=== PATIENT | female | born 1970 | race Caucasian/White ===

== ENCOUNTER → 2017-09-29 09:26 | Outpatient (CLI) | payer SELFPAY ==
[2017-09-29 10:39] LABS: Basophils % 0.5 % (0.1-2.0); Eosinophils # 0.1 K/mm3 (0.0-0.4); Eosinophils % 1.3 % (0.1-12.0); Hematocrit 43.2 % (37.0-47.0); Hemoglobin 13.9 g/dL (12.2-16.2); Lymphocytes # 1.2 K/mm3 (0.7-4.5); Lymphocytes % 16.4 K/mm3 (10-50); Mean Corpuscular HGB Conc 32.3 g/dL (31.8-35.4); Mean Platelet Volume 7.5 fl (7.4-10.4); Monocytes # 0.5 K/mm3 (0.1-1.0); Monocytes % 6.4 % (1.7-9.3); Neutrophils # 5.7 K/mm3 (1.8-7.8); Neutrophils % 75.5 % (37.0-80.0); Platelet Count 325 K/mm3 (142-424); Red Blood Count 4.65 M/mm3 (4.20-5.40); Red Cell Distribution Width 12.4 % (11.5-17.5); White Blood Count 7.5 K/mm3 (4.8-10.8)
--- NOTE | 2017-09-29 12:28 | XR_ITS ---
XR chest 2V HISTORY: ITS.REASON: COUGH ORDERING PHYSICIAN: Moses Joe MD PATIENT AGE: 47 years COMPARISON: FINDINGS: The cardiomediastinal silhouette and pulmonary vascularity are within normal limits. The lungs are clear without infiltrates, suspicious nodules, or pleural effusions. There is evidence of old granulomatous disease No acute bony abnormalities. IMPRESSION: Negative chest, no acute finding
[2017-09-29 12:37] LABS: Alanine Aminotransferase 22 U/L (12-78); Albumin Level 3.6 gm/dL (3.4-5.0); Albumin/Globulin Ratio 1.2 (1.1-1.8); Alkaline Phosphatase 79 U/L (46-116); Anion Gap 13.2 mEq/L (5-15); Aspartate Amino Transferase 15 U/L (15-37); Bilirubin,Total 0.5 mg/dL (0.2-1.0); Blood Urea Nitrogen 16 mg/dL (7-18); Calcium 8.9 mg/dL (8.5-10.1); Carbon Dioxide 27 mmol/L (21.0-32.0); Chloride 107 mmol/L (98-107); Cholesterol 182 mg/dL (140-200); Creatinine,Serum 0.84 mg/dL (0.55-1.02); Estimated Glomerular Filt Rate 73 ml/min (>60); GFR (African American) 88 ML/MIN (>60); Globulin 3.1 gm/dl (1.3-3.2); Glucose 93 mg/dL (74-106); Potassium 4.2 mmoL/L (3.5-5.1); Sodium 143 mmol/L (136-145); Thyroid Stimulating Hormone 1.01 uIU/ml (0.358-3.740); Total Protein,Serum 6.7 gm/dL (6.4-8.2)
[2017-09-29 12:45] LABS: Chol/HDL Ratio 3.3 (1-3.5); HDL Cholesterol 56 mg/dL (29-89); LDL Cholesterol 112 mg/dL (0-130); T4 (Thyroxine) 6.1 ug/dl (4.7-13.3); Triglycerides 70 mg/dL (30-200); Triiodothryronine (T3) Uptake 32 % (31-39); VLDL Cholesterol 14 mg/dL (0-40)
[2017-09-30 13:52] LABS: Estradiol 223.8 pg/mL (.); FSH 34.6 mIU/mL (.); LH 92.8 mIU/mL (.)
[2017-10-02 06:27] LABS: Testosterone,Free 0.8 pg/mL (0.0-4.2); Vitamin B12 382 pg/mL (232-1245)
[2017-10-04 15:14] LABS: Testosterone, Total, LC/MS 22.2 ng/dL (.)
== END ==
PROVIDERS: Visit Provider Nurse Practitioner Obstetrics & Gynecology
DX: R05 Cough (principal)
CPT/HCPCS: 36415; 71046; 80053; 80061; 82607; 82670; 83001; 83002; 84402; 84403; 84436; 84443; 84479; 85025

== ENCOUNTER → 2017-10-05 16:09 | Outpatient (CLI) | payer OTHER, SELFPAY ==
--- NOTE | 2017-10-05 16:11 | MM_ITS ---
MM Dig screening mamm BI w/CAD CAD Screening ORDERING PHYSICIAN : Moses Joe MD PATIENT AGE: 47 years GENDER: Female HISTORY : No hormones no new complaints. Previous benign excisional biopsy left breast. Family history. Sister with breast cancer age 50. COMPARISON: Prior studies have been purged, as per [facility] administrative guidelines.. TECHNIQUE: Standard CC and MLO images were obtained. R2 CAD reviewed. FINDINGS: Moderate density Scattered fibroglandular tissue dense breast tissue bilaterally.. RIGHT BREAST:Areas of dense tissue on one view dissipates on another. No dominant mass nor suspicious calcifications on right. Follow-up in one year on right adequate. LEFT BREAST:. 8mm rounded density at the deep medial left breast., Best seen on cc view and likely resides towards inferior breast on MLO view towards, near intramammary fold. Recommend spot 90 degree, MLO and cc views with subsequent ultrasound for this discrete appearing nodular density. Scar towards upper-outer quadrant from previous biopsy. IMPRESSION: 1. Prior films of been purged as directed by Hospital established guidelines 2. Left breast. Recommend spot views and ultrasound to further evaluate nodule at the deep left breast. This 8 mm slightly lobulated round density best seen on cc view., Likely inferiorly positioned. Recommend spot views and ultrasound to further evaluate. 3. Right breast. Areas of dense glandular tissue but follow-up in one year adequate and recommended. BI-RADS Category: 0 Need Additional Imaging Evaluaiton. RECOMMENDED FOLLOW-UP: IMM - IMMEDIATE FOLLOW-UP RECOMMENDED Spot views and ultrasound left breast (A letter has been sent to the patient regarding results of the study.)
== END ==
PROVIDERS: Family Provider Internal Medicine Adolescent Medicine; PCP Internal Medicine Adolescent Medicine; Visit Provider Nurse Practitioner Obstetrics & Gynecology
DX: Z12.39 Encounter for other screening for malignant neoplasm of breast (principal)
CPT/HCPCS: 77067

== ENCOUNTER → 2018-09-08 11:17 | Outpatient (CLI) | payer OTHER, SELFPAY ==
--- NOTE | 2018-09-08 11:28 | CT_ITS ---
CT abdomen pelvis wo con INDICATION: Technologis history t states left flank pain; order states right flank pain ITS.REASON: HEMATURIA,ABD CRAMPING,RT FLANK PAIN ORDERING PHYSICIAN: Juarez Kothari MD PATIENT AGE: 48 years COMPARISON: April 2018 CT abdomen pelvis with contrast TECHNIQUE: No oral nor IV contrast utilized. Axial images obtained with sagittal and coronal reformats. All CT scans at the facility use one or more dose reduction, viz: automated exposure control, ma/kV adjustment per patient size (including targeted exams where dose is matched to indication, i.e. head), or iterative reconstruction technique. FINDINGS: Lung bases. No active disease Abdomen/pelvis. Lack of oral and IV contrast decreases sensitivity. Liver, spleen, pancreas adrenals unremarkable Gallbladder. No calcifications. No wall thickening no biliary ductal dilatation . TRACT No obstruction. No hydronephrosis. No ureteral dilatation Right kidney. Small less than 3 mm calculus at anterior upper pole right kidney. Nonobstructive. Period Left kidney. Unremarkable. Ureters normal in course and caliber no dilatation no calculi along either ureter. Numerous phleboliths at the pelvic basin match previous study from 2017 PELVIS. Urinary bladder unremarkable. The uterus retroverted upper normal size. No adnexal masses. GI TRACT. No free fluid nor free air abdomen or pelvis. No focal inflammatory change. Low-lying cecum generous stool at cecum & right colon with increased gas at the transverse colon but no wall thickening descending colon. The appendix is normal and visualized. Small bowel unremarkable. Stomach upper normal wall thickness due to his lack of distention. Small fat-containing umbilical hernia similar to previous study. No bowel loops nor inflammation here OSSEOUS. No significant appearing findings. Mild dextrocurvature of lumbar spine again noted. Degenerative disc space narrowing L5/S1 with mild diffuse disc bulge. IMPRESSION: 1. No urinary tract obstruction Specifically neither ureter shows no calculi nor dilatation . Numerous phleboliths pelvic basin again noted. 2. Nonobstructive calculus Right kidney 2.5 mm -Upper pole right kidney.. 3.. Low-lying cecum with generous stool in cecum and throughout the right colon. Generous gas along transverse colon.
== END ==
PROVIDERS: PCP Internal Medicine Adolescent Medicine; Visit Provider Internal Medicine Adolescent Medicine
DX: R31.0 Gross hematuria (principal); R10.9 Unspecified abdominal pain
CPT/HCPCS: 74176

== ENCOUNTER 2018-10-20 03:04 | Observation (INO) ==
[2018-10-20 03:25] LABS: Basophils % 0.5 % (0.1-2.0); Eosinophils # 0.2 K/mm3 (0.0-0.4); Eosinophils % 2.9 % (0.1-12.0); Hematocrit 38.2 % (37.0-47.0); Hemoglobin 13.1 g/dL (12.2-16.2); Lymphocytes # 2.9 K/mm3 (0.7-4.5); Lymphocytes % 38.4 % (10-50); Mean Corpuscular HGB Conc 34.4 g/dL (31.8-35.4); Mean Corpuscular Hemoglobin 31.2 pg (27.0-31.2); Mean Corpuscular Volume 90.8 fl (81-99); Monocytes # 0.4 K/mm3 (0.1-1.0); Monocytes % 5.2 % (1.7-9.3); Platelet Count 284 K/mm3 (142-424); Red Cell Distribution Width 12.5 % (11.5-17.5); White Blood Count 7.5 K/mm3 (4.8-10.8)
[2018-10-20 03:50] LABS: Alanine Aminotransferase 25 U/L (12-78); Alkaline Phosphatase 61 U/L (46-116); Anion Gap 13.1 mEq/L (5-15); Aspartate Amino Transferase 13 U/L (15-37); Bilirubin,Direct 0.1 mg/dL (0.0-0.2); Bilirubin,Indirect 0.1 mg/dL (0.0-0.9); Bilirubin,Total 0.2 mg/dL (0.2-1.0); Blood Urea Nitrogen 18 mg/dL (7-18); Calcium 7.9 mg/dL (8.5-10.1); Carbon Dioxide 24 mmol/L (21.0-32.0); Chloride 107 mmol/L (98-107); Glucose 121 mg/dL (74-106); Potassium 4.1 mmoL/L (3.5-5.1); Sodium 140 mmol/L (136-145); Total Protein,Serum 6.3 gm/dL (6.4-8.2)
[2018-10-20 03:57] LABS: C-Reactive Protein < 0.2 mg/L (0.0-0.9)
--- NOTE | 2018-10-20 04:44 | Emergency Department Note ---
ED Disposition Clinical Impression: Elevated TSH Chest pain Qualifiers: Chest pain type: precordial pain Qualified Code(s): R07.2 - Precordial pain Disposition: Admitted as Observation Condition on Discharge: Good - Critical Care Critical Care Time: No Attestation: On 10/20/18, the high probability of a clinically significant, sudden or life threatening deterioration of the following system(s) required my full and direct attention, intervention and personal management. The time I documented below is in addition to time spent performing reported procedures but includes the following listed in this critical care notation. Medical Decision Making - Medical Records Medical records reviewed: Yes: I reviewed the patient's medical records. - Shorty Inquiry Pt receiving controlled substance: No Vital Signs: 10/20/18 03:04 10/20/18 04:04 10/20/18 04:30 Temperature 98.2 F Temperature Source Oral Pulse Rate [Right] 65 65 58 L Respiratory Rate 20 20 20 Blood Pressure [Right Arm] 150/57 H 115/75 114/75 Blood Pressure Mean [Right Arm] 88 88 88 02 Sat by Pulse Oximetry 99 97 99 Oxygen Delivery Method Room Air - Lab Data Lab results reviewed: Yes: I reviewed the patient's lab results. Lab Results 10/20/18 03:20: WBC 7.5, RBC 4.20, Hgb 13.1, Hct 38.2, MCV 90.8, MCH 31.2, MCHC 34.4, RDW 12.5, Plt Count 284, MPV 7.0 L, Neut % (Auto) 53.0, Lymph % (Auto) 38.4, [place] % (Auto) 5.2, Eos % (Auto) 2.9, Baso % (Auto) 0.5, Neut # (Auto) 4.0, Lymph # (Auto) 2.9, [place] # (Auto) 0.4, Eos # (Auto) 0.2, Baso # (Auto) 0.0 10/20/18 03:20: Sodium 140, Potassium 4.1, Chloride 107, Carbon Dioxide 24, Anion Gap 13.1, BUN 18, Creatinine 0.91, Estimated Creat Clear 88, Estimated GFR 66, Est GFR ( Amer) 80, Glucose 121 H, Calcium 7.9 L, Total Bilirubin 0.2, Direct Bilirubin 0.1, Indirect Bilirubin 0.1, AST 13 L, ALT 25, Alkaline Phosphatase 61, Troponin I 0.02, C-Reactive Protein < 0.2, Total Protein 6.3 L, Albumin 3.0 L, TSH 7.20 H D, Thyroxine (T4) 9.2 10/20/18 03:20: ESR 19 10/20/18 03:20: Lipase 137 Result diagrams: 10/20/18 03:20 10/20/18 03:20 Orders (Tests/Meds): ED MEDICATIONS Generic Name Dose Route Start Last Admin Trade Name Freq PRN Reason Stop Dose Admin Sodium Chloride 1,000 mls @ 999 mls/hr 10/20/18 03:15 10/20/18 03:31 Sod Chlor 0.9% 1000ml Bag IV 10/20/18 04:15 999 mls/hr .[id number] ROBBIN Administration Discontinued Medications Generic Name Dose Route Start Last Admin Trade Name Freq PRN Reason Stop Dose Admin Aspirin 324 mg 10/20/18 03:08 10/20/18 03:31 Aspirin 81mg Chewable Tablet PO 10/20/18 03:09 324 mg ONCE ONE Administration Famotidine 20 mg 10/20/18 03:54 10/20/18 04:03 Pepcid 20mg/2ml Vial IV 10/20/18 03:55 20 mg ONCE ONE Administration Metoclopramide HCl 10 mg 10/20/18 03:54 10/20/18 04:03 Reglan 10mg/2ml Vial IVP 10/20/18 03:55 10 mg ONCE ONE Administration Nitroglycerin 0.4 mg 10/20/18 03:08 10/20/18 03:31 Nitrostat 0.4mg Sl Tablet SL 10/20/18 03:09 1 dose ONCE ONE Administration Nitroglycerin 1 gm 10/20/18 04:29 10/20/18 04:33 Nitroglycerin 1 Inch Oint Udp TD 10/20/18 04:30 1 gm ONCE ONE Administration Ondansetron HCl 4 mg 10/20/18 03:23 10/20/18 03:31 Zofran 4mg/2ml Vial IV 10/20/18 03:24 4 mg ONCE ONE Administration ORDERS Category Date Time Status CT head/brain wo con Stat Cat Scan 10/20/18 03:22 Taken XR chest 2V Stat Exams 10/20/18 03:08 Taken - Radiology Data #1 Image(s): Chest Image Reviewed: Yes I reviewed the patient's radiology image Preliminary Findings: Normal/NAD - CT Data CT Scan: Head Time Received: 04:[address] Reviewed: Yes: I have viewed the radiologist's interpretation Preliminary Findings: Normal/NAD - ECG Data Tracing #1 Normal Sinus Rhythm: Yes Ischemic changes: non-specific ST-T wave changes Chest Pain HPI - General Chief Complaint: Chest Pain Stated Complaint: chest pain Time Seen by Provider: 10/20/18 03:20 Mode of Arrival: Ambulatory Source of Information: Patient, Spouse, Medical Record Limitations: No Limitations Description of Symptoms (Recalled from ER Triage Doc. by RN): Pt states she was woken up in the middle of the night with sharp pain in her chest radiating to her back and numbness going to devang arms. Pt states she has not felt good for the last few weeks and has been very weak. Pt also states she feels like she is going to pass out. - History of Present Illness HPI narrative: pt was awaken with lower ant chest pain /epigastric pain which rad to back and upper ext - no prev episodes - no hx of gerd or cad - she has not felt well over the last few weeks -she felt dizzy also but no def palpitation MD complaint: chest pain indicative of cardiac Onset (ago): hour(s) Duration: now resolved Activity at onset: awoke with symptoms Pain location: substernal, epigastric Severity: moderate Quality: sharp Pain radiation: RUE, LUE, back Associated symptoms: nausea Risk Factors for CAD: Family Hx of CAD Treatments prior to or on arrival for Cardiac Chest Pain: none - RONALDO Score for Non-Stemi Age of Patient: 40-49 years old Heart Rate: 50-69 bpm Systolic Blood Pressure: 140-159 mmHg Serum Creatinine: 0.80-1.19 mg/dl CHF [place] Class: I-No CHF Other Risk Factors: None Non-Stemi Risk Score: 59 - Related Data On Oral Contraceptives: Yes Home Medications Medication Instructions Recorded Confirmed citalopram 40 mg tablet 40 mg PO DAILY 90 Days #90 09/12/17 10/20/18 hydrocodone 7.5 mg-acetaminophen 7.5 mg PO [id number] PRN 30 Days #120 09/12/17 10/20/18 325 mg tablet diclofenac 75 mg oral tablet delay 75 each PO DAILY each 09/28/17 10/20/18 rel-capsaicin 0.025 % topical cream famotidine 20 mg tablet 20 mg PO TID tab 09/28/17 10/20/18 Levonorgestrel-Ethin Estradiol 1 tab PO ONCE 05/05/18 10/20/18 [Levonor-Eth Estrad 0.1-0.02 mg] Allergies Allergy/AdvReac Type Severity Reaction Status Date / Time Sulfa (Sulfonamide Allergy Verified 05/03/18 11:59 Antibiotics) [facility] History - Hepatitis A Screen Drug use history?: No High risk sexual behaviors?: No History of sexually transmitted infection?: No Currently employed?: No Childcare worker?: No Do you have indoor plumbing?: Yes Do you have electricity?: Yes Attestation statement:: This patient has been screened for Hepatitis A risk factors. I have reviewed the patient's past medical history: Yes Medical History: Reports:: Depression, Gastroesophageal Reflux Disease(GERD) Denies:: Cancer, Diabetes Mellitus Type 1, Diabetes Mellitus Type 2, MRSA Comment: lypoma Laterality Cases: Left: Lumpectomy, Bilateral: Other Other Surgeries: Yes: No Previous Surgery, , Dilation and Curettage, Tubal Ligation, Other Amputation: No Comment: 1984-breast lump excision 1984. 1982-breast lump excision 1982 - Social History Smoking Status: Never smoker Alcohol Intake: never Occupational Status: employed Housing: house Household Members: family - Psychiatric History Expresses thoughts of harming self/others: None Suicide Plan Description: No Plan Pschychiatric History:: Reports:: Depression Family Hx:: Diabetes, Hypertension, Cancer [employer] history: Tubal Ligation ROS Obtained: Yes All systems reviewed & no additional complaints - Constitutional Constitutional: Denies fever(s) - Eyes Eyes: Denies change in vision - ENT Ears, Nose, Mouth, and Throat: Denies sore throat - Cardiovascular Cardiovascular: Reports as per HPI, Reports chest pain, Reports radiating jaw, neck or arm pain - Respiratory Respiratory: No cough - Gastrointestinal Gastrointestingal: Reports: nausea. Denies: abdominal pain - Genitourinary Female Genitourinary: Denies hematuria - Musculoskeletal Musculoskeletal: Denies joint pain - Integumentary/Breasts Skin/Breast: Denies rash - Neurologic Neurologic: Denies seizure-like activity Physical Exam - General General appearance: alert - Head Head exam: normocephalic - Eye Eye exam: Present: PERRL, EOMI. Absent: scleral icterus - ENT ENT exam: Present: mucous membranes moist - Neck Neck exam: Present: trachea midline - Respiratory Respiratory exam: Present: normal lung sounds bilaterally. Absent: respiratory distress - Cardiovascular Cardiovascular exam: Present: regular rate, systolic murmur. Absent: rubs, gallop - Abdominal Exam Abdominal exam: Present: soft - Extremities Exam Extremities exam: Absent: calf tenderness - Neurological Exam Neurological exam: Present: alert, oriented X3, CN II-XII intact - Psychiatric Psychiatric exam: Present: normal affect - Skin Skin exam: Absent: rash
--- NOTE | 2018-10-20 07:10 | History & Physical Report ---
*Admission Date: 10/20/18 *Chief complaint: chest pain *History of present illness: Ms. Ling is a 48-year-old female who presents with acute onset of substernal chest pain this morning that woke her from sleep. States she had an episode of stabbing numbness in the middle of her chest that referred to her left arm radiating down her arm causing distal numbness in her fingers bilaterally. The episode woke her from sleep and scared her. She denies any palpitations, nausea or vomiting, significant cardiac history. Does report she has similar episode a week ago the self resolved after 10 to 15 minutes. In the ER she was worked up for ACS. Troponins were negative, EKG normal, telemetry overnight has been normal. Has nitro paste on this morning and is chest pain free. Of note, she has a Hx of depression and anxiety. On citalopram. Has been under an increased level of physical and emotional stress over the last 2 months. No pain with exertion. Additionally, labs in ER remarkable for TSH of 7.2, increased from 1.0 a year ago. [facility] History I have reviewed the patient's past medical history: Yes Medical History: Reports:: Depression, Gastroesophageal Reflux Disease(GERD) Denies:: Cancer, Diabetes Mellitus Type 1, Diabetes Mellitus Type 2, MRSA *Have you ever received a pneumonia vaccine?: No *Have you received a flu vaccine this season?: Yes Laterality Cases: Left: Other, Bilateral: Lumpectomy Other Surgeries: Yes: No Previous Surgery, Colonoscopy, , Dilation and Curettage, Tubal Ligation, Other Amputation: No Fractures: Yes ((L) ankle) - *Social History Educational Level: Completed High School Smoking Status: Never smoker Alcohol Intake: never *Occupational Status:: employed Housing: house Household Members: family *Travel in the last 8 weeks: None - Psychiatric History Expresses thoughts of harming self/others: None Suicide Plan Description: No Plan Pschychiatric History:: Reports:: Depression Family Hx:: Diabetes, Hypertension, Cancer REGISTERED NURSE FLOAT POOL history: Tubal Ligation Review of Systems - Review of Systems Review of systems:: pertinent systems reviewed and negative unless documented below - *Neurologic Denies seizure-like activity Meds Home Medications Medication Instructions Recorded Confirmed Type citalopram 40 mg tablet 40 mg PO DAILY 90 Days #90 09/12/17 10/20/18 History hydrocodone 7.5 mg-acetaminophen 1 each PO QIDP PRN 30 Days #120 09/12/17 10/20/18 History 325 mg tablet famotidine 20 mg tablet 20 mg PO BID tab 09/28/17 10/20/18 History Levonorgestrel-Ethin Estradiol 1 tab PO DAILY 05/05/18 10/20/18 History [Levonor-Eth Estrad 0.1-0.02 mg] Diclofenac Sodium [Diclofenac 75mg 75 mg PO BID 10/20/18 10/20/18 History Tab] Allergies Allergy/AdvReac Type Severity Reaction Status Date / Time Sulfa (Sulfonamide Allergy Verified 10/20/18 05:36 Antibiotics) Exam Vital signs and Labs for Last 24 Hours: Temp Pulse Resp BP Pulse Ox 98.1 F 70 20 103/51 L 99 10/20/18 05:18 10/20/18 05:30 10/20/18 05:18 10/20/18 05:18 10/20/18 05:51 Laboratory Results - last 24 hr 10/20/18 03:20: WBC 7.5, RBC 4.20, Hgb 13.1, Hct 38.2, MCV 90.8, MCH 31.2, MCHC 34.4, RDW 12.5, Plt Count 284, MPV 7.0 L, Neut % (Auto) 53.0, Lymph % (Auto) 38.4, [place] % (Auto) 5.2, Eos % (Auto) 2.9, Baso % (Auto) 0.5, Neut # (Auto) 4.0, Lymph # (Auto) 2.9, [place] # (Auto) 0.4, Eos # (Auto) 0.2, Baso # (Auto) 0.0 10/20/18 03:20: Sodium 140, Potassium 4.1, Chloride 107, Carbon Dioxide 24, An ion Gap 13.1, BUN 18, Creatinine 0.91, Estimated Creat Clear 88, Estimated GFR 66, Est GFR ( Amer) 80, Glucose 121 H, Calcium 7.9 L, Total Bilirubin 0.2, Direct Bilirubin 0.1, Indirect Bilirubin 0.1, AST 13 L, ALT 25, Alkaline Phosphatase 61, Troponin I 0.02, C-Reactive Protein < 0.2, Total Protein 6.3 L, Albumin 3.0 L, TSH 7.20 H D, Thyroxine (T4) 9.2 10/20/18 03:20: ESR 19 10/20/18 03:20: Lipase 137 I & O for Last 24 hours: Intake & Output 10/17/18 10/18/18 10/19/18 10/20/18 23:59 23:59 23:59 23:59 Intake Total 1000 / 1000 Balance 1000 / 1000 Weight 75.523 kg - *Routine HEENT Exam Head: Present: normocephalic Eye: Present: EOMI, PERRL ENT: Present: mucous membranes moist - *Routine Neck Exam Present: supple. Absent: lymphadenopathy - *Routine Respiratory Exam Present: CTA bilaterally - *Routine Cardiovascular Exam Present: RRR - *Routine Abdominal Exam Present: soft, normoactive bowel sounds. Absent: tenderness - *Routine Extremities Exam Absent: cyanosis, clubbing, edema - *Routine Skin Exam Present: warm. Absent: rash - *Routine Neurological Exam Present: alert, oriented X3 Assessment and Plan (1) Anxiety Current visit: Yes Status: Acute Category: Medical Code(s): F41.9 - Anxiety disorder, unspecified (2) Chest pain Current visit: Yes Status: Acute Qualifiers: Chest pain type: precordial pain Qualified Code(s): R07.2 - Precordial pain Category: Medical Code(s): R07.9 - Chest pain, unspecified (3) Elevated TSH Current visit: Yes Status: Acute Category: Medical Code(s): R79.89 - Other specified abnormal findings of blood chemistry - Assessment and plan all Dx Assessment and Plan for all problems:: 48-year-old female with history anxiety who presents with anginal symptoms. Troponins overnight were normal. No changes on EKG or telemetry. Will consult cardiology due to the classic nature of chest pain symptoms. Anticipate stress test today. Further management pending stress test results. Of note thyroid function is abnormal. Elevated TSH however not at threshold to initiate treatment just yet. Currently subclinical hypothyroidism. Continue anxiety meds, may benefit from increase given recent increase in social stress. Continues to require inpatient management, pending stress test results.
[2018-10-20 07:31] LABS: Chol/HDL Ratio 4.8 (1-3.5); Cholesterol 186 mg/dL (140-200); HDL Cholesterol 39 mg/dL (29-89); LDL Cholesterol 132 mg/dL (0-130); Triglycerides 77 mg/dL (30-200); VLDL Cholesterol 15 mg/dL (0-40)
--- NOTE | 2018-10-20 09:10 | Consult Report ---
History of Present Illness Consult date: 10/20/18 Requesting physician: Eugene Cooley Consult reason: chest pain Chief complaint: chest pain Additional Medical History:: 1. Anxiety 2. Chronic back pain with chronic pain medication use 3. History of GERD History of present illness: Ms. Ling is a 48-year-old female who presents with acute onset of substernal chest pain this morning that woke her from sleep. States she had an episode of stabbing numbness in the middle of her chest that referred to her left arm radiating down her arm causing distal numbness in her fingers bilaterally. The episode woke her from sleep and scared her. She denies any palpitations, nausea or vomiting, significant cardiac history. Does report she has similar episode a week ago the self resolved after 10 to 15 minutes. In the ER she was worked up for ACS. Troponins were negative, EKG normal, telemetry overnight has been normal. Has nitro paste on this morning and is chest pain free. Of note, she has a Hx of depression and anxiety. On citalopram. Has been under an increased level of physical and emotional stress over the last 2 months. No pain with exertion. Additionally, labs in ER remarkable for TSH of 7.2, increased from 1.0 a year ago. The above per Dr. Cooley Patient denies tobacco use, diabetes, treatment for hypertension or hyperlipidemia. She relates a brother, 57, with recent bypass but he was a heav y smoker. Her sister has a history of cancer and the patient helps take care of her/transport her to medical therapy. She has another sister with history of secondary to cardiopulmonary arrest. [facility] History Medical History: Reports:: Depression, Gastroesophageal Reflux Disease(GERD) Denies:: Cancer, Diabetes Mellitus Type 1, Diabetes Mellitus Type 2, MRSA *Have you ever received a pneumonia vaccine?: No *Have you received a flu vaccine this season?: Yes Laterality Cases: Left: Other, Bilateral: Lumpectomy Other Surgeries: Yes: No Previous Surgery, Colonoscopy, , Dilation and Curettage, Tubal Ligation, Other Amputation: No Fractures: Yes ((L) ankle) - *Social History Educational Level: Completed High School Smoking Status: Never smoker Alcohol Intake: never *Occupational Status:: employed Housing: house Household Members: family *Travel in the last 8 weeks: None - Psychiatric History Expresses thoughts of harming self/others: None Suicide Plan Description: No Plan Pschychiatric History:: Reports:: Depression Family Hx:: Diabetes, Hypertension, Cancer [place] [employer] history: Tubal Ligation Meds Home Medications Medication Instructions Recorded Confirmed Type citalopram 40 mg tablet 40 mg PO DAILY 90 Days #90 09/12/17 10/20/18 History hydrocodone 7.5 mg-acetaminophen 7.5 mg PO QIDP PRN 30 Days #120 09/12/17 10/20/18 History 325 mg tablet diclofenac 75 mg oral tablet delay 75 each PO DAILY each 09/28/17 10/20/18 History rel-capsaicin 0.025 % topical cream famotidine 20 mg tablet 20 mg PO BID tab 09/28/17 10/20/18 History Levonorgestrel-Ethin Estradiol 1 tab PO ONCE 05/05/18 10/20/18 History [Levonor-Eth Estrad 0.1-0.02 mg] Allergies Allergy/AdvReac Type Severity Reaction Status Date / Time Sulfa (Sulfonamide Allergy Verified 10/20/18 05:36 Antibiotics) Review of Systems - *Cardiovascular Reports chest pain, Denies shortness of breath - *Respiratory Denies cough, Denies shortness of breath - *Gastrointestinal Denies abdominal pain, Denies nausea, Denies vomiting - *Genitourinary Denies blood in urine - *Musculoskeletal Reports joint pain, Reports back pain - *Neurologic Denies seizure-like activity, Denies tingling Exam Vital signs and Labs for Last 24 Hours: Temp Pulse Resp BP Pulse Ox 98.1 F 70 20 103/51 L 99 10/20/18 05:18 10/20/18 05:30 10/20/18 05:18 10/20/18 05:18 10/20/18 05:51 Laboratory Results - last 24 hr 10/20/18 03:20: WBC 7.5, RBC 4.20, Hgb 13.1, Hct 38.2, MCV 90.8, MCH 31.2, MCHC 34.4, RDW 12.5, Plt Count 284, MPV 7.0 L, Neut % (Auto) 53.0, Lymph % (Auto) 38.4, [place] % (Auto) 5.2, Eos % (Auto) 2.9, Baso % (Auto) 0.5, Neut # (Auto) 4.0, Lymph # (Auto) 2.9, [place] # (Auto) 0.4, Eos # (Auto) 0.2, Baso # (Auto) 0.0 10/20/18 03:20: Sodium 140, Potassium 4.1, Chloride 107, Carbon Dioxide 24, Anion Gap 13.1, BUN 18, Creatinine 0.91, Estimated Creat Clear 88, Estimated GFR 66, Est GFR ( Amer) 80, Glucose 121 H, Calcium 7.9 L, Total Bilirubin 0.2, Direct Bilirubin 0.1, Indirect Bilirubin 0.1, AST 13 L, ALT 25, Alkaline Phosphatase 61, Troponin I 0.02, C-Reactive Protein < 0.2, Total Protein 6.3 L, Albumin 3.0 L, TSH 7.20 H D, Thyroxine (T4) 9.2 10/20/18 03:20: ESR 19 10/20/18 03:20: Lipase 137 10/20/18 05:55: Magnesium 1.9, Troponin I < 0.02, Triglycerides 77, Cholesterol 186, LDL Cholesterol 132 H, VLDL Cholesterol 15, HDL Cholesterol 39, Cholesterol/HDL Ratio 4.8 H I & O for Last 24 hours: Intake & Output 10/17/18 10/18/18 10/19/18 10/20/18 11:59 11:59 11:59 11:59 Intake Total 1000 / 1000 Balance 1000 / 1000 Weight 166 lb 8 oz - *Routine HEENT Exam Head: Present: normocephalic Eye: Present: EOMI, PERRL ENT: Present: mucous membranes moist - *Routine Neck Exam Present: supple. Absent: JVD, carotid bruit - *Routine Respiratory Exam Present: CTA bilaterally. Absent: accessory muscle use, rales, rhonchi, wheezes - *Routine Cardiovascular Exam Present: RRR. Absent: murmur, gallop, rubs - *Routine Abdominal Exam Present: soft. Absent: tenderness, distended, guarding - *Routine Extremities Exam Absent: edema, calf tenderness - *Routine Neurological Exam Present: alert, oriented X3, moving all extremities Assessment and Plan (1) Anxiety Current visit: Yes Status: Acute Category: Medical Code(s): F41.9 - Anxiety disorder, unspecified (2) Chronic pain disorder Current visit: Yes Status: Acute Category: Medical Code(s): G89.4 - Chronic pain syndrome (3) Chest pain Current visit: Yes Status: Acute Qualifiers: Chest pain type: precordial pain Qualified Code(s): R07.2 - Precordial pain Category: Medical Code(s): R07.9 - Chest pain, unspecified (4) Elevated TSH Current visit: Yes Status: Acute Category: Medical Code(s): R79.89 - Other specified abnormal findings of blood chemistry - Assessment and plan all Dx Assessment and Plan for all problems:: 1. Chest pain with normal EKG, normal troponins and normal echocardiogram. Recommend proceeding with routine exercise stress test today and if unremarkable then patient could be discharged home. 2. Strongly encouraged development of ways to deal with anxiety and stress.
--- NOTE | 2018-10-20 09:44 | Pharmacy Consult Notes ---
[facility] Pharmacy VTE Monitoring - Patient Demographics Admission date: 10/20/18 Report Date: 10/20/18 Time: 09:44 Allergies/Adverse Reactions: Patient Allergies Sulfa (Sulfonamide Antibiotics) Allergy (Verified 10/20/18 05:36) Height: 1.57 m Weight: 75.523 kg Patient Problems: Current Active Problems (Updated 10/20/18 @ 09:13 by JUWAN Christie) Chest pain (Acute) Elevated TSH (Acute) Anxiety (Acute) Chronic pain disorder (Acute) - VTE Risk Labs: VTE Related Lab Results Hgb 13.1 g/dL (12.2-16.2) 10/20/18 03:20 Hct 38.2 % (37.0-47.0) 10/20/18 03:20 Plt Count 284 K/mm3 (142-424) 10/20/18 03:20 BUN 18 mg/dL (7-18) 10/20/18 03:20 Creatinine 0.91 mg/dL (0.55-1.02) 10/20/18 03:20 Estimated Creat Clear 88 mL/min (50-200) 10/20/18 03:20 Was VTE Risk Assessment Performed: No VTE Score: 5 VTE Risk Level: Low Risk - Prophylaxis VTE Prophylaxis Ordered?: Yes Types of VTE Prophylaxis: TEDS Knee High Location of Applied Device: Bilateral Lower Extremeties - VTE Diagnosis Confirmed Treatment or plan recommended: Continue Current Treatment
--- NOTE | 2018-10-20 16:19 | Discharge Summary ---
General - General Admission date:: 10/20/18 <Juarez Kothari - 10/21/18 07:45> 10/20/18 <Eugene Cooley - 10/20/18 16:18> Discharge date: 10/20/18 <LenoraEugene - 10/20/18 16:18> HPI HPI: Ms. Ling is a 48-year-old female who presents with acute onset of substernal chest pain this morning that woke her from sleep. States she had an episode of stabbing numbness in the middle of her chest that referred to her left arm radiating down her arm causing distal numbness in her fingers bilaterally. The episode woke her from sleep and scared her. She denies any palpitations, nausea or vomiting, significant cardiac history. Does report she has similar episode a week ago the self resolved after 10 to 15 minutes. In the ER she was worked up for ACS. Troponins were negative, EKG normal, telemetry overnight has been normal. Has nitro paste on this morning and is chest pain free. Of note, she has a Hx of depression and anxiety. On citalopram. Has been under an increased level of physical and emotional stress over the last 2 months. No pain with exertion. Additionally, labs in ER remarkable for TSH of 7.2, increased from 1.0 a year ago. <LenoraEugene schroeder - 10/20/18 16:18> Hospital Course Hospital Course: Patient was admitted, given her failed stress test she was subjected to left heart cath which fortunately showed normal coronaries and normal cardiac function. Her chest pain continued but was ameliorated over the evening and throughout the night hours by a GI cocktail. She continued to have some gas with flatulence but this improved. This morning she feels much better, has eaten breakfast, and wishes to be discharged home. <Juarez Kothari - 10/21/18 07:45> Objective Vital signs: Temp Pulse Resp BP Pulse Ox 97.9 F 74 18 111/47 L 96 10/21/18 04:00 10/21/18 04:00 10/21/18 04:00 10/21/18 04:00 10/21/18 04:00 <Juarez Kothari - 10/21/18 07:45> Temp Pulse Resp BP Pulse Ox 98.4 F 78 20 129/68 99 10/20/18 12:00 10/20/18 16:15 10/20/18 16:15 10/20/18 16:15 10/20/18 16:15 <Eugene Cooley - 10/20/18 16:18> Narrative: Alert, awake, oriented x3. Lungs clear. Oropharynx clear. Heart rate regular without murmurs. Abdomen soft, minimal epigastric tenderness. No edema or clubbing or cyanosis, no neurologic deficits. <Juarez Kothari - 10/21/18 07:45> Results Labs on day of discharge: Labs from last 24 hours 10/21/18 10/21/18 10/20/18 05:45 05:45 11:00 WBC 7.8 RBC 3.88 L Hgb 11.9 L Hct 35.3 L MCV 91.1 MCH 30.7 MCHC 33.7 RDW 12.6 Plt Count 248 MPV 7.4 Neut % (Auto) 64.7 Lymph % (Auto) 27.8 [place] % (Auto) 5.3 Eos % (Auto) 1.8 Baso % (Auto) 0.5 Neut # (Auto) 5.0 Lymph # (Auto) 2.2 [place] # (Auto) 0.4 Eos # (Auto) 0.1 Baso # (Auto) 0.0 Sodium 144 Potassium 4.2 Chloride 110 H Carbon Dioxide 26 Anion Gap 12.2 BUN 12 D Creatinine 1.01 Estimated Creat Clear 83 Estimated GFR 59 Est GFR ( Amer) 71 Glucose 89 Calcium 7.8 L Total Bilirubin 0.4 AST 31 D ALT 24 Alkaline Phosphatase 57 Troponin I 0.03 Total Protein 5.5 L Albumin 2.8 L Globulin 2.7 Albumin/Globulin Ratio 1.0 L <Juarez Kothari - 10/21/18 07:45> Labs from last 24 hours 10/20/18 10/20/18 10/20/18 11:00 05:55 03:20 WBC RBC Hgb Hct MCV MCH MCHC RDW Plt Count MPV Neut % (Auto) Lymph % (Auto) [place] % (Auto) Eos % (Auto) Baso % (Auto) Neut # (Auto) Lymph # (Auto) [place] # (Auto) Eos # (Auto) Baso # (Auto) ESR Sodium Potassium Chloride Carbon Dioxide Anion Gap BUN Creatinine Estimated Creat Clear Estimated GFR Est GFR ( Amer) Glucose Calcium Magnesium 1.9 Total Bilirubin Direct Bilirubin Indirect Bilirubin AST ALT Alkaline Phosphatase Troponin I 0.03 < 0.02 C-Reactive Protein Total Protein Albumin Triglycerides 77 Cholesterol 186 LDL Cholesterol 132 H VLDL Cholesterol 15 HDL Cholesterol 39 Cholesterol/HDL Ratio 4.8 H Lipase 137 TSH Thyroxine (T4) 10/20/18 10/20/18 10/20/18 03:20 03:20 03:20 WBC 7.5 RBC 4.20 Hgb 13.1 Hct 38.2 MCV 90.8 MCH 31.2 MCHC 34.4 RDW 12.5 Plt Count 284 MPV 7.0 L Neut % (Auto) 53.0 Lymph % (Auto) 38.4 [place] % (Auto) 5.2 Eos % (Auto) 2.9 Baso % (Auto) 0.5 Neut # (Auto) 4.0 Lymph # (Auto) 2.9 [place] # (Auto) 0.4 Eos # (Auto) 0.2 Baso # (Auto) 0.0 ESR 19 Sodium 140 Potassium 4.1 Chloride 107 Carbon Dioxide 24 Anion Gap 13.1 BUN 18 Creatinine 0.91 Estimated Creat Clear 88 Estimated GFR 66 Est GFR ( Amer) 80 Glucose 121 H Calcium 7.9 L Magnesium Total Bilirubin 0.2 Direct Bilirubin 0.1 Indirect Bilirubin 0.1 AST 13 L ALT 25 Alkaline Phosphatase 61 Troponin I 0.02 C-Reactive Protein < 0.2 Total Protein 6.3 L Albumin 3.0 L Triglycerides Cholesterol LDL Cholesterol VLDL Cholesterol HDL Cholesterol Cholesterol/HDL Ratio Lipase TSH 7.20 H D Thyroxine (T4) 9.2 <Eugene Cooley - 10/20/18 16:18> DS: Diagnosis - Discharge Diagnosis (1) Anxiety Status: Acute (2) Chest pain Status: Acute (3) Elevated TSH Status: Acute <Eugene Cooley - 10/20/18 16:18> (1) Anxiety Status: Chronic (2) Chest pain Status: Resolved (3) Elevated TSH Status: Chronic (4) Epigastric pain Status: Acute <Juarez Kothari - 10/21/18 07:45> Discharge Plan - Patient Discharge Instructions ACTIVITY: Continue current activity <Juarez Kothari - 10/21/18 07:45> DIET: continue same diet <Juarez Kothari 10/21/18 07:45> Patient Instructions: Angina, DI for Angina <Juarez Kothari - 10/21/18 07:45> Forms: <Juarez Kothari - 10/21/18 07:45> - Follow up Plan Follow up with: Eugene Cooley MD [Staff Physician] - 10/23/18 11:00 am <Juarez Kothari - 10/21/18 07:45> Disposition: Home, Self-Care <Juarez Kothari - 10/21/18 07:45> Home Medications: Home Medications Medication Instructions Recorded Confirmed Type citalopram 40 mg tablet 40 mg PO DAILY 90 Days #90 09/12/17 10/20/18 History hydrocodone 7.5 mg-acetaminophen 1 each PO QIDP PRN 30 Days #120 09/12/17 History 325 mg tablet famotidine 20 mg tablet 20 mg PO BID tab 09/28/17 10/20/18 History Levonorgestrel-Ethin Estradiol 1 tab PO DAILY 05/05/18 10/20/18 History [Levonor-Eth Estrad 0.1-0.02 mg] Diclofenac Sodium [Diclofenac 75mg 75 mg PO BID 10/20/18 10/20/18 History Tab] Celecoxib [Celebrex 200mg cap] 200 mg PO DAILY #30 cap 10/21/18 Rx Pantoprazole Sodium [Protonix 40mg 40 mg PO BID 30 Days #60 tab 10/21/18 Rx tablet] <Juarez Kothari - 10/21/18 07:45> Prescriptions/Medication Reconciliation: New Pantoprazole Sodium [Protonix 40mg tablet] 40 mg PO BID 30 Days #60 tab Celecoxib [Celebrex 200mg cap] 200 mg PO DAILY #30 cap Continued hydrocodone 7.5 mg-acetaminophen 325 mg tablet 1 each PO QIDP PRN 30 Days #120 PRN Reason: pain famotidine 20 mg tablet 20 mg PO BID tab citalopram 40 mg tablet 40 mg PO DAILY 90 Days #90 Levonorgestrel-Ethin Estradiol [Levonor-Eth Estrad 0.1-0.02 mg] 1 tab PO DAILY Discontinued Diclofenac Sodium [Diclofenac 75mg Tab] 75 mg PO BID <Juarez Kothari - 10/21/18 07:45>
--- NOTE | 2018-10-20 18:06 | Cardiology Report ---
PROCEDURE: 2-D M-mode and color Doppler study INDICATIONS FOR THE TEST: Chest pain X COPD Heart Murmur Tobacco Smoking Palpitations Fatigue Syncope Edema Hypertension Diabetes Mellitus Rheumatic Fever SOB CARDONA Obesity Hyperlipidemia Family History HD Additional History PATIENT INFORMATION HEIGHT: 62 WEIGHT:160 GENDER: Female B/P:114/75 2-D/M-MODE INTERPRETATION: 2-D MEASUREMENTS OBSERVED VALUES IN CMS Right Ventricular Dimension (RVDd) 1.6 Interventricular Septum (Thickness)(IVsd) .7 Left Ventricular Internal Dimensions(LVIDd) 4.9 Left Ventricular Posterior Wall (Thickness)(LVPWd) .7 Aortic Root 2.9 Aortic Cusp Separation 1.6 Left Atrial Dimensions (LAD) 2.8 2D 1. Left atrium is normal size, left ventricle is normal size, there is no concentric left ventricular hypertrophy, visually estimated ejection fraction 55% with no regional wall motion. 2. The right atrium and right ventricle are normal size and contractility. 3. The aortic, mitral and tricuspid valvular grossly normal. 4. The pulmonic valve is poorly visualized. 5. No significant pericardial effusion noted. DOPPLER INTERROGATION: Doppler interrogation of the aortic, mitral and tricuspid valvular presence of mild mitral and tricuspid regurgitation, tricuspid regurgitation jet velocity is inadequate for calculation of the right ventricular systolic pressure, diastolic parameters are within normal range. CONCLUSION: 1. Normal left ventricular size, preserved left ventricular systolic function, visually fraction of 55% with no regional wall motion abnormality, diastolic parameters are within normal range. 2. Mild mitral and tricuspid regurgitation 3. No significant pericardial effusion noted, inferior vena cava is normal size with normal inspiratory collapse.
[2018-10-21 06:14] LABS: Basophils % 0.5 % (0.1-2.0); Eosinophils # 0.1 K/mm3 (0.0-0.4); Eosinophils % 1.8 % (0.1-12.0); Hematocrit 35.3 % (37.0-47.0); Hemoglobin 11.9 g/dL (12.2-16.2); Lymphocytes # 2.2 K/mm3 (0.7-4.5); Lymphocytes % 27.8 % (10-50); Mean Corpuscular HGB Conc 33.7 g/dL (31.8-35.4); Mean Corpuscular Hemoglobin 30.7 pg (27.0-31.2); Mean Corpuscular Volume 91.1 fl (81-99); Mean Platelet Volume 7.4 fl (7.4-10.4); Monocytes # 0.4 K/mm3 (0.1-1.0); Monocytes % 5.3 % (1.7-9.3); Neutrophils % 64.7 % (37.0-80.0); Platelet Count 248 K/mm3 (142-424); Red Blood Count 3.88 M/mm3 (4.20-5.40); Red Cell Distribution Width 12.6 % (11.5-17.5); White Blood Count 7.8 K/mm3 (4.8-10.8)
[2018-10-21 06:47] LABS: Albumin Level 2.8 gm/dL (3.4-5.0); Anion Gap 12.2 mEq/L (5-15); Bilirubin,Total 0.4 mg/dL (0.2-1.0); Calcium 7.8 mg/dL (8.5-10.1); Globulin 2.7 gm/dl (1.3-3.2); Potassium 4.2 mmoL/L (3.5-5.1); Total Protein,Serum 5.5 gm/dL (6.4-8.2)
== END 2018-10-21 08:47 | disposition home or self-care (01) ==
LOC: ER 03:04 → 2ND 03:04
PROVIDERS: ADMIT Internal Medicine Adolescent Medicine; ATTEND Internal Medicine Adolescent Medicine
DX: K21.9 Gastro-esophageal reflux disease without esophagitis; Z88.2 Allergy status to sulfonamides; M54.9 Dorsalgia, unspecified; R79.89 Other specified abnormal findings of blood chemistry; R53.1 Weakness; R07.9 Chest pain, unspecified; G89.4 Chronic pain syndrome; F41.9 Anxiety disorder, unspecified; Z79.899 Other long term (current) drug therapy; R42 Dizziness and giddiness; R10.13 Epigastric pain; Z73.3 Stress, not elsewhere classified
CPT/HCPCS: 36415; 70450; 71020; 71046; 80048; 80053; 80061; 80076; 83690; 83735; 84436; 84443; 84484; 85025; 85651; 86140; 93005; 93017; 93306; 93458; 96365; 96375; 99152; 99284; C1725; C1769; G0378; J1644; J2405; Q9967

== ENCOUNTER → 2018-11-02 08:31 | Outpatient (CLI) | payer OTHER, SELFPAY ==
--- NOTE | 2018-11-02 08:33 | US_ITS ---
US gallbladder HISTORY: Right upper quadrant pain radiating to the back with decreased appetite ITS.REASON: abdominal pain, nausea and vomiting ORDERING PHYSICIAN: Karan Lora MD PATIENT AGE: 48 years Comparison: None FINDINGS: PANCREAS: Unremarkable. No obvious mass or abnormal fluid collection. No ductal dilatation LIVER: No focal liver lesions demonstrated. Homogeneous echogenicity. No intrahepatic biliary ductal dilatation evident RIGHT KIDNEY: Unremarkable. Normal size and echogenicity. No hydronephrosis GALLBLADDER: No gallstones, gallbladder wall thickening, pericholecystic fluid, or biliary dilatation. There is a small amount of sludge noted in the gallbladder. This is of questioned clinical significance. IMPRESSION: No gallstones. There is a small amount of sludge in the gallbladder which is of uncertain clinical significance.
--- NOTE | 2018-11-02 08:33 | FL_ITS ---
FL upper GI small bowel HISTORY: ITS.REASON: abdominal pain,nausea and vomitting ORDERING PHYSICIAN: Karan Lora MD PATIENT AGE: 48 years Comparison: None FINDINGS: The esophagus, stomach, and duodenum have an unremarkable appearance. There is no evidence of hiatal hernia. No ulcer or mass evident. No mucosal abnormalities apparent. There is normal peristalsis. The duodenal C-loop is nondisplaced. Small bowel has an unremarkable appearance. No obstructive lesions. No mass or mucosal abnormality. FLUOROSCOPY TIME : 4 minutes and 19 seconds. IMPRESSION: Unremarkable upper GI with small bowel follow-through
== END ==
PROVIDERS: PCP Internal Medicine Adolescent Medicine; Visit Provider Surgery
DX: K82.9 Disease of gallbladder, unspecified (principal); R10.9 Unspecified abdominal pain; R11.2 Nausea with vomiting, unspecified
CPT/HCPCS: 74245; 76705

== ENCOUNTER → 2018-11-27 10:18 | Outpatient (CLI) | payer OTHER, SELFPAY ==
--- NOTE | 2018-11-27 10:19 | NM_ITS ---
NM hepatobiliary w pharm HISTORY: Abdominal pain, right upper quadrant pain, gallbladder sludge ITS.REASON: abdominal pain ORDERING PHYSICIAN: Karan Lora MD PATIENT AGE: 48 years COMPARISON: 11/02/2018 DOSE: 8.4 mCi technetium Choletec and 1.4 mcg of CCK. No pain reported with CCK infusion FINDINGS: Homogeneous activity is present within the hepatic parenchyma. Activity is present in the gallbladder by 10 minutes. Activity is present in the small bowel by 30 minutes. The gallbladder ejection fraction is calculated to be 80% which is normal The patient did not report pain or other symptoms during CCK infusion. IMPRESSION: Unremarkable hepatobiliary scan and gallbladder ejection fraction. No evidence of common or cystic duct obstruction with normal gallbladder ejection fraction
--- NOTE | 2018-11-27 10:35 | HMH.ITSHM ---
Current Home Medications as stated by this patient Jodie Ling or litigation claim representative. []PROTONIX HYDROCODONE CITALOPRAM FAMOTIDINE ESTRADIOL CELEBREX
== END ==
PROVIDERS: PCP Internal Medicine Adolescent Medicine; Visit Provider Surgery
DX: R10.9 Unspecified abdominal pain (principal); R11.2 Nausea with vomiting, unspecified; R14.0 Abdominal distension (gaseous)
CPT/HCPCS: 78227; A9537; J2805

== ENCOUNTER → 2019-01-15 16:19 | Outpatient (CLI) | payer OTHER, SELFPAY ==
[2019-01-15 18:31] LABS: T4 (Thyroxine) 10.4 ug/dl (4.7-13.3); Thyroid Stimulating Hormone 2.87 uIU/ml (0.358-3.740); Triiodothryronine (T3) Uptake 29 % (31-39)
[2019-01-17 09:48] LABS: Triiodothyronine (T3) Free 3.1 pg/mL (2.0-4.4)
== END ==
PROVIDERS: Visit Provider Nurse Practitioner Obstetrics & Gynecology
DX: R53.82 Chronic fatigue, unspecified (principal)
CPT/HCPCS: 36415; 84436; 84443; 84479; 84481

== ENCOUNTER → 2019-08-13 12:12 | Outpatient (CLI) | payer OTHER, SELFPAY ==
[2019-08-13 14:11] LABS: Alanine Aminotransferase 15 U/L (12-78); Albumin/Globulin Ratio 1.5 (1.1-1.8); Alkaline Phosphatase 65 U/L (38-126); Aspartate Amino Transferase 21 U/L (14-36); Bilirubin,Total 0.4 mg/dl (0.2-1.3); Blood Urea Nitrogen 15 mg/dl (7-17); Calcium 9.2 mg/dl (8.4-10.2); Carbon Dioxide 24 mmol/L (22.0-30.0); Chloride 108 mmol/L (98-107); Chol/HDL Ratio 2.7 (1-3.5); Cholesterol 133 mg/dl (140-200); Estimated Glomerular Filt Rate 67 ml/min (>60); GFR (African American) 81 ML/MIN (>60); Globulin 2.7 g/dL (1.3-3.2); Glucose 96 mg/dl (74-100); HDL Cholesterol 50 mg/dl (40-60); Sodium 138 mmol/L (136-145); Total Protein,Serum 6.7 g/dl (6.3-8.2); Triglycerides 78 mg/dl (30-150); VLDL Cholesterol 16 mg/dL (0-40)
[2019-08-13 14:22] LABS: Direct LDL Cholesterol 81.38 mg/dL (100-129)
== END ==
PROVIDERS: Visit Provider Nurse Practitioner Family
DX: E78.5 Hyperlipidemia, unspecified (principal)
CPT/HCPCS: 36415; 80053; 80061

== ENCOUNTER 2019-11-07 14:20 | Emergency (ER) | payer OTHER, SELFPAY ==
[2019-11-07 14:23] VITALS: BP 134/84; PULSE 90; RESP 19; TEMP 36.7; O2SAT 97; BMI 31.1
--- NOTE | 2019-11-07 14:47 | ECG_ITS ---
APPROVED REPORT Exam: Resting ECG HR:81 bpm ECG Measurements Heart Rate 81 AXES [place] 130 P 73 QRSd 80 QRS 22 QT 396 T 50 QTc 460 <Conclusion> Normal sinus rhythm Incomplete RBBB Low voltage QRS Borderline ECG Electronically signed by : Jeffrey Franklin, 11/09/2019 16:11:53
--- NOTE | 2019-11-07 14:53 | XR_ITS ---
PROCEDURE: XR CHEST 2V CLINICAL HISTORY: RT SIDE WEAKNESS, NEAR SYNCOPE COMPARISON: CXR2V XR chest 2V from 09/29/2017 Chest from 10/20/2018 FINDINGS: The cardiomediastinal silhouette and pulmonary vascularity are within normal limits. The lungs are clear without infiltrates, suspicious nodules, or pleural effusions. No acute bony abnormalities. IMPRESSION: No acute findings. Dictated by: Ruddy Clifford MD 11/07/2019 15:22 Electronically signed by Ruddy Clifford MD in [place] 11/07/2019 15:22
--- NOTE | 2019-11-07 14:53 | CT_ITS ---
PROCEDURE: CT HEAD/BRAIN WO CON CLINICAL INDICATION: RT SIDE NUMBNESS EARLIER, NEAR SYNCOPE Right-sided numbness COMPARISON: HEADWO CT head/brain wo con from 10/20/2018 TECHNIQUE: Axial images obtained. All CT scans at the facility use one or more dose reduction, viz: automated exposure control, ma/kV adjustment per patient size (including targeted exams where dose is matched to indication, i.e. head), or iterative reconstruction technique. FINDINGS: No midline shift, mass effect, intracranial hemorrhage, hydrocephalus, or extra-axial fluid collection is evident. Air-fluid level is present in the left aspect of the sphenoid sinus. The calvarium has an unremarkable appearance. No mastoid effusion. IMPRESSION: No acute intracranial findings. Left sphenoid sinus disease Dictated by: Ruddy Clifford MD 11/07/2019 15:39 Electronically signed by Ruddy Clifford MD in [place] 11/07/2019 15:39
--- NOTE | 2019-11-07 14:57 | HMH.EDGENADL ---
ED Disposition Clinical Impression: Arm paresthesia, right, Spasms of the hands or feet Disposition: Home, Self-Care Condition on Discharge: Good Additional Instructions: Take 81 mg aspirin per day. Follow-up in [place] office on this Tuesday. Return to the urgency department if worsening numbness or weakness or other new symptoms such as loss of vision or difficulty speaking. Referrals: Juarez Kothari MD [Primary Care Provider] - - Critical Care Critical Care Time: No Attestation: On 11/07/19, the high probability of a clinically significant, sudden or life threatening deterioration of the following system(s) required my full and direct attention, intervention and personal management. The time I documented below is in addition to time spent performing reported procedures but includes the following listed in this critical care notation. Medical Decision Making - Medical Records Medical records reviewed: Yes: I reviewed the patient's medical records. - Shorty Inquiry Pt receiving controlled substance: No Vital Signs: 11/07/19 14:23 11/07/19 16:13 Temperature 98.1 F 98.4 F Temperature Source Oral Pulse Rate 69 Pulse Rate [Left Radial] 90 Respiratory Rate 19 16 Blood Pressure 110/55 L Blood Pressure [Left Arm] 134/84 Blood Pressure Mean [Left Arm] 100 Blood Pressure Source [Left Arm] Automatic Cuff Blood Pressure Position [Left Arm] Sitting 02 Sat by Pulse Oximetry 97 Oxygen Delivery Method Room Air - Lab Data Lab results reviewed: Yes: I reviewed the patient's lab results. Lab Results 11/07/19 14:45: WBC 9.8, RBC 4.38, Hgb 13.9, Hct 40.7, MCV 92.9, MCH 31.7 H, MCHC 34.1, RDW 12.4, Plt Count 256, MPV 7.8, Neut % (Auto) 74.0, Lymph % (Auto) 17.3, [place] % (Auto) 4.9, Eos % (Auto) 3.4, Baso % (Auto) 0.5, Neut # (Auto) 7.2, Lymph # (Auto) 1.7, [place] # (Auto) 0.5, Eos # (Auto) 0.3, Baso # (Auto) 0.1 11/07/19 14:45: Sodium 137, Potassium 4.2, Chloride 104, Carbon Dioxide 28, Anion Gap 9.2, BUN 16, Creatinine 1.10 H, Estimated Creat Clear 76, Estimated GFR 53 L, Est GFR ( Amer) 64, Glucose 132 H, Calcium 9.1, Total Bilirubin 0.4, AST 27, ALT 17, Alkaline Phosphatase 69, Troponin I 0.03, Total Protein 7.2, Albumin 4.1, Globulin 3.1, Albumin/Globulin Ratio 1.3 11/07/19 15:11: Urine Color Yellow, Urine Appearance Clear, Urine pH 6.0, Ur Specific [place] 1.015, Urine Protein Negative, Urine Glucose (UA) Negative, Urine Ketones Negative, Urine Blood 1+, Urine Nitrate Negative, Urine Bilirubin Negative, Urine Urobilinogen 1.0, Ur Leukocyte Esterase Negative, Urine WBC Occasional, Ur Squamous Epith Cells 3-5, Urine Bacteria Trace Result diagrams: 11/07/19 14:45 11/07/19 14:45 Orders (Tests/Meds): ED MEDICATIONS Discontinued Medications Generic Name Dose Route Start Last Admin Trade Name Freq PRN Reason Stop Dose Admin Ondansetron HCl 4 mg 11/07/19 15:06 11/07/19 15:09 Zofran 4mg/2ml Vial IV 11/07/19 15:07 4 mg ONCE ONE Administration - Radiology Data #1 Image(s): Chest Image Reviewed: Yes I reviewed the patient's radiology image, Yes I have reviewed radiologist's interpretation Preliminary Findings: Normal/NAD - CT Data CT Scan: Head Time Received: 15:[address] Reviewed: Yes: I have viewed the radiologist's interpretation Findings Narrative: PROCEDURE: CT HEAD/BRAIN WO CON CLINICAL INDICATION: RT SIDE NUMBNESS EARLIER, NEAR SYNCOPE Right-sided numbness COMPARISON: HEADWO CT head/brain wo con from 10/20/2018 TECHNIQUE: Axial images obtained. All CT scans at the facility use one or more dose reduction, viz: automated exposure control, ma/kV adjustment per patient size (including targeted exams where dose is matched to indication, i.e. head), or iterative reconstruction technique. FINDINGS: No midline shift, mass effect, intracranial hemorrhage, hydrocephalus, or extra-axial fluid collection is evident. Air-fluid level is present in the
[2019-11-07 15:06] LABS: Basophils # 0.1 K/mm3 (0-0.2); Basophils % 0.5 % (0.1-2.0); Eosinophils # 0.3 K/mm3 (0.0-0.4); Eosinophils % 3.4 % (0.1-12.0); Hematocrit 40.7 % (37.0-47.0); Hemoglobin 13.9 g/dL (12.2-16.2); Lymphocytes # 1.7 K/mm3 (0.7-4.5); Lymphocytes % 17.3 % (10-50); Mean Corpuscular HGB Conc 34.1 g/dL (31.8-35.4); Mean Corpuscular Hemoglobin 31.7 pg (27.0-31.2); Mean Corpuscular Volume 92.9 fl (81-99); Mean Platelet Volume 7.8 fl (7.4-10.4); Monocytes # 0.5 K/mm3 (0.1-1.0); Monocytes % 4.9 % (1.7-9.3); Neutrophils # 7.2 K/mm3 (1.8-7.8); Platelet Count 256 K/mm3 (142-424); Red Blood Count 4.38 M/mm3 (4.20-5.40); Red Cell Distribution Width 12.4 % (11.5-17.5); White Blood Count 9.8 K/mm3 (4.8-10.8)
--- NOTE | 2019-11-07 15:06 | PC.NURSE ---
PT PROVIDING URINE SPECIMEN AT THIS TIME
--- NOTE | 2019-11-07 15:09 | PC.NURSE ---
PT TO CT
[2019-11-07 15:10] LABS: Alanine Aminotransferase 17 U/L (12-78); Albumin Level 4.1 g/dl (3.5-5.0); Albumin/Globulin Ratio 1.3 (1.1-1.8); Alkaline Phosphatase 69 U/L (38-126); Anion Gap 9.2 mEq/L (5-15); Aspartate Amino Transferase 27 U/L (14-36); Bilirubin,Total 0.4 mg/dl (0.2-1.3); Blood Urea Nitrogen 16 mg/dl (7-17); Calcium 9.1 mg/dl (8.4-10.2); Carbon Dioxide 28 mmol/L (22.0-30.0); Chloride 104 mmol/L (98-107); Creatinine Clearance Estimated 76 mL/min (50-200); Estimated Glomerular Filt Rate 53 ml/min (>60); GFR (African American) 64 ML/MIN (>60); Globulin 3.1 g/dL (1.3-3.2); Glucose 132 mg/dl (74-100); Potassium 4.2 mmoL/L (3.5-5.1); Sodium 137 mmol/L (136-145); Total Protein,Serum 7.2 g/dl (6.3-8.2)
[2019-11-07 15:15] LABS: Microscopic, Urine URINE MICROSCOPIC (MICROSCOPIC)
--- NOTE | 2019-11-07 15:15 | PC.NURSE ---
pt was very nauseated zofran given just prior to going for ct
[2019-11-07 15:23] LABS: Appearance,Urine CLEAR (Clear); Bilirubin,Urine Negative (Negative); Blood, Urine 1+ (Negative); Color,Urine YELLOW (Yellow); Glucose,Urine (UA) Negative (Negative); Ketones,Urine Negative (Negative); Leukocyte Esterase,Urine Negative (Negative); Nitrate,Urine Negative (Negative); Protein,Urine Negative (Negative); Specific Gravity, Urine 1.015 (1.005-1.030)
[2019-11-07 15:27] LABS: Troponin I 0.03 ng/ml (0.00-0.034)
[2019-11-07 15:41] LABS: Bacteria,Urine Trace /lpf; WBC,Urine Occasional #/hpf (0-3)
--- NOTE | 2019-11-07 16:01 | PC.NURSE ---
waiting on a call back from Dr. Kothari
--- NOTE | 2019-11-07 16:09 | PC.NURSE ---
DR PEÑA JUST SPOKE WITH DR ZAPATA
[2019-11-07 16:13] VITALS: BP 110/55; PULSE 69; RESP 16; TEMP 36.9; O2SAT 99
== END 2019-11-07 16:19 | disposition home or self-care (01) ==
PROVIDERS: Emergency Provider Emergency Medicine; PCP Internal Medicine Adolescent Medicine
DX: R20.2 Paresthesia of skin (principal); R25.2 Cramp and spasm; R42 Dizziness and giddiness; K21.9 Gastro-esophageal reflux disease without esophagitis; E78.5 Hyperlipidemia, unspecified; F33.1 Major depressive disorder, recurrent, moderate; Z79.899 Other long term (current) drug therapy
CPT/HCPCS: 70450; 71046; 80053; 81001; 84484; 85025; 93005; 96374; 99283; J2405

== ENCOUNTER → 2019-12-19 11:09 | Outpatient (CLI) | payer OTHER, SELFPAY ==
[2019-12-19 13:12] LABS: Free Thyroxine Index 2.9 ug/dL (5.93-13.13); T4 (Thyroxine) 11.6 ug/dl (5.53-11.0); Triiodothryronine (T3) Uptake 25 % (23.5-40.5)
[2019-12-19 13:26] LABS: Thyroid Stimulating Hormone 2.19 uIU/mL (0.465-4.68)
[2019-12-20 10:12] LABS: FSH <0.3 mIU/mL (.)
[2019-12-21 12:30] LABS: LH <0.3 mIU/mL (.)
== END ==
PROVIDERS: Visit Provider Nurse Practitioner Obstetrics & Gynecology
DX: N95.1 Menopausal and female climacteric states (principal); R53.82 Chronic fatigue, unspecified
CPT/HCPCS: 36415; 83001; 83002; 84436; 84443; 84479

== ENCOUNTER → 2019-12-27 16:10 | Outpatient (CLI) | payer OTHER, SELFPAY | PROVIDERS: PCP Internal Medicine Adolescent Medicine; Visit Provider Nurse Practitioner Family | DX: Z03.818 Encounter for observation for suspected exposure to other biological agents ruled out (principal) | CPT/HCPCS: U0003 ==

== ENCOUNTER → 2020-01-17 10:17 | Outpatient (CLI) | payer OTHER, SELFPAY ==
--- NOTE | 2020-01-17 10:17 | MM_ITS ---
PROCEDURE: MM DIG SCREENING MAMM BI W/CAD Digital Breast Tomosynthesis Included CLINICAL INDICATION: Routine Screening Mammogram There is a history of breast cancer in patient's sister diagnosed at age 50 COMPARISON: MG SCBI MM Dig screening mamm BI w/CAD from 10/05/2017 TECHNIQUE: Standard CC and MLO images and 3D Tomosynthesis was obtained. R2 CAD reviewed. FINDINGS: Moderate diffuse fibroglandular densities are seen in both breast primarily upper outer quadrants. There is a mole marker upper outer quadrant right breast. There is no suspicious lesion and no suspicious microcalcifications. IMPRESSION: Moderate breast density with no suspicious lesions seen BI-RAD Category: 2 Benign Finding(s) FOLLOW-UP: 1YR 1 Year Follow-up (A letter has been sent to the patient regarding results of the study.) Dictated by: Dr. Rajendra Sargent MD 01/20/2020 16:59 Dr. Rajendra Sargent MD in [place] 01/20/2020 16:59
== END ==
PROVIDERS: PCP Internal Medicine Adolescent Medicine; Visit Provider Nurse Practitioner Obstetrics & Gynecology
DX: Z12.31 Encounter for screening mammogram for malignant neoplasm of breast (principal)
CPT/HCPCS: 77063; 77067

== ENCOUNTER → 2020-02-19 08:15 | Outpatient (CLI) | payer OTHER, SELFPAY ==
--- NOTE | 2020-02-19 08:20 | NM_ITS ---
PROCEDURE: NM GASTRIC EMPTYING STUDY CLINICAL INDICATION: GERD COMPARISON: No exams were available for comparison TECHNIQUE: Dose 0.54 mCi technetium sulfur colloid in radial labeled meal. FINDINGS: Time activity curve is generated following the oral ingestion of radial labeled meal. Studies carried out up in tool 240 minutes. The 1/2 emptying time is 43 minutes which is within normal limits of 60+/-30 minutes.. 57 percent of the gastric contents had emptied at 90 minutes. 100 percent of the gastric contents had emptied at 240 minutes. Images submitted show no evidence of reflux IMPRESSION: Normal gastric emptying time Dictated by: Ruddy Clifford MD 02/19/2020 14:23 Ruddy Clifford MD in [place] 02/19/2020 14:23
--- NOTE | 2020-02-19 09:04 | HMH.ITSHM ---
Current Home Medications as stated by this patient Jodie Ling or account development representative. []OMEPRAZOLE LEVOTHYROXINE ESTRADIOL FLUCONAZOLE FAMOTIDINE CITALOPRAM ATORVASTATIN PANTOPRAZOLE CELECOXIB
== END ==
PROVIDERS: PCP Internal Medicine Adolescent Medicine; Visit Provider Surgery
DX: K21.9 Gastro-esophageal reflux disease without esophagitis (principal)
CPT/HCPCS: 78264; A9541

== ENCOUNTER → 2020-02-25 10:36 | Outpatient (CLI) | payer OTHER, SELFPAY ==
[2020-02-25 11:03] LABS: Basophils % 0.5 % (0.1-2.0); Eosinophils # 0.5 K/mm3 (0.0-0.4); Eosinophils % 6.2 % (0.1-12.0); Hematocrit 42.6 % (37.0-47.0); Hemoglobin 14.3 g/dL (12.2-16.2); Lymphocytes # 1.4 K/mm3 (0.7-4.5); Mean Corpuscular HGB Conc 33.7 g/dL (31.8-35.4); Mean Corpuscular Hemoglobin 31.7 pg (27.0-31.2); Mean Corpuscular Volume 94.1 fl (81-99); Mean Platelet Volume 7.6 fl (7.4-10.4); Monocytes # 0.4 K/mm3 (0.1-1.0); Monocytes % 4.8 % (1.7-9.3); Neutrophils # 5.2 K/mm3 (1.8-7.8); Neutrophils % 70.4 % (37.0-80.0); Platelet Count 299 K/mm3 (142-424); Red Blood Count 4.53 M/mm3 (4.20-5.40); Red Cell Distribution Width 12.3 % (11.5-17.5); White Blood Count 7.4 K/mm3 (4.8-10.8)
[2020-02-25 11:50] LABS: Chloride 105 mmol/L (98-107)
[2020-02-25 11:51] LABS: Sodium 140 mmol/L (136-145)
[2020-02-25 11:53] LABS: Alanine Aminotransferase 20 U/L (12-78); Alkaline Phosphatase 66 U/L (38-126); Aspartate Amino Transferase 25 U/L (14-36); Bilirubin,Total 0.6 mg/dl (0.2-1.3); Blood Urea Nitrogen 16 mg/dl (7-17); Estimated Glomerular Filt Rate 59 ml/min (>60); GFR (African American) 71 ML/MIN (>60)
[2020-02-25 11:54] LABS: Albumin Level 4.1 g/dl (3.5-5.0); Albumin/Globulin Ratio 1.5 (1.1-1.8); Calcium 9.2 mg/dl (8.4-10.2); Carbon Dioxide 29 mmol/L (22.0-30.0); Chol/HDL Ratio 2.6 (1-3.5); Cholesterol 137 mg/dl (140-200); Globulin 2.8 g/dL (1.3-3.2); Glucose 101 mg/dl (74-100); HDL Cholesterol 53 mg/dl (40-60); Total Protein,Serum 6.9 g/dl (6.3-8.2); Triglycerides 83 mg/dl (30-150); VLDL Cholesterol 17 mg/dL (0-40)
[2020-02-25 12:05] LABS: Direct LDL Cholesterol 72.85 mg/dL (100-129)
[2020-02-27 13:18] LABS: Estradiol <5.0 pg/mL (.); FSH 1.3 mIU/mL (.); LH <0.3 mIU/mL (.)
== END ==
PROVIDERS: Visit Provider Nurse Practitioner Obstetrics & Gynecology
DX: Z01.419 Encounter for gynecological examination (general) (routine) without abnormal findings (principal); N95.1 Menopausal and female climacteric states
CPT/HCPCS: 36415; 80053; 80061; 82670; 83001; 83002; 85025

== ENCOUNTER → 2020-03-06 15:59 | Outpatient (CLI) | payer OTHER, SELFPAY | PROVIDERS: Visit Provider Nurse Practitioner Obstetrics & Gynecology | DX: N76.3 Subacute and chronic vulvitis (principal) | CPT/HCPCS: 87070; 87077; 87205 ==

== ENCOUNTER 2020-05-08 14:05 | Emergency (ER) | payer OTHER, MEDICAID, SELFPAY ==
[2020-05-08] VITALS (7 sets, daily range): BP systolic 112–169; BP diastolic 53–78; PULSE 73–87; RESP 16–20; TEMP 36.4–36.9; O2SAT 98–100; BMI 29.2
--- NOTE | 2020-05-08 14:28 | HMH.EDGENADL ---
ED Disposition Clinical Impression: Dehydration Constipation Qualifiers: Constipation type: slow transit constipation Qualified Code(s): K59.01 - Slow transit constipation Disposition: Home, Self-Care Condition on Discharge: Good Instructions: DI for Constipation, DI for Dehydration -- Adult Additional Instructions: Follow-up with your GI surgeon within the next 3 to 4 days for reevaluation. Drink plenty of fluids and maintain bowel regimen. Return to the emergency department for any fever, worsening of symptoms. Referrals: Juarez Kothari MD [Primary Care Provider] - 3 days - Critical Care Critical Care Time: No Attestation: On 05/08/20, the high probability of a clinically significant, sudden or life threatening deterioration of the following system(s) required my full and direct attention, intervention and personal management. The time I documented below is in addition to time spent performing reported procedures but includes the following listed in this critical care notation. Medical Decision Making - Medical Records Medical records reviewed: Yes: I reviewed the patient's medical records. - Shorty Inquiry Pt receiving controlled substance: No Vital Signs: 05/08/20 14:07 05/08/20 14:37 05/08/20 16:17 Temperature 97.6 F Temperature Source Oral Pulse Rate [Left Radial] 87 74 74 Respiratory Rate 18 20 18 Blood Pressure [Right Arm] 160/64 H 169/78 H 154/65 H Blood Pressure Mean [Right Arm] 96 108 94 Blood Pressure Source [Right Arm] Automatic Cuff Automatic Cuff Automatic Cuff Blood Pressure Position [Right Arm] Sitting Supine Sitting 02 Sat by Pulse Oximetry 98 98 100 Oxygen Delivery Method Room Air Room Air - Lab Data Lab results reviewed: Yes: I reviewed the patient's lab results. Lab Results 05/08/20 15:15: WBC 10.0, RBC 4.85, Hgb 15.4, Hct 45.5, MCV 93.8, MCH 31.9 H, MCHC 34.0, RDW 13.2, Plt Count 272, MPV 7.7, Neut % (Auto) 75.9, Lymph % (Auto) 15.9, [place] % (Auto) 5.0, Eos % (Auto) 2.8, Baso % (Auto) 0.4, Neut # (Auto) 7.6, Lymph # (Auto) 1.6, [place] # (Auto) 0.5, Eos # (Auto) 0.3, Baso # (Auto) 0.0 05/08/20 15:15: Sodium 138, Potassium 4.6, Chloride 104, Carbon Dioxide 28, Anion Gap 10.6, BUN 15, Creatinine 1.30 H, Estimated Creat Clear 60, Estimated GFR 44 L, Est GFR ( Amer) 53 L, Glucose 100, Calcium 9.8, Total Bilirubin 0.6, AST 25, ALT 19, Alkaline Phosphatase 79, Total Protein 7.5, Albumin 4.2, Globulin 3.3 H, Albumin/Globulin Ratio 1.3, Lipase 120 05/08/20 17:24: Urine Color Yellow, Urine Appearance Clear, Urine pH 6.5, Ur Specific [place] 1.020, Urine Protein Negative, Urine Glucose (UA) Negative, Urine Ketones Trace, Urine Blood 2+, Urine Nitrate Negative, Urine Bilirubin Negative, Urine Urobilinogen 1.0, Ur Leukocyte Esterase Negative Result diagrams: 05/08/20 15:15 05/08/20 15:15 Orders (Tests/Meds): ED MEDICATIONS Discontinued Medications Generic Name Dose Route Start Last Admin Trade Name Freq PRN Reason Stop Dose Admin Sodium Chloride 1,000 mls @ 999 mls/hr 05/08/20 14:30 05/08/20 15:26 Sod Chlor 0.9% 1000ml Bag IV 05/08/20 15:30 999 mls/hr .Q1H1M ROBBIN Administration Sodium Chloride 1,000 mls @ 999 mls/hr 05/08/20 14:30 Sod Chlor 0.9% 1000ml Bag IV 05/08/20 15:30 .Q1H1M ROBBIN Ondansetron HCl 4 mg 05/08/20 14:27 05/08/20 15:21 Ondansetron 4mg/2ml Vial IV 05/08/20 14:28 4 mg ONCE ONE Administration ORDERS Category Date Time Status Urinalysis and Microscopic Stat Lab 05/08/20 17:24 Results Medical Decision Narrative: Patient's nausea much improved with Zofran, and she is feeling much better with 2 L of fluid. She is tolerating p.o. Urinalysis with no infection. She is afebrile and no significant leukocytosis or vital sign abnormalities that would suggest a septic process. She has bowel sounds in all 4 quadrants, unlikely bowel obstruction or perforated viscus. She has started a bowel regimen and should see improvem
[2020-05-08 15:29] LABS: Basophils % 0.4 % (0.1-2.0); Eosinophils # 0.3 K/mm3 (0.0-0.4); Eosinophils % 2.8 % (0.1-12.0); Hematocrit 45.5 % (37.0-47.0); Hemoglobin 15.4 g/dL (12.2-16.2); Lymphocytes # 1.6 K/mm3 (0.7-4.5); Lymphocytes % 15.9 % (10-50); Mean Corpuscular Hemoglobin 31.9 pg (27.0-31.2); Mean Corpuscular Volume 93.8 fl (81-99); Mean Platelet Volume 7.7 fl (7.4-10.4); Monocytes # 0.5 K/mm3 (0.1-1.0); Neutrophils # 7.6 K/mm3 (1.8-7.8); Neutrophils % 75.9 % (37.0-80.0); Platelet Count 272 K/mm3 (142-424); Red Blood Count 4.85 M/mm3 (4.20-5.40); Red Cell Distribution Width 13.2 % (11.5-17.5)
[2020-05-08 15:31] LABS: Chloride 104 mmol/L (98-107); Potassium 4.6 mmoL/L (3.5-5.1); Sodium 138 mmol/L (136-145)
[2020-05-08 15:34] LABS: Alanine Aminotransferase 19 U/L (12-78); Albumin Level 4.2 g/dl (3.5-5.0); Albumin/Globulin Ratio 1.3 (1.1-1.8); Alkaline Phosphatase 79 U/L (38-126); Anion Gap 10.6 mEq/L (5-15); Aspartate Amino Transferase 25 U/L (14-36); Bilirubin,Total 0.6 mg/dl (0.2-1.3); Blood Urea Nitrogen 15 mg/dl (7-17); Calcium 9.8 mg/dl (8.4-10.2); Carbon Dioxide 28 mmol/L (22.0-30.0); Creatinine Clearance Estimated 60 mL/min (50-200); Estimated Glomerular Filt Rate 44 ml/min (>60); GFR (African American) 53 ML/MIN (>60); Globulin 3.3 g/dL (1.3-3.2); Glucose 100 mg/dl (74-100); Lipase 120 U/L (23-300); Total Protein,Serum 7.5 g/dl (6.3-8.2)
[2020-05-08 17:29] LABS: Microscopic, Urine URINE MICROSCOPIC (MICROSCOPIC)
[2020-05-08 17:30] LABS: Appearance,Urine CLEAR (Clear); Bilirubin,Urine Negative (Negative); Blood, Urine 2+ (Negative); Color,Urine YELLOW (Yellow); Glucose,Urine (UA) Negative (Negative); Ketones,Urine TRACE (Negative); Leukocyte Esterase,Urine Negative (Negative); Nitrate,Urine Negative (Negative); PH,Urine 6.5 (5.0-8.5); Protein,Urine Negative (Negative)
[2020-05-08 17:38] LABS: Bacteria,Urine 2+ /lpf
== END 2020-05-08 18:17 | disposition home or self-care (01) ==
PROVIDERS: Emergency Provider Emergency Medicine; PCP Internal Medicine Adolescent Medicine
DX: E86.0 Dehydration (principal); K59.01 Slow transit constipation; K21.9 Gastro-esophageal reflux disease without esophagitis; I10 Essential (primary) hypertension; E78.5 Hyperlipidemia, unspecified; Z79.899 Other long term (current) drug therapy; Z88.2 Allergy status to sulfonamides
CPT/HCPCS: 80053; 81001; 83690; 85025; 87086; 96365; 96366; 96375; 99283; J2405

== ENCOUNTER 2020-06-13 10:24 | Emergency (ER) | payer BC, OTHER, SELFPAY ==
[2020-06-13 10:25] VITALS: BP 144/91; PULSE 88; RESP 17; TEMP 36.8; O2SAT 98; BMI 30.2
--- NOTE | 2020-06-13 10:36 | HMH.EDUTC ---
[facility] [place] Disposition Clinical Impression: Exposure to COVID-19 virus Disposition: Home, Self-Care Condition on Discharge: Good Instructions: Preventing the Spread of Coronavirus Discharge Instructions Additional Instructions: Isolate X 10 days based on exposure Prescriptions: predniSONE [Prednisone 20mg Tab] 20 mg PO BID 5 Days #10 tab Transmission Status: Pending to [facility] Albuterol Sulfate [Proventil-HFA 90mcg/puff Inh] 2 puffs IH QIDP PRN 30 Days #1 inh PRN Reason: Wheezing Transmission Status: Pending to [facility] Azithromycin [Zithromax 500mg Tab] 500 mg PO DAILY #3 tab Transmission Status: Pending to [facility] Referrals: Juarez Kothari MD [Primary Care Provider] - Time of Disposition: 10:45 Medical Decision Making - Shorty Inquiry Pt receiving controlled substance: No Orders (Tests/Meds): ORDERS Category Date Time Status Covid-19 Nasal PCR Sendout P&C Stat Lab 06/13/20 10:30 Ordered [facility] [place] HPI - General Stated complaint: covid test Time Seen by Provider: 06/13/20 10:36 - History of Present Illness Provider Complaint: Patient's boyfriend tested positive for COVID19 this am. She has had congestion, runny nose for a few days. No fever. Has had body aches and chills. Has had chest congestion. Onset (ago): day(s) (3) Relieving factors: none Exacerbating factors: none Associated symptoms: denies other symptoms Treatments prior to arrival: none - Related Data Home Medications Medication Instructions Recorded Confirmed citalopram 40 mg tablet 40 mg PO DAILY 90 Days #90 09/12/17 03/20/20 Celecoxib [Celebrex 200mg cap] 200 mg PO DAILY 11/20/18 03/20/20 Pantoprazole Sodium [Protonix 40mg 40 mg PO BID 11/20/18 03/20/20 tablet] atorvastatin 20 mg tablet 20 mg PO DAILY 06/22/19 03/20/20 omeprazole 40 mg capsule,delayed PO 06/22/19 03/20/20 release famotidine 20 mg tablet PO 12/04/19 03/20/20 levothyroxine 25 mcg tablet 25 mcg PO DAILY tab 12/04/19 03/20/20 hydrocodone 7.5 mg-acetaminophen tab PO 02/25/20 03/20/20 325 mg tablet vitamin E 200 unit capsule 200 unit PO DAILY 02/25/20 03/20/20 Previous Rx's Medication Instructions Recorded levonorgestrel-ethinyl estradiol 1 tab PO DAILY #84 tab 11/23/19 0.1 mg-20 mcg tablet lidocaine 5 % topical ointment 1 applic TOPICAL BID #50 g 01/30/20 terconazole 0.8 % vaginal cream 1 appful VAGINAL QHS 3 Days #20 g 02/25/20 estradiol 2 mg tablet 2 mg PO DAILY #30 tab 02/27/20 gabapentin 100 mg capsule 100 mg PO TID #90 cap 03/06/20 levofloxacin 500 mg tablet 500 mg PO DAILY 7 Days #7 tab 03/06/20 metronidazole 500 mg tablet 500 mg PO BID 7 Days #14 tab 03/06/20 fluconazole 150 mg tablet 150 mg PO .every other day #5 tab 03/12/20 triamcinolone acetonide 0.1 % 1 applic TOPICAL BID #80 g 03/12/20 topical cream Albuterol Sulfate [Proventil-HFA 2 puffs IH QIDP PRN 30 Days #1 inh 06/13/20 90mcg/puff Inh] Azithromycin [Zithromax 500mg 500 mg PO DAILY #3 tab 06/13/20 Tab] predniSONE [Prednisone 20mg 20 mg PO BID 5 Days #10 tab 06/13/20 Tab] Allergies Allergy/AdvReac Type Severity Reaction Status Date / Time Sulfa (Sulfonamide Allergy Verified 03/20/20 08:39 Antibiotics) [facility] History - Hepatitis A Screen Attestation statement:: This patient has been screened for Hepatitis A risk factors. I have reviewed the patient's past medical history: Yes Medical History: Reports:: Depression, Gastroesophageal Reflux Disease(GERD), Hyperlipidemia, Hypertension Denies:: Cancer, Diabetes Mellitus Type 1, Diabetes Mellitus Type 2, Internal Pacemaker, Lung Disease, MRSA, Seizures Other Medical History: Reports: Other. Denies: Blood Transfusion Reaction Comment: lypoma Laterality Cases: Left: Other, Bilateral: Lumpectomy Other Surgeries: Yes: No Previous Surgery, Colonoscopy, , Dilation and Curettage, EGD, Tubal Ligation, Other. No: Pacemaker Amputation: No F
[2020-06-13 10:38] VITALS: BP 144/91; PULSE 88; RESP 17; TEMP 36.8; O2SAT 98
[2020-06-14 10:59] LABS: Covid-19 Nasal PCR Sendout P&C NEGATIVE
== END 2020-06-13 10:55 | disposition home or self-care (01) ==
PROVIDERS: Emergency Provider Physician Assistant; PCP Internal Medicine Adolescent Medicine
DX: Z20.822 Contact with and (suspected) exposure to COVID-19 (principal); I10 Essential (primary) hypertension; E78.5 Hyperlipidemia, unspecified; K21.9 Gastro-esophageal reflux disease without esophagitis; F33.1 Major depressive disorder, recurrent, moderate; Z79.899 Other long term (current) drug therapy; Z88.2 Allergy status to sulfonamides
CPT/HCPCS: 99202; G0463; U0004

== ENCOUNTER → 2020-08-08 10:22 | Outpatient (CLI) | payer BC, OTHER, SELFPAY ==
[2020-08-09 13:42] LABS: HSV 2 IgG, Type Spec <0.91 index (0.00-0.90)
[2020-08-11 20:15] LABS: HSV, IgM I/II Combination <0.91 Ratio (0.00-0.90)
== END ==
PROVIDERS: Visit Provider Nurse Practitioner Obstetrics & Gynecology
DX: R10.2 Pelvic and perineal pain (principal); N89.8 Other specified noninflammatory disorders of vagina
CPT/HCPCS: 36415; 86695; 86790; 87070; 87077; 87186; 87205

== ENCOUNTER 2020-08-25 11:51 | Emergency (ER) | payer BC, SELFPAY ==
[2020-08-25 12:03] VITALS: BP 143/87; PULSE 78; RESP 14; TEMP 36.9; O2SAT 96; BMI 28.8
--- NOTE | 2020-08-25 12:07 | HMH.EDUTC ---
[facility] [place] Clinical Impression: Bronchitis, Viral syndrome, Exposure to COVID-19 virus Disposition: Home, Self-Care Condition on Discharge: Good Instructions: Preventing the Spread of Coronavirus Discharge Instructions Additional Instructions: Drink plenty of fluids. Take tylenol for pain or fever. Return if you begin to have difficulty breathing. Follow up with your regular doctor. GO TO THE ER FOR ANY WORSENING SYMPTOMS Prescriptions: Benzonatate [Tessalon [place] 100mg Cap] 100 mg PO TIDP PRN #30 cap PRN Reason: Cough [facility] Azithromycin [Z-Link 250mg Tab*] 250 mg PO UD DOSE PK #6 tab Transmission Status: Received by [facility] Referrals: Juarez Kothari MD [Primary Care Provider] - Forms: Work/School Release Time of Disposition: 12:15 Medical Decision Making - Medical Records Medical records reviewed: No: I reviewed the patient's medical records. - Shorty Inquiry Pt receiving controlled substance: No Vital Signs: 08/25/20 12:03 08/25/20 12:08 Temperature 98.4 F 98 F Temperature Source Oral Pulse Rate 76 Pulse Rate [Right] 78 Respiratory Rate 14 16 Blood Pressure 139/89 Blood Pressure [Right Arm] 143/87 H Blood Pressure Mean [Right Arm] 105 Blood Pressure Source [Right Arm] Automatic Cuff Blood Pressure Position [Right Arm] Sitting 02 Sat by Pulse Oximetry 96 Oxygen Delivery Method Room Air [facility] [place] - General Stated complaint: sore throat,cough,SOB,Headache Time Seen by Provider: 08/25/20 12:08 Mode of Arrival: Ambulatory Source of Information: Patient Limitations: No Limitations Description of Symptoms (Recalled from Triage Doc. by RN): pt directly exposed to covid last weekend. pt c/o chills, diarhea, PINEDA, and lethargy. HEENT Symptoms (Recalled from RN notes): Yes (PINEDA) Resp Symptoms (Recalled from RN notes): No Skin Symptoms (Recalled from RN notes): No MS Symptoms (Recalled from RN notes): No Functional Status (Recalled from RN notes): na - History of Present Illness Provider Complaint: She states that for the past 1 day, she has had body aches, chilling, cough and sore throat. She was exposed to covid-19 last week. - Related Data Home Medications Medication Instructions Recorded Confirmed citalopram 40 mg tablet 40 mg PO DAILY 90 Days #90 09/12/17 08/08/20 Celecoxib [Celebrex 200mg cap] 200 mg PO DAILY 11/20/18 08/08/20 atorvastatin 20 mg tablet 20 mg PO DAILY 06/22/19 08/08/20 levothyroxine 25 mcg tablet 25 mcg PO DAILY tab 12/04/19 08/08/20 levonorgestrel-ethinyl estradiol 1 tab PO DAILY 08/08/20 08/08/20 0.1 mg-20 mcg tablet ondansetron HCl 4 mg tablet 4 mg PO tab 08/08/20 08/08/20 Previous Rx's Medication Instructions Recorded estradiol 2 mg tablet 2 mg PO DAILY #30 tab 02/27/20 gabapentin 100 mg capsule 100 mg PO TID #90 cap 03/06/20 fluconazole 150 mg tablet 150 mg PO .every other day #5 tab 03/12/20 lidocaine 5 % topical ointment See Rx Instructions .ROUTE 07/23/20 .COMPLEX #50 g valacyclovir 1 gram tablet 1,000 mg PO DAILY #90 tab 08/08/20 terconazole 0.4 % vaginal cream 5 g VAGINAL HS 7 Days #45 g 08/19/20 triamcinolone acetonide 0.1 % 1 applic TOPICAL DAILY #80 g 08/19/20 topical cream Azithromycin [Z-Link 250mg Tab*] 250 mg PO UD DOSE PK #6 tab 08/25/20 Benzonatate [Tessalon Perle 100mg 100 mg PO TIDP PRN #30 cap 08/25/20 Cap] Allergies Allergy/AdvReac Type Severity Reaction Status Date / Time Sulfa (Sulfonamide Allergy Verified 08/25/20 12:07 Antibiotics) - Worker's Comp Is this a Worker's Comp case?: No [facility] History - Hepatitis A Screen Drug use history?: No High risk sexual behaviors?: No History of sexually transmitted infection?: No Currently employed?: No Childcare worker?: No Do you have indoor plumbing?: Yes Do you have electricity?: Yes Attestation statement:: This patient has been screened for Hepatitis A risk factors.
[2020-08-25 12:08] VITALS: BP 139/89; PULSE 76; RESP 16; TEMP 36.6
== END 2020-08-25 12:20 | disposition home or self-care (01) ==
PROVIDERS: Emergency Provider Nurse Practitioner Family; PCP Internal Medicine Adolescent Medicine
DX: Z20.822 Contact with and (suspected) exposure to COVID-19 (principal); J20.9 Acute bronchitis, unspecified; B34.9 Viral infection, unspecified; K21.9 Gastro-esophageal reflux disease without esophagitis; E78.5 Hyperlipidemia, unspecified; I10 Essential (primary) hypertension; F33.1 Major depressive disorder, recurrent, moderate; Z79.899 Other long term (current) drug therapy
CPT/HCPCS: 99202; G0463; U0003

== ENCOUNTER 2020-10-24 07:55 | Emergency (ER) | payer BC, OTHER, SELFPAY ==
[2020-10-24 07:56] VITALS: BP 138/73; PULSE 83; RESP 16; TEMP 36.5; O2SAT 98; BMI 29.0
--- NOTE | 2020-10-24 08:02 | ECG_ITS ---
APPROVED REPORT Exam: Resting ECG HR:72 bpm ECG Measurements Heart Rate 72 AXES CA 124 P 63 QRSd 80 QRS 12 QT 444 T 19 QTc 486 Conclusion Normal sinus rhythm Low voltage QRS Prolonged QT Abnormal ECG Electronically signed by : Juarez Kothari, 10/24/2020 17:29:04
--- NOTE | 2020-10-24 08:06 | XR_ITS ---
PROCEDURE: XR CHEST PORTABLE CLINICAL HISTORY: syncope COMPARISON: CR CXR2V XR chest 2V from 09/29/2017 CR Chest from 10/20/2018 CR XR CHEST 2V from 11/07/2019 FINDINGS: The cardiomediastinal silhouette and pulmonary vascularity are within normal limits. The lungs are clear without infiltrates, suspicious nodules, or pleural effusions. No acute bony abnormalities. IMPRESSION: No acute findings. Dictated by: Ruddy Clifford MD 10/24/2020 08:38 Ruddy Clifford MD in [place] 10/24/2020 08:38
--- NOTE | 2020-10-24 08:09 | HMH.EDGENADL ---
ED Disposition Clinical Impression: Gastroenteritis, Vasovagal syncope Disposition: Home, Self-Care Condition on Discharge: Good Instructions: DI for Diarrhea and Traveler's Diarrhea -- Adult, DI for Nausea -- Adult Additional Instructions: Zofran for nausea. Imodium for diarrhea. Outpatient diarrhea panel. Additional instructions for NAUSEA/DIARRHEA: See your physician as soon as possible for further evaluation. Return immediately if severe abdominal pain, shortness of breath, fever, vomiting of blood or abdominal distention. Prescriptions: Ondansetron [Zofran 4mg ODT] 4 mg PO TIDP PRN #10 tab.rapdis PRN Reason: Nausea And Vomiting Transmission Status: Pending to [facility] Referrals: Juarez Kothari MD [Primary Care Provider] - Forms: Work/School Release - Critical Care Critical Care Time: No Attestation: On 10/24/20, the high probability of a clinically significant, sudden or life threatening deterioration of the following system(s) required my full and direct attention, intervention and personal management. The time I documented below is in addition to time spent performing reported procedures but includes the following listed in this critical care notation. Medical Decision Making - Shorty Inquiry Pt receiving controlled substance: No Vital Signs: 10/24/20 07:56 10/24/20 08:30 10/24/20 08:42 Temperature 97.7 F Temperature Source Oral Pulse Rate 70 Pulse Rate [Orthostatic Lying] 65 Pulse Rate [Orthostatic Standing] 68 Pulse Rate [Radial] 83 Respiratory Rate 16 18 Blood Pressure 138/63 Blood Pressure [Orthostatic Lying] 113/53 L Blood Pressure [Orthostatic Standing] 129/71 Blood Pressure [Right Arm] 138/73 Blood Pressure Mean 93 Blood Pressure Mean [Right Arm] 94 Blood Pressure Position Sitting Blood Pressure Position [Right Arm] Sitting 02 Sat by Pulse Oximetry 98 98 Oxygen Delivery Method Room Air Room Air 10/24/20 08:44 10/24/20 09:01 Temperature Temperature Source Pulse Rate 67 62 Pulse Rate [Orthostatic Lying] Pulse Rate [Orthostatic Standing] Pulse Rate [Radial] Respiratory Rate 18 18 Blood Pressure 129/71 108/52 L Blood Pressure [Orthostatic Lying] Blood Pressure [Orthostatic Standing] Blood Pressure [Right Arm] Blood Pressure Mean 86 70 Blood Pressure Mean [Right Arm] Blood Pressure Position Blood Pressure Position [Right Arm] 02 Sat by Pulse Oximetry 99 98 Oxygen Delivery Method - Lab Data Lab Results 10/24/20 08:05: Urine Color Yellow, Urine Appearance Clear, Urine pH 7.0, Ur Specific [place] 1.020, Urine Protein Negative, Urine Glucose (UA) Negative, Urine Ketones Negative, Urine Blood Negative, Urine Nitrate Negative, Urine Bilirubin Negative, Urine Urobilinogen 2.0, Ur Leukocyte Esterase Negative, Urine RBC Occasional, Urine WBC 3-5, Ur Squamous Epith Cells 3-5, Urine Bacteria Trace 10/24/20 08:05: WBC 10.4, RBC 4.36, Hgb 14.0, Hct 40.5, MCV 92.8, MCH 32.2 H, MCHC 34.6, RDW 13.4, Plt Count 221, MPV 8.2, Neut % (Auto) 64.5, Lymph % (Auto) 27.3, [place] % (Auto) 4.5, Eos % (Auto) 3.1, Baso % (Auto) 0.6, Neut # (Auto) 6.7, Lymph # (Auto) 2.8, [place] # (Auto) 0.5, Eos # (Auto) 0.3, Baso # (Auto) 0.1 10/24/20 08:05: Sodium 139, Potassium 3.9, Chloride 106, Carbon Dioxide 26, Anion Gap 10.9, BUN 15, Creatinine 1.00, Estimated Creat Clear 77, Estimated GFR 59, Est GFR ( Amer) 71, Glucose 104 H, Calcium 8.5, Total Bilirubin 0.5, AST 23, ALT 17, Alkaline Phosphatase 80, Troponin I 0.02, Total Protein 6.7, Albumin 3.9, Globulin 2.8, Albumin/Globulin Ratio 1.4 10/24/20 08:05: TSH 3.06 Result diagrams: 10/24/20 08:05 10/24/20 08:05 Orders (Tests/Meds): ED MEDICATIONS Discontinued Medications Generic Name Dose Route Start Last Admin Trade Name Freq PRN Reason Stop Dose Admin Sodium Chloride 1,000 mls @ 999 mls/hr 10/24/20 08:30 10/24/20 08:20 Sod Chlor 0.9% 1000ml Bag IV 10/24/20 09:30
[2020-10-24 08:22] LABS: Microscopic, Urine URINE MICROSCOPIC (MICROSCOPIC)
[2020-10-24 08:24] LABS: Basophils # 0.1 K/mm3 (0-0.2); Basophils % 0.6 % (0.1-2.0); Eosinophils # 0.3 K/mm3 (0.0-0.4); Eosinophils % 3.1 % (0.1-12.0); Hematocrit 40.5 % (37.0-47.0); Lymphocytes # 2.8 K/mm3 (0.7-4.5); Lymphocytes % 27.3 % (10-50); Mean Corpuscular HGB Conc 34.6 g/dL (31.8-35.4); Mean Corpuscular Hemoglobin 32.2 pg (27.0-31.2); Mean Corpuscular Volume 92.8 fl (81-99); Mean Platelet Volume 8.2 fl (7.4-10.4); Monocytes # 0.5 K/mm3 (0.1-1.0); Monocytes % 4.5 % (1.7-9.3); Neutrophils # 6.7 K/mm3 (1.8-7.8); Neutrophils % 64.5 % (37.0-80.0); Platelet Count 221 K/mm3 (142-424); Red Blood Count 4.36 M/mm3 (4.20-5.40); Red Cell Distribution Width 13.4 % (11.5-17.5); White Blood Count 10.4 K/mm3 (4.8-10.8)
[2020-10-24 08:25] LABS: Chloride 106 mmol/L (98-107); Potassium 3.9 mmoL/L (3.5-5.1); Sodium 139 mmol/L (136-145)
[2020-10-24 08:27] LABS: Blood Urea Nitrogen 15 mg/dl (7-17); Creatinine Clearance Estimated 77 mL/min (50-200); Estimated Glomerular Filt Rate 59 ml/min (>60); GFR (African American) 71 ML/MIN (>60)
[2020-10-24 08:28] LABS: Alanine Aminotransferase 17 U/L (12-78); Albumin Level 3.9 g/dl (3.5-5.0); Albumin/Globulin Ratio 1.4 (1.1-1.8); Alkaline Phosphatase 80 U/L (38-126); Anion Gap 10.9 mEq/L (5-15); Aspartate Amino Transferase 23 U/L (14-36); Bilirubin,Total 0.5 mg/dl (0.2-1.3); Carbon Dioxide 26 mmol/L (22.0-30.0); Globulin 2.8 g/dL (1.3-3.2); Total Protein,Serum 6.7 g/dl (6.3-8.2)
[2020-10-24 08:29] LABS: Calcium 8.5 mg/dl (8.4-10.2); Glucose 104 mg/dl (74-100)
[2020-10-24 08:30] VITALS: BP 138/63; PULSE 70; PULSE 74; RESP 18; O2SAT 98
[2020-10-24 08:40] LABS: Troponin I 0.02 ng/ml (0.00-0.034)
[2020-10-24 08:41] LABS: Appearance,Urine CLEAR (Clear); Bilirubin,Urine Negative (Negative); Blood, Urine Negative (Negative); Color,Urine YELLOW (Yellow); Glucose,Urine (UA) Negative (Negative); Ketones,Urine Negative (Negative); Leukocyte Esterase,Urine Negative (Negative); Nitrate,Urine Negative (Negative); Protein,Urine Negative (Negative)
[2020-10-24 08:42] VITALS: BP 113/53; BP 129/71; PULSE 65; PULSE 68
[2020-10-24 08:44] VITALS: BP 129/71; PULSE 67; RESP 18; O2SAT 99
[2020-10-24 09:01] VITALS: BP 108/52; PULSE 62; RESP 18; O2SAT 98
[2020-10-24 09:03] LABS: Bacteria,Urine Trace /lpf; RBC,Urine Occasional #/hpf (0-3)
[2020-10-24 09:18] LABS: Thyroid Stimulating Hormone 3.06 uIU/mL (0.465-4.68)
[2020-10-24 09:53] VITALS: BP 119/67; PULSE 62; RESP 16; TEMP 36.5; O2SAT 98
== END 2020-10-24 09:54 | disposition home or self-care (01) ==
PROVIDERS: Emergency Provider Emergency Medicine; PCP Internal Medicine Adolescent Medicine
DX: K52.9 Noninfective gastroenteritis and colitis, unspecified (principal); K21.9 Gastro-esophageal reflux disease without esophagitis; I10 Essential (primary) hypertension; E78.5 Hyperlipidemia, unspecified; Z79.899 Other long term (current) drug therapy
CPT/HCPCS: 71045; 80053; 81001; 84443; 84484; 85025; 93005; 96365; 96375; 99283; J2405

== ENCOUNTER → 2020-11-28 11:16 | Outpatient (CLI) | payer BC, OTHER, SELFPAY ==
[2020-11-28 11:54] LABS: Basophils % 0.4 % (0.1-2.0); Eosinophils # 0.3 K/mm3 (0.0-0.4); Eosinophils % 3.6 % (0.1-12.0); Hematocrit 40.8 % (37.0-47.0); Hemoglobin 14.2 g/dL (12.2-16.2); Lymphocytes # 1.6 K/mm3 (0.7-4.5); Mean Corpuscular HGB Conc 34.8 g/dL (31.8-35.4); Mean Corpuscular Hemoglobin 33.3 pg (27.0-31.2); Mean Corpuscular Volume 95.8 fl (81-99); Monocytes # 0.4 K/mm3 (0.1-1.0); Monocytes % 5.1 % (1.7-9.3); Neutrophils # 6.1 K/mm3 (1.8-7.8); Neutrophils % 71.8 % (37.0-80.0); Platelet Count 228 K/mm3 (142-424); Red Blood Count 4.26 M/mm3 (4.20-5.40); Red Cell Distribution Width 13.5 % (11.5-17.5); White Blood Count 8.5 K/mm3 (4.8-10.8)
[2020-11-28 12:38] LABS: Chloride 108 mmol/L (98-107); Potassium 4.8 mmoL/L (3.5-5.1); Sodium 142 mmol/L (136-145)
[2020-11-28 12:40] LABS: Blood Urea Nitrogen 15 mg/dl (7-17); Estimated Glomerular Filt Rate 53 ml/min (>60); GFR (African American) 64 ML/MIN (>60)
[2020-11-28 12:41] LABS: Alanine Aminotransferase 16 U/L (12-78); Albumin Level 4.1 g/dl (3.5-5.0); Albumin/Globulin Ratio 1.6 (1.1-1.8); Alkaline Phosphatase 72 U/L (38-126); Anion Gap 12.8 mEq/L (5-15); Aspartate Amino Transferase 22 U/L (14-36); Bilirubin,Total 0.8 mg/dl (0.2-1.3); Calcium 9.1 mg/dl (8.4-10.2); Carbon Dioxide 26 mmol/L (22.0-30.0); Chol/HDL Ratio 2.8 (1-3.5); Cholesterol 165 mg/dl (140-200); Globulin 2.6 g/dL (1.3-3.2); Glucose 89 mg/dl (74-100); HDL Cholesterol 60 mg/dl (40-60); Total Protein,Serum 6.7 g/dl (6.3-8.2); Triglycerides 76 mg/dl (30-150); VLDL Cholesterol 15 mg/dL (0-40)
[2020-11-28 13:15] LABS: Thyroid Stimulating Hormone 3.05 uIU/mL (0.465-4.68)
== END ==
PROVIDERS: Visit Provider Nurse Practitioner Family
DX: E03.9 Hypothyroidism, unspecified (principal); E78.5 Hyperlipidemia, unspecified
CPT/HCPCS: 36415; 80053; 80061; 84443; 85025

== ENCOUNTER 2021-01-12 11:47 | Outpatient (CLI) | payer BC, OTHER, SELFPAY ==
[2021-01-12 12:00] VITALS: BP 121/73; PULSE 76; RESP 20; TEMP 36.9; O2SAT 95
[2021-01-12 12:01] VITALS: BMI 28.9
[2021-01-12 13:00] VITALS: BP 118/74; PULSE 68; RESP 20; TEMP 36.9; O2SAT 95
[2021-01-12 14:01] LABS: Chloride 110 mmol/L (98-107); Potassium 3.9 mmoL/L (3.5-5.1); Sodium 141 mmol/L (136-145)
[2021-01-12 14:04] LABS: Alanine Aminotransferase 15 U/L (12-78); Albumin Level 3.1 g/dl (3.5-5.0); Albumin/Globulin Ratio 1.2 (1.1-1.8); Alkaline Phosphatase 70 U/L (38-126); Anion Gap 8.9 mEq/L (5-15); Aspartate Amino Transferase 22 U/L (14-36); Bilirubin,Total 0.3 mg/dl (0.2-1.3); Blood Urea Nitrogen 13 mg/dl (7-17); Carbon Dioxide 26 mmol/L (22.0-30.0); Creatinine Clearance Estimated 77 mL/min (50-200); Estimated Glomerular Filt Rate 59 ml/min (>60); GFR (African American) 71 ML/MIN (>60); Globulin 2.5 g/dL (1.3-3.2); Glucose 86 mg/dl (74-100); Total Protein,Serum 5.6 g/dl (6.3-8.2)
[2021-01-12 14:05] LABS: Calcium 7.7 mg/dl (8.4-10.2); Magnesium 1.7 mg/dl (1.6-2.3)
[2021-01-12 14:28] LABS: Basophils # 0.1 K/mm3 (0-0.2); Basophils % 1.1 % (0.1-2.0); Eosinophils # 0.2 K/mm3 (0.0-0.4); Eosinophils % 3.4 % (0.1-12.0); Hematocrit 40.1 % (37.0-47.0); Hemoglobin 13.1 g/dL (12.2-16.2); Lymphocytes # 1.5 K/mm3 (0.7-4.5); Lymphocytes % 21.6 % (10-50); Mean Corpuscular HGB Conc 32.6 g/dL (31.8-35.4); Mean Corpuscular Hemoglobin 32.4 pg (27.0-31.2); Mean Corpuscular Volume 99.3 fl (81-99); Mean Platelet Volume 8.3 fl (7.4-10.4); Monocytes # 0.4 K/mm3 (0.1-1.0); Neutrophils # 4.8 K/mm3 (1.8-7.8); Neutrophils % 68.9 % (37.0-80.0); Platelet Count 315 K/mm3 (142-424); Red Blood Count 4.04 M/mm3 (4.20-5.40); Red Cell Distribution Width 12.5 % (11.5-17.5)
[2021-01-12 17:01] LABS: Campylobacter Not Detected (NotDetected); Cryptosporidium Not Detected (NotDetected); Cyclospora Cayetanesis Not Detected (NotDetected); Entamoeba histolytica Not Detected (NotDetected); Enteroaggregative E coli Not Detected (NotDetected); Enteropathogenic E coli Not Detected (NotDetected); Enterotoxigenic E coli Not Detected (NotDetected); Plesimonas Shigalloides, PCR Not Detected (NotDetected); Salmonella, PCR Not Detected (NotDetected); Shiga-like toxin E coli Not Detected (NotDetected); Shigella Enterovasive E coli Not Detected (NotDetected); Vibrio Cholerae Not Detected (NotDetected); Vibrio, PCR Not Detected (NotDetected); Yersinia Entercolitica, PCR Not Detected (NotDetected)
[2021-01-12 17:02] LABS: Adenovirus F 40/41, stool Not Detected (NotDetected); Astrovirus Not Detected (NotDetected); Giardia lamblia Not Detected (NotDetected); Norovirus Not Detected (NotDetected); Rotavirus A Not Detected (NotDetected); Sapovirus Not Detected (NotDetected)
[2021-01-12 21:26] LABS: Clostridium Difficile A/B, PCR Detected (NotDetected)
== END 2021-01-12 13:30 | disposition home or self-care (01) ==
LOC: INF 11:48
PROVIDERS: PCP Nurse Practitioner Family; Visit Provider Nurse Practitioner Family
DX: R19.7 Diarrhea, unspecified (principal); E86.0 Dehydration; Z11.52 Encounter for screening for COVID-19; A04.72 Enterocolitis due to Clostridium difficile, not specified as recurrent
CPT/HCPCS: 36415; 80053; 83735; 85025; 87507; 96360; U0003

== ENCOUNTER → 2021-01-19 09:22 | Outpatient (CLI) | payer BC, OTHER, SELFPAY ==
[2021-01-19 10:06] LABS: Basophils # 0.1 K/mm3 (0-0.2); Basophils % 0.6 % (0.1-2.0); Eosinophils # 0.3 K/mm3 (0.0-0.4); Eosinophils % 2.6 % (0.1-12.0); Hematocrit 42.9 % (37.0-47.0); Hemoglobin 14.1 g/dL (12.2-16.2); Lymphocytes # 1.8 K/mm3 (0.7-4.5); Lymphocytes % 18.9 % (10-50); Mean Corpuscular HGB Conc 32.8 g/dL (31.8-35.4); Mean Corpuscular Hemoglobin 32.8 pg (27.0-31.2); Mean Corpuscular Volume 100.1 fl (81-99); Mean Platelet Volume 8.8 fl (7.4-10.4); Monocytes # 0.4 K/mm3 (0.1-1.0); Monocytes % 4.2 % (1.7-9.3); Neutrophils # 6.9 K/mm3 (1.8-7.8); Neutrophils % 73.6 % (37.0-80.0); Platelet Count 278 K/mm3 (142-424); Red Blood Count 4.29 M/mm3 (4.20-5.40); Red Cell Distribution Width 12.3 % (11.5-17.5); White Blood Count 9.4 K/mm3 (4.8-10.8)
[2021-01-19 11:19] LABS: Chloride 105 mmol/L (98-107); Potassium 4.4 mmoL/L (3.5-5.1); Sodium 139 mmol/L (136-145)
[2021-01-19 11:22] LABS: Alanine Aminotransferase 14 U/L (12-78); Albumin Level 3.5 g/dl (3.5-5.0); Albumin/Globulin Ratio 1.3 (1.1-1.8); Alkaline Phosphatase 71 U/L (38-126); Anion Gap 13.4 mEq/L (5-15); Aspartate Amino Transferase 20 U/L (14-36); Bilirubin,Total 0.3 mg/dl (0.2-1.3); Blood Urea Nitrogen 17 mg/dl (7-17); Carbon Dioxide 25 mmol/L (22.0-30.0); Estimated Glomerular Filt Rate 53 ml/min (>60); GFR (African American) 64 ML/MIN (>60); Globulin 2.8 g/dL (1.3-3.2); Total Protein,Serum 6.3 g/dl (6.3-8.2)
[2021-01-19 11:23] LABS: Calcium 8.7 mg/dl (8.4-10.2); Glucose 86 mg/dl (74-100)
== END ==
PROVIDERS: Visit Provider Nurse Practitioner Family
DX: A04.72 Enterocolitis due to Clostridium difficile, not specified as recurrent (principal); L50.9 Urticaria, unspecified
CPT/HCPCS: 36415; 80053; 85025

== ENCOUNTER → 2021-02-18 14:33 | Outpatient (CLI) | payer BC, SELFPAY ==
[2021-02-18 15:08] LABS: Basophils # 0.1 K/mm3 (0-0.2); Basophils % 0.7 % (0.1-2.0); Eosinophils # 0.3 K/mm3 (0.0-0.4); Eosinophils % 3.5 % (0.1-12.0); Hematocrit 41.3 % (37.0-47.0); Hemoglobin 13.6 g/dL (12.2-16.2); Lymphocytes # 1.6 K/mm3 (0.7-4.5); Lymphocytes % 20.2 % (10-50); Mean Corpuscular HGB Conc 32.8 g/dL (31.8-35.4); Mean Corpuscular Hemoglobin 32.3 pg (27.0-31.2); Mean Corpuscular Volume 98.3 fl (81-99); Mean Platelet Volume 7.8 fl (7.4-10.4); Monocytes # 0.5 K/mm3 (0.1-1.0); Monocytes % 6.1 % (1.7-9.3); Neutrophils # 5.5 K/mm3 (1.8-7.8); Neutrophils % 69.5 % (37.0-80.0); Platelet Count 251 K/mm3 (142-424); Red Cell Distribution Width 11.6 % (11.5-17.5); White Blood Count 7.9 K/mm3 (4.8-10.8)
[2021-02-18 15:24] LABS: Alanine Aminotransferase 13 U/L (12-78); Albumin Level 3.8 g/dl (3.5-5.0); Albumin/Globulin Ratio 1.4 (1.1-1.8); Alkaline Phosphatase 74 U/L (38-126); Anion Gap 8.4 mEq/L (5-15); Aspartate Amino Transferase 21 U/L (14-36); Bilirubin,Total 0.4 mg/dl (0.2-1.3); Blood Urea Nitrogen 14 mg/dl (7-17); Calcium 8.7 mg/dl (8.4-10.2); Carbon Dioxide 27 mmol/L (22.0-30.0); Chloride 106 mmol/L (98-107); Chol/HDL Ratio 3.4 (1-3.5); Cholesterol 199 mg/dl (140-200); Estimated Glomerular Filt Rate 59 ml/min (>60); GFR (African American) 71 ML/MIN (>60); Globulin 2.8 g/dL (1.3-3.2); Glucose 80 mg/dl (74-100); HDL Cholesterol 58 mg/dl (40-60); Potassium 4.4 mmoL/L (3.5-5.1); Sodium 137 mmol/L (136-145); Total Protein,Serum 6.6 g/dl (6.3-8.2); Triglycerides 154 mg/dl (30-150); VLDL Cholesterol 31 mg/dL (0-40)
[2021-02-18 15:35] LABS: Direct LDL Cholesterol 117.24 mg/dL (100-129)
[2021-02-18 15:42] LABS: Free Thyroxine Index 2.7 ug/dL (5.93-13.13); T4 (Thyroxine) 11.2 ug/dl (5.53-11.0); Triiodothryronine (T3) Uptake 24 % (23.5-40.5)
[2021-02-18 15:55] LABS: Thyroid Stimulating Hormone 2.06 uIU/mL (0.465-4.68)
[2021-02-18 16:15] LABS: Vitamin B12 230 pg/mL (239-931)
[2021-02-20 08:51] LABS: FSH 0.7 mIU/mL (.); LH <0.3 mIU/mL (.)
[2021-02-28 02:08] LABS: 1,25 Dihydroxy Vitamin D 50 pg/mL (.); 1,25-Dihydroxy, Vitamin D-2 <10 pg/mL (.); 1,25-Dihydroxy, Vitamin D-3 50 pg/mL (.)
== END ==
PROVIDERS: Visit Provider Nurse Practitioner Obstetrics & Gynecology
DX: Z01.419 Encounter for gynecological examination (general) (routine) without abnormal findings (principal); R53.83 Other fatigue; N95.1 Menopausal and female climacteric states
CPT/HCPCS: 36415; 80053; 80061; 82607; 82652; 83001; 83002; 84436; 84443; 84479; 85025

== ENCOUNTER → 2021-03-12 11:56 | Outpatient (CLI) | payer BC, SELFPAY ==
[2021-03-12 12:00] LABS: Adenovirus F 40/41, stool Not Detected (NotDetected); Astrovirus Not Detected (NotDetected); Campylobacter Not Detected (NotDetected); Cryptosporidium Not Detected (NotDetected); Cyclospora Cayetanesis Not Detected (NotDetected); Entamoeba histolytica Not Detected (NotDetected); Enteroaggregative E coli Not Detected (NotDetected); Enteropathogenic E coli Not Detected (NotDetected); Enterotoxigenic E coli Not Detected (NotDetected); Giardia lamblia Not Detected (NotDetected); Norovirus Not Detected (NotDetected); Plesimonas Shigalloides, PCR Not Detected (NotDetected); Rotavirus A Not Detected (NotDetected); Salmonella, PCR Not Detected (NotDetected); Sapovirus Not Detected (NotDetected); Shiga-like toxin E coli Not Detected (NotDetected); Shigella Enterovasive E coli Not Detected (NotDetected); Vibrio Cholerae Not Detected (NotDetected); Vibrio, PCR Not Detected (NotDetected); Yersinia Entercolitica, PCR Not Detected (NotDetected)
[2021-03-12 15:06] LABS: Clostridium Difficile A/B, PCR Detected (NotDetected)
== END ==
PROVIDERS: Visit Provider Nurse Practitioner Family
DX: R19.5 Other fecal abnormalities (principal); A04.72 Enterocolitis due to Clostridium difficile, not specified as recurrent; Z86.19 Personal history of other infectious and parasitic diseases
CPT/HCPCS: 87507

== ENCOUNTER 2021-05-30 09:02 | Emergency (ER) | payer BC, SELFPAY ==
[2021-05-30 09:20] VITALS: BP 144/80; PULSE 96; RESP 22; TEMP 37.1; O2SAT 97; BMI 27.3
[2021-05-30 09:46] LABS: UTC Strep Screen (Rapid) Negative (Negative)
--- NOTE | 2021-05-30 10:04 | HMH.EDUTC ---
[facility] [place] Clinical Impression: Viral syndrome Disposition: Home, Self-Care Condition on Discharge: Good Instructions: DI for Viral Syndrome, DI for COVID-19 (Suspected or Confirmed ), Benzonatate Additional Instructions: *Monitor Temp, Over the counter Motrin or Tylenol as directed/as needed Tylenol every 4 hours and Motrin every 6 hours (as long as your family doctor has told you that you can take it) for fever or pain. and straight to ER if unable to lower temp less than 101.0 after medication given *Warm salt water gargles may help to soothe the throat *Throat Lozenges *Warm fluids like tea with honey may help to soothe the throat *Sleep elevated *Humidifier/Vaporizer Your throat swab was sent for culture. Those results are typically sent to your primary care. Be sure to follow up in 2-3 days with your family doctor/primary care physician if no improvement so they can review those result and treat if necessary. If you don?t have a primary care doctor, I recommend you get one but in the mean time, you will have to return to a walk in clinic Follow up IMMEDIATELY for new or worsening symptoms or no Noticeable improvement over the next 48-72 hours. 911 for difficulty breathing or swallowing You were tested for today for COVID19 your test result should be back in the next 24-48 hours, you may check your results on the [facility] My Health Portal if you have trouble logging on you may call You was given a handout with instructions for Self Quarantine and Self isolation for while you wait on test results and what to do if they are positive If you are positive the Health Dept will be contacting you also Make sure to take your Vitamins Vit. C Vit D and Zinc if you can take them Prescriptions: Benzonatate [Benzonatate 100mg cap] 100 mg PO Q8HP PRN #15 cap PRN Reason: Cough Transmission Status: [facility] methylPREDNISolone [Medrol 4mg tab] 4 mg PO DIRECTED #21 tab Transmission Status: Pending to [facility] Referrals: Juarez Kothari MD [Primary Care Provider] - As needed Forms: Work/School Release Time of Disposition: 10:20 Medical Decision Making - Shorty Inquiry Pt receiving controlled substance: No Shorty was queried for this patient: No Vital Signs: 05/30/21 09:20 Temperature 98.8 F Temperature Source Oral Pulse Rate [Left Brachial] 96 H Respiratory Rate 22 Blood Pressure [Left Arm] 144/80 H Blood Pressure Mean [Left Arm] 101 Blood Pressure Source [Left Arm] Automatic Cuff Blood Pressure Position [Left Arm] Sitting 02 Sat by Pulse Oximetry 97 Oxygen Delivery Method Room Air - Lab Data Lab results reviewed: Yes: I reviewed the patient's lab results. Lab Results 05/30/21 09:39: Strep Scn Rapid Clinic Negative Orders (Tests/Meds): ORDERS Category Date Time Status Covid-19 Nasal PCR ([facility]) Routine Lab 05/30/21 09:39 Ordered Strep Screen Confirmation Stat Micro 05/30/21 09:39 Received [facility] UTC HPI - General Stated complaint: headache,cough,congestion Time Seen by Provider: 05/30/21 10:04 Mode of Arrival: Ambulatory Source of Information: Patient Limitations: No Limitations Description of Symptoms (Recalled from Triage Doc. by RN): PATIENT C/O COUGH, SORE THROAT, EAR PAIN, AND DIARRHEA (YESTERDAY) X 3 DAYS. REPORTS THAT SEVERAL PEOPLE AT HER JOB HAVE TESTED POSITIVE FOR COVID HEENT Symptoms (Recalled from RN notes): Yes Resp Symptoms (Recalled from RN notes): Yes Skin Symptoms (Recalled from RN notes): No MS Symptoms (Recalled from RN notes): No Functional Status (Recalled from RN notes): WNL - History of Present Illness Provider Complaint: Patient state that she has recently been around people at work that has tested positive for COVID State that about 6 people that works in her dept has COVID and now she is having symptoms States she has been having sore throat, cough, pressure in her ears and sinuses and had diarrhea yesterday State that tod
[2021-05-30 10:25] VITALS: BP 144/80; PULSE 96; RESP 22; TEMP 37.1; O2SAT 97
== END 2021-05-30 10:32 | disposition home or self-care (01) ==
PROVIDERS: Emergency Provider Nurse Practitioner; PCP Internal Medicine Adolescent Medicine
DX: U07.1 COVID-19 (principal); B34.9 Viral infection, unspecified; K21.9 Gastro-esophageal reflux disease without esophagitis; E78.5 Hyperlipidemia, unspecified; I10 Essential (primary) hypertension; F33.1 Major depressive disorder, recurrent, moderate
CPT/HCPCS: 87880; 99203; C9803; G0463; U0003; U0005

== ENCOUNTER 2021-08-08 09:32 | Emergency (ER) | payer BC, SELFPAY ==
[2021-08-08] VITALS (28 sets, daily range): BP systolic 104–140; BP diastolic 55–86; PULSE 64–99; RESP 15–34; TEMP 36.9; O2SAT 96–100; BMI 29.0
--- NOTE | 2021-08-08 09:32 | ECG_ITS ---
APPROVED REPORT Exam: Resting ECG HR:95 bpm ECG Measurements Heart Rate 95 AXES OK 131 P 73 QRSd 88 QRS 23 QT 376 T 50 QTc 428 Conclusion SINUS RHYTHM LOW QRS VOLTAGE IN PRECORDIAL LEADS [QRS DEFLECTION < 1.0 mV IN CHEST LEADS] BORDERLINE ECG UNCONFIRMED REPORT Electronically signed by : Juarez Kothari MD 08/09/2021 20:18:06
--- NOTE | 2021-08-08 09:45 | CT_ITS ---
PROCEDURE INFORMATION: Exam: CT Head Without Contrast Exam date and time: 08/08/2021 10:25 AM Age: 51 years old Clinical indication: Speech disturbance and syncope and collapse; Slurred speech; Additional info: Numbness, PINEDA, left facial droop TECHNIQUE: Imaging protocol: Computed tomography of the head without contrast. Radiation optimization: All CT scans at this facility use at least one of these dose optimization techniques: automated exposure control; mA and/or kV adjustment per patient size (includes targeted exams where dose is matched to clinical indication); or iterative reconstruction. COMPARISON: CT HEAD/BRAIN WO CON 11/07/2019 3:17 PM FINDINGS: Brain: Symmetric prominence of the frontal sulci. No acute cortical infarct, mass effect, or intracranial hemorrhage. Cerebral ventricles: Normal configuration of the ventricles. Paranasal sinuses: Right maxillary sinus mucoperiosteal disease. 2.1 cm polypoid lesion in the left maxillary sinus. Trace left sphenoid sinus fluid. Mastoid air cells: No mastoid effusion. Bones/joints: No acute calvarial pathology. Soft tissues: Unremarkable soft tissues. IMPRESSION: Sinusitis, without acute intracranial pathology.
--- NOTE | 2021-08-08 09:46 | CT_ITS ---
PROCEDURE INFORMATION: Exam: CTA Chest With Contrast Exam date and time: 08/08/2021 10:28 AM Age: 51 years old Clinical indication: Shortness of breath; Additional info: SOA numbness, facial drop, anxiety- TECHNIQUE: Imaging protocol: Computed tomographic angiography of the chest with contrast. 3D rendering (Not supervised by radiologist): MIP and/or 3D reconstructed images were created by the technologist. Radiation optimization: All CT scans at this facility use at least one of these dose optimization techniques: automated exposure control; mA and/or kV adjustment per patient size (includes targeted exams where dose is matched to clinical indication); or iterative reconstruction. Contrast material: ISOVUE; Contrast volume: 75 ml; Contrast route: INTRAVENOUS (IV); COMPARISON: CR XR CHEST PORTABLE 10/24/2020 8:14 AM FINDINGS: Pulmonary arteries: Normal. No pulmonary emboli. Aorta: Unremarkable. No aortic aneurysm. No aortic dissection. Lungs: Unremarkable. No consolidation. No masses. Pleural spaces: Unremarkable. No pneumothorax. No pleural effusion. Heart: Unremarkable. No cardiomegaly. No pericardial effusion. Lymph nodes: Unremarkable. No enlarged lymph nodes. Bones/joints: Unremarkable. No acute fracture. Soft tissues: Unremarkable. IMPRESSION: No acute findings.
--- NOTE | 2021-08-08 09:46 | CT_ITS ---
PROCEDURE INFORMATION: Exam: CT Angiography Head With Contrast, Arteriography Exam date and time: 08/08/2021 10:32 AM Age: 51 years old Clinical indication: Speech disturbance and syncope and collapse; Slurred speech; Additional info: Headache, numbness, left facial droop TECHNIQUE: Imaging protocol: Computed tomography angiography of the head with contrast. Exam focused on the arteries. 3D rendering (Not supervised by radiologist): MIP and/or 3D reconstructed images were created by the technologist. Radiation optimization: All CT scans at this facility use at least one of these dose optimization techniques: automated exposure control; mA and/or kV adjustment per patient size (includes targeted exams where dose is matched to clinical indication); or iterative reconstruction. Contrast material: ISOVUE; Contrast volume: 75 ml; Contrast route: INTRAVENOUS (IV); COMPARISON: CT HEAD/BRAIN WO CON 08/08/2021 10:25 AM FINDINGS: ANTERIOR CIRCULATION: Right internal carotid artery: Unremarkable. Intracranial segment is patent with no significant stenosis. No aneurysm. Right middle cerebral artery: Unremarkable. No occlusion or significant stenosis. No aneurysm. Right anterior cerebral artery: Unremarkable. No occlusion or significant stenosis. No aneurysm. Left internal carotid artery: Unremarkable. Intracranial segment is patent with no significant stenosis. No aneurysm. Left middle cerebral artery: Unremarkable. No occlusion or significant stenosis. No aneurysm. Left anterior cerebral artery: Unremarkable. No occlusion or significant stenosis. No aneurysm. POSTERIOR CIRCULATION: Right vertebral artery: Unremarkable. No occlusion or significant stenosis. No aneurysm. Left vertebral artery: Unremarkable. No occlusion or significant stenosis. No aneurysm. Basilar artery: Unremarkable. No occlusion or significant stenosis. No aneurysm. Right posterior cerebral artery: Unremarkable. No occlusion or significant stenosis. No aneurysm. Left posterior cerebral artery: Unremarkable. No occlusion or significant stenosis. No aneurysm. Brain: There is no evidence of intracranial large vessel stenosis or occlusion. Cerebral ventricles: No ventriculomegaly. Bones/joints: Unremarkable. No acute fracture. Soft tissues: Unremarkable. IMPRESSION: There is no evidence of intracranial large vessel stenosis or occlusion.
--- NOTE | 2021-08-08 09:47 | CT_ITS ---
PROCEDURE INFORMATION: Exam: CT Angiography Neck With Contrast Exam date and time: 08/08/2021 10:32 AM Age: 51 years old Clinical indication: Speech disturbance and syncope and collapse; Slurred speech; Additional info: Headache, numbness, left facial droop TECHNIQUE: Imaging protocol: Computed tomography angiography of the neck with contrast. 3D rendering (Not supervised by radiologist): MIP and/or 3D reconstructed images were created by the technologist. Radiation optimization: All CT scans at this facility use at least one of these dose optimization techniques: automated exposure control; mA and/or kV adjustment per patient size (includes targeted exams where dose is matched to clinical indication); or iterative reconstruction. Contrast material: ISOVUE; Contrast volume: 75 ml; Contrast route: INTRAVENOUS (IV); COMPARISON: CT ANGIO CHEST PE PROTOCOL 08/08/2021 10:28 AM FINDINGS: Limitations: Breathing is noted on these images limiting the interpretation. Right common carotid artery: No stenosis. No dissection or occlusion. Right internal carotid artery: No stenosis of the extracranial segment. No dissection or occlusion. Right external carotid artery: No occlusion or stenosis of the origin. Left common carotid artery: No stenosis. No dissection or occlusion. Left internal carotid artery: No stenosis of the extracranial segment. No dissection or occlusion. Left external carotid artery: No occlusion or stenosis of the origin. Right vertebral artery: No stenosis. No dissection or occlusion. Left vertebral artery: No stenosis. No dissection or occlusion. Thyroid: The thyroid gland is normal. Soft tissues: Normal. No significant soft tissue swelling. Bones/joints: No acute fracture. Lungs: The visualized portions of the lung apices are normal. IMPRESSION: 1. There are codominant vertebral arteries with no stenosis or dissection. 2. There is no evidence of brachiocephalic arterial pathology. REFERENCES: NASCET CRITERIA. The degree of internal carotid artery stenosis is based on NASCET criteria. Normal is no stenosis. Mild is less than 50% stenosis. Moderate is 50-69% stenosis. Severe is 70% to 99% stenosis. Total occlusion is no detectable patent lumen.
--- NOTE | 2021-08-08 09:49 | HMH.EDGENADL ---
ED Disposition Clinical Impression: Anxiety, Acute anxiety Disposition: Home, Self-Care Condition on Discharge: Good Prescriptions: hydrOXYzine HCL [Hydroxyzine HCl] 25 mg PO QID PRN 3 Days #12 tab PRN Reason: Anxiety Transmission Status: Pending to [facility] Referrals: Juarez Kothari MD [Primary Care Provider] - - Critical Care Critical Care Time: No Attestation: On 08/08/21, the high probability of a clinically significant, sudden or life threatening deterioration of the following system(s) required my full and direct attention, intervention and personal management. The time I documented below is in addition to time spent performing reported procedures but includes the following listed in this critical care notation. Medical Decision Making - Medical Records Medical records reviewed: Yes: I reviewed the patient's medical records. - Shorty Inquiry Pt receiving controlled substance: No Vital Signs: 08/08/21 09:32 08/08/21 10:00 08/08/21 10:44 Temperature 98.4 F Temperature Source Oral Pulse Rate 84 89 Pulse Rate [Left Radial] 99 H Respiratory Rate 34 H 16 16 Blood Pressure 111/79 136/75 Blood Pressure [Right Arm] 140/86 Blood Pressure Mean 89 94 Blood Pressure Mean [Right Arm] 104 Blood Pressure Source [Right Arm] Automatic Cuff Blood Pressure Position [Right Arm] Sitting 02 Sat by Pulse Oximetry 100 99 100 Oxygen Delivery Method Room Air 08/08/21 11:00 08/08/21 11:30 08/08/21 12:00 Temperature Temperature Source Pulse Rate 80 80 80 Pulse Rate [Left Radial] Respiratory Rate 16 16 16 Blood Pressure 117/70 133/68 121/81 Blood Pressure [Right Arm] Blood Pressure Mean 85 85 94 Blood Pressure Mean [Right Arm] Blood Pressure Source [Right Arm] Blood Pressure Position [Right Arm] 02 Sat by Pulse Oximetry 97 98 99 Oxygen Delivery Method - Lab Data Lab Results 08/08/21 09:40: WBC 7.4, RBC 4.55, Hgb 14.1, Hct 43.3, MCV 95.2, MCH 31.1, MCHC 32.7, RDW 13.8, Plt Count 242, MPV 9.5, Neut % (Auto) 51.8, Lymph % (Auto) 30.7, Grainger % (Auto) 9.1, Eos % (Auto) 6.4, Baso % (Auto) 2.1 H, Neut # (Auto) 3.8, Lymph # (Auto) 2.3, Grainger # (Auto) 0.7, Eos # (Auto) 0.5 H, Baso # (Auto) 0.2 08/08/21 09:40: Sodium 137, Potassium 3.7, Chloride 108 H, Carbon Dioxide 21 L, Anion Gap 11.7, BUN 14, Creatinine 1.10 H, Estimated Creat Clear 70, Estimated GFR 53 L, Est GFR ( Amer) 64, Glucose 90, Calcium 7.9 L, Phosphorus 2.0 L, Magnesium 1.8, Total Bilirubin 0.6, AST 27, ALT 18, Alkaline Phosphatase 68, Troponin I 0.03, Total Protein 6.5, Albumin 3.7, Globulin 2.8, Albumin/Globulin Ratio 1.3 08/08/21 09:40: Serum HCG, Qual Negative Result diagrams: 08/08/21 09:40 08/08/21 09:40 Orders (Tests/Meds): ED MEDICATIONS Generic Name Dose Route Start Last Admin Trade Name Freq PRN Reason Stop Dose Admin Sodium Chloride 10 ml 08/08/21 09:48 Sodium Chloride 0.9% 10ml Vial IV 09/07/21 09:47 NEEDED PRN to Dilute Lorazepam inj Discontinued Medications Generic Name Dose Route Start Last Admin Trade Name Freq PRN Reason Stop Dose Admin Sodium Chloride 1,000 mls @ 999 mls/hr 08/08/21 10:00 08/08/21 10:07 Sod Chlor 0.9% 1000ml Bag IV 08/08/21 11:00 999 mls/hr .Q1H1M ROBBIN Administration Iopamidol 75 ml 08/08/21 10:41 08/08/21 10:42 Iopamidol-370 (76%);100ml Bottle IV 08/08/21 10:42 75 ml ONCE ONE Administration Iopamidol 75 ml 08/08/21 10:43 08/08/21 10:44 Iopamidol-370 (76%);100ml Bottle IV 08/08/21 10:44 75 ml ONCE ONE Administration Lorazepam 1 mg 08/08/21 09:48 08/08/21 09:48 Lorazepam 2mg/Ml Vial IV 08/08/21 09:49 1 mg ONCE ONE Administration Lorazepam 1 mg 08/08/21 10:08 08/08/21 10:09 Lorazepam 2mg/Ml Vial IV 08/08/21 10:09 1 mg ONCE ONE Administration Potassium Phosphate 250 mg 08/08/21 10:21 08/08/21 11:49 K-Phos Neutral 250mg Tablet PO 08/08/21 10:22 250 mg ONCE ON
--- NOTE | 2021-08-08 09:58 | PC.NURSE ---
PT in by EMS, assessed and labs drawn, at bs
[2021-08-08 10:04] LABS: Red Blood Count 4.55 M/mm3 (4.20-5.40); White Blood Count 7.4 K/mm3 (4.8-10.8)
[2021-08-08 10:05] LABS: Basophils # 0.2 K/mm3 (0-0.2); Basophils % 2.1 % (0.1-2.0); Eosinophils # 0.5 K/mm3 (0.0-0.4); Eosinophils % 6.4 % (0.1-12.0); Hematocrit 43.3 % (37.0-47.0); Hemoglobin 14.1 g/dL (12.2-16.2); Lymphocytes # 2.3 K/mm3 (0.7-4.5); Lymphocytes % 30.7 % (10-50); Mean Corpuscular HGB Conc 32.7 g/dL (31.8-35.4); Mean Corpuscular Hemoglobin 31.1 pg (27.0-31.2); Mean Corpuscular Volume 95.2 fl (81-99); Mean Platelet Volume 9.5 fl (7.4-10.4); Monocytes # 0.7 K/mm3 (0.1-1.0); Monocytes % 9.1 % (1.7-9.3); Neutrophils # 3.8 K/mm3 (1.8-7.8); Neutrophils % 51.8 % (37.0-80.0); Platelet Count 242 K/mm3 (142-424); Red Cell Distribution Width 13.8 % (11.5-17.5)
[2021-08-08 10:07] LABS: Chloride 108 mmol/L (98-107); Sodium 137 mmol/L (136-145)
[2021-08-08 10:08] LABS: Potassium 3.7 mmoL/L (3.5-5.1)
--- NOTE | 2021-08-08 10:09 | PC.NURSE ---
Per boyfriend he states looking the pt and her face, it looks as her norm
[2021-08-08 10:10] LABS: Alanine Aminotransferase 18 U/L (12-78); Albumin Level 3.7 g/dl (3.5-5.0); Albumin/Globulin Ratio 1.3 (1.1-1.8); Alkaline Phosphatase 68 U/L (38-126); Anion Gap 11.7 mEq/L (5-15); Aspartate Amino Transferase 27 U/L (14-36); Bilirubin,Total 0.6 mg/dl (0.2-1.3); Blood Urea Nitrogen 14 mg/dl (7-17); Carbon Dioxide 21 mmol/L (22.0-30.0); Creatinine Clearance Estimated 70 mL/min (50-200); Estimated Glomerular Filt Rate 53 ml/min (>60); GFR (African American) 64 ML/MIN (>60); Globulin 2.8 g/dL (1.3-3.2); Total Protein,Serum 6.5 g/dl (6.3-8.2)
--- NOTE | 2021-08-08 10:10 | PC.NURSE ---
boyfriend states pt has been really upset, her sister has stg 4 lung CA which now in her bone and was intubate a few days ago. Says she at a hamburger yesterday but hasn't really slept or ate in the last few days
[2021-08-08 10:11] LABS: Calcium 7.9 mg/dl (8.4-10.2); Glucose 90 mg/dl (74-100); Magnesium 1.8 mg/dl (1.6-2.3)
[2021-08-08 10:17] LABS: HCG Qualitative, Serum Negative (Negative)
[2021-08-08 10:23] LABS: Troponin I 0.03 ng/ml (0.00-0.034)
--- NOTE | 2021-08-08 10:27 | INFXCTL.NOTE ---
PT to CT
--- NOTE | 2021-08-08 10:43 | PC.NURSE ---
Pt back from RAD
--- NOTE | 2021-08-08 10:56 | PC.NURSE ---
Pt in bed
--- NOTE | 2021-08-08 11:28 | PC.NURSE ---
Updated family and pt about POC
--- NOTE | 2021-08-08 11:56 | PC.NURSE ---
pt was able to hold water and take drink and swallow a po med. Less to complete stop of shaking during this assessment.
--- NOTE | 2021-08-08 13:51 | PC.NURSE ---
[facility]
[2021-08-08 14:22] LABS: Coronavirus 19, PCR Not Detected (NotDetected); Influenza A, PCR Not Detected (NotDetected); Influenza B, PCR Not Detected (NotDetected)
--- NOTE | 2021-08-08 14:22 | PC.NURSE ---
called [facility] and Dr. Quiroz is speaking with [employer]
--- NOTE | 2021-08-08 14:32 | PC.NURSE ---
pt on wait list at [facility]
--- NOTE | 2021-08-08 14:34 | PC.NURSE ---
calling [facility]
--- NOTE | 2021-08-08 14:43 | PC.NURSE ---
Dr Quiroz Spoke with Rn under Ian Diaz for transfer
--- NOTE | 2021-08-08 15:00 | PC.NURSE ---
Dr Quiroz spoke with Dr Toledo for transfer he accepted, waiting for bed placement
--- NOTE | 2021-08-08 15:17 | PC.NURSE ---
[facility] access center called and let MD know that they are aware of request and are trying to get pt a bed.
--- NOTE | 2021-08-08 15:20 | PC.NURSE ---
Faxed Facesheet to [facility] [phone]
--- NOTE | 2021-08-08 15:35 | PC.NURSE ---
Facesheet successfully sent to [facility] access center
[2021-08-08 16:09] LABS: Troponin I 0.03 ng/ml (0.00-0.034)
--- NOTE | 2021-08-08 16:44 | PC.NURSE ---
Pt is in bed and daughter is at bedside
--- NOTE | 2021-08-08 17:33 | PC.NURSE ---
gave pt a blanket. she is comfortable in room lights out with SO
--- NOTE | 2021-08-08 17:47 | PC.NURSE ---
r'cved call from [facility], still no beds
--- NOTE | 2021-08-08 21:10 | PC.NURSE ---
Pt c/o headache and requesting something for that. Family will be staying with her and a sofa chair was brought into room and extra pillow, linens given.
--- NOTE | 2021-08-08 22:19 | PC.NURSE ---
Spoke with [facility]. Updated on patients condition and vital signs. Patient ambulated to restroom. Pt is alert oriented and stable. C/o headache that has lasted all day.
[2021-08-09] VITALS (12 sets, daily range): BP systolic 101–148; BP diastolic 45–78; PULSE 53–78; RESP 18; TEMP 36.9; O2SAT 96–99
--- NOTE | 2021-08-09 03:47 | PC.NURSE ---
Shu from access center called, gave updated VS and she reports still no beds available. They anticipate a bed after shift-change.
[2021-08-09 05:46] LABS: Microscopic, Urine URINE MICROSCOPIC (MICROSCOPIC)
[2021-08-09 05:48] LABS: Basophils # 0.1 K/mm3 (0-0.2); Basophils % 1.8 % (0.1-2.0); Eosinophils # 0.4 K/mm3 (0.0-0.4); Hematocrit 43.7 % (37.0-47.0); Lymphocytes # 1.8 K/mm3 (0.7-4.5); Lymphocytes % 22.7 % (10-50); Mean Corpuscular HGB Conc 31.9 g/dL (31.8-35.4); Mean Corpuscular Volume 97.1 fl (81-99); Mean Platelet Volume 7.8 fl (7.4-10.4); Monocytes # 0.5 K/mm3 (0.1-1.0); Monocytes % 6.5 % (1.7-9.3); Neutrophils # 5.1 K/mm3 (1.8-7.8); Platelet Count 208 K/mm3 (142-424); Red Cell Distribution Width 13.2 % (11.5-17.5); White Blood Count 7.9 K/mm3 (4.8-10.8)
[2021-08-09 05:57] LABS: Appearance,Urine CLEAR (Clear); Bilirubin,Urine Negative (Negative); Blood, Urine 2+ (Negative); Color,Urine YELLOW (Yellow); Glucose,Urine (UA) Negative (Negative); Ketones,Urine Negative (Negative); Leukocyte Esterase,Urine Negative (Negative); Nitrate,Urine Negative (Negative); Protein,Urine Negative (Negative); Urobilinogen,Urine 0.2 EU/dl (0.2)
[2021-08-09 05:59] LABS: Anion Gap 11.9 mEq/L (5-15); Blood Urea Nitrogen 11 mg/dl (7-17); Calcium 8.3 mg/dl (8.4-10.2); Carbon Dioxide 23 mmol/L (22.0-30.0); Chloride 107 mmol/L (98-107); Creatinine Clearance Estimated 77 mL/min (50-200); Estimated Glomerular Filt Rate 59 ml/min (>60); GFR (African American) 71 ML/MIN (>60); Glucose 81 mg/dl (74-100); Phosphorous 3.1 mg/dl (2.5-4.5); Potassium 3.9 mmoL/L (3.5-5.1); Sodium 138 mmol/L (136-145)
[2021-08-09 06:00] LABS: WBC,Urine Occasional #/hpf (0-3)
--- NOTE | 2021-08-09 07:23 | PC.NURSE ---
PT in room sleeping. Still waiting on bed
--- NOTE | 2021-08-09 08:15 | PC.NURSE ---
Spoke with the daughter and pt who states that she wants to go home. Pt states that she is feeling more back to her normal and daughter feels like she is ok to go home as well and fu with her PCP tomorrow. PT has remained stable t/o the night and into this morning. MD reviewed her chart and states that he feels it is ok to release with the initial plan to DC home.
--- NOTE | 2021-08-09 08:27 | PC.NURSE ---
Pt instructed to return if symptoms return and understands instruction
== END 2021-08-09 08:33 | disposition home or self-care (01) ==
PROVIDERS: Emergency Medicine; Emergency Provider Emergency Medicine; PCP Internal Medicine Adolescent Medicine
DX: F41.0 Panic disorder [episodic paroxysmal anxiety] (principal); R20.2 Paresthesia of skin; K21.9 Gastro-esophageal reflux disease without esophagitis; E78.5 Hyperlipidemia, unspecified; Z88.2 Allergy status to sulfonamides; Z79.899 Other long term (current) drug therapy
CPT/HCPCS: 70450; 70496; 70498; 71275; 80048; 80053; 81001; 83735; 84100; 84484; 84703; 85025; 93005; 96365; 96375; 96376; 99284; C9803; Q9967; U0003; U0005

== ENCOUNTER → 2021-08-12 10:03 | Outpatient (CLI) | payer BC, SELFPAY ==
--- NOTE | 2021-08-12 10:05 | US_ITS ---
FINAL REPORT CLINICAL HISTORY: POSTMENOPAUSAL BLEEDING FINDINGS: Transvaginal sonographic images of the pelvis were obtained. The uterus is retroverted and measures 6.5 x 4.6 x 4.6 cm. The endometrium measures 4 mm, which is abnormal in a postmenopausal patient. There is heterogeneous myometrium with several fibroids. The largest fibroid measures 1.6 cm. The right ovary measures 1.3 cm in length and left ovary measures 2.1 cm in length. Normal blood flow seen to the ovaries. There is a Bartholin's cyst measuring approximately 1 cm in inferior vagina. IMPRESSION: Fibroid uterus. Retroverted uterus. 1 cm Bartholin's cyst. Abnormal endometrial stripe for a postmenopausal patient. Gynecological evaluation is recommended. Reviewed, Interpreted and Dictated by Francisco Martinez MD Transcribed by Aure Cruz Authenticated by Francisco Martinez MD on 08/12/2021 12:26:[address] [facility]
== END ==
PROVIDERS: PCP Internal Medicine Adolescent Medicine; Visit Provider Nurse Practitioner Family
DX: N95.0 Postmenopausal bleeding (principal)
CPT/HCPCS: 76830

== ENCOUNTER → 2021-08-13 10:24 | Outpatient (CLI) | payer BC, SELFPAY ==
[2021-08-13 13:35] LABS: Blood Urea Nitrogen 16 mg/dl (7-17); Estimated Glomerular Filt Rate 53 ml/min (>60); GFR (African American) 64 ML/MIN (>60)
== END ==
PROVIDERS: PCP Internal Medicine Adolescent Medicine; Visit Provider Nurse Practitioner Family
DX: G81.94 Hemiplegia, unspecified affecting left nondominant side (principal)
CPT/HCPCS: 36415; 82565; 84520

== ENCOUNTER → 2021-08-14 07:09 | Outpatient (CLI) | payer BC, SELFPAY ==
--- NOTE | 2021-08-14 07:33 | MR_ITS ---
FINAL REPORT CLINICAL HISTORY: HEMIPARESIS OF LEFT SIDE OF FACE. severe panic attack x5days ago with facial drooping and slurred speech. bilateral hand numbness. constant headache x2wks. hypertension. 14ml prohance given. FINDINGS: Multiplanar MR imaging of the brain was performed without and with contrast. There is no evidence of intracranial hemorrhage or mass. No abnormal extra-axial fluid collection is seen. The ventricular size is within normal limits. There is no evidence of shift of the midline structures. There is abnormal restricted diffusion in the right insular cortex and within the cortex of the inferior right parietal lobe. Finding is consistent with subacute ischemia. This is well-seen on image 14 of series 9 and images 13 through 15 of series 3.2. There is no corresponding decreased signal on the ADC map images. There is subtle enhancement in the inferior right parietal cortex, probably related to luxury perfusion. Normal major vessel vascular flow voids are noted. IMPRESSION: Abnormal signal in the right insular and inferior right parietal cortex consistent with subacute ischemia. Physician was notified of findings on 08/14/2021 at 10:02 AM. Reviewed, Interpreted and Dictated by Francisco Martinez MD Transcribed by Margarita Junior Authenticated by Francisco Martinez MD on 08/14/2021 10:56:34 AM [facility]
== END ==
PROVIDERS: PCP Internal Medicine Adolescent Medicine; Visit Provider Nurse Practitioner Family
DX: R51.9 Headache, unspecified (principal); G81.94 Hemiplegia, unspecified affecting left nondominant side; R29.2 Abnormal reflex
CPT/HCPCS: 70553; A9576

== ENCOUNTER 2021-08-15 00:40 | Emergency (ER) | payer BC, SELFPAY ==
[2021-08-15 00:41] VITALS: BP 150/88; PULSE 115; RESP 20; O2SAT 99; BMI 29.0
--- NOTE | 2021-08-15 00:47 | ECG_ITS ---
APPROVED REPORT Exam: Resting ECG HR:111 bpm ECG Measurements Heart Rate 111 AXES DC 138 P 73 QRSd 88 QRS 13 QT 340 T 47 QTc 406 Conclusion SINUS TACHYCARDIA LOW QRS VOLTAGE IN PRECORDIAL LEADS [QRS DEFLECTION < 1.0 mV IN CHEST LEADS] ABNORMAL RHYTHM ECG UNCONFIRMED REPORT Electronically signed by : Juarez Kothari MD 08/16/2021 07:50:54
[2021-08-15 00:52] VITALS: BMI 29.0
--- NOTE | 2021-08-15 00:54 | PC.NURSE ---
0054- Stroke Alert called. Manual BP of 150/88 0055- Finger stick of 79 0057- Pt to CT with this RN and BUBBA Truner
--- NOTE | 2021-08-15 00:55 | CT_ITS ---
PROCEDURE INFORMATION: Exam: CT Head Without Contrast Exam date and time: 08/15/2021 12:56 AM Age: 51 years old Clinical indication: Other: Weakness, AMS, unable to talk; Additional info: Stroke alert TECHNIQUE: Imaging protocol: Computed tomography of the head without contrast. Radiation optimization: All CT scans at this facility use at least one of these dose optimization techniques: automated exposure control; mA and/or kV adjustment per patient size (includes targeted exams where dose is matched to clinical indication); or iterative reconstruction. Other technique: STROKE PROTOCOL was implemented. COMPARISON: MR HEAD/BRAIN WO/W CON 08/14/2021 7:51 AM FINDINGS: Brain: Area of loss of schultz-white matter differentiation involving the right sided insular cortex and right frontal lobe. The remaining schultz-white matter junction is intact. There is no area of hemorrhage. There is no focal mass. Cerebral ventricles: No ventriculomegaly. Paranasal sinuses: Visualized sinuses are unremarkable. No fluid levels. Mastoid air cells: Visualized mastoid air cells are well aerated. Bones/joints: Unremarkable. No acute fracture. Soft tissues: See Brain finding. IMPRESSION: 1. 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 This is unchanged compared to the MRI examination. 2. The remainder of the examination is unremarkable. There is no new infarction. There is no hemorrhage or mass. ASSESSMENT: ASPECTS ([place] Stroke Program Early CT Score) is 8
--- NOTE | 2021-08-15 00:59 | PC.NURSE ---
PATIENT REPORTS THAT SHE TOOK ASPIRIN 81 MG 08/14/21 AT 1800
--- NOTE | 2021-08-15 01:00 | PC.NURSE ---
PT/ UNABLE TO VERIFY MEDICATIONS AT THIS TIME.
[2021-08-15 01:10] LABS: POC Glucose,Bedside 79 (70-110)
[2021-08-15 01:30] VITALS: BP 121/89; PULSE 99; O2SAT 98
[2021-08-15 01:36] LABS: Basophils # 0.3 K/mm3 (0-0.2); Basophils % 3.1 % (0.1-2.0); Eosinophils # 0.4 K/mm3 (0.0-0.4); Eosinophils % 3.6 % (0.1-12.0); Hematocrit 53.3 % (37.0-47.0); Hemoglobin 16.9 g/dL (12.2-16.2); Lymphocytes # 3.1 K/mm3 (0.7-4.5); Lymphocytes % 31.9 % (10-50); Mean Corpuscular HGB Conc 31.8 g/dL (31.8-35.4); Mean Corpuscular Hemoglobin 30.9 pg (27.0-31.2); Mean Corpuscular Volume 97.2 fl (81-99); Mean Platelet Volume 8.6 fl (7.4-10.4); Monocytes # 0.5 K/mm3 (0.1-1.0); Monocytes % 5.1 % (1.7-9.3); Neutrophils # 5.4 K/mm3 (1.8-7.8); Neutrophils % 56.2 % (37.0-80.0); Platelet Count 224 K/mm3 (142-424); Red Blood Count 5.48 M/mm3 (4.20-5.40); Red Cell Distribution Width 13.2 % (11.5-17.5); White Blood Count 9.6 K/mm3 (4.8-10.8)
[2021-08-15 01:37] LABS: Chloride 106 mmol/L (98-107); Potassium 4.1 mmoL/L (3.5-5.1); Sodium 140 mmol/L (136-145)
--- NOTE | 2021-08-15 01:37 | HMH.EDNEU ---
ED Disposition Clinical Impression: Cerebrovascular accident Qualifiers: CVA mechanism: unspecified Qualified Code(s): I63.9 - Cerebral infarction, unspecified Disposition: Home, Self-Care Condition on Discharge: Good Instructions: DI for Stroke-Ischemic Additional Instructions: call pcp in am Referrals: Juarez Kothari MD [Primary Care Provider] - - Critical Care Critical Care Time: No Attestation: On 08/15/21, the high probability of a clinically significant, sudden or life threatening deterioration of the following system(s) required my full and direct attention, intervention and personal management. The time I documented below is in addition to time spent performing reported procedures but includes the following listed in this critical care notation. Medical Decision Making - Medical Records Medical records reviewed: Yes: I reviewed the patient's medical records. - Shorty Inquiry Pt receiving controlled substance: No Vital Signs: 08/15/21 00:41 Pulse Rate [Left] 115 H Respiratory Rate 20 Blood Pressure [Right Arm] 150/88 H Blood Pressure Mean [Right Arm] 108 Blood Pressure Source [Right Arm] Manual Cuff/ Auscultation 02 Sat by Pulse Oximetry 99 Oxygen Delivery Method Room Air - Lab Data Lab results reviewed: Yes: I reviewed the patient's lab results. Lab Results 08/15/21 00:56: WBC 9.6, RBC 5.48 H, Hgb 16.9 H, Hct 53.3 H, MCV 97.2, MCH 30.9, MCHC 31.8, RDW 13.2, Plt Count 224, MPV 8.6, Neut % (Auto) 56.2, Lymph % (Auto) 31.9, Morrow % (Auto) 5.1, Eos % (Auto) 3.6, Baso % (Auto) 3.1 H, Neut # (Auto) 5.4, Lymph # (Auto) 3.1, Morrow # (Auto) 0.5, Eos # (Auto) 0.4, Baso # (Auto) 0.3 H 08/15/21 00:56: Sodium 140, Potassium 4.1, Chloride 106, Carbon Dioxide 23, Anion Gap 15.1 H, BUN 17, Creatinine 1.30 H, Estimated Creat Clear 59, Estimated GFR 43 L, Est GFR ( Amer) 52 L, Glucose 92, Calcium 9.0, Total Bilirubin 0.6, Direct Bilirubin 0.6 H, Conjugated Bilirubin 0.0, Indirect Bilirubin 0.0, Unconjugated Bilirubin 0.0, AST 33, ALT 28, Alkaline Phosphatase 91, Troponin I < 0.01, Total Protein 8.3 H D, Albumin 4.6 08/15/21 00:56: Lactate 1.5 08/15/21 00:57: POC Glucose 79 Result diagrams: 08/15/21 00:56 08/15/21 00:56 Orders (Tests/Meds): ED MEDICATIONS Generic Name Dose Route Start Last Admin Trade Name Fredamon PRN Reason Stop Dose Admin Lactated Ringer's 1,000 mls @ 999 mls/hr 08/15/21 01:30 Lactated Ringer's 1000 Ml Bag IV 08/15/21 02:30 .Q1H1M COUNT INCLUDES THE [facility] ORDERS Category Date Time Status Troponin I Q3H Lab 08/15/21 04:30 Ordered Troponin I Q3H Lab 08/15/21 07:30 Ordered - CT Data CT Scan: Head Time Received: 02:[address] Reviewed: Yes: I discussed the CT results w/the radiologist, I have viewed the radiologist's interpretation Preliminary Findings: Abnormal (no change from mri ) - ECG Data Tracing #1 Normal Sinus Rhythm: Yes Ischemic changes: non-specific ST-T wave changes - Physician Consults Physician Consulted: neuro- [facility]- dr goldberg Reason -: Pt condition Medical Decision Narrative: has prev cva and stable labs and exam and neuro felt no change at this time and pt wishes to go home Neuro HPI - General Chief Complaint: Neuro Symptoms/Deficit Stated Complaint: Dizziness,left hand numb,High B/P Time Seen by Provider: 08/15/21 00:45 Mode of Arrival: Ambulatory Source of Information: Patient, Spouse, Medical Record Limitations: No Limitations Description of Symptoms (Recalled from ER Triage Doc. by RN): pt reports to have started feeling unwell earlier tonight about 1220 she woke her because she was feeling bad like she was last week with tingling in her left arm and numbness in her face. the pt was here in the ed last weekend and has a ct scan that was clear then followed up tuesday morning withan MRI and it was identified that she had an ischemic stroke. - History of Present Illness HPI Narrative: pt with prev episode of numbness and dec
[2021-08-15 01:39] LABS: Alanine Aminotransferase 28 U/L (12-78); Aspartate Amino Transferase 33 U/L (14-36); Blood Urea Nitrogen 17 mg/dl (7-17); Creatinine Clearance Estimated 59 mL/min (50-200); Estimated Glomerular Filt Rate 43 ml/min (>60); GFR (African American) 52 ML/MIN (>60)
[2021-08-15 01:40] LABS: Albumin Level 4.6 g/dl (3.5-5.0); Alkaline Phosphatase 91 U/L (38-126); Anion Gap 15.1 mEq/L (5-15); Bilirubin,Direct 0.6 mg/dl (0.0-0.4); Bilirubin,Total 0.6 mg/dl (0.2-1.3); Carbon Dioxide 23 mmol/L (22.0-30.0); Glucose 92 mg/dl (74-100); Lactic Acid 1.5 mmol/L (0.7-2.1); Total Protein,Serum 8.3 g/dl (6.3-8.2)
--- NOTE | 2021-08-15 01:41 | PC.NURSE ---
ER speaking with Dr. Sifuentes with [facility]
--- NOTE | 2021-08-15 01:41 | PC.NURSE ---
pt states to not remember certain things when asked basic things. ex when asked sharp or dull she would state I cant remember things. but then to go on to say sharp.
[2021-08-15 01:54] LABS: Troponin I < 0.01 ng/ml (0.00-0.034)
[2021-08-15 02:00] VITALS: BP 138/73; PULSE 94; O2SAT 98
[2021-08-15 02:30] VITALS: BP 146/82; PULSE 81; O2SAT 99
[2021-08-15 03:11] VITALS: BP 132/68; PULSE 73; RESP 16; TEMP 36.6; O2SAT 98
== END 2021-08-15 03:12 | disposition home or self-care (01) ==
PROVIDERS: Emergency Provider Emergency Medicine; PCP Internal Medicine Adolescent Medicine
DX: I63.9 Cerebral infarction, unspecified (principal); K21.9 Gastro-esophageal reflux disease without esophagitis; E78.5 Hyperlipidemia, unspecified; I10 Essential (primary) hypertension; F33.1 Major depressive disorder, recurrent, moderate; Z79.899 Other long term (current) drug therapy
CPT/HCPCS: 70450; 80048; 80076; 82962; 83605; 84484; 85025; 93005; 99284

== ENCOUNTER → 2021-08-17 11:00 | Outpatient (CLI) | payer BC, SELFPAY | LOC: RT 11:02 | PROVIDERS: PCP Internal Medicine Adolescent Medicine; Visit Provider Nurse Practitioner Family | DX: I63.9 Cerebral infarction, unspecified (principal) | CPT/HCPCS: 93225; 93226; 93270 ==

== ENCOUNTER → 2021-08-19 12:43 | Outpatient (CLI) | payer BC, SELFPAY ==
--- NOTE | 2021-08-19 12:46 | CA_ITS ---
APPROVED REPORT EXAM: Comprehensive 2D, Doppler, and color-flow Echocardiogram Pigment And Lacquer Mixer: Elaine Márquez CRT Ht: 5 ft 2 in Wt: 160lbs BSA: 1.74 BP: 122/78 mmHg Indications: CVA/TIA, Hyperlipidemia, Hypertension/HDD Echo Enhancing Agent Indication: Rule out Shunt Agent(s) / Amount(s) Used: Agitated Saline 10 cc Comments: b/s negative 2D Dimensions LVOT 1.84 cm (M/F) 1.5-2.5 LA Volume 25.20 mL LA Volume Index 14.50 mL/m2 (M/F) 16-34 M-Mode Dimensions RVDd 2.64 cm (0.9-2.6) LA Diam 2.51 cm (1.9-4.0) LVDd 3.65 cm (3.5-5.7) Ao Diam 2.95 cm (2.0-3.7) LVDs 2.58 cm (3.5-5.7) IVSd 0.99 cm (0.6-1.1) PWd 0.76 cm (0.6-1.1) EF (Teich) 57.20% FS 29.30% EDV (Teich) 56.30 mL TAPSE 1.72 (<1.7) ESV (Teich) 24.10 mL LV Diastology E Decel Time 147.00 (160-240 msec) E/A Ratio 0.76 MED E' 7.10 (< 7 cm/sec) MED A' 9.30 cm/s E'/MED E' Ratio 9.65 (>14) LAT E' 14.50 (<10 cm/sec) LAT A' 11.30 cm/s E/LAT E' Ratio 4.72 (>14) Aortic Valve AI PHT 449.00 ms AO Peak GR. 7.30 mmHg Mitral Valve MV A Velocity 90.00 (40-130 cm/s) E/A Ratio 0.76 MV Decel. Time 147.00 (160-240 ms) Pulmonary Valve PV Peak Velocity 86.00 (50-150 cm/s) Tricuspid Valve TR P. Velocity 254.00 cm/s RAP Estimate 10.00 mmHg RVSP 35.70 mmHg Left Ventricle Left atrium is mildly enlarged, left ventricle is normal size, mild concentric left ventricular hypertrophy, estimated ejection fraction 55% with no regional wall motion abnormality, grade 1 diastolic dysfunction seen without tissue Doppler evidence of raise left atrial pressure. Right Ventricle Right atrium and right ventricle are normal size and contractility. Atria Intra-atrial septum is intact, agitated saline contrast study fails to identify intracardiac shunt. Aortic Valve Aortic valve is minimally thickened and fibrosed there is no aortic stenosis or aortic insufficiency. Mitral Valve Mitral valve is grossly normal, there is trace mitral regurgitation. Tricuspid Valve Tricuspid grossly normal, there is trace tricuspid regurgitation, tricuspid regurgitation jet velocity is inadequate for calculation of the right ventricular systolic pressure. Pulmonic Valve Pulmonic valve is poorly visualized. Great Vessels Aortic root is normal size. Inferior vena cava is poorly visualized. Pericardium No significant pericardial effusion noted. Conclusion 1. Normal left ventricular size, preserved left ventricular systolic function, visually estimated ejection fraction 55% with no regional wall motion abnormality, grade 1 diastolic dysfunction seen without tissue Doppler evidence of raise left atrial pressure. 2. Trace mitral and tricuspid regurgitation. 3. Agitated saline contrast study did not identify intracardiac shunt. 4. No significant pericardial effusion noted 5. Inferior vena cava is poorly visualized. Electronically signed by : Matthieu Lewis MD 08/19/2021 19:22:41
== END ==
LOC: RT 12:44
PROVIDERS: PCP Internal Medicine Adolescent Medicine; Visit Provider Nurse Practitioner Family
DX: I69.30 Unspecified sequelae of cerebral infarction (principal)
CPT/HCPCS: 93306

== ENCOUNTER → 2021-10-06 13:51 | Outpatient (CLI) | payer BC, SELFPAY ==
--- NOTE | 2021-10-06 13:57 | XR_ITS ---
FINAL REPORT CLINICAL HISTORY: h/o stroke, brisk reflex, clonus, [place], cross adductor FINDINGS: CERVICAL SPINE Seven views demonstrate no acute fracture. The disc spaces are well preserved. There is no abnormal movement with flexion and extension maneuvers. IMPRESSION: No acute process. Reviewed, Interpreted and Dictated by Karan Doll III, MD Transcribed by Margarita Junior Authenticated by Karan Doll III, MD on 10/06/2021 03:19:33 PM [facility]
[2021-10-06 15:25] LABS: C-Reactive Protein 0.5 mg/L (0-4)
[2021-10-06 15:50] LABS: Thyroid Stimulating Hormone 1.75 uIU/mL (0.465-4.68)
[2021-10-06 16:26] LABS: Vitamin B12 342 pg/mL (239-931)
[2021-10-06 16:28] LABS: Folate 5.53 ng/mL
[2021-10-08 08:18] LABS: Triiodothyronine (T3) Free 2.9 pg/mL (2.0-4.4)
[2021-10-08 13:56] LABS: Homocyst(e)ine 13.7 umol/L (0.0-14.5); Rapid Plasma Reagin Ab Titer Non Reactive (NonRea<1:1)
[2021-10-13 12:23] LABS: Methylmalonic Acid 193 nmol/L (0-378)
[2021-10-17 18:55] LABS: Antinuclear Antibodies (ANA) NEGATIVE
== END ==
PROVIDERS: PCP Internal Medicine Adolescent Medicine; Visit Provider Specialist
DX: I63.9 Cerebral infarction, unspecified (principal); R20.0 Anesthesia of skin; R20.2 Paresthesia of skin; R25.8 Other abnormal involuntary movements; R29.2 Abnormal reflex; G47.00 Insomnia, unspecified
CPT/HCPCS: 36415; 72052; 82131; 82607; 82746; 83090; 84436; 84443; 84481; 86038; 86140; 86225; 86235; 86592

== ENCOUNTER → 2021-10-12 07:54 | Outpatient (CLI) | payer BC, SELFPAY ==
--- NOTE | 2021-10-12 07:54 | MR_ITS ---
FINAL REPORT CLINICAL HISTORY: brisk reflex, clonus, [place], cross adductor. headache, dizziness, weakness in left arm. bilateral hand tingling. cva d3leango ago. FINDINGS: Multiplanar MR imaging of the cervical spine was performed without contrast. On the sagittal T2-weighted images, disc degeneration is seen at multiple levels. There is a hemangioma in the T2 vertebral body. There is nonspecific, T2 hyperintense lesion in the C7 vertebral body which could represent atypical hemangioma . There is no evidence of fracture. The vertebral alignment is normal. The cervical spinal cord has an unremarkable appearance without evidence of mass, edema or syrinx. The cervicomedullary junction is normal. C2-3: There is no significant canal stenosis or neural foraminal narrowing. C3-4: Right paracentral disc protrusion with mass effect upon the anterior thecal sac and cord. There is mild central canal stenosis. There is no significant neural foraminal narrowing. C4-5: Left subarticular disc protrusion superimposed on a mild disc osteophyte complex. There is mild left neural foraminal narrowing. There is no significant central canal stenosis. C5-6: There is no significant canal stenosis or neural foraminal narrowing. C6-7: There is no significant canal stenosis or neural foraminal narrowing. C7-T1: There is no significant canal stenosis or neural foraminal narrowing. IMPRESSION: Disc protrusion at C3-4 with mass effect upon the anterior thecal sac and cord and mild central canal stenosis. Reviewed, Interpreted and Dictated by Ana Crowder MD Transcribed by Fabienne Blue Authenticated by Ana Crowder MD on 10/12/2021 10:00:34 AM [facility]
== END ==
PROVIDERS: PCP Internal Medicine Adolescent Medicine; Visit Provider Specialist
DX: I63.9 Cerebral infarction, unspecified (principal); R20.0 Anesthesia of skin; R20.2 Paresthesia of skin; R25.8 Other abnormal involuntary movements; R29.2 Abnormal reflex
CPT/HCPCS: 72141; 76376

== ENCOUNTER → 2021-10-14 14:03 | Outpatient (CLI) | payer BC, SELFPAY | PROVIDERS: PCP Nurse Practitioner Family; Referring Provider Specialist; Visit Provider Nurse Practitioner Family | DX: R55 Syncope and collapse (principal); I63.9 Cerebral infarction, unspecified; R94.31 Abnormal electrocardiogram [ECG] [EKG]; I10 Essential (primary) hypertension; Z82.49 Family history of ischemic heart disease and other diseases of the circulatory system | CPT/HCPCS: 93270 ==

== ENCOUNTER → 2021-10-26 07:07 | Outpatient (CLI) | payer BC, SELFPAY ==
--- NOTE | 2021-10-26 | CA_ITS ---
APPROVED REPORT Exam: Pharmacologic Technologist: Deborah Floyd, Ht: 5 ft 2 in Wt: 161 lbs BSA: 1.74 m2 HR: 83 bpm BP: 145/70 mmHg Rhythm: NSR, Q WAVE PRESENT Medical History Medical History: HTN Medications: Levothyroxine,,,,, Aspirin,,,,, Losartan,,,,, Citalopram,,,,, Buspirone,,,,, Probiotic,,,,, Ambien,,,,, RoSUVASatin,,,,, Allergies: SULFA Cardiac Risk Factors: HTN Stress Test Details Test: LEXISCAN HR Resting HR: 89 bpm Max Heart Rate (APMHR): 170.735783 bpm Max HR Achieved: 138 bpm Target HR (85% APMHR): 144.534116 bpm % of APMHR: 81.18 Recovery HR: 92 bpm BP Resting BP: 145/70 mmHg Max BP: 145/75 mmHg Recovery BP: 130.0/67.0 mmHg ECG Resting ECG: NSR, Q WAVE PRESENT Clinical Exercise duration: 04:27 min Highest Stage Achieved: Stress ECG Conclusion PT HAD SOA AND NAUSEA WITH LEXISCAN. HAND AND LEG NUMBNESS. <1.[address] SEGMENT DEPRESSION. Electronically signed by : Matthieu Lewis MD 10/26/2021 20:11:35
--- NOTE | 2021-10-26 07:08 | NM_ITS ---
APPROVED REPORT Exam: Nuclear Stress Test Indication: SOB, Abnormal EKG, HTN, Family history Patient Location: Outpatient Stress Tech: Deborah Floyd NM Tech:Martine Andrews, ARRT, RT (R)(N) Ht: 5 ft 2 in Wt: 160 lbs Bra Size: 38D HR: 89 bpm BP: 145/70 mmHg BSA: 1.74 m2 TID: 1.19 BMI: 29.2 History: SOB, Abnormal EKG, HTN, Family history Procedure: Patient received a 0.4 mg of intravenous Lexiscan, resting heart rate 89 bpm, resting blood pressure 145/70 mmHg, with Lexiscan maximum heart rate achived was 138 bpm which is Less than 85 % of the maximum predicted heart rate and blood pressure was 145/75 mmHg. With Lexiscan, patient denied any complaint of chest pain. Electrocardiogram Resting electrocardiogram showed sinus rhythm, with Lexiscan there is less than 1.[address] segment depression from the baseline EKG. The EKG portion of the Lexiscan is nondiagnostic. Cardiac Stress and Resting SPECT Images: Cardiac Stress and Resting SPECT images were obtained using technetium 99m Myoview 30.2 mCi stress and 10.97 mCi at rest. Gated SPECT analysis of segmental wall motion and calculation of the ejection fraction also done. Cardiac stress and resting SPECT images show uniform myocardial activity without segmental perfusion abnormality computer derived ejection fraction is 64% with no regional wall motion abnormality, right ventricle is normal size and contractility. Conclusion: 1. The EKG portion of the Lexiscan is nondiagnostic. 2. No scintigraphic evidence of reversible ischemia seen, computer derived ejection fraction is 64% with no regional wall motion abnormality, right ventricle is normal size and contractility. 3. Normal Lexiscan Myoview study. Electronically signed by : Matthieu Lewis MD 10/26/2021 20:14:41
--- NOTE | 2021-10-26 09:12 | HMH.ITSHM ---
Current Home Medications as stated by this patient Jodie Ling or printing sales representative. []ZOLPIDEM ROSUVASTATIN LOSARTAN LEVOTHYROXINE CITALOPRAM BUSOPIRONE ASA
== END ==
LOC: RAD 07:08
PROVIDERS: PCP Nurse Practitioner Family; Visit Provider Nurse Practitioner Family
DX: R06.02 Shortness of breath (principal); R55 Syncope and collapse; R94.31 Abnormal electrocardiogram [ECG] [EKG]; I10 Essential (primary) hypertension; I63.9 Cerebral infarction, unspecified; Z82.49 Family history of ischemic heart disease and other diseases of the circulatory system; Z86.73 Personal history of transient ischemic attack (TIA), and cerebral infarction without residual deficits
CPT/HCPCS: 78452; 93017; A9502; J2785

== ENCOUNTER → 2021-11-03 10:40 | Outpatient (CLI) | payer BC, SELFPAY ==
--- NOTE | 2021-11-03 10:43 | MR_ITS ---
FINAL REPORT CLINICAL HISTORY: Headache hyperactive relexes with legs hx of stroke x 3 months ago standing long periods brings sensation in back headaches FINDINGS: Multiplanar MR imaging of the thoracic spine was performed without contrast. On the sagittal T2-weighted images, disc degeneration is seen at multiple levels. There is no evidence of fracture. The vertebral alignment is normal. No bony mass is identified. The thoracic spinal cord has an unremarkable appearance without evidence of mass, edema or syrinx. There is no evidence of canal stenosis or cord compression. On the axial images, no focal disc protrusion is identified. There is no evidence of significant canal stenosis. No paraspinous soft tissue abnormality is seen. IMPRESSION: No acute bony abnormality, disc protrusion or canal stenosis. Reviewed, Interpreted and Dictated by Kaarn Doll III, MD Transcribed by Jadiel Dugan Authenticated and . [facility]
== END ==
PROVIDERS: PCP Nurse Practitioner Family; Visit Provider Specialist
DX: R06.00 Dyspnea, unspecified (principal); R51.9 Headache, unspecified; I63.9 Cerebral infarction, unspecified; I10 Essential (primary) hypertension
CPT/HCPCS: 72146

== ENCOUNTER → 2021-11-24 08:15 | Outpatient (CLI) | payer BC, SELFPAY ==
[2021-11-24 09:08] LABS: Basophils % 0.6 % (0.1-2.0); Eosinophils # 0.2 K/mm3 (0.0-0.4); Eosinophils % 3.1 % (0.1-12.0); Hematocrit 41.4 % (37.0-47.0); Lymphocytes % 30.1 % (10-50); Mean Corpuscular HGB Conc 33.9 g/dL (31.8-35.4); Mean Corpuscular Hemoglobin 30.3 pg (27.0-31.2); Mean Corpuscular Volume 89.3 fl (81-99); Mean Platelet Volume 7.2 fl (7.4-10.4); Monocytes # 0.4 K/mm3 (0.1-1.0); Monocytes % 5.4 % (1.7-9.3); Neutrophils % 60.8 % (37.0-80.0); Platelet Count 250 K/mm3 (142-424); Red Blood Count 4.63 M/mm3 (4.20-5.40); Red Cell Distribution Width 12.5 % (11.5-17.5); White Blood Count 6.6 K/mm3 (4.8-10.8)
== END ==
PROVIDERS: PCP Internal Medicine Adolescent Medicine; Visit Provider Obstetrics & Gynecology
DX: Z01.812 Encounter for preprocedural laboratory examination (principal); Z20.822 Contact with and (suspected) exposure to COVID-19; N95.0 Postmenopausal bleeding; N92.0 Excessive and frequent menstruation with regular cycle
CPT/HCPCS: 36415; 85025; C9803; U0003; U0005

== ENCOUNTER 2021-11-25 06:03 | Day surgery (SDC) | payer BC, SELFPAY ==
[2021-11-24 12:37] VITALS: BMI 29.2
[2021-11-25] VITALS (14 sets, daily range): BP systolic 103–117; BP diastolic 43–80; PULSE 69–115; RESP 13–18; TEMP 36.2–37.1; O2SAT 93–100
--- NOTE | 2021-11-25 07:09 | P.PN_ITS ---
[facility] Anesthesia Checklist - Patient Identification Patient Identification: Arm Band - Structural Data Admitted From: Home Planned Operative Procedure/s: Hyst/ D & C Consent for Planned Operative Procedure(s) Verified: Yes - NPO Status Verified Time NPO: 00:00 - Additional verifications Anesthesia Reactions: Yes (nausea) Hx Blood Transfusions: No Blood Transfusion Reaction: No - Airway Assessment C-Spine Mobility Assessed: Yes TMJ Mobility Assessed: Yes Dentition: Good Dentition - Neurological Assessment Level of Consciousness: Awake Hx Seizures: No Numbness or tingling in extremities: No - Anesthesia Plan Anesthesia Risk discussed: Yes Anesthesia Plan: Verified ASA Class: III Anesthesia Type: General [facility] History I have reviewed the patient's past medical history: Yes Medical History: Reports:: Anxiety, Cerebrovascular Accident, Depression, Gastroesophageal Reflux Disease(GERD), Hyperlipidemia, Hypertension, Migraine Denies:: Cancer, Diabetes Mellitus Type 1, Diabetes Mellitus Type 2, Internal Pacemaker, Lung Disease, MRSA, Seizures *Have you ever received a pneumonia vaccine?: No *Have you received a flu vaccine this season?: No Other Medical History: Reports: Arthritis, Hypothyroidism, Other. Denies: Blood Transfusion Reaction Anesthesia experience/problems:: PONV Laterality Cases: Left: Other, Bilateral: Lumpectomy Other Surgeries: Yes: No Previous Surgery, Bariatric Surgery (05/07/2020), Colonoscopy, , Dilation and Curettage, EGD, Hernia Repair, Tubal Ligation, Other. No: Pacemaker Amputation: No Fractures: Yes ((L) ankle) - *Social History Last grade of school completed: 11th or 12th Smoking Status: Never smoker Alcohol Intake: never Alcohol Intake Frequency:: other Substance Use Type: denies use *Occupational Status:: employed Housing: house Household Members: spouse *Travel in the last 8 weeks: None - Psychiatric History Pschychiatric History:: Reports:: Anxiety, Depression Family Hx:: Cancer, Heart Attack CHART WRITER history: Tubal Ligation
--- NOTE | 2021-11-25 08:17 | P.OP_ITS ---
Date of procedure: 11/25/21 Pre-op Diagnosis:: 1. Abnormal vaginal bleeding 2. Postmenopausal bleeding 3. Endometrial thickening on ultrasound 4. Uterine leiomyoma, unspecified location 5. Vulvar pruritus 6. Vulvar lesion Post-op Diagnosis:: 1. Abnormal vaginal bleeding 2. Postmenopausal bleeding 3. Endometrial thickening on ultrasound 4. Uterine leiomyoma, unspecified location 5. Vulvar pruritus 6. Vulvar lesion Procedure performed:: 1. Hysteroscopy, dilation and curettage with Myosure 2. Vulvar punch biopsy Surgeon:: Tahira Estevez DO TRANSFORMATION CONSULTANT:: Abrahan Silver Anesthesia: GETA Estimated blood loss (mL): 2 Operative findings:: 1. Fluffy, white tissue within the endometrial cavity 2. Tubal ostia not visualized 3. Uterus sounded to 7 4. On bimanual exam, uterus retroverted, normal size 5. No adnexal masses palpated on exam Operative note:: Procedure in detail: Risks, benefits and alternatives were discussed with the patient. Risks include but are not limited to bleeding, infection, uterine perforation and VTE. Patient voiced understanding and agreed to proceed. She was wheeled back to the operating room and placed under general anesthesia without difficulty. She was placed in dorsal lithotomy position and prepped and draped in the normal sterile fashion. Straight catheter was used to drain the bladder. A bimanual exam was performed. A weighted Auvard was placed in the vaginal vault. Single tooth tenaculu was placed on anterior lip of the cervix. Uterus sounded to 7. Sequential Mitchel dilators were used to dilate the cervical os. Hysteroscope was tested inserted through the cervix without difficulty. Endometrial cavity was evaluated. See findings above. Pictures were taken. Myosure was inserted through the hysteroscope. Myosure was used per protocol in a 360 degree fashion to obtain a sample. Endometrial curettings will be sent to pathology for review. Hysteroscope with Myosure was removed. Instruments were removed from the vagina. Tenaculum site with small amount of oozing. Silver nitrate was applied to tenaculum site. Hemostasis was noted. 3 mm punch biopsy was performed on inside of right labia majora where avila lesion was noted. Silver nitrate was applied to base of excision. Excellent hemostasis was noted. Patient was awaken from anesthesia without difficulty. She was transported to recovery room in stable condition. Patient will be discharged home when awake and ambulating. She was given postop instructions as well as instructions to follow-up in the office in 2 weeks at which time pathology will be reviewed. Condition: stable Disposition: same day Complications:: None
--- NOTE | 2021-11-25 08:26 | HMH.ANESI ---
[facility] Anesthesia Record Part I Intake, IV Amount: 900 Estimated blood loss (mL): 2 Urine output (mL): 0 Blood Pressure: 109/63 SaO2: 93 Pulse Rate: 94 Respiratory Rate: 13 Temperature: 97.2 F Patient is:: Drowsy Stable to PACU at:: 08:22
--- NOTE | 2021-11-25 09:21 | HMH.ANESII ---
[facility] Anesthesia Record Part II Discharge Time: 09:09 Destination: Surgical Day Care (OP Surgery) PACU nurse assessment reviewed?: Yes Patient Condition:: Good Anesthesia Complications:: None Swallowing reflex intact?: Yes Cyanosis?: No Blood Pressure: 115/80 Pulse Rate: 114 Temperature: 97.2 F Mental Status: Alert & Oriented Pain level:: 3 Nausea and/or vomitting:: None Intake, IV Amount: 0
== END 2021-11-25 09:40 | disposition home or self-care (01) ==
LOC: OR 06:04
PROVIDERS: PCP Nurse Practitioner Family; Visit Provider Obstetrics & Gynecology
PROC: (CPT 58558; principal; 2021-11-25 07:30)
DX: N95.0 Postmenopausal bleeding (principal); N85.00 Endometrial hyperplasia, unspecified; D25.9 Leiomyoma of uterus, unspecified; N90.89 Other specified noninflammatory disorders of vulva and perineum; I10 Essential (primary) hypertension; E78.5 Hyperlipidemia, unspecified; Z79.899 Other long term (current) drug therapy
CPT/HCPCS: 58558; 56605; J2405

== ENCOUNTER → 2021-12-03 19:53 | Outpatient (CLI) | payer BC, SELFPAY | PROVIDERS: PCP Internal Medicine Adolescent Medicine; Visit Provider Specialist | DX: G47.8 Other sleep disorders (principal); R06.83 Snoring; I10 Essential (primary) hypertension; I63.9 Cerebral infarction, unspecified | CPT/HCPCS: 95810 ==

== ENCOUNTER 2021-12-17 10:00 | Outpatient (RCR) | payer BC, SELFPAY | END 2021-12-17 10:05 | disposition home or self-care (01) | LOC: PT 10:00 | PROVIDERS: PCP Internal Medicine Adolescent Medicine | DX: M54.50 Low back pain, unspecified (principal); G89.29 Other chronic pain; M54.2 Cervicalgia | CPT/HCPCS: 97010; 97012; 97014; 97110; 97112; 97163; G0283 ==

== ENCOUNTER → 2022-02-18 10:31 | Outpatient (CLI) | payer BC, SELFPAY ==
[2022-02-18 11:13] LABS: Basophils # 0.1 K/mm3 (0-0.2); Eosinophils # 0.2 K/mm3 (0.0-0.4); Eosinophils % 3.1 % (0.1-12.0); Hematocrit 43.9 % (37.0-47.0); Hemoglobin 13.9 g/dL (12.2-16.2); Lymphocytes # 1.4 K/mm3 (0.7-4.5); Lymphocytes % 27.4 % (10-50); Mean Corpuscular HGB Conc 31.7 g/dL (31.8-35.4); Mean Corpuscular Hemoglobin 29.5 pg (27.0-31.2); Mean Corpuscular Volume 93.3 fl (81-99); Mean Platelet Volume 7.9 fl (7.4-10.4); Monocytes # 0.3 K/mm3 (0.1-1.0); Monocytes % 6.1 % (1.7-9.3); Neutrophils # 3.2 K/mm3 (1.8-7.8); Neutrophils % 62.3 % (37.0-80.0); Platelet Count 315 K/mm3 (142-424); Red Blood Count 4.71 M/mm3 (4.20-5.40); Red Cell Distribution Width 12.8 % (11.5-17.5); White Blood Count 5.1 K/mm3 (4.8-10.8)
[2022-02-18 11:32] LABS: Alanine Aminotransferase 18 U/L (12-78); Albumin/Globulin Ratio 1.6 (1.1-1.8); Alkaline Phosphatase 111 U/L (38-126); Anion Gap 12.3 mEq/L (5-15); Aspartate Amino Transferase 24 U/L (14-36); Bilirubin,Total 0.5 mg/dl (0.2-1.3); Blood Urea Nitrogen 18 mg/dl (7-17); Carbon Dioxide 29 mmol/L (22.0-30.0); Chloride 103 mmol/L (98-107); Estimated Glomerular Filt Rate 52 ml/min (>60); GFR (African American) 63 ML/MIN (>60); Globulin 2.5 g/dL (1.3-3.2); Glucose 91 mg/dl (74-100); Potassium 4.3 mmoL/L (3.5-5.1); Sodium 140 mmol/L (136-145); Total Protein,Serum 6.5 g/dl (6.3-8.2)
== END ==
PROVIDERS: PCP Nurse Practitioner Family; Visit Provider Nurse Practitioner Family
DX: K64.8 Other hemorrhoids (principal)
CPT/HCPCS: 36415; 80053; 85025

== ENCOUNTER → 2022-03-19 10:42 | Outpatient (CLI) | payer BC, SELFPAY ==
[2022-03-19 11:13] LABS: Basophils # 0.1 K/mm3 (0-0.2); Basophils % 1.3 % (0.1-2.0); Eosinophils # 0.1 K/mm3 (0.0-0.4); Eosinophils % 2.7 % (0.1-12.0); Hematocrit 43.9 % (37.0-47.0); Hemoglobin 14.2 g/dL (12.2-16.2); Lymphocytes # 1.4 K/mm3 (0.7-4.5); Lymphocytes % 29.1 % (10-50); Mean Corpuscular HGB Conc 32.4 g/dL (31.8-35.4); Mean Corpuscular Hemoglobin 29.8 pg (27.0-31.2); Mean Corpuscular Volume 92.1 fl (81-99); Monocytes # 0.2 K/mm3 (0.1-1.0); Monocytes % 4.6 % (1.7-9.3); Neutrophils % 62.4 % (37.0-80.0); Platelet Count 267 K/mm3 (142-424); Red Blood Count 4.76 M/mm3 (4.20-5.40); White Blood Count 4.8 K/mm3 (4.8-10.8)
[2022-03-19 11:27] LABS: Alanine Aminotransferase 21 U/L (12-78); Albumin Level 3.9 g/dl (3.5-5.0); Albumin/Globulin Ratio 1.6 (1.1-1.8); Alkaline Phosphatase 123 U/L (38-126); Anion Gap 9.9 mEq/L (5-15); Aspartate Amino Transferase 35 U/L (14-36); Bilirubin,Total 0.4 mg/dl (0.2-1.3); Blood Urea Nitrogen 15 mg/dl (7-17); Carbon Dioxide 29 mmol/L (22.0-30.0); Chloride 105 mmol/L (98-107); Chol/HDL Ratio 3.1 (1-3.5); Cholesterol 203 mg/dl (140-200); Estimated Glomerular Filt Rate 58 ml/min (>60); GFR (African American) 71 ML/MIN (>60); Globulin 2.5 g/dL (1.3-3.2); Glucose 93 mg/dl (74-100); HDL Cholesterol 65 mg/dl (40-60); Potassium 3.9 mmoL/L (3.5-5.1); Sodium 140 mmol/L (136-145); Total Protein,Serum 6.4 g/dl (6.3-8.2); Triglycerides 94 mg/dl (30-150); VLDL Cholesterol 19 mg/dL (0-40)
[2022-03-19 11:38] LABS: Direct LDL Cholesterol 104.09 mg/dL (100-129)
[2022-03-19 11:58] LABS: Thyroid Stimulating Hormone 1.92 uIU/mL (0.465-4.68)
[2022-03-19 12:33] LABS: Vitamin B12 345 pg/mL (239-931)
[2022-03-19 12:50] LABS: Folate 5.68 ng/mL
[2022-03-19 13:00] LABS: Adenovirus F 40/41, stool Not Detected (NotDetected); Astrovirus Not Detected (NotDetected); Campylobacter Not Detected (NotDetected); Clostridium Difficile A/B, PCR Not Detected (NotDetected); Cryptosporidium Not Detected (NotDetected); Cyclospora Cayetanesis Not Detected (NotDetected); Entamoeba histolytica Not Detected (NotDetected); Enteroaggregative E coli Not Detected (NotDetected); Enteropathogenic E coli Not Detected (NotDetected); Enterotoxigenic E coli Not Detected (NotDetected); Giardia lamblia Not Detected (NotDetected); Norovirus Not Detected (NotDetected); Plesimonas Shigalloides, PCR Not Detected (NotDetected); Rotavirus A Not Detected (NotDetected); Salmonella, PCR Not Detected (NotDetected); Sapovirus Not Detected (NotDetected); Shiga-like toxin E coli Not Detected (NotDetected); Shigella Enterovasive E coli Not Detected (NotDetected); Vibrio Cholerae Not Detected (NotDetected); Vibrio, PCR Not Detected (NotDetected); Yersinia Entercolitica, PCR Not Detected (NotDetected)
== END ==
PROVIDERS: Nurse Practitioner Family; PCP Internal Medicine Adolescent Medicine; Visit Provider Nurse Practitioner Family
DX: R42 Dizziness and giddiness (principal); I10 Essential (primary) hypertension; I63.9 Cerebral infarction, unspecified
CPT/HCPCS: 36415; 80053; 80061; 82607; 82746; 84443; 85025; 87507

== ENCOUNTER → 2022-03-25 07:12 | Outpatient (CLI) | payer BC, SELFPAY ==
--- NOTE | 2022-03-25 07:35 | MR_ITS ---
FINAL REPORT CLINICAL HISTORY: Eval for mass, lesion, ischemia. FAINTED AT WORK 2 DAYS AGO. DIZIZNESS. LOSS OF COORDINATION. MEMORY LOSS. HX STROKE 7 MONTHS AGO. COMPARISON: CT and MRI from July 2021 FINDINGS: Multiplanar MR imaging of the brain was performed without contrast. There is no evidence of intracranial hemorrhage or mass. The ventricular size is normal. There is no evidence of shift of the midline structures. No abnormal extra-axial fluid collection is identified. No signal abnormality is seen in the right insula and posterior operculum in the region of the prior abnormality. The posterior fossa and brainstem have an unremarkable appearance. No area of abnormal restricted diffusion is identified. Normal major vessel vascular flow voids are seen. IMPRESSION: No acute intracranial abnormality. Reviewed, Interpreted and Dictated by Karan Doll III, MD Transcribed by Jadiel Dugan Authenticated and [facility]
== END ==
PROVIDERS: PCP Internal Medicine Adolescent Medicine; Visit Provider Nurse Practitioner Family
DX: R42 Dizziness and giddiness (principal); I63.411 Cerebral infarction due to embolism of right middle cerebral artery; R13.10 Dysphagia, unspecified; R47.1 Dysarthria and anarthria; R51.9 Headache, unspecified
CPT/HCPCS: 70551

== ENCOUNTER → 2022-03-29 10:43 | Outpatient (CLI) | payer BC, SELFPAY ==
--- NOTE | 2022-03-29 10:43 | FL_ITS ---
FINAL REPORT CLINICAL HISTORY: DYSPHIA 1.16 FT FINDINGS: MODIFIED BARIUM SWALLOW History: Dysphagia. FINDINGS: Fluoroscopy was provided for the speech pathologist to evaluate the swallowing mechanism. The patient was given several different consistencies of barium while the swallow was visualized fluoroscopically. The report of the speech pathologist should be consulted prior to making dietary decisions. FLUOROSCOPY TIME: 1 minute 16 seconds. 8 Cine runs were obtained. IMPRESSION: Modified barium swallow under fluoroscopic guidance. Please see the report of the speech pathologist for more detail. Films reviewed , interpreted and dictated by Dr. Martinez. Transcribed by Piero Larios PA-C. Reviewed, Interpreted and Dictated by Francisco Martinez MD Transcribed by JUWAN Cao Authenticated and [facility] [place]
--- NOTE | 2022-03-29 11:24 | HMH.SLMBS2 ---
Speech & Language Evaluation Speech/Language Mod Barium Swallow Start: 03/29/22 11:09 Freq: once Status: Complete Protocol: Document 03/29/22 11:09 JOANNA (Rec: 03/29/22 11:24 JOANNA [id number]) General Information General Current Food Consistency Regular,Thin Liquids Dentition Good Dentition Oxygen Status Room Air Facial Symmetry Symmetrical Patient Orientation Person,Place,Time,Situation Ability to Follow Directions Excellent Communication Ability No Impairment MBS Recommendations Diet Dietary Recommendations Regular,Thin Liquids Comment Meds in puree. Treatment/Strategies Strategy/Precaution Recommend Sitting Upright (90 deg),Small Bites and Sips,Alternate Liquids/Solids Mod Barium Swallow Impressions Summary and Impressions Oral Phase Impression Mild Impairment Oral Phase Summary Mild oral dysphagia. Pt had difficulty with oral manipulation of pill with thin liquids and had to spit out. She was able to swallow pill in puree. Adequate mastication of all solids and no significant oral residue. Pharyngeal Phase Impression No Impairment (WFL) Pharyngeal Phase Summary Pharyngeal phase WFL. No aspiration or penetration noted on the study. No significant pharyngeal residue noted. Swallow was timely, with no delay or premature spillage. Adequate pharyngeal squeeze and BOT retraction. Adequate hyolaryngeal movement . Speech/Language MBS Assessment/Goals/Plan Assessment Date of Evaluation: 03/29/22 Evaluation Type Initial Certification Assessment/Problems Pt s/p CVA. Does Patient Qualify for Service No Qualify/Failure Comment Based on MBSS, swallow function is WFL. No further skilled ST services are warranted at this time. Recommendations PHYSICIAN CERTIFICATION: The specified therapy services are required, authorized, and reviewed every 30 days. Diet Recommendations Normal Liquid Type Recommendations Normal/Thin Dysphagia Swallow Precautions/Strategies Sitting Upright (90 deg),Small Bites and Sips Place Food on Either side of Mouth Comment Take medication
== END ==
PROVIDERS: PCP Nurse Practitioner Family; Visit Provider Nurse Practitioner Family
DX: R13.10 Dysphagia, unspecified (principal); R42 Dizziness and giddiness; I63.411 Cerebral infarction due to embolism of right middle cerebral artery; R47.1 Dysarthria and anarthria; R51.9 Headache, unspecified
CPT/HCPCS: 70371; 92611

== ENCOUNTER → 2022-04-06 10:08 | Outpatient (CLI) | payer BC, SELFPAY | PROVIDERS: PCP Internal Medicine Adolescent Medicine; Visit Provider Nurse Practitioner Family | DX: R42 Dizziness and giddiness (principal) | CPT/HCPCS: 93270 ==

== ENCOUNTER 2022-04-14 10:53 | Emergency (ER) | payer BC, SELFPAY ==
--- NOTE | 2022-04-14 11:20 | EXP.UTC ---
Discharge Plan Disposition Patient Disposition: Home, Self-Care Condition: Good Prescriptions Prescriptions: New azithromycin [Zithromax] 250 mg tablet 250 mg PO UD DOSE PK Qty: 6 0RF Rx Instructions: Take two (2) tablets today, then one (1) tablet days #2 thru #5 benzonatate [benzonatate] 100 mg capsule 100 mg PO TIDP PRN (Reason: Cough) Qty: 30 0RF methylprednisolone 4 mg Tablets,Dose Pack 4 mg PO DIRECTED Qty: 21 0RF No Action lorazepam 0.5 mg tablet 0.5 mg PO BID Label Comments: TAKE 1 TABLET BY MOUTH TWICE DAILY losartan 25 mg tablet 25 mg PO DAILY aspirin [Adult Aspirin Regimen] 81 mg tablet,delayed release (DR/EC) 81 mg PO DAILY levothyroxine [Euthyrox] 25 mcg tablet 25 mcg PO DAILY Probiotic PearAce Metrix Women's 1 billion cell capsule,delayed release(DR/EC) 1 cap PO DAILY rosuvastatin 10 mg tablet 10 mg PO DAILY sertraline [Zoloft] 100 mg tablet 50 mg PO BID Qty: 30 1RF Referrals Follow up/Referrals: Juarez Kothari MD [Primary Care Provider] - See instructions Activity Restrictions/Add. Instructions Additional Instructions/Restrictions: Drink plenty of fluids. Take tylenol or ibuprofen for pain or fever. Take the medications as directed. Follow up with your regular doctor. GO TO THE ER FOR ANY WORSENING SYMPTOMS Clinical Impressions Clinical Impression: Exposure to 2019 novel coronavirus, Pharyngitis, Laryngitis Stand Alone Forms Stand Alone Forms: Work/School Release Instructions Patient Instructions: Laryngitis, DI for Pharyngitis/Tonsillopharyngitis -- Adult, DI for Laryngitis Discharge ED Provider: Eugene Salgado [facility] [place] HPI General Stated complaint: congestion, sore throat, cough Time Seen by Provider: 04/14/22 11:20 History of Present Illness Provider Complaint: She states that she has had sinus congestion, sinus drainage, and sore throat for the past 3 days. Related Data Home Medications Medication Instructions Recorded Confirmed L.acidophilus-L.plantarum-L.rhamnosus 1 cap PO DAILY probiotic 10/06/21 04/06/22 1 billion cell capsule,delay rel (Probiotic Pearls Women's) aspirin 81 mg tablet,delayed 81 mg PO DAILY heart healthy 11/09/21 04/06/22 release (Adult Aspirin Regimen) levothyroxine 25 mcg tablet 25 mcg PO DAILY thyroid 11/09/21 04/06/22 (Euthyrox) losartan 25 mg tablet 25 mg PO DAILY bp 11/09/21 04/06/22 lorazepam 0.5 mg tablet 0.5 mg PO BID 11/30/21 04/06/22 rosuvastatin 10 mg tablet 10 mg PO DAILY 04/06/22 04/06/22 Previous Rx's Medication Instructions Recorded azithromycin 250 mg tablet 250 mg PO UD DOSE PK #6 tabs 04/14/22 (Zithromax) benzonatate 100 mg capsule 100 mg PO TIDP PRN Cough #30 caps 04/14/22 methylprednisolone 4 mg tablets in 4 mg PO DIRECTED #21 tabs 04/14/22 a dose pack sertraline 100 mg tablet (Zoloft) 50 mg PO BID #30 tabs 04/14/22 Allergies Allergy/AdvReac Type Severity Reaction Status Date / Time Sulfa (Sulfonamide Allergy Verified 04/14/22 11:30 Antibiotics) [facility] [place] Medical History Generalized anxiety disorder Social History Smoking Status: Never smoker alcohol intake: never substance use type: denies use current occupational status: employed Travel in the last 8 weeks: None household members: spouse housing: house number of children: 2 current occupation: [employer] current occupational exposures/hazards: Yes caffeine: Yes ROS Obtained: Yes All systems reviewed & no additional complaints except as documented Constitutional Constitutional: Denies chills and Denies fever(s) Eyes Eyes: Denies eye discharge ENT Ears, Nose, Mouth, and Throat: Reports as per HPI Cardiovascular Cardiovascular: Denies chest pain Respiratory Respiratory: Denies chest congestion and Reports cough Gastrointestina
[2022-04-14 11:28] VITALS: BP 115/64; PULSE 74; RESP 18; TEMP 36.8; O2SAT 97; BMI 29.2
[2022-04-14 11:44] LABS: UTC Influenza A Antigen Negative (Negative); UTC Strep Screen (Rapid) Negative (Negative)
[2022-04-14 11:45] LABS: UTC Influenza B Antigen Negative (Negative)
[2022-04-14 12:14] VITALS: BP 115/64; PULSE 74; RESP 18; TEMP 36.8
== END 2022-04-14 12:15 | disposition home or self-care (01) ==
PROVIDERS: Emergency Provider Nurse Practitioner Family; PCP Internal Medicine Adolescent Medicine
DX: J04.0 Acute laryngitis (principal); Z20.822 Contact with and (suspected) exposure to COVID-19
CPT/HCPCS: 87804; 87880; 99212; C9803; G0463; U0003; U0005

== ENCOUNTER → 2022-06-24 13:46 | Outpatient (CLI) | payer BC, SELFPAY ==
[2022-06-24 13:51] LABS: Adenovirus F 40/41, stool Not Detected (NotDetected); Astrovirus Not Detected (NotDetected); Campylobacter Not Detected (NotDetected); Clostridium Difficile A/B, PCR Not Detected (NotDetected); Cryptosporidium Not Detected (NotDetected); Cyclospora Cayetanesis Not Detected (NotDetected); Entamoeba histolytica Not Detected (NotDetected); Enteroaggregative E coli Not Detected (NotDetected); Enteropathogenic E coli Not Detected (NotDetected); Enterotoxigenic E coli Not Detected (NotDetected); Giardia lamblia Not Detected (NotDetected); Plesimonas Shigalloides, PCR Not Detected (NotDetected); Rotavirus A Not Detected (NotDetected); Salmonella, PCR Not Detected (NotDetected); Sapovirus Not Detected (NotDetected); Shiga-like toxin E coli Not Detected (NotDetected); Shigella Enterovasive E coli Not Detected (NotDetected); Vibrio Cholerae Not Detected (NotDetected); Vibrio, PCR Not Detected (NotDetected); Yersinia Entercolitica, PCR Not Detected (NotDetected)
[2022-06-25 10:59] LABS: Norovirus Detected (NotDetected)
== END ==
PROVIDERS: PCP Internal Medicine Adolescent Medicine; Visit Provider Nurse Practitioner Family
DX: R19.7 Diarrhea, unspecified (principal); A08.11 Acute gastroenteropathy due to Norwalk agent; Z86.19 Personal history of other infectious and parasitic diseases
CPT/HCPCS: 87507

== ENCOUNTER 2022-07-30 04:06 | Emergency (ER) | payer BC, SELFPAY ==
--- NOTE | 2022-07-30 04:09 | CT_ITS ---
PROCEDURE INFORMATION: Exam: CT Head Without Contrast Exam date and time: 07/30/2022 4:55 AM Age: 52 years old Clinical indication: Stroke-like symptoms; Bilateral upper extremity numbness/paresthesia; Additional info: Concern for CVA. HX of stroke in July 2021 TECHNIQUE: Imaging protocol: Computed tomography of the head without contrast. Radiation optimization: All CT scans at this facility use at least one of these dose optimization techniques: automated exposure control; mA and/or kV adjustment per patient size (includes targeted exams where dose is matched to clinical indication); or iterative reconstruction. Other technique: STROKE PROTOCOL was implemented. REPORTING DATA: Count of CT and Cardiac NM exams in prior 12 months: This patient has received 7 known CTs and 0 known cardiac nuclear medicine studies in the 12 months prior to the current study. COMPARISON: MR HEAD/BRAIN WO CON 03/25/2022 7:38 AM FINDINGS: Brain: No evidence of acute intracranial hemorrhage. No acute parenchymal edema. No mass or shift. Cerebral ventricles: No ventriculomegaly. Paranasal sinuses: Visualized sinuses are unremarkable. No fluid levels. Mastoid air cells: Unremarkable as visualized. No mastoid effusion. Bones/joints: No acute fracture. Soft tissues: Unremarkable. IMPRESSION: No acute intracranial process. ASSESSMENT: ASPECTS ([place] Stroke Program Early CT Score) is 10.
[2022-07-30 04:11] VITALS: BP 119/65; PULSE 82; RESP 19; TEMP 36.7; O2SAT 99; BMI 27.3
--- NOTE | 2022-07-30 04:11 | CT_ITS ---
PROCEDURE INFORMATION: Exam: CTA Head With Contrast, Arteriography Exam date and time: 07/30/2022 4:59 AM Age: 52 years old Clinical indication: Stroke-like symptoms; Bilateral upper extremity numbness/paresthesia; Additional info: Concern for CVA TECHNIQUE: Imaging protocol: Computed tomographic angiography of the head with contrast. Exam focused on the arteries. 3D rendering (Not supervised by radiologist): MIP and/or 3D reconstructed images were created by the technologist. Radiation optimization: All CT scans at this facility use at least one of these dose optimization techniques: automated exposure control; mA and/or kV adjustment per patient size (includes targeted exams where dose is matched to clinical indication); or iterative reconstruction. Contrast material: ISOVUE; Contrast volume: 100 ml; Contrast route: INTRAVENOUS (IV); REPORTING DATA: Count of CT and Cardiac NM exams in prior 12 months: This patient has received 7 known CTs and 0 known cardiac nuclear medicine studies in the 12 months prior to the current study. COMPARISON: CT ANGIO HEAD 08/08/2021 10:32 AM FINDINGS: ANTERIOR CIRCULATION: Right internal carotid artery: Intracranial segment is patent with no significant stenosis. No aneurysm. Right middle cerebral artery: No occlusion or significant stenosis. No aneurysm. Right anterior cerebral artery: No occlusion or significant stenosis. No aneurysm. Left internal carotid artery: Intracranial segment is patent with no significant stenosis. No aneurysm. Left middle cerebral artery: No occlusion or significant stenosis. No aneurysm. Left anterior cerebral artery: No occlusion or significant stenosis. No aneurysm. POSTERIOR CIRCULATION: Right vertebral artery: No occlusion or significant stenosis. No aneurysm. Left vertebral artery: No occlusion or significant stenosis. No aneurysm. Basilar artery: No occlusion or significant stenosis. No aneurysm. Right posterior cerebral artery: No occlusion or significant stenosis. No aneurysm. Left posterior cerebral artery: No occlusion or significant stenosis. No aneurysm. Brain: No definite mass, mass effect, or midline shift. Cerebral ventricles: No ventriculomegaly. Bones/joints: Unremarkable. No acute fracture. Soft tissues: Unremarkable. IMPRESSION: Negative CTA Head. No evidence of intracranial large vessel stenosis or occlusion. No evidence of aneurysm or AVM.
--- NOTE | 2022-07-30 04:11 | CT_ITS ---
PROCEDURE INFORMATION: Exam: CTA Neck With Contrast Exam date and time: 07/30/2022 4:59 AM Age: 52 years old Clinical indication: Stroke-like symptoms; Bilateral upper extremity numbness/paresthesia; Additional info: Concern for CVA, HX of stroke July 2021 TECHNIQUE: Imaging protocol: Computed tomographic angiography of the neck with contrast. 3D rendering (Not supervised by radiologist): MIP and/or 3D reconstructed images were created by the technologist. Radiation optimization: All CT scans at this facility use at least one of these dose optimization techniques: automated exposure control; mA and/or kV adjustment per patient size (includes targeted exams where dose is matched to clinical indication); or iterative reconstruction. Contrast material: ISOVUE; Contrast volume: 100 ml; Contrast route: INTRAVENOUS (IV); REPORTING DATA: Count of CT and Cardiac NM exams in prior 12 months: This patient has received 7 known CTs and 0 known cardiac nuclear medicine studies in the 12 months prior to the current study. COMPARISON: CT ANGIO NECK 08/08/2021 10:32 AM FINDINGS: Right common carotid artery: No significant stenosis. No dissection or occlusion. Right internal carotid artery: The extracranial segment is patent with no significant stenosis. No dissection or occlusion. Right external carotid artery: No occlusion or significant stenosis. Left common carotid artery: No significant stenosis. No dissection or occlusion. Left internal carotid artery: The extracranial segment is patent with no significant stenosis. No dissection or occlusion. Left external carotid artery: No occlusion or significant stenosis. Right vertebral artery: No significant stenosis. No dissection or occlusion. Left vertebral artery: No significant stenosis. No dissection or occlusion. Soft tissues: No significant soft tissue swelling. Bones/joints: No acute process. IMPRESSION: Negative neck CTA. No evidence of great vessel stenosis or occlusion. No evidence of dissection. REFERENCES: NASCET CRITERIA. The degree of stenosis in the cervical segment of the internal carotid artery is based on NASCET criteria. Normal is no stenosis. Mild is less than 50% stenosis. Moderate is 50-69% stenosis. Severe is 70% to 99% stenosis. Total occlusion is no detectable patent lumen.
[2022-07-30 04:20] LABS: Basophils # 0.1 K/mm3 (0-0.2); Basophils % 1.7 % (0.1-2.0); Eosinophils # 0.4 K/mm3 (0.0-0.4); Eosinophils % 4.9 % (0.1-12.0); Hematocrit 42.7 % (37.0-47.0); Hemoglobin 14.2 g/dL (12.2-16.2); Lymphocytes # 2.7 K/mm3 (0.7-4.5); Mean Corpuscular HGB Conc 33.3 g/dL (31.8-35.4); Mean Corpuscular Hemoglobin 30.3 pg (27.0-31.2); Mean Corpuscular Volume 90.9 fl (81-99); Mean Platelet Volume 8.1 fl (7.4-10.4); Monocytes # 0.5 K/mm3 (0.1-1.0); Neutrophils # 4.3 K/mm3 (1.8-7.8); Neutrophils % 53.4 % (37.0-80.0); Platelet Count 241 K/mm3 (142-424); Red Blood Count 4.69 M/mm3 (4.20-5.40); Red Cell Distribution Width 13.3 % (11.5-17.5)
--- NOTE | 2022-07-30 04:20 | PC.NURSE ---
initial [facility] 0
[2022-07-30 04:21] LABS: Chloride 105 mmol/L (98-107); Potassium 4.2 mmoL/L (3.5-5.1); Sodium 140 mmol/L (136-145)
--- NOTE | 2022-07-30 04:23 | HMH.EDGENADL ---
Discharge Plan Disposition Patient Disposition: Home, Self-Care Condition: Fair Prescriptions Prescriptions: New hydroxyzine pamoate [Vistaril] 25 mg capsule 25 mg PO Q8H PRN (Reason: nausea and vomiting) Qty: 30 0RF No Action lorazepam 0.5 mg tablet 0.5 mg PO BID Label Comments: TAKE 1 TABLET BY MOUTH TWICE DAILY losartan 25 mg tablet 25 mg PO DAILY aspirin [Adult Aspirin Regimen] 81 mg tablet,delayed release (DR/EC) 81 mg PO DAILY levothyroxine [Euthyrox] 25 mcg tablet 25 mcg PO DAILY Probiotic Pearls Women's 1 billion cell capsule,delayed release(DR/EC) 1 cap PO DAILY rosuvastatin 10 mg tablet 10 mg PO DAILY sertraline [Zoloft] 100 mg tablet 50 mg PO BID Referrals Follow up/Referrals: Meghana Jacobson APRN [Primary Care Provider] - See instructions Clinical Impressions Clinical Impression: Numbness Instructions Patient Instructions: Anxiety and Panic Attacks (Alternative Therapy) Discharge ED Provider: Bobby Blackburn General Adult HPI General Chief complaint: Neuro Symptoms/Deficit Stated complaint: altered sensation, drawing up of hands Time Seen by Provider: 07/30/22 04:07 Mode of Arrival: Family Vehicle Source of Information: Patient Limitations: No Limitations Description of Symptoms (Recalled from ER Triage Doc. by RN): 52 yo female presents with chief complaint of numbness and 'drawing up' of hands that woke me up from sleep . According to patient her past medical history is significant for cardiovascular disease including HTN and CVA last year. Also is treated for anxiety disorders. Saw her pcp Jerry Jacobson APRN yesterday and was started on Bentyl 10 mg 3x daily. She states she also had lab work obtained. Further mentioned that I haven't been really eating or drinking right for awhile, and have lost a ton of weight . Patient has numberous stressors including recent mom's birthday and sisters recently. States her abdominal discomfort, nausea that is constant and diarrhea for weeks has caused her to not be able to consume adequate nutrition. History of Present Illness HPI narrative: Patient is a 52-year-old female with past medical history of CVA, hypertension, anxiety who presents with concern for strokelike symptoms. She says that she was sleeping when she started to get numbness and her hands drawing up of both of her hands. She says that this is similar to her symptoms when she had her CVA last year. She says that she has been compliant with her medications but has been struggling recently with diarrhea. She was diagnosed with C. difficile and has continued to have diarrhea since then. She says that she has not been eating or drinking well for a while and has lost quite a bit of weight. She says that she does have some residual left-sided weakness following her CVA last year. She denies any dysarthria. She does note that she has some periorbital numbness but it is equal on both sides and the numbness is equal in both her hands. Related Data Home Medications Medication Instructions Recorded Confirmed L.acidophilus-L.plantarum-L.rhamnosus 1 cap PO DAILY probiotic 10/06/21 07/30/22 1 billion cell capsule,delay rel (Probiotic Pearls Women's) aspirin 81 mg tablet,delayed 81 mg PO DAILY heart healthy 11/09/21 07/30/22 release (Adult Aspirin Regimen) levothyroxine 25 mcg tablet 25 mcg PO DAILY thyroid 11/09/21 07/30/22 (Euthyrox) losartan 25 mg tablet 25 mg PO DAILY bp 11/09/21 07/30/22 lorazepam 0.5 mg tablet 0.5 mg PO BID Anxiety 11/30/21 07/30/22 rosuvastatin 10 mg tablet 10 mg PO DAILY Cholesterol 04/06/22 07/30/22 sertraline 100 mg tablet (Zoloft) 50 mg PO BID depression/anxiety 07/30/22 07/30/22 Previous Rx's Medication Instructions Recorded hydroxyzine pamoate 25 mg capsule 25 mg PO Q8H PRN nausea and 07/30/22 (Vistaril) vomiting #30 caps Allergies Allergy/AdvReac Type Severity Reaction Status Bryon
[2022-07-30 04:24] LABS: Alanine Aminotransferase 19 U/L (12-78); Albumin Level 4.4 g/dl (3.5-5.0); Albumin/Globulin Ratio 1.6 (1.1-1.8); Alkaline Phosphatase 98 U/L (38-126); Anion Gap 10.2 mEq/L (5-15); Aspartate Amino Transferase 27 U/L (14-36); Bilirubin,Total 0.5 mg/dl (0.2-1.3); Blood Urea Nitrogen 21 mg/dl (7-17); Carbon Dioxide 29 mmol/L (22.0-30.0); Cholesterol 148 mg/dl (140-200); Creatinine Clearance Estimated 56 mL/min (50-200); Estimated Glomerular Filt Rate 47 ml/min (>60); GFR (African American) 57 ML/MIN (>60); Globulin 2.7 g/dL (1.3-3.2); Total Protein,Serum 7.1 g/dl (6.3-8.2); Triglycerides 74 mg/dl (30-150); VLDL Cholesterol 15 mg/dL (0-40)
[2022-07-30 04:25] LABS: Chol/HDL Ratio 1.8 (1-3.5); Glucose 89 mg/dl (74-100); HDL Cholesterol 84 mg/dl (40-60)
[2022-07-30 04:26] LABS: Activated Partial Thrombo Time 23.2 seconds (22.8-30.6); INR 0.96 (0.9-1.1); Prothrombin Time 10.4 seconds (10.1-12.5)
[2022-07-30 04:34] LABS: Magnesium 2.2 mg/dl (1.6-2.3)
[2022-07-30 04:36] LABS: Direct LDL Cholesterol 53.85 mg/dL (100-129)
[2022-07-30 04:39] LABS: Troponin I < 0.01 ng/ml (0.00-0.034)
--- NOTE | 2022-07-30 04:49 | PC.NURSE ---
PT TO CT AT THIS TIME.
--- NOTE | 2022-07-30 05:07 | PC.NURSE ---
patient returned from ct at this time.
[2022-07-30 05:21] VITALS: BP 101/51; PULSE 63; O2SAT 99
[2022-07-30 05:30] VITALS: BP 105/56; PULSE 60; O2SAT 99
--- NOTE | 2022-07-30 05:45 | PC.NURSE ---
ER speaking with pt at this time
[2022-07-30 06:00] VITALS: BP 100/58; PULSE 50; O2SAT 99
[2022-07-30 06:26] VITALS: BP 100/58; PULSE 61; RESP 16; TEMP 36.6; O2SAT 99
== END 2022-07-30 06:26 | disposition home or self-care (01) ==
PROVIDERS: Emergency Provider Student in an Organized Health Care Education/Training Program; PCP Nurse Practitioner Family
DX: R20.2 Paresthesia of skin (principal); F41.1 Generalized anxiety disorder; Z86.73 Personal history of transient ischemic attack (TIA), and cerebral infarction without residual deficits
CPT/HCPCS: 70450; 70496; 70498; 80053; 80061; 83735; 84484; 85025; 85610; 85730; 96360; 99285; Q9967

== ENCOUNTER → 2022-08-02 12:28 | Outpatient (CLI) | payer BC, SELFPAY ==
[2022-08-02 12:34] LABS: Campylobacter Not Detected (NotDetected); Plesimonas Shigalloides, PCR Not Detected (NotDetected)
[2022-08-02 12:35] LABS: Adenovirus F 40/41, stool Not Detected (NotDetected); Astrovirus Not Detected (NotDetected); Cryptosporidium Not Detected (NotDetected); Cyclospora Cayetanesis Not Detected (NotDetected); Entamoeba histolytica Not Detected (NotDetected); Enteroaggregative E coli Not Detected (NotDetected); Enteropathogenic E coli Not Detected (NotDetected); Enterotoxigenic E coli Not Detected (NotDetected); Giardia lamblia Not Detected (NotDetected); Norovirus Not Detected (NotDetected); Rotavirus A Not Detected (NotDetected); Salmonella, PCR Not Detected (NotDetected); Sapovirus Not Detected (NotDetected); Shiga-like toxin E coli Not Detected (NotDetected); Shigella Enterovasive E coli Not Detected (NotDetected); Vibrio Cholerae Not Detected (NotDetected); Vibrio, PCR Not Detected (NotDetected); Yersinia Entercolitica, PCR Not Detected (NotDetected)
[2022-08-02 17:17] LABS: Clostridium Difficile A/B, PCR Detected (NotDetected)
== END ==
PROVIDERS: PCP Nurse Practitioner Family; Visit Provider Nurse Practitioner Family
DX: R19.7 Diarrhea, unspecified (principal); A04.72 Enterocolitis due to Clostridium difficile, not specified as recurrent; Z86.19 Personal history of other infectious and parasitic diseases
CPT/HCPCS: 87507

== ENCOUNTER 2022-08-09 07:47 | Outpatient (CLI) | payer BC, SELFPAY ==
[2022-08-09 08:35] VITALS: BP 114/58; PULSE 59; RESP 18; O2SAT 100
[2022-08-09 08:50] VITALS: BP 108/54; PULSE 53; RESP 18
[2022-08-09 09:05] VITALS: BP 105/53; PULSE 51; RESP 18
[2022-08-09 09:20] VITALS: BP 110/53; PULSE 52; RESP 18
[2022-08-09 09:38] VITALS: RESP 18
[2022-08-09 09:52] VITALS: BP 102/70; PULSE 48; RESP 18
== END 2022-08-09 09:52 | disposition home or self-care (01) ==
LOC: INF 07:48
PROVIDERS: PCP Internal Medicine Adolescent Medicine; Visit Provider Nurse Practitioner Family
DX: A04.71 Enterocolitis due to Clostridium difficile, recurrent (principal)
CPT/HCPCS: 96365; J0565

== ENCOUNTER → 2022-09-30 11:13 | Outpatient (CLI) | payer BC, SELFPAY ==
[2022-09-30 12:22] LABS: Basophils % 0.6 % (0.1-2.0); Eosinophils # 0.1 K/mm3 (0.0-0.4); Eosinophils % 2.6 % (0.1-12.0); Hematocrit 44.2 % (37.0-47.0); Hemoglobin 14.4 g/dL (12.2-16.2); Lymphocytes # 1.3 K/mm3 (0.7-4.5); Lymphocytes % 24.7 % (10-50); Mean Corpuscular HGB Conc 32.6 g/dL (31.8-35.4); Mean Corpuscular Hemoglobin 29.9 pg (27.0-31.2); Mean Corpuscular Volume 91.9 fl (81-99); Monocytes # 0.3 K/mm3 (0.1-1.0); Monocytes % 5.6 % (1.7-9.3); Neutrophils # 3.6 K/mm3 (1.8-7.8); Neutrophils % 66.5 % (37.0-80.0); Platelet Count 261 K/mm3 (142-424); Red Blood Count 4.81 M/mm3 (4.20-5.40); White Blood Count 5.3 K/mm3 (4.8-10.8)
[2022-09-30 12:51] LABS: Chloride 98 mmol/L (98-107); Potassium 4.7 mmoL/L (3.5-5.1); Sodium 138 mmol/L (136-145)
[2022-09-30 12:54] LABS: Alanine Aminotransferase 57 U/L (12-78); Albumin Level 4.3 g/dl (3.5-5.0); Albumin/Globulin Ratio 1.6 (1.1-1.8); Alkaline Phosphatase 87 U/L (38-126); Anion Gap 16.7 mEq/L (5-15); Aspartate Amino Transferase 42 U/L (14-36); Bilirubin,Total 0.6 mg/dl (0.2-1.3); Blood Urea Nitrogen 19 mg/dl (7-17); Calcium 9.4 mg/dl (8.4-10.2); Carbon Dioxide 28 mmol/L (22.0-30.0); Estimated Glomerular Filt Rate 52 ml/min (>60); GFR (African American) 63 ML/MIN (>60); Globulin 2.7 g/dL (1.3-3.2); Glucose 92 mg/dl (74-100)
[2022-09-30 13:50] LABS: Adenovirus F 40/41, stool Not Detected (NotDetected); Astrovirus Not Detected (NotDetected); Campylobacter Not Detected (NotDetected); Clostridium Difficile A/B, PCR Not Detected (NotDetected); Cryptosporidium Not Detected (NotDetected); Cyclospora Cayetanesis Not Detected (NotDetected); Entamoeba histolytica Not Detected (NotDetected); Enteroaggregative E coli Not Detected (NotDetected); Enteropathogenic E coli Not Detected (NotDetected); Enterotoxigenic E coli Not Detected (NotDetected); Giardia lamblia Not Detected (NotDetected); Norovirus Not Detected (NotDetected); Plesimonas Shigalloides, PCR Not Detected (NotDetected); Rotavirus A Not Detected (NotDetected); Salmonella, PCR Not Detected (NotDetected); Sapovirus Not Detected (NotDetected); Shiga-like toxin E coli Not Detected (NotDetected); Shigella Enterovasive E coli Not Detected (NotDetected); Vibrio Cholerae Not Detected (NotDetected); Vibrio, PCR Not Detected (NotDetected); Yersinia Entercolitica, PCR Not Detected (NotDetected)
== END ==
PROVIDERS: PCP Nurse Practitioner Family; Visit Provider Nurse Practitioner Family
DX: A04.71 Enterocolitis due to Clostridium difficile, recurrent (principal)
CPT/HCPCS: 36415; 80053; 85025; 87507

== ENCOUNTER 2022-10-01 18:41 | Emergency (ER) | payer BC, SELFPAY ==
[2022-10-01 18:43] VITALS: BP 148/86; PULSE 108; RESP 16; TEMP 37; O2SAT 98; BMI 27.1
[2022-10-01 19:07] LABS: Microscopic, Urine URINE MICROSCOPIC (MICROSCOPIC)
--- NOTE | 2022-10-01 19:07 | CT_ITS ---
PROCEDURE INFORMATION: Exam: CT Abdomen And Pelvis With Contrast Exam date and time: 10/01/2022 7:32 PM Age: 52 years old Clinical indication: Abdominal pain TECHNIQUE: Imaging protocol: Computed tomography of the abdomen and pelvis with contrast. Radiation optimization: All CT scans at this facility use at least one of these dose optimization techniques: automated exposure control; mA and/or kV adjustment per patient size (includes targeted exams where dose is matched to clinical indication); or iterative reconstruction. Contrast material: ISOVUE; Contrast volume: 75 ml; Contrast route: IV; REPORTING DATA: Count of CT and Cardiac NM exams in prior 12 months: This patient has received 3 known CTs and 0 known cardiac nuclear medicine studies in the 12 months prior to the current study. COMPARISON: [facility] CT abdomen pelvis wo con 09/08/2018 12:09 PM FINDINGS: Lungs: No acute findings in the visualized lower lungs. No consolidation. Liver: The liver is normal. Gallbladder and bile ducts: The gallbladder is unremarkable. No calcified stones or biliary dilatation. Pancreas: Normal. No ductal dilation. Spleen: The spleen is normal. Adrenal glands: The adrenal glands are normal. Kidneys and ureters: Tiny nonobstructing anterior mid right renal calculus unchanged series 3, image 30. No hydronephrosis, hydroureter, or calcified obstructing ureteral stone detected. Multiple bilateral pelvic calcifications again noted which appear more likely phleboliths than ureteral stones. Stomach and bowel: There is minimal focal bulging of the posterior upper stomach extending posteriorly and toward the right of the GE junction abutting the left lobe of liver which was not present on the prior exam from 09/08/2018, question minimal herniation of the stomach into the foramen of [place]: see axial series 3, images 9 -15, coronal series 1001, images 26 -29, and sagittal series 1002, images 50 -57. Differential would be a gastric diverticulum. No findings of wall thickening, edema, gastric perforation or obstruction. Moderate fecal and gaseous distention of the colon throughout, no dilated loops or mucosal thickening. No acute findings in the small intestine. Appendix: No findings of appendicitis. Intraperitoneal space: No free air. Additional nonemergency and chronic findings as above. There is no significant free intraperitoneal fluid. Vasculature: There is no aortic aneurysm. Lymph nodes: No significantly enlarged lymph nodes by short axis criteria. Urinary bladder: Urinary bladder is unremarkable for the degree of distension, not well filled. No calcified stones. Reproductive: Unremarkable for age, as visualized. Bones/joints: There is no evidence of acute fracture.There are spinal degenerative changes, with multilevel disc narrrowing and spondylosis, greatest at L5-S1 with bilateral L5 foraminal stenoses. Some tiny sclerotic bone lesions are chronic, statistically most likely tiny bone islands.There are no lytic skeletal lesions seen. Chronic congenital dysraphism/spina bifida occulta defect of the distal sacrum-coccyx on the posterior right series 3 images 63 -72. 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 See sagittal series 1002, images 53-55, axial series 3, images 37 -54. The cord may extend low to the L3 level, suspect tethered cord. Correlate for sensory-motor symptoms, bladder or bowel incontinence. Soft tissues: There are no superficial soft tissue masses or fluid collections. IMPRESSION: 1. Likely tethered cord syn
[2022-10-01 19:15] LABS: Basophils # 0.1 K/mm3 (0-0.2); Basophils % 0.6 % (0.1-2.0); Eosinophils # 0.2 K/mm3 (0.0-0.4); Eosinophils % 2.9 % (0.1-12.0); Hematocrit 47.5 % (37.0-47.0); Hemoglobin 15.1 g/dL (12.2-16.2); Lymphocytes # 2.4 K/mm3 (0.7-4.5); Lymphocytes % 27.9 % (10-50); Mean Corpuscular HGB Conc 31.8 g/dL (31.8-35.4); Mean Corpuscular Hemoglobin 29.1 pg (27.0-31.2); Mean Corpuscular Volume 91.7 fl (81-99); Mean Platelet Volume 7.8 fl (7.4-10.4); Monocytes # 0.4 K/mm3 (0.1-1.0); Monocytes % 5.2 % (1.7-9.3); Neutrophils # 5.4 K/mm3 (1.8-7.8); Neutrophils % 63.5 % (37.0-80.0); Platelet Count 292 K/mm3 (142-424); Red Blood Count 5.18 M/mm3 (4.20-5.40); Red Cell Distribution Width 12.8 % (11.5-17.5); White Blood Count 8.5 K/mm3 (4.8-10.8)
[2022-10-01 19:20] LABS: Chloride 97 mmol/L (98-107); Potassium 4.1 mmoL/L (3.5-5.1); Sodium 138 mmol/L (136-145)
[2022-10-01 19:22] LABS: Alanine Aminotransferase 52 U/L (12-78); Alkaline Phosphatase 88 U/L (38-126); Aspartate Amino Transferase 44 U/L (14-36); Bilirubin,Total 0.5 mg/dl (0.2-1.3); Blood Urea Nitrogen 19 mg/dl (7-17); Creatinine Clearance Estimated 59 mL/min (50-200); Estimated Glomerular Filt Rate 47 ml/min (>60); GFR (African American) 57 ML/MIN (>60)
[2022-10-01 19:23] LABS: Albumin Level 4.4 g/dl (3.5-5.0); Albumin/Globulin Ratio 1.4 (1.1-1.8); Anion Gap 15.1 mEq/L (5-15); Calcium 9.1 mg/dl (8.4-10.2); Carbon Dioxide 30 mmol/L (22.0-30.0); Globulin 3.1 g/dL (1.3-3.2); Glucose 122 mg/dl (74-100); Lipase 164 U/L (23-300); Total Protein,Serum 7.5 g/dl (6.3-8.2)
--- NOTE | 2022-10-01 19:29 | PC.NURSE ---
Pt gone to RAD via wheelchair
--- NOTE | 2022-10-01 19:38 | PC.NURSE ---
Pt back from RAD
[2022-10-01 19:41] LABS: Lactate Dehydrogenase 180 U/L (313-618)
[2022-10-01 19:51] LABS: Appearance,Urine SL CLOUDY (Clear); Bilirubin,Urine Negative (Negative); Blood, Urine 1+ (Negative); Color,Urine YELLOW (Yellow); Glucose,Urine (UA) Negative (Negative); Ketones,Urine Negative (Negative); Leukocyte Esterase,Urine 1+ (Negative); Nitrate,Urine Negative (Negative); Protein,Urine Negative (Negative); Specific Gravity, Urine 1.025 (1.005-1.030); Urobilinogen,Urine 0.2 EU/dl (0.2)
[2022-10-01 20:06] LABS: Bacteria,Urine 4+ /lpf
[2022-10-01 20:58] VITALS: BP 126/72; PULSE 80; RESP 19; TEMP 36.8; O2SAT 98
--- NOTE | 2022-10-03 08:09 | HMH.EDGENADL ---
Discharge Plan Disposition Patient Disposition: Home, Self-Care Prescriptions Prescriptions: New ondansetron [ondansetron] 4 mg tablet,disintegrating 4 mg PO TIDP PRN (Reason: Nausea) Qty: 10 0RF No Action lorazepam 0.5 mg tablet 0.5 mg PO BID Label Comments: TAKE 1 TABLET BY MOUTH TWICE DAILY losartan 25 mg tablet 25 mg PO DAILY aspirin [Adult Aspirin Regimen] 81 mg tablet,delayed release (DR/EC) 81 mg PO DAILY levothyroxine [Euthyrox] 25 mcg tablet 25 mcg PO DAILY sertraline [Zoloft] 100 mg tablet 50 mg PO BID Qty: 60 1RF Probiotic Pearls Women's 1 billion cell capsule,delayed release(DR/EC) 1 cap PO DAILY rosuvastatin 10 mg tablet 10 mg PO DAILY hydroxyzine pamoate [Vistaril] 25 mg capsule 25 mg PO Q8H PRN (Reason: nausea and vomiting) Qty: 30 0RF Referrals Follow up/Referrals: Juarez Kothari MD [Primary Care Provider] - See instructions Clinical Impressions Clinical Impression: Abdominal pain Instructions Patient Instructions: DI for Acute Abdominal Pain, DI for Nausea -- Adult Discharge ED Provider: Bobby Blackburn General Adult HPI General Chief complaint: Abdominal Pain Stated complaint: Abdominal pain, Headache, possible dehyration Time Seen by Provider: 10/01/22 19:00 Mode of Arrival: Ambulatory Source of Information: Patient Limitations: No Limitations Description of Symptoms (Recalled from ER Triage Doc. by RN): Patient ambulated to room in no apparent distress. Patient arrived with complaints of abdominal pain. Patient states she has had C-diff in the past. Patient called her primary office today and was informed her stool sample was negative for C-diff. Patient is currently having diarrhea with no noticeable blood in her stool. She also states she is having flu-nguyen symptoms. History of Present Illness HPI narrative: Patient is a 52-year-old female with substantial pertinent past medical history of CVA, hypertension, chronic C. difficile who presents with concern for abdominal pain. She says that she has been being treated numerous times for C. difficile. She says that she actually did just test negative for the first time today but over the last 2 days she has been having substantial abdominal pain. She says that it is different than the normal pain that she has had previously. She says that she also has been having some cough. No hematochezia. She says that she still having diarrhea. Denies any vomiting but has been nauseous. She says that she feels weak. Related Data Home Medications Medication Instructions Recorded Confirmed L.acidophilus-L.plantarum-L.rhamnosus 1 cap PO DAILY probiotic 10/06/21 07/30/22 1 billion cell capsule,delay rel (Probiotic Pearls Women's) aspirin 81 mg tablet,delayed 81 mg PO DAILY heart healthy 11/09/21 07/30/22 release (Adult Aspirin Regimen) levothyroxine 25 mcg tablet 25 mcg PO DAILY thyroid 11/09/21 07/30/22 (Euthyrox) losartan 25 mg tablet 25 mg PO DAILY bp 11/09/21 07/30/22 lorazepam 0.5 mg tablet 0.5 mg PO BID Anxiety 11/30/21 07/30/22 rosuvastatin 10 mg tablet 10 mg PO DAILY Cholesterol 04/06/22 07/30/22 Previous Rx's Medication Instructions Recorded hydroxyzine pamoate 25 mg capsule 25 mg PO Q8H PRN nausea and 07/30/22 (Vistaril) vomiting #30 caps sertraline 100 mg tablet (Zoloft) 50 mg PO BID depression/anxiety 09/30/22 #60 tabs ondansetron 4 mg disintegrating 4 mg PO TIDP PRN Nausea #10 tabs 10/01/22 tablet Allergies Allergy/AdvReac Type Severity Reaction Status Date / Time Sulfa (Sulfonamide Allergy Verified 07/06/22 08:49 Antibiotics) [facility] Disclaimer: The information contained in this section may have been updated after the patient was seen, as this information can be updated by other users. Medical History (Updated 10/01/22 @ 21:00 by Jessie Roblero RN) Generalized anxiety disorder Recurrent Clostridioides difficile infection
== END 2022-10-01 21:20 | disposition home or self-care (01) ==
PROVIDERS: Emergency Provider Student in an Organized Health Care Education/Training Program; PCP Internal Medicine Adolescent Medicine
DX: R10.9 Unspecified abdominal pain (principal); R19.7 Diarrhea, unspecified; Z86.19 Personal history of other infectious and parasitic diseases; R05.9 Cough, unspecified
CPT/HCPCS: 74177; 80053; 81001; 83615; 83690; 85025; 87086; 87088; 87186; 96361; 96374; 99284; 99285; Q9967

== ENCOUNTER → 2022-10-22 19:14 | Outpatient (CLI) | payer BC, SELFPAY ==
[2022-10-22 19:46] LABS: Adenovirus F 40/41, stool Not Detected (NotDetected); Astrovirus Not Detected (NotDetected); Campylobacter Not Detected (NotDetected); Clostridium Difficile A/B, PCR Not Detected (NotDetected); Cryptosporidium Not Detected (NotDetected); Cyclospora Cayetanesis Not Detected (NotDetected); Entamoeba histolytica Not Detected (NotDetected); Enteroaggregative E coli Not Detected (NotDetected); Enteropathogenic E coli Not Detected (NotDetected); Enterotoxigenic E coli Not Detected (NotDetected); Giardia lamblia Not Detected (NotDetected); Norovirus Not Detected (NotDetected); Plesimonas Shigalloides, PCR Not Detected (NotDetected); Rotavirus A Not Detected (NotDetected); Salmonella, PCR Not Detected (NotDetected); Sapovirus Not Detected (NotDetected); Shiga-like toxin E coli Not Detected (NotDetected); Shigella Enterovasive E coli Not Detected (NotDetected); Vibrio Cholerae Not Detected (NotDetected); Vibrio, PCR Not Detected (NotDetected); Yersinia Entercolitica, PCR Not Detected (NotDetected)
== END ==
PROVIDERS: PCP Nurse Practitioner Family; Visit Provider Nurse Practitioner Family
DX: A04.71 Enterocolitis due to Clostridium difficile, recurrent (principal)
CPT/HCPCS: 87507

== ENCOUNTER 2022-10-27 09:28 | Emergency (ER) | payer BC, SELFPAY ==
[2022-10-27 09:22] VITALS: BP 103/82; PULSE 77; RESP 18; TEMP 36.4; O2SAT 100; BMI 27.1
--- NOTE | 2022-10-27 09:22 | HMH.EDANX ---
Discharge Plan Disposition Patient Disposition: Home, Self-Care Condition: Good Prescriptions Prescriptions: No Action lorazepam 0.5 mg tablet 0.5 mg PO BID Label Comments: TAKE 1 TABLET BY MOUTH TWICE DAILY losartan 25 mg tablet 25 mg PO DAILY aspirin [Adult Aspirin Regimen] 81 mg tablet,delayed release (DR/EC) 81 mg PO DAILY levothyroxine [Euthyrox] 25 mcg tablet 25 mcg PO DAILY sertraline [Zoloft] 100 mg tablet 50 mg PO BID Qty: 60 1RF Probiotic Pearls Women's 1 billion cell capsule,delayed release(DR/EC) 1 cap PO DAILY rosuvastatin 10 mg tablet 10 mg PO DAILY hydroxyzine pamoate [Vistaril] 25 mg capsule 25 mg PO Q8H PRN (Reason: nausea and vomiting) Qty: 30 0RF ondansetron [ondansetron] 4 mg tablet,disintegrating 4 mg PO TIDP PRN (Reason: Nausea) Qty: 10 0RF Activity Restrictions/Add. Instructions Additional Instructions/Restrictions: Follow-up with your appointments as scheduled. Return to the emergency department immediately if you feel worse in any way. You received Ativan in the emergency department today. Because of this medicine you are not authorized to drive or operate heavy machinery for the next 12 to 24 hours. Therefore, you need to arrange for a ride home today. Please continue taking all medications as prescribed. Clinical Impressions Clinical Impression: Acute anxiety Instructions Patient Instructions: Anxiety Disorders, Anxiety and Panic Attacks (Alternative Therapy), Yoga May Help Reduce Anxiety and Stress Discharge ED Provider: Tono Trejo [facility] General Chief Complaint: Anxiety Stated Complaint: ANXIETY Time Seen by Provider: 10/27/22 09:23 Mode of Arrival: EMS Source of Information: Patient and EMS Limitations: No Limitations History of Present Illness HPI narrative: The patient presents to the emergency department complaining of anxiety after having been up all night with abdominal discomfort. She has chronic abdominal issues. She has had C. difficile 4 times. She has had hiatal hernia repair. She denies fevers. She denies vomiting. She feels anxious and feels like she is about to pass out. She does take blood pressure medication. She is also on anxiety medication (Xanax and Zoloft). MD complaint: anxiety History of similar episodes: Yes Related Data Home Medications Medication Instructions Recorded Confirmed L.acidophilus-L.plantarum-L.rhamnosus 1 cap PO DAILY probiotic 10/06/21 10/17/22 1 billion cell capsule,delay rel (Probiotic Pearls Women's) aspirin 81 mg tablet,delayed 81 mg PO DAILY heart healthy 11/09/21 10/17/22 release (Adult Aspirin Regimen) levothyroxine 25 mcg tablet 25 mcg PO DAILY thyroid 11/09/21 10/17/22 (Euthyrox) losartan 25 mg tablet 25 mg PO DAILY bp 11/09/21 10/17/22 lorazepam 0.5 mg tablet 0.5 mg PO BID Anxiety 11/30/21 10/17/22 rosuvastatin 10 mg tablet 10 mg PO DAILY Cholesterol 04/06/22 10/17/22 Previous Rx's Medication Instructions Recorded hydroxyzine pamoate 25 mg capsule 25 mg PO Q8H PRN nausea and 07/30/22 (Vistaril) vomiting #30 caps sertraline 100 mg tablet (Zoloft) 50 mg PO BID depression/anxiety 09/30/22 #60 tabs ondansetron 4 mg disintegrating 4 mg PO TIDP PRN Nausea #10 tabs 10/01/22 tablet Allergies Allergy/AdvReac Type Severity Reaction Status Date / Time Sulfa (Sulfonamide Allergy Verified 10/27/22 09:35 Antibiotics) [facility] Disclaimer: The information contained in this section may have been updated after the patient was seen, as this information can be updated by other users. 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
[2022-10-27 10:09] LABS: Basophils % 0.8 % (0.1-2.0); Eosinophils # 0.1 K/mm3 (0.0-0.4); Eosinophils % 2.8 % (0.1-12.0); Hematocrit 43.6 % (37.0-47.0); Hemoglobin 14.1 g/dL (12.2-16.2); Lymphocytes # 1.7 K/mm3 (0.7-4.5); Lymphocytes % 35.2 % (10-50); Mean Corpuscular HGB Conc 32.3 g/dL (31.8-35.4); Mean Corpuscular Hemoglobin 29.1 pg (27.0-31.2); Mean Corpuscular Volume 90.1 fl (81-99); Mean Platelet Volume 8.1 fl (7.4-10.4); Monocytes # 0.3 K/mm3 (0.1-1.0); Monocytes % 6.9 % (1.7-9.3); Neutrophils # 2.7 K/mm3 (1.8-7.8); Neutrophils % 54.4 % (37.0-80.0); Platelet Count 216 K/mm3 (142-424); Red Blood Count 4.84 M/mm3 (4.20-5.40); Red Cell Distribution Width 12.8 % (11.5-17.5)
[2022-10-27 10:18] LABS: Chloride 104 mmol/L (98-107); Potassium 4.1 mmoL/L (3.5-5.1); Sodium 140 mmol/L (136-145)
[2022-10-27 10:20] LABS: Alanine Aminotransferase 23 U/L (12-78); Aspartate Amino Transferase 29 U/L (14-36); Blood Urea Nitrogen 18 mg/dl (7-17); Creatinine Clearance Estimated 64 mL/min (50-200); Estimated Glomerular Filt Rate 52 ml/min (>60); GFR (African American) 63 ML/MIN (>60)
[2022-10-27 10:21] LABS: Albumin/Globulin Ratio 1.5 (1.1-1.8); Alkaline Phosphatase 87 U/L (38-126); Anion Gap 13.1 mEq/L (5-15); Bilirubin,Total 0.5 mg/dl (0.2-1.3); Calcium 9.3 mg/dl (8.4-10.2); Carbon Dioxide 27 mmol/L (22.0-30.0); Globulin 2.6 g/dL (1.3-3.2); Glucose 89 mg/dl (74-100); Lipase 255 U/L (23-300); Total Protein,Serum 6.6 g/dl (6.3-8.2)
--- NOTE | 2022-10-27 10:27 | PC.NURSE ---
rounded on pts room to see if they had any needs. pt stated no needs at this time
[2022-10-27 10:33] VITALS: BP 132/74; PULSE 76; RESP 18; TEMP 36.4; O2SAT 99
== END 2022-10-27 10:50 | disposition home or self-care (01) ==
PROVIDERS: Emergency Provider Emergency Medicine; PCP Internal Medicine Adolescent Medicine
DX: F41.1 Generalized anxiety disorder (principal)
CPT/HCPCS: 80053; 83690; 85025; 99284

== ENCOUNTER → 2022-11-03 09:23 | Outpatient (CLI) | payer BC, SELFPAY ==
--- NOTE | 2022-11-03 09:29 | NM_ITS ---
FINAL REPORT TECHNIQUE: 0.50 Millicuries of technetium 99m sulfur colloid was ingested with 2 whole eggs and 1 white piece of toast with butter. CLINICAL HISTORY: ABD BLOATING pt has had hernia surgery and recent c-diff 10:00 am .50 [facility] sulfur colloid injected into 2 whole eggs and 1 white piece of toast with butter FINDINGS: GASTRIC EMPTYING SCAN Static images show normal emptying of the stomach into the small bowel. Based on the time activity curve, the estimated half-emptying time is 80 minutes. IMPRESSION: Normal gastric emptying study. Reviewed, Interpreted and Dictated by Karan Doll III, MD Transcribed by Margarita Junior Authenticated and [facility]
== END ==
PROVIDERS: PCP Internal Medicine Adolescent Medicine; Visit Provider Nurse Practitioner Family
DX: R14.0 Abdominal distension (gaseous) (principal)
CPT/HCPCS: 78264; A9541

== ENCOUNTER → 2023-01-05 21:19 | Outpatient (CLI) | payer BC, SELFPAY ==
[2023-01-05 18:36] LABS: Amphetamine/Metha Screen,Urine Negative ng/ml (<1000)
[2023-01-05 18:37] LABS: Barbiturates Screen,Urine Negative ng/ml (<200)
[2023-01-05 18:38] LABS: Benzodiazepines Screen,Urine Positive ng/ml (<200); Cannabinoid Screen,Urine Negative ng/ml (<50)
[2023-01-05 18:39] LABS: Cocaine Screen,Urine Negative ng/ml (<300)
[2023-01-05 18:40] LABS: Methadone Screen,Urine Negative ng/ml (<300); Opiate Screen,Urine Negative ng/ml (<300)
[2023-01-05 18:41] LABS: Phencyclidine Screen,Urine Negative ng/ml (<25)
== END ==
PROVIDERS: PCP Internal Medicine Adolescent Medicine; Visit Provider Nurse Practitioner Psychiatric/Mental Health
DX: Z51.81 Encounter for therapeutic drug level monitoring (principal)
CPT/HCPCS: 80305

== ENCOUNTER → 2023-02-01 12:09 | Outpatient (CLI) | payer BC, SELFPAY ==
[2023-02-01 12:16] LABS: Adenovirus F 40/41, stool Not Detected (NotDetected); Astrovirus Not Detected (NotDetected); Campylobacter Not Detected (NotDetected); Clostridium Difficile A/B, PCR Not Detected (NotDetected); Cryptosporidium Not Detected (NotDetected); Cyclospora Cayetanesis Not Detected (NotDetected); Entamoeba histolytica Not Detected (NotDetected); Enteroaggregative E coli Not Detected (NotDetected); Enteropathogenic E coli Not Detected (NotDetected); Enterotoxigenic E coli Not Detected (NotDetected); Giardia lamblia Not Detected (NotDetected); Norovirus Not Detected (NotDetected); Plesimonas Shigalloides, PCR Not Detected (NotDetected); Rotavirus A Not Detected (NotDetected); Salmonella, PCR Not Detected (NotDetected); Shiga-like toxin E coli Not Detected (NotDetected); Shigella Enterovasive E coli Not Detected (NotDetected); Vibrio Cholerae Not Detected (NotDetected); Vibrio, PCR Not Detected (NotDetected); Yersinia Entercolitica, PCR Not Detected (NotDetected)
[2023-02-01 12:17] LABS: Sapovirus Not Detected (NotDetected)
[2023-02-04 17:41] LABS: Calprotectin, Fecal 16 ug/g (0-120); H. pylori Stool Ag, EIA Negative (Negative); Pancreatic Elastase, Fecal >500 (>200)
== END ==
LOC: LAB.DROPOF 12:10
PROVIDERS: PCP Internal Medicine Adolescent Medicine; Visit Provider Nurse Practitioner Acute Care
DX: K82.4 Cholesterolosis of gallbladder (principal); R10.9 Unspecified abdominal pain; R14.0 Abdominal distension (gaseous); R19.7 Diarrhea, unspecified; R93.5 Abnormal findings on diagnostic imaging of other abdominal regions, including retroperitoneum
CPT/HCPCS: 82656; 83993; 87177; 87338; 87506

== ENCOUNTER 2023-08-15 11:00 | Outpatient (CLI) | payer BC, SELFPAY ==
[2023-08-18 21:08] LABS: Calprotectin, Fecal 426 ug/g (0-120)
== END 2023-08-15 23:59 ==
LOC: LAB 11:02
PROVIDERS: PCP Internal Medicine Adolescent Medicine; Visit Provider Nurse Practitioner Acute Care
DX: K59.00 Constipation, unspecified (principal)
CPT/HCPCS: 83993

== ENCOUNTER 2023-09-30 09:21 | Outpatient (CLI) | payer BC, SELFPAY ==
--- NOTE | 2023-09-30 09:26 | XR_ITS ---
FINAL REPORT CLINICAL HISTORY: CONSTIPATION,WEIGHT LOSS, pt started sitz marker test at and took her last pic here..pt took pill on 09/25 sent xrays from to [facility] COMPARISON: 09/26/2023 FINDINGS: SINGLE VIEW ABDOMEN A single view of the abdomen was obtained. There is a nonobstructive bowel gas pattern. There is a moderate to large stool burden. 21 sitz markers are seen in the descending colon, sigmoid colon, and rectum. No abnormal calcifications are identified. IMPRESSION: Sitz marker as above. Nonobstructive bowel gas pattern with moderate to large stool burden. Reviewed, Interpreted and Dictated by Karan Doll III, MD Transcribed by Tatyana Scott Authenticated and [facility]
== END 2023-09-30 23:59 | disposition home or self-care (01) ==
LOC: RAD 09:22
PROVIDERS: PCP Internal Medicine Adolescent Medicine; Visit Provider Nurse Practitioner Acute Care
DX: K59.00 Constipation, unspecified (principal); R63.4 Abnormal weight loss; R11.2 Nausea with vomiting, unspecified
CPT/HCPCS: 74018

== ENCOUNTER 2023-12-29 07:48 | Outpatient (CLI) | payer BC, SELFPAY ==
--- NOTE | 2023-12-29 07:56 | XR_ITS ---
FINAL REPORT CLINICAL HISTORY: blood in stool x 1 month, ibs, low colon disorder patency capsule swallowed yesterday morning at 7:30am, pt was told to wait 24 hours before having xray COMPARISON: 09/30/2023 FINDINGS: SINGLE VIEW ABDOMEN A single view of the abdomen was obtained. There is a nonobstructive bowel gas pattern. There is a moderate stool burden. An ingested capsule is seen in the left lower quadrant, likely in the descending colon. No abnormal calcifications are identified. IMPRESSION: Nonobstructive bowel gas pattern. Ingested capsule in the left lower quadrant. Reviewed, Interpreted and Dictated by Karan Doll III, MD Transcribed by Tatyana Scott Authenticated and [facility]
== END 2023-12-29 23:59 | disposition home or self-care (01) ==
LOC: RAD 07:49
PROVIDERS: PCP Internal Medicine Adolescent Medicine; Visit Provider Nurse Practitioner Acute Care
DX: K92.1 Melena (principal)
CPT/HCPCS: 74018

== ENCOUNTER 2024-01-04 14:30 | Outpatient (CLI) | payer BC, SELFPAY ==
--- NOTE | 2024-01-04 14:33 | MM_ITS ---
PROCEDURE INFORMATION: Exam: MG Bilateral Screening 3D Mammography Exam date and time: 01/04/2024 2:24 PM Age: 53 years old Clinical indication: Screening examination. Her sister had breast cancer at age 50. TECHNIQUE: Imaging protocol: Bilateral Screening tomosynthesis and 2D mammography including computer-aided detection (CAD) when performed. COMPARISON: 1. MG MM DIG SCREENING MAMM BI W/CAD 01/17/2020 10:24 AM 2. MG SCBI MM Dig screening mamm BI w/CAD 10/05/2017 4:19 PM FINDINGS: MAMMOGRAPHY: Breast composition: There are scattered areas of fibroglandular density. Mass: None. Architectural distortion: None. Calcifications: No suspicious calcifications. Asymmetric density: None. Skin thickening: None. Axillary adenopathy: None. IMPRESSION: No mammographic evidence of malignancy. Annual screening is recommended unless otherwise clinically indicated. ASSESSMENT: BI-RADS Category 1: Negative
== END 2024-01-04 23:59 | disposition home or self-care (01) ==
LOC: RAD 14:31
PROVIDERS: PCP Nurse Practitioner Family; Visit Provider Nurse Practitioner Family
DX: Z12.31 Encounter for screening mammogram for malignant neoplasm of breast (principal)
CPT/HCPCS: 77063; 77067

== ENCOUNTER 2024-01-16 10:32 | Outpatient (CLI) | payer BC, SELFPAY ==
[2024-01-16 10:59] LABS: Basophils # 0.1 K/mm3 (0-0.2); Basophils % 1.1 % (0.1-2.0); Eosinophils # 0.1 K/mm3 (0.0-0.4); Eosinophils % 2.6 % (0.1-12.0); Hematocrit 43.4 % (37.0-47.0); Hemoglobin 13.3 g/dL (12.2-16.2); Lymphocytes # 1.6 K/mm3 (0.7-4.5); Lymphocytes % 27.8 % (10-50); Mean Corpuscular HGB Conc 30.6 g/dL (31.8-35.4); Mean Corpuscular Hemoglobin 29.3 pg (27.0-31.2); Mean Corpuscular Volume 95.7 fl (81-99); Mean Platelet Volume 8.1 fl (7.4-10.4); Monocytes # 0.4 K/mm3 (0.1-1.0); Monocytes % 6.5 % (1.7-9.3); Neutrophils # 3.5 K/mm3 (1.8-7.8); Neutrophils % 62.1 % (37.0-80.0); Platelet Count 253 K/mm3 (142-424); Red Blood Count 4.53 M/mm3 (4.20-5.40); Red Cell Distribution Width 13.5 % (11.5-17.5); White Blood Count 5.6 K/mm3 (4.8-10.8)
[2024-01-16 12:22] LABS: Iron 113 ug/dL (37-170)
[2024-01-16 12:33] LABS: Total Iron Binding Capacity 259 ug/dL (265-497)
[2024-01-17 09:22] LABS: Transferrin 231 mg/dL (192-364)
== END 2024-01-16 23:59 | disposition home or self-care (01) ==
LOC: LAB 10:34
PROVIDERS: PCP Internal Medicine Adolescent Medicine; Visit Provider Nurse Practitioner Acute Care
DX: K92.1 Melena (principal)
CPT/HCPCS: 36415; 83540; 83550; 84466; 85025

== ENCOUNTER 2024-01-26 17:07 | Emergency (ER) | payer BC, SELFPAY ==
[2024-01-26 17:09] VITALS: BP 124/88; PULSE 81; RESP 18; TEMP 36.9; O2SAT 99; BMI 22.8
--- NOTE | 2024-01-26 17:18 | CT_ITS ---
PROCEDURE INFORMATION: Exam: CTA Abdomen and Pelvis With Contrast Exam date and time: 01/26/2024 6:01 PM Age: 53 years old Clinical indication: Other: Blood in stool; Additional info: Abd pain, blood in stool TECHNIQUE: Imaging protocol: Computed tomographic angiography of the abdomen and pelvis with contrast. Exam focused on the arteries. 3D rendering (Not supervised by radiologist): MIP and/or 3D reconstructed images were created by the technologist. Radiation optimization: All CT scans at this facility use at least one of these dose optimization techniques: automated exposure control; mA and/or kV adjustment per patient size (includes targeted exams where dose is matched to clinical indication); or iterative reconstruction. Contrast material: ISOVUE; Contrast volume: 80 ml; Contrast route: INTRAVENOUS (IV); Other contrast: Rectal; COMPARISON: CT ANGIO ABDOMEN 07/13/2023 2:24 PM FINDINGS: Aorta: No aortic aneurysm. No aortic dissection. Celiac trunk and mesenteric arteries: No occlusion or significant stenosis. Renal arteries: No occlusion or significant stenosis. Right iliac arteries: No occlusion or significant stenosis. Left iliac arteries: No occlusion or significant stenosis. Liver: No mass. Gallbladder and biliary ducts: Unremarkable. No calcified stones. No ductal dilation. Pancreas: Unremarkable. No mass. No ductal dilation. Spleen: Unremarkable. No splenomegaly. Adrenal glands: Unremarkable. No mass. Kidneys and ureters: Unremarkable. No solid mass. No hydronephrosis. Stomach and bowel: Unremarkable. No obstruction. No mucosal thickening. Appendix: No evidence of appendicitis. Intraperitoneal space: Unremarkable. No free air. No significant fluid collection. Lymph nodes: Unremarkable. No enlarged lymph nodes. Urinary bladder: Unremarkable. No mass. Reproductive: Unremarkable as visualized. Bones/joints: No acute fracture. Soft tissues: Unremarkable. IMPRESSION: Unremarkable CTA.
--- NOTE | 2024-01-26 17:21 | ED_ITS ---
Discharge Plan Disposition Patient Disposition: Home, Self-Care Condition: Good Prescriptions Prescriptions: New dicyclomine 10 mg capsule 10 mg PO BID 3 Days Qty: 6 0RF ondansetron 4 mg tablet,disintegrating 4 mg PO Q6H PRN (Reason: nausea and vomiting) 4 Days Qty: 16 0RF No Action losartan 25 mg tablet 25 mg PO DAILY aspirin [Adult Aspirin Regimen] 81 mg tablet,delayed release (DR/EC) 81 mg PO DAILY levothyroxine [Euthyrox] 25 mcg tablet 25 mcg PO DAILY sertraline [Zoloft] 100 mg tablet 50 mg PO BID Qty: 60 1RF Probiotic Pearls Women's 1 billion cell capsule,delayed release(DR/EC) 1 cap PO DAILY rosuvastatin 10 mg tablet 10 mg PO DAILY diazepam [Valium] 5 mg tablet See Rx Instructions PO BID PRN (Reason: anxiety) Qty: 30 0RF Rx Instructions: take (1/2) tablet to (1) tablet orally twice a day PRN; ondansetron [ondansetron] 4 mg tablet,disintegrating 4 mg PO TIDP PRN (Reason: Nausea) Qty: 10 0RF Referrals Follow up/Referrals: Juarez Kothari MD [Primary Care Provider] - See instructions Activity Restrictions/Add. Instructions Additional Instructions/Restrictions: You have been evaluated in the ED for your complaints. You may follow-up with your PCP in the next 3 to 5 days. Please return to ED for any new or worsening symptoms. I have written for Mary to assist with your abdominal cramping. Please keep your follow-up appointments with your orientation and mobility instructor as discussed. Clinical Impressions Clinical Impression: Abdominal pain, Blood in stool Instructions Patient Instructions: DI for Acute Abdominal Pain Print Language Print Language: Azeri Discharge ED Provider: Ephraim Bolton General Adult HPI General Chief complaint: Abdominal Pain Stated complaint: blood in stool, abd pain , dizzy Time Seen by Provider: 01/26/24 17:12 History of Present Illness HPI narrative: 53-year-old female with past medical history significant for recurrent C. difficile infections, BERNADINE, HTN, CVA, hemorrhoids, IBS, slow colon transit, hernia repair in 2021, presents today for evaluation concerning abdominal pain has been intermittent over the past 2 months however more constant over the past couple of days. She states that her pain is located mainly on her right side. She reports nausea and dizziness but denies any vomiting, fevers, chills, chest pain or shortness of breath. She states that last week she was constipated and today she has noted blood in her stool after 3 loose bowel movements. She denies any dysuria or hematuria or any other associated symptoms at this time Related Data Home Medications ?Medication ?Instructions ?Recorded ?Confirmed L.acidophilus-L.plantarum-L.rhamnosus 1 cap PO DAILY probiotic 10/06/21 01/25/24 1 billion cell capsule,delay rel (Probiotic Pearls Women's) aspirin 81 mg tablet,delayed 81 mg PO DAILY heart healthy 11/09/21 01/25/24 release (Adult Aspirin Regimen) levothyroxine 25 mcg tablet 25 mcg PO DAILY thyroid 11/09/21 01/25/24 (Euthyrox) losartan 25 mg tablet 25 mg PO DAILY bp 11/09/21 01/25/24 rosuvastatin 10 mg tablet 10 mg PO DAILY Cholesterol 04/06/22 01/25/24 Previous Rx's ?Medication ?Instructions ?Recorded ondansetron 4 mg disintegrating 4 mg PO TIDP PRN Nausea #10 tabs 10/01/22 tablet diazepam 5 mg tablet (Valium) See Rx Instructions PO BID PRN 01/17/24 anxiety #30 tabs sertraline 100 mg tablet (Zoloft) 50 mg (1/2 x 100 mg) PO BID 01/18/24 depression/anxiety #60 tabs dicyclomine 10 mg capsule 10 mg PO BID 3 days #6 caps 01/26/24 ondansetron 4 mg disintegrating 4 mg PO Q6H PRN nausea and 01/26/24 tablet vomiting 4 days #16 tabs Allergies Allergy/AdvReac Type Severity Reaction Status Date / Time Sulfa (Sulfonamide Allergy Verified 01/25/24 10:40 Antibiotics) [facility] Disclaimer: The information contained in this section may have been updated after the patient was seen, as this information can be updated by other users. Medical History Generalized anxiety disorder Recurrent Clostridioides difficile infection Social History Smoking Status: Never smoker alcohol intake: never substance use type: denies use current occupational status: employed Travel in the last 8 weeks: None household members: spouse housing: house number of children: 2 current occupation: [employer] current occupational exposures/hazards: Yes caffeine: Yes ROS Obtained: Yes All systems reviewed & no additional complaints except as documented Physical Exam General General appearance: alert and in no apparent distress Head Head exam: atraumatic and normocephalic Eye Eye exam: Present normal appearance, PERRL and EOMI ENT ENT exam: Present normal oropharynx and mucous membranes moist Neck Neck exam: Present full ROM; Absent meningismus Respiratory Respiratory exam: Absent respiratory distress, wheezes, stridor or accessory muscle use Cardiovascular Cardiovascular exam: Present normal rhythm Abdominal Exam Abdominal exam: Present soft and tenderness; Absent distention, guarding, rebound or rigidity Abdominal tenderness: Present diffuse Neurological Exam Neurological exam: Present alert, oriented X3 and CN II-XII intact; Absent motor sensory deficit Psychiatric Psychiatric exam: Present normal affect and normal mood Skin Skin exam: Present warm and dry Medical Decision Making Medical Records Medical records reviewed: Yes I reviewed the patient's medical records. Shorty Inquiry Pt receiving controlled substance: No Shorty was queried for this patient: No Vital Signs: 01/26/24 17:09 01/26/24 17:45 01/26/24 19:20 Temperature 98.4 F Temperature Source Oral Pulse Rate 76 68 Pulse Rate [Right] 81 Respiratory Rate 18 16 Blood Pressure 118/65 Blood Pressure [Right Arm] 124/88 Blood Pressure Mean [Right Arm] 100 Blood Pressure Source Automatic Cuff Blood Pressure Position Sitting 02 Sat by Pulse Oximetry 99 99 99 Oxygen Delivery Method Room Air Lab Data Lab Results 01/26/24 17:11: Urine Color Yellow, Urine Appearance Clear, Urine pH 6.0, Ur Specific [place] >= 1.030, Urine Protein Negative, Urine Glucose (UA) Negative, Urine Ketones Trace, Urine Blood Trace-i, Urine Nitrate Negative, Urine Bilirubin Negative, Urine Urobilinogen 0.2, Ur Leukocyte Esterase Negative, Urine RBC 3-5, Urine WBC Occasional, Ur Squamous Epith Cells Occasional, Urine Bacteria Trace 01/26/24 17:24: WBC 7.6, RBC 4.56, Hgb 13.7, Hct 43.9, MCV 96.2, MCH 30.0, MCHC 31.2 L, RDW 13.6, Plt Count 287, MPV 8.1, Neut % (Auto) 66.0, Lymph % (Auto) 26.6, [place] % (Auto) 4.8, Eos % (Auto) 1.8, Baso % (Auto) 0.8, Neut # (Auto) 5.0, Lymph # (Auto) 2.0, [place] # (Auto) 0.4, Eos # (Auto) 0.1, Baso # (Auto) 0.1, PT 10.8, INR 0.96, Sodium 140, Potassium 4.5, Chloride 108 H, Carbon Dioxide 25, Anion Gap 11.5, BUN 22 H, Creatinine 1.10 H, Estimated Creat Clear 54, Estimated GFR 52 L, Est GFR ( Amer) 63, Glucose 98, Lactate 1.1, Calcium 9.1, Total Bilirubin 0.5, AST 27, ALT 18, Alkaline Phosphatase 88, Total Protein 7.6, Albumin 4.6, Globulin 3.0, Albumin/Globulin Ratio 1.5, Lipase 136 01/26/24 17:24 01/26/24 17:24 Orders (Tests/Meds): ED MEDICATIONS Generic Name Dose Route Start Last Admin Trade Name Freq PRN Reason Stop Dose Admin Dicyclomine HCl 10 mg 01/26/24 19:33 Dicyclomine 10mg Capsule PO 01/26/24 19:34 ONCE ONE Sodium Chloride 10 ml 01/26/24 18:02 01/26/24 18:05 Sodium Chloride 0.9% 10ml Syr (Rad Only) IV 02/25/24 18:01 10 ml NEEDED PRN Administration Maintain IV Site Discontinued Medications Generic Name Dose Route Start Last Admin Trade Name Freq PRN Reason Stop Dose Admin Lactated Ringer's 1,000 mls @ 999 mls/hr 01/26/24 17:20 01/26/24 17:35 Lactated Ringer's 1000 Ml Bag IV 01/26/24 18:20 999 mls/hr .Q1H1M ONE Administration Iopamidol 80 ml 01/26/24 18:02 01/26/24 18:05 Iopamidol-370 (76%);100ml Bottle IV 01/26/24 18:03 80 ml ONCE ONE Administration Morphine Sulfate 4 mg 01/26/24 17:20 01/26/24 17:35 Morphine 4mg/Ml Syringe IV 01/26/24 17:21 4 mg ONCE ONE Administration Ondansetron HCl 4 mg 01/26/24 17:18 01/26/24 17:35 Ondansetron 4mg/2ml Vial IV 01/26/24 17:19 4 mg ONCE ONE Administration Sodium Chloride 50 ml 01/26/24 18:02 01/26/24 18:05 0.9 % Sodium Chloride 50 Ml Vial IV 01/26/24 18:03 50 ml ONCE ONE Administration ORDERS Category Date Time Status CT angio abdomen pelvis Stat Cat Scan 01/26/24 17:18 Completed CBC w/Auto Diff [Complete Blood Count Auto Diff] Stat Lab 01/26/24 17:24 Completed CMP [Comprehensive Metabolic Panel] Stat Lab 01/26/24 17:24 Completed Lactic Acid Stat Lab 01/26/24 17:24 Completed Lipase Stat Lab 01/26/24 17:24 Completed PT INR [Prothrombin Time INR] Stat Lab 01/26/24 17:24 Completed UA [Urinalysis and Microscopic] Stat Lab 01/26/24 17:11 Completed Medical Decision Narrative: 53-year-old female with past medical history significant for recurrent C. difficile infections, BERNADINE, HTN, CVA, hemorrhoids, IBS, slow colon transit, hernia repair in 2021, presents today for evaluation concerning abdominal pain has been intermittent over the past 2 months however more constant over the past couple of days. She states that her pain is located mainly on her right side. She reports nausea and dizziness but denies any vomiting, fevers, chills, chest pain or shortness of breath. She states that last week she was constipated and today she has noted bright red blood blood in her stool after 3 loose bowel movements. On assessment she was hemodynamically stable and in no acute distress. Afebrile. Chest clear to station bilaterally. Abdomen was soft and nondistended and was generally tender however more focal in the right quadrants. Other physical exam findings unremarkable. Differential diagnoses include but not limited to IBS flare, lower GI bleed, anal fissure, hemorrhoid, constipation, gastritis, gastroenteritis, diverticulosis, among others. No elevation in WBC at 7.6. Patient does not have an anemia with a hemoglobin of 13.7. PT/INR 10.8/0.96. Creatinine mildly elevated at 1.1. I have ordered for IV fluids. No transaminitis. Lipase within range at 136. No signs of UTI on urinalysis. CT abdomen pelvis with no acute findings. On reassessment patient remains hemodynamically stable and in no acute distress. She is able to tolerate oral intake however does report upper abdominal pain when doing so. I will give her Bentyl at this time. She has follow-up appointment with her orientation and mobility instructor who has plan to perform colonoscopy in the next several days. Will give patient prescription for Bentyl to further assist with abdominal cramping. She verbalized understanding and agreement with plan. Provided with return to ED precaution and instructions concerning follow- up. Subsequently discharged. Critical Care Critical Care Time Critical Care Time: No
[2024-01-26 17:25] LABS: Microscopic, Urine URINE MICROSCOPIC (MICROSCOPIC)
[2024-01-26 17:28] LABS: Appearance,Urine CLEAR (Clear); Bilirubin,Urine Negative (Negative); Blood, Urine TRACE-I (Negative); Color,Urine YELLOW (Yellow); Glucose,Urine (UA) Negative (Negative); Ketones,Urine TRACE (Negative); Leukocyte Esterase,Urine Negative (Negative); Nitrate,Urine Negative (Negative); Protein,Urine Negative (Negative); Specific Gravity, Urine >= 1.030 (1.005-1.030); Urobilinogen,Urine 0.2 EU/dl (0.2)
[2024-01-26 17:33] LABS: Basophils # 0.1 K/mm3 (0-0.2); Basophils % 0.8 % (0.1-2.0); Eosinophils # 0.1 K/mm3 (0.0-0.4); Eosinophils % 1.8 % (0.1-12.0); Hematocrit 43.9 % (37.0-47.0); Hemoglobin 13.7 g/dL (12.2-16.2); Lymphocytes % 26.6 % (10-50); Mean Corpuscular HGB Conc 31.2 g/dL (31.8-35.4); Mean Corpuscular Volume 96.2 fl (81-99); Mean Platelet Volume 8.1 fl (7.4-10.4); Monocytes # 0.4 K/mm3 (0.1-1.0); Monocytes % 4.8 % (1.7-9.3); Platelet Count 287 K/mm3 (142-424); Red Blood Count 4.56 M/mm3 (4.20-5.40); Red Cell Distribution Width 13.6 % (11.5-17.5); White Blood Count 7.6 K/mm3 (4.8-10.8)
[2024-01-26] MEDS: MORPHINE 4MG/ML SYRINGE 4 MG IV (17:35)
[2024-01-26] MEDS: ONDANSETRON 4MG/2ML VIAL 4 MG IV (17:35)
[2024-01-26] MEDS: LACTATED RINGERS 1000ML 1,000 ML 999 ML IV (17:35)
[2024-01-26 17:39] LABS: Albumin Level 4.6 g/dl (3.5-5.0); Chloride 108 mmol/L (98-107)
[2024-01-26 17:40] LABS: Potassium 4.5 mmoL/L (3.5-5.1); Sodium 140 mmol/L (136-145)
[2024-01-26 17:42] LABS: Alanine Aminotransferase 18 U/L (12-78); Anion Gap 11.5 mEq/L (5-15); Aspartate Amino Transferase 27 U/L (14-36); Bilirubin,Total 0.5 mg/dl (0.2-1.3); Blood Urea Nitrogen 22 mg/dl (7-17); Carbon Dioxide 25 mmol/L (22.0-30.0); Creatinine Clearance Estimated 54 mL/min (50-200); Estimated Glomerular Filt Rate 52 ml/min (>60); GFR (African American) 63 ML/MIN (>60); Lactic Acid 1.1 mmol/L (0.7-2.1)
[2024-01-26 17:43] LABS: Albumin/Globulin Ratio 1.5 (1.1-1.8); Alkaline Phosphatase 88 U/L (38-126); Calcium 9.1 mg/dl (8.4-10.2); Glucose 98 mg/dl (74-100); Lipase 136 U/L (23-300); Total Protein,Serum 7.6 g/dl (6.3-8.2)
[2024-01-26 17:45] VITALS: PULSE 76; O2SAT 99
[2024-01-26] MEDS: SODIUM CHLORIDE 0.9% 10ML SYR (RAD ONLY) 10 ML IV (18:05)
[2024-01-26] MEDS: 0.9 % SODIUM CHLORIDE 50 ML VIAL IV (18:05)
[2024-01-26] MEDS: IOPAMIDOL-370 (76%);100ML BOTTLE 80 ML IV (18:05)
[2024-01-26 18:11] LABS: Bacteria,Urine Trace /lpf; Squamous Epithelial Cell,Urine Occasional #/hpf (0-5); WBC,Urine Occasional #/hpf (0-3)
[2024-01-26 19:00] LABS: INR 0.96 (0.9-1.1); Prothrombin Time 10.8 seconds (10.1-12.5)
--- NOTE | 2024-01-26 19:18 | PC.NURSE ---
Pt provided crackers and sprite for PO challenge, pt states she had a hernia and esophageal repair and would not be to vomit even if she needed to.
[2024-01-26 19:20] VITALS: BP 118/65; PULSE 68; RESP 16; O2SAT 99
[2024-01-26 19:21] VITALS: BP 118/65; PULSE 72; O2SAT 100
--- NOTE | 2024-01-26 19:24 | PC.NURSE ---
Pt states she ate a cracker and took a drink of sprite and her stomach hurts
[2024-01-26 19:30] VITALS: BP 103/58; PULSE 73; O2SAT 100
[2024-01-26] MEDS: DICYCLOMINE 10MG CAPSULE 10 MG PO (19:38)
[2024-01-26 19:50] VITALS: BP 103/58; PULSE 59; RESP 16; TEMP 36.6; O2SAT 100
== END 2024-01-26 19:52 | disposition home or self-care (01) ==
PROVIDERS: Emergency Provider Emergency Medicine; PCP Internal Medicine Adolescent Medicine
DX: R10.9 Unspecified abdominal pain (principal); K92.1 Melena; R42 Dizziness and giddiness; I10 Essential (primary) hypertension; Z86.73 Personal history of transient ischemic attack (TIA), and cerebral infarction without residual deficits
CPT/HCPCS: 74174; 80053; 81001; 83605; 83690; 85025; 85610; 96361; 96374; 96375; 99285; J2270; J2405; J7120; Q9967

== ENCOUNTER 2024-04-11 13:48 | Outpatient (CLI) | payer BC, SELFPAY ==
[2024-04-11 13:54] LABS: Microscopic, Urine URINE MICROSCOPIC (MICROSCOPIC)
[2024-04-11 14:18] LABS: Appearance,Urine CLEAR (Clear); Bilirubin,Urine Negative (Negative); Blood, Urine TRACE-I (Negative); Color,Urine YELLOW (Yellow); Glucose,Urine (UA) Negative (Negative); Ketones,Urine TRACE (Negative); Leukocyte Esterase,Urine Negative (Negative); Nitrate,Urine Negative (Negative); PH,Urine 6.5 (5.0-8.5); Protein,Urine Negative (Negative); Urobilinogen,Urine 0.2 EU/dl (0.2)
[2024-04-11 18:28] LABS: Bacteria,Urine 4+ /lpf; Mucus,Urine 2+ /lpf; Squamous Epithelial Cell,Urine 20-50 #/hpf (0-5)
== END 2024-04-11 23:59 | disposition home or self-care (01) ==
LOC: LAB 13:49
PROVIDERS: PCP Internal Medicine Adolescent Medicine; Visit Provider Surgery
DX: R35.0 Frequency of micturition (principal)
CPT/HCPCS: 81001; 87086; 87088; 87186

== ENCOUNTER 2024-05-29 10:13 | Outpatient (CLI) | payer BC, SELFPAY | END 2024-05-29 23:59 | disposition home or self-care (01) | LOC: LAB.DROPOF 10:14 | PROVIDERS: PCP Internal Medicine Adolescent Medicine; Visit Provider Nurse Practitioner Family | DX: R30.0 Dysuria (principal) | CPT/HCPCS: 87086 ==

== ENCOUNTER 2024-07-04 09:53 | Outpatient (CLI) | payer BC, SELFPAY ==
--- NOTE | 2024-07-04 10:00 | CT_ITS ---
FINAL REPORT TECHNIQUE: Thin section axial images were obtained through the abdomen after intravenous contrast. Reconstruction images were obtained from the axial data. Exam was performed using dose reduction techniques. CLINICAL HISTORY: ABD PAIN, HX OF PART OF COLON REMOVED IN FEB 2024 COMPARISON: 10/01/2022 FINDINGS: The lung bases are clear. The liver is homogeneous without focal hepatic lesion. The gallbladder is present. The spleen, adrenal glands, and pancreas are without acute abnormality. There is no hydronephrosis, renal mass or renal stone. The urinary bladder is unremarkable. There is no evidence of small bowel obstruction. The appendix is unremarkable. There is a large amount of retained stool in the colon. Abdominal GI tract is without acute abnormality. There is no abdominal lymphadenopathy or ascites. The uterus and adnexa are without acute abnormality. There is no lymphadenopathy in the pelvis. No free fluid. No acute osseous abnormalities identified. 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 IMPRESSION: No acute abnormality in the abdomen or pelvis. Constipation. Additional chronic findings as above. Reviewed, Interpreted and Dictated by Ana Crowder MD Transcribed by Lisa Starr Authenticated and [facility]
[2024-07-04 10:33] LABS: Blood Urea Nitrogen 19 mg/dl (7-17); Estimated Glomerular Filt Rate 58 ml/min (>60); GFR (African American) 70 ML/MIN (>60)
[2024-07-04] MEDS: IOPAMIDOL-370 (76%);100ML BOTTLE 75 ML IV (11:04)
[2024-07-04] MEDS: SODIUM CHLORIDE 0.9% 10ML SYR (RAD ONLY) 10 ML IV (11:04)
[2024-07-04] MEDS: BARIUM SULFATE(READI-CAT2);450ML BOTTLE 450 ML PO (11:05)
== END 2024-07-04 23:59 | disposition home or self-care (01) ==
LOC: RAD 09:55
PROVIDERS: PCP Internal Medicine Adolescent Medicine; Visit Provider Surgery
DX: Z01.812 Encounter for preprocedural laboratory examination (principal); R10.31 Right lower quadrant pain; Z98.890 Other specified postprocedural states; Z90.49 Acquired absence of other specified parts of digestive tract
CPT/HCPCS: 36415; 74177; 82565; 84520; Q9967

== ENCOUNTER 2024-09-06 10:07 | Outpatient (CLI) | payer BC, SELFPAY ==
[2024-09-06 11:12] LABS: Free T4 (Free Thyroxine) 1.28 ng/dl (0.78-2.19)
[2024-09-06 11:26] LABS: Thyroid Stimulating Hormone 1.74 uIU/mL (0.465-4.68)
== END 2024-09-06 23:59 | disposition home or self-care (01) ==
LOC: LAB 10:08
PROVIDERS: PCP Internal Medicine Adolescent Medicine; Visit Provider Nurse Practitioner Acute Care
DX: E07.9 Disorder of thyroid, unspecified (principal); F41.1 Generalized anxiety disorder
CPT/HCPCS: 36415; 84439; 84443

== ENCOUNTER 2024-10-08 09:26 | Outpatient (CLI) | payer BC, SELFPAY ==
--- NOTE | 2024-10-08 09:15 | CT_ITS ---
FINAL REPORT TECHNIQUE: Axial CT images were performed through the head. Coronal reformatted images were submitted. This study was performed with techniques to keep radiation doses as low as reasonably achievable (ALARA). Individualized dose reduction techniques using automated exposure control or adjustment of mA and/or kV according to the patient's size were employed. CLINICAL HISTORY: headache/ arm pain. DIZZINESS. HX STROKE 3 YEARS AGO. COMPARISON: 07/30/2022 FINDINGS: There is mild bifrontal atrophy, similar to prior exam. There is a stable retention cyst in the inferior left maxillary sinus. The ventricles are normal in size. There is no evidence of hemorrhage. There is no mass or edema identified. There is no abnormal extra-axial fluid seen. The sinuses are well aerated. IMPRESSION: No acute intracranial process. Stable atrophy. 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 Reviewed, Interpreted and Dictated by Francisco Martinez MD Transcribed by Fabienne Blue Authenticated and [facility]
[2024-10-08 09:48] LABS: Anti-Centromere B Antibodies ND; Anti-DNA (DS) Ab Qn ND; Anti-Jo-1 ND; Antichromatin Antibodies ND; Antiscleroderma-70 Antibodies ND; MANUAL DIFFERENTIAL MANUAL DIFFERENTIAL (MANUAL DIFF); RNP Antibodies ND; Sjogren's Anti-SS-A ND; Sjogren's Anti-SS-B ND
[2024-10-08 10:23] LABS: Basophils # 0.1 K/mm3 (0-0.2); Basophils % 0.9 % (0.1-2.0); Eosinophils # 0.1 Kmm3 (0.0-0.4); Eosinophils % 2.1 % (0.1-12.0); Hematocrit 41.1 % (37.0-47.0); Hemoglobin 13.5 g/dL (12.2-16.2); Lymphocytes # 1.5 K/mm3 (0.7-4.5); Lymphocytes % 26.9 % (10-50); Mean Corpuscular HGB Conc 32.8 g/dL (31.8-35.4); Mean Corpuscular Hemoglobin 30.3 pg (27.0-31.2); Mean Corpuscular Volume 92.2 fl (81-99); Mean Platelet Volume 9.5 fl (7.4-10.4); Monocytes # 0.4 K/mm3 (0.1-1.0); Monocytes % 6.9 % (1.7-9.3); Neutrophils # 3.5 K/mm3 (1.8-7.8); Platelet Count 225 K/mm3 (142-424); Red Blood Count 4.46 M/mm3 (4.20-5.40); Red Cell Distribution Width 12.4 % (11.5-17.5); White Blood Count 5.6 K/mm3 (4.8-10.8)
[2024-10-08 10:49] LABS: Albumin Level 4.3 g/dl (3.5-5.0); Chloride 108 mmol/L (98-107); Potassium 4.9 mmoL/L (3.5-5.1); Sodium 140 mmol/L (136-145)
[2024-10-08 10:51] LABS: Blood Urea Nitrogen 25 mg/dl (7-17); Estimated Glomerular Filt Rate 58 ml/min (>60); GFR (African American) 70 ML/MIN (>60)
[2024-10-08 10:52] LABS: Alanine Aminotransferase 15 U/L (12-78); Albumin/Globulin Ratio 1.7 (1.1-1.8); Alkaline Phosphatase 76 U/L (38-126); Anion Gap 7.9 mEq/L (5-15); Aspartate Amino Transferase 26 U/L (14-36); Bilirubin,Total 0.5 mg/dl (0.2-1.3); Calcium 9.6 mg/dl (8.4-10.2); Carbon Dioxide 29 mmol/L (22.0-30.0); Globulin 2.5 g/dL (1.3-3.2); Glucose 88 mg/dl (74-100); Total Protein,Serum 6.8 g/dl (6.3-8.2)
[2024-10-08 12:02] LABS: Erythrocyte Sedimentation Rate 12 mm/hr (0-30)
[2024-10-08 12:13] LABS: Vitamin B12 272 pg/mL (239-931)
[2024-10-08 15:32] LABS: Eosinophils % 2 % (0-3); Lymphocytes % 28 % (10-50); Monocytes % 8 % (2-9); Neutrophils % 58 % (42-76); Platelet Estimate Normal; RBC Morphology Normal; Total Cells Counted 100
[2024-10-09 13:17] LABS: Antinuclear Antibodies (ANA) Negative (Negative)
== END 2024-10-08 23:59 | disposition home or self-care (01) ==
PROVIDERS: PCP Internal Medicine Adolescent Medicine; Visit Provider Specialist
DX: R51.9 Headache, unspecified (principal); M79.602 Pain in left arm; Z86.73 Personal history of transient ischemic attack (TIA), and cerebral infarction without residual deficits; R20.0 Anesthesia of skin; R20.2 Paresthesia of skin
CPT/HCPCS: 36415; 70450; 80053; 82607; 85007; 85014; 85018; 85048; 85049; 85651

== ENCOUNTER 2024-10-26 07:43 | Outpatient (CLI) | payer BC, SELFPAY ==
--- NOTE | 2024-10-26 08:00 | MR_ITS ---
FINAL REPORT TECHNIQUE: Multiplanar and multisequence imaging of the brain was obtained before and after contrast administration. CLINICAL HISTORY: headaches, weakness in lt arm hx stroke 3 yrs ago COMPARISON: CT of the head 10/08/2024 FINDINGS: Brain parenchymal: There is no mass effect or midline shift. There is subcortical focus of T2 abnormal signal in the posterior left frontal lobe. No other foci of parenchymal signal abnormality are noted. The cerebellum and brainstem are without acute abnormality. Ventricles: The ventricles are symmetric in size and configuration without hydrocephalus. Extra-axial spaces: No extra-axial fluid collections. Diffusion imaging: No areas of restricted diffusion to suggest acute infarct. Flow voids: Flow voids within the major intracranial vessels are preserved. Soft tissues: Soft tissues are without acute abnormality. Post contrast imaging: No abnormal enhancement. IMPRESSION: Single focus of subcortical T2 signal abnormality in the posterior left frontal lobe, nonenhancing. This most likely represents the sequela of prior migraine, a focus of chronic small vessel ischemic change, with demyelination felt to be less likely. No other foci of abnormal signal or enhancement are identified. No restricted diffusion is present. Reviewed, Interpreted and Dictated by Ana Crowder MD Transcribed by Anat Stevens Authenticated and [facility]
[2024-10-26] MEDS: GADOTERIDOL INJ 20ML SYRINGE 12 ML IV (08:27)
[2024-10-26] MEDS: SODIUM CHLORIDE 0.9% 10ML SYR (RAD ONLY) 10 ML IV (08:27)
== END 2024-10-26 23:59 | disposition home or self-care (01) ==
LOC: RAD 07:44
PROVIDERS: PCP Internal Medicine Adolescent Medicine; Visit Provider Specialist
DX: R90.89 Other abnormal findings on diagnostic imaging of central nervous system (principal); R51.9 Headache, unspecified; R20.0 Anesthesia of skin; R20.2 Paresthesia of skin
CPT/HCPCS: 70553; A9576

== ENCOUNTER 2025-03-29 11:01 | Outpatient (CLI) | payer BC, SELFPAY ==
--- OUTSIDE RECORDS SUMMARY | 2023-10-24 04:15 | XMS_ITS ---
Author Organization [facility] Address [address] [place], [place] [address] Care Team Providers Care Hook And Eye Machine Operator Name Role Phone Juarez Kothari Primary Care Provider Meghana Jacobson Unavailable [phone] REASON FOR VISIT abdominal pain followup Encounters Encounter Location Date Provider Diagnosis [facility] [address] [place], [place] [address] 10/24/2023 Meghana Jacobson Plan Of Treatment No Information Progress Notes * Jodie LINGDOB:1970 (55 yo F)Acc No.[id number]:10/24/2023 Progress Notes Patient: David LUCAS Jodie August Provider: DANICA Lee :1970 A ge:53 Y S ex:Female Date:10/24/2023 Address:[address] [id number] Pcp:Juarez Kothari Subjective: * Chief Complaints: * 1 . Abdominal pain followup. * Medical History: Objective: * Vitals: Assessment: Plan: * Treatment: * * Electronic signature of Sophia Jacobson APRN on 04/02/2025 at 11:06 AM EST Sign off status: Pending * Provider: DANICA Lee Date: 0 10/24/2023 Generated for [place]/eTransmitting on: 06/02/2024 11:06 AM EST
--- OUTSIDE RECORDS SUMMARY | 2024-02-10 06:00 | XMS_ITS ---
Author Organization [facility] Address [address] [place], [place] [address] Care Team Providers Care Turnstile Attendant Name Role Phone Juarez Kothari Primary Care Provider Meghana Jacobson Unavailable [phone] REASON FOR VISIT FMLA Encounters Encounter Location Date Provider Diagnosis [facility] [address] [place], [place] [address] 02/10/2024 Meghana Jacobson Plan Of Treatment No Information Progress Notes * Jodie LINGDOB:1970 (55 yo F)Acc No.[id number]:02/10/2024 Patient: David Jodie LUCAS Provider: DANICA Lee :1970 A ge:54 Y S ex:Female Date:02/10/2024 Address:[address] [id number] Pcp:Juarez Kothari Subjective: * Chief Complaints: Objective: Assessment: Plan: * * Electronic signature of Sophia Jacobson APRN on 04/02/2025 at 11:05 AM EST Sign off status: Pending * Provider: DANICA Lee Date: 0 02/10/2024 Generated for Printi ng/Faxing/eTransmitting on: 1 06/02/2024 11:05 AM EST
--- OUTSIDE RECORDS SUMMARY | 2024-08-25 16:30 | XMS_ITS ---
Author Organization [facility] Address [address] [place] [address] Care Team Providers Care Voltage Inspector Name Role Phone Juarez Kothari Primary Care Provider [phone] Migration, Provider Unavailable Unavailable Allergies Allergen (clinical drug ingredient) Drug/Non Drug Allergy documented on EMR Reaction Allergy Type Onset Date Status SULFA (uncoded) hives and vomiting Allergy Active [facility] Encounter Medications Medication SIG (Take, Route, Frequency, Duration) Notes Start Date End Date Status Aspirin 81 MG 1 tab(s) orally once a day; Duration: 30 day(s) 08/14/2021 Active Fluticasone Propionate 50 MCG/ACT 1 spray(s) in each nostril 2 times a day; Duration: 30 days prn 10/31/2023 Active Pantoprazole Sodium 40 MG 1 tab(s) orally once a day Active Sertraline HCl 100 MG 1/2 tab(s) orally twice a day Active diazePAM 5 MG 1/2 tab(s) orally twice a day Active Fiber Choice *Please review a nd pick correct strength-formulatio n from Medispan options. If intended option is not shown, discontinue and re-order from Quick Search* Active MagOx 400 400 MG 1 TAB(S) ORALLY ONCE A DAY *Please review and pick correct strength-formulatio n from Medispan options. If intended option is not shown, discontinue and re-order from Quick Search* Active Losartan Potassium 25 MG 1 tab(s) orally once a day; Duration: 30 day(s) Active Euthyrox 25 MCG (0.025 MG) TAKE 1 TABLET BY MOUTH ONCE DAILY; Duration: 90 *Please review and pick correct strength-formulatio n from Medispan options. If intended option is not shown, discontinue and re-order from Quick Search* Active Encounters Encounter Location Date Provider Diagnosis [facility] [address] [place] [address] 08/25/2024 Provider Migration Plan Of Treatment No Information Progress Notes * Jodie LINGDOB:1970 (55 yo F)Acc No.[id number]:08/25/2024 Patient: Jodie SALAS Mariangel Provider: Christopher opllock Migration :1970 A ge:54 Y S ex:Female Date:08/25/2024 Address:[address] [place], [place] [id number] Pcp:Juarez Kothari Subjective: * Chief Complaints: * 1 . [facility] To [facility] Conversion Encounter. * Medical History: * Medications: T aking Fiber Choice , Notes to Pharmacist: *Please review and pick correct strength-formulation from Medispan options. If intended option is not shown, discontinue and re-order from Quick Search*, Taking MagOx 400 400 MG TABLET 1 TAB(S) ORALLY ONCE A DAY , Notes to Pharmacist: *Please review and pick correct strength-formulation from Medispan options. If intended option is not shown, discontinue and re-order from Quick Search*, Taking diazePAM 5 MG Tablet 1/2 tab(s) orally twice a day , Taking Pantoprazole Sodium 40 MG Tablet Delayed Release 1 tab(s) orally once a day , Taking Sertraline HCl 100 MG Tablet 1/2 tab(s) orally twice a day , Taking Aspirin 81 MG Tablet Delayed Release 1 tab(s) orally once a day , Taking Fluticasone Propionate 50 MCG/ACT Suspension 1 spray(s) in each nostril 2 times a day , Notes to Pharmacist: prn, Taking Losartan Potassium 25 MG Tablet 1 tab(s) orally once a day , Taking Euthyrox 25 MCG (0.025 MG) TABLET TAKE 1 TABLET BY MOUTH ONCE DAILY , Notes to Pharmacist: *Please review and pick correct strength- formulation from Medispan options. If intended option is not shown, discontinue and re-order from Quick Search* * Allergies: S ULFA: hives and vomiting - Side Effects. Objective: * Vitals: Assessment: Plan: * Treatment: * * Electronic signature of Prov ider Migration on 04/02/2025 at 11:07 AM EST Sign off status: Pending * Provider: Christopher pollock Migration Date: 0 08/25/2024 Generated for [place]/Seda/Jacindasmitting on: 1 06/02/2024 11:07 AM EST
--- OUTSIDE RECORDS SUMMARY | 2025-02-08 12:28 | XMS_ITS | Encounter Summary ---
Author Organization [facility] Address [address] [place] [address] Care Team Providers Care Pest Controller Name Role Phone Juarez Kothari MD Primary Care Provider [phone] Sumanth Fernandez MD Unavailable [phone] Reason for Referral * Imaging (Routine) - Closed Specialty Diagnoses / Procedures Referred By Addison lomeli Referred To Contact Radiology Diagnoses Pelvic floor dysfunction Slow transit constipation Procedures MR Defecography Jennifer Zamudio MD [address] [address] Phone: tel: fax: Referral ID Status Reason Start Date Expiration Date Visits Re quested Visits Authorized [id number] Closed 01/08/2025 07/10/2026 1 1 Reason for Visit * Imaging (Routine) - Closed Specialty Diagnoses / Procedures Referred By Addison lomeli Referred To Contact Radiology Diagnoses Pelvic floor dysfunction Slow transit constipation Procedures MR Defecography Jennifer Zamudio MD [address] [address] Phone: tel: fax: Referral ID Status Reason Start Date Expiration Date Visits Re quested Visits Authorized [id number] Closed 01/08/2025 07/10/2026 1 1 Encounter Details Date Type Department Care Team (Latest Contact Info) Description 02/08/2025 1:28 PM EDT - 02/08/2025 11:59 PM EDT Hospital Encounter [facility] Rad[facility] [address], [address] [place] [address] Pelvic floor dysfunction; Slow transit constipation Discharge Disposition: Home or Self Care Social History Tobacco Use Types Packs/Day Years Used Date Smoking Tobacco: Never Passive Smoke Exposure: Current Smokeless Tobacco: Never Comments:Daughter smokes leandro und her Alcohol Use Standard Drinks/Week Comments Never 0 (1 standard drink = 0.6 oz pur e alcohol) PHQ-2 Answer Date Recorded Patient Health Questionnaire-2 Score 0 02/12/2025 Hunger Vital Sign Answer Date Recorded Within the past 12 months, y ou worried that your food would run out before you got the money to buy more. Never true 03/13/20 24 Within the past 12 months, t he food you bought just didn't last and you didn't have money to get more. Never true 03/13/2024 PRAPARE - Transportation Answer Date Re corded In the past 12 months, has l ack of transportation kept you from medical appointments or from getting medications? No 02/21 In the past 12 months, has l ack of transportation kept you from meetings, work, or from getting things needed for daily living? No 03/13/2024 Housing Stability Vital Sign Answer Bryon e Recorded In the last 12 months, was t here a time when you were not able to pay the mortgage or rent on time? No 03/13/2024 In the last 12 months, how many places have you lived? 1 03/13/2024 In the last 12 months, was t here a time when you did not have a steady place to sleep or slept in a fpc (including now)? No 03/13/2024 PHQ-9 Answer Date Recorded Patient Health Questionnaire-9 Score 0 02/12/2025 Utilities Answer Date Recorded In the past 12 months has th e electric, gas, oil, or water company threatened to shut off services in your home? No 03/13/2024 PHQ-2A Answer Date Recorded Patient Health Questionnaire-2 Score 0 04/12/2023 Comments No Sex and Gender Information Value Date Recorded Sex Assigned at Female 03/12/2024 6:12 AM EDT Legal Sex Female 7:49 PM EDT Gender Identity Female 03/12/2024 6:12 AM EDT Sexual Orientation Not on file documented as of this encounter Functional Status * Over the past 2 weeks, how often have you been bothered by any of the following problems? Question Answer Date of Assessment Author Little interest or pleasure in doing things Not at all 02/12/2025 9:56 AM EDT O'Tahira Ayala Feeling down, depressed, or hopeless Not at all 02/12/2025 9:56 AM EDT Sheila'Tahira Ayala Patient Health Questionnaire -2 Score 0 02/12/2025 9:56 AM EDT O'Tahira Ayala * Question Answer Date of Assessment Author Trouble falling or staying asleep, or sleeping too much Not at all 02/12/2025 9:56 AM EDT O'Tahira Ayala S Feeling tired or having yris le energy Not at all 02/12/2025 9:56 AM EDT O'Tahira Ayala S Poor appetite or overeating Not at all 02/12/2025 9: 56 AM EDT O'Tahira Ayala S Feeling bad about yourself - or that you are a failure or have let yourself or your family down Not at all 02/12/2025 9:56 AM EDT O'Garcia Tahira melendez S Trouble concentrating on thi ngs, such as reading the newspaper or watching television Not at all 02/12/2025 9:56 AM EDT O'Tahira Ayala S Moving or speaking so slowly that other people could have noticed? Or the opposite - being so fidgety or restless that you have been moving around a lot more than usual. Not at all 02/12/2025 9:56 AM EDT O'Tahira Ayala S Thoughts that you would be better off or hurting yourself in some way Not at all 02/12/2025 9:56 AM EDT Sheila'Tahira Ayala Patient Health Questionnaire -9 Score 0 02/12/2025 9:56 AM EDT O'Tahira Ayala * How difficult have these problems made it for you to do your work, take care of things at home, or get along with other people? Answer Date of Assessment Author Not difficult at all 02/12/2025 9:56 AM EDT Tahira Vaca documented as of this encounter Medications at Time of Discharge acetaminophen (Tylenol) 500 MG tablet Take 2 tablets (1,000 mg) by mouth every 6 (six) hours if needed for pain. 100 tablet 03/19/2024 aspirin 81 MG EC tablet Take 1 tablet (81 mg) by mouth daily. desvenlafaxine (Pristiq) 50 MG 24 hr tablet Take 1 tablet by mouth daily. 12/28/2024 diazePAM (Valium) 5 MG tablet Take 0.5 tablets (2.5 mg) by mouth 2 (two) times a day. 01/18/2023 fluticasone (Flonase) 50 MCG/ACT nasal spray use 1 spray(s) in each nostril twice daily 06/25/2024 hydrocortisone (Anusol-HC) 2.5 % rectal cream Insert 1 Application into the rectum 2 times a day. 30 g 3 01/08/2025 hydrocortisone 2.5 % cream 01/08/2025 lamoTRIgine (LaMICtal) 25 MG tablet TAKE 3 TABLETS BY MOUTH ONCE DAILY FOR 14 DAYS THEN INCREASE TO 4 TABLETS DAILY IF YOU DEVELOP A RASH OR ITCHING, STOP MEDICATION AND CALL THE CLINIC 12/28/2024 levothyroxine (Synthroid, Levoxyl) 25 MCG tablet Take 1 tablet (25 mcg) by mouth daily. 01/30/2020 losartan (Cozaar) 25 MG tablet Take 1 tablet (25 mg) by mouth daily. 12/01/2023 lubiprostone (Amitiza) 24 MCG capsule 01/05/2025 MAGnesium-Oxide 400 (240 Mg) MG tablet Take 1 tablet by mouth once daily 90 tablet 07/11/2024 methylcellulose oral powder Take by mouth daily. naloxone (Narcan) 4 mg/0.1 mL nasal spray 1. Give 1 spray in nostril for no/slow breathing or cannot wake after opioid use 2. Call 911 3. Repeat in other nostril if symptoms continue 1 each 03/19/2024 Nurtec 75 MG orally disintegrating tablet DISSOLVE 1 TABLET BY MOUTH EVERY OTHER DAY FOR MIGRAINE HEADACHE 10/25/2024 ondansetron ODT (Zofran-ODT) 4 MG disintegrating tablet Take 1 tablet (4 mg) by mouth every 8 hours as needed for nausea or vomiting. 20 tablet 1 07/18/2024 oxyCODONE (Roxicodone) 5 MG immediate release tablet Take 1 tablet (5 mg) by mouth every 6 (six) hours if needed for severe pain. 12 tablet 03/19/2024 pramoxine (Proctofoam) 1 % foam Insert 1 Application into the rectum every 2 (two) hours if needed for hemorrhoids. 15 g 02/07/2024 Probiotic Product (EQL PROBIOTIC COLON SUPPORT PO) Take by mouth. prochlorperazine (Compazine) 5 MG tablet Take 1 tablet (5 mg) by mouth every 6 (six) hours if needed for nausea or vomiting. 30 tablet 3 03/19/2024 sertraline (Zoloft) 100 MG tablet Take 0.5 tablets (50 mg) by mouth 2 (two) times a day. 09/30/2022 vancomycin (Vancocin) 125 MG capsule Take 1 capsule (125 mg) by mouth 4 (four) times a day. documented as of this encounter Plan of Treatment Not on file documented as of this encounter Procedures Procedure Name Priority Date/Time Associated Diagnosis Comments MR DEFECOGRAPHY Routine 02/08/2025 2:32 PM EDT Pelvic floor dysfunction Slow transit constipation documented in this encounter Results * MR Defecography (02/08/2025 2:32 PM EDT) Anatomical Region Laterality Modality Abdomen Magnetic Resonan ce Addenda Addendum by Austin Escobedo MD on 02/08/2025 3:46 PM EDT Addendum: ADDENDUM: Note is made of a T1 hyperintense T2 hyperintense cyst in the right lower vagina consistent with a hemorrhagic or proteinaceous Bartholin's gland cyst. Drafted by Austin Escobedo MD on 02/08/2025 3:46 PM Final report signed by Austin Escobedo MD on 02/08/2025 3:46 PM Impressions 02/08/2025 3:34 PM EDT - Pelvic floor dyssynergia, a functional evacuation disorder characterized by poor coordination of pelvic floor muscles during defecation. The patient exhibits: - - Decreased anorectal angle at rest (96 , normal range: 108 127 ), suggesting increased puborectalis tone or chronic straining. - - Appropriate anorectal angle changes during squeeze (87 ) and defecation (102 ), indicating preserved dynamic function of the puborectalis muscle. - - Poor defecatory effort with failure to evacuate rectal contents despite multiple attempts, consistent with dyssynergic defecation - No structural abnormalities in the anterior, middle, or posterior compartments: - - No cystocele, urethral hypermobility, or uterine prolapse. - - No rectocele or rectal intussusception. CRITICAL RESULT: No. COMMUNICATION: Per this written report. By electronically signing this report, I, the attending physician, attest that I have personally reviewed the images/data for the above examination(s) and agree with the final edited report. Drafted by ENA Kendall on 02/08/2025 2:47 PM Final report signed by Austin Escobedo MD on 02/08/2025 3:34 PM Narrative 02/08/2025 3:34 PM EDT CLINICAL INDICATION: Constipation. Evaluate for pelvic floor abnormality. TECHNIQUE: Multiplanar MRI of the pelvis employing the defecography protocol, utilizing rectally administered gel. Patient was evaluated in the supine position. Multiplanar images were obtained including dynamic sequences obtained using True FISP acquisitions during resting, tightening, straining and emptying maneuvers. COMPARISON: None. FINDINGS: At rest the pelvic viscera appear appropriately positioned above the pubococcygeal line. Note is made of symmetrical normal thickness of the levator ani musculature. The anal sphincter complex is normal in appearance. At rest the anorectal angle measures approximately 96 degrees which is decreased. Pelvic Floor Tightening (Kegel): There is appropriate upward and anterior movement of the anorectal junction. Anorectal angle at maximum squeeze: 87 degrees Valsalva: Visible increasing abdominal girth without evidence of incontinence. Evacuation: Defecatory effort: Poor On attempted evacuation, there was appropriate opening of the anorectal angle. After 4 attempts the patient was able to empty roughly 0% of the rectal contents. Maximum anorectal angle during defecation: 102 ANTERIOR COMPARTMENT: Bladder base location relative to the PCL Rest: 1.9 cm above Defecation/maximal Valsalva: 1.2 cm above Cystocele: Absent. Urethral hypermobility: Absent MIDDLE COMPARTMENT: Cervix location relative to PCL Rest: 2.8 cm above Defecation/maximal Valsalva: 2.6 cm above No prolapse. LEVATOR HIATUS AND PERINEAL/ANORECTAL DESCENT: Levator hiatus (H-line): Rest: 2.9 cm (normal d5 cm). Defection/maximal Valsalva: 2.9 cm. M-line: Rest: 1.8 cm below the PCL (normal d2 cm below). Defecation/maximal Valsalva: 2.6 cm below the PCL. Above findings are consistent with normal levator hiatus and normal anorectal junction at rest with no excessive widening and no excessive descent of the anorectal junction/perineum during defecation/maximal Valsalva. POSTERIOR COMPARTMENT: Rectocele Absent Rectal Intussusception: Absent OTHER FINDINGS: Uterus is small and retroflexed Urinary bladder shows no suspicious features No significant pathology Procedure Note Austin Escobedo MD - 02/08/2025 CLINICAL INDICATION: Constipation. Evaluate for pelvic floor abnormality. TECHNIQUE: Multiplanar MRI of the pelvis employing the defecography protocol,utilizing rectally administered gel. Patient was evaluated in the supineposition. Multiplanar images were obtained including dynamic sequencesobtained using True FISP acquisitions during resting, tightening,straining and emptying maneuvers. COMPARISON: None. FINDINGS: At rest the pelvic viscera appear appropriately positioned above thepubococcygeal line. Note is made of symmetrical normal thickness of thelevator ani musculature. The anal sphincter complex is normal inappearance. At rest the anorectal angle measures approximately 96 degrees which isdecreased. Pelvic Floor Tightening (Kegel): There is appropriate upward and anteriormovement of the anorectal junction. Anorectal angle at maximum squeeze: 87degrees Valsalva: Visible increasing abdominal girth without evidence ofincontinence. Evacuation: Defecatory effort: Poor On attempted evacuation, there was appropriate opening of the anorectalangle. After 4 attempts the patient was able to empty roughly 0% of therectal contents. Maximum anorectal angle during defecation: 102 ANTERIOR COMPARTMENT: Bladder base location relative to the PCL Rest: 1.9 cm above Defecation/maximal Valsalva: 1.2 cm above Cystocele: Absent. Urethral hypermobility: Absent MIDDLE COMPARTMENT: Cervix location relative to PCL Rest: 2.8 cm above Defecation/maximal Valsalva: 2.6 cm above No prolapse. LEVATOR HIATUS AND PERINEAL/ANORECTAL DESCENT: Levator hiatus (H-line): Rest: 2.9 cm (normal d5 cm). Defection/maximal Valsalva: 2.9 cm. M-line: Rest: 1.8 cm below the PCL (normal d2 cm below). Defecation/maximal Valsalva: 2.6 cm below the PCL. Above findings are consistent with normal levator hiatus and normalanorectal junction at rest with no excessive widening and no excessivedescent of the anorectal junction/perineum during defecation/maximalValsalva. POSTERIOR COMPARTMENT: Rectocele Absent Rectal Intussusception: Absent OTHER FINDINGS: Uterus is small and retroflexed Urinary bladder shows no suspicious features No significant pathology IMPRESSION: - Pelvic floor dyssynergia, a functional evacuation disorder characterizedby poor coordination of pelvic floor muscles during defecation. Thepatient exhibits: - - Decreased anorectal angle at rest (96 , normal range: 108 127 ),suggesting increased puborectalis tone or chronic straining. - - Appropriate anorectal angle changes during squeeze (87 ) anddefecation (102 ), indicating preserved dynamic function of thepuborectalis muscle. - - Poor defecatory effort with failure to evacuate rectal contentsdespite multiple attempts, consistent with dyssynergic defecation - No structural abnormalities in the anterior, middle, or posteriorcompartments: - - No cystocele, urethral hypermobility, or uterine prolapse. - - No rectocele or rectal intussusception. CRITICAL RESULT: No. COMMUNICATION: Per this written report. By electronically signing this report, I, the attending physician, attestthat I have personally reviewed the images/data for the aboveexamination(s) and agree with the final edited report. Drafted by ENA Kendall on 02/08/2025 2:47 PM Final report signed by Austin Escobedo MD on 02/08/2025 3:34 PM us Jennifer Zamudio MD IMG MRI PROCEDURES Edited Resul t - Final documented in this encounter Visit Diagnoses Diagnosis Pelvic floor dysfunction Slow transit constipation documented in this encounter Additional Health Concerns Assessment Noted Time PHQ-9 Depression Total Score: 0 02/26/20 25 9:45 AM EST A fall risk assessment has been complete d for the patient 07/18/2024 9:45 AM EST A Body Mass Index follow-up plan has been documented for the patient 01/14/2025 9:30 AM EDT documented as of this encounter Care Teams Pest Controller Relationship Specialty Start Date End Date Juarez Kothari MD [address] [place] [address] PCP - General 10/03/20 Sumanth Fernandez MD [address] [facility] [address] [place] [address] Surgeon Neurosurgery 11/04/21 documented as of this encounter
--- OUTSIDE RECORDS SUMMARY | 2025-02-12 09:30 | XMS_ITS | Encounter Summary ---
Author Organization [facility] Address [address] [place] [address] Care Team Providers Care Safety Deposit Boxes Custodian Name Role Phone Juarez Kothari MD Primary Care Provider [phone] Sumanth Fernandez MD Unavailable [phone] Reason for Visit * Reason Comments Follow-up MRI Results Encounter Details Date Type Department Care Team (Late st Contact Info) Description 02/12/2025 10:30 AM EDT Office Visit MD Clinic General Surgery [address] [place] [address] Jennifer Zamudio MD [address] [place] [address] Constipation due to outlet dysfunction (Primary Dx); Pelvic floor dysfunction Social History Tobacco Use Types Packs/Day Years [...] place to sleep or slept in a [facility] (including now)? No 03/13/2024 PHQ-9 Answer Date [...] on file documented as of this encounter Last Filed Vital Signs Vital Sign Reading Time Taken Comments Blood Pressure 103/64 02/12/2025 9:55 AM EDT Pulse 75 02/12/2025 9:55 AM EDT Temperature 36.6 C (97.9 F) 02/12/2025 9:55 AM EDT Respiratory Rate - - Oxygen Saturation - - Inhaled Oxygen Concentration - - Weight 59 kg (130 lb 1.6 oz) 02/12/2025 9:55 AM EDT Height 156.2 cm (5' 1.5 ) 02/12/2025 9:55 AM EDT Body Mass Index 24.19 02/12/2025 9:55 AM EDT documented in this encounter Functional Status * Over the past 2 weeks, how often have you been bothered by any of the following problems? Question Answer Date of Assessment Author Little interest or pleasure in doing things Not at all 02/12/2025 9:56 AM EDT O'Hair, Tahira S Feeling down, depressed, or hopeless Not at all 02/12/2025 9:56 AM EDAlisha Sosa'Tahira Ayala Patient Health Questionnaire -2 Score 0 02/12/2025 9:56 AM EDAlisha Sosa'Tahira Ayala * Question Answer Date of Assessment Author Trouble falling or staying asleep, or sleeping too much Not at all 02/12/2025 9:56 AM EDT Sheila'Tahira Ayala S Feeling tired or having yris le energy Not at all 02/12/2025 9:56 AM EDT O'Hair, Tahira S Poor appetite or overeating Not at all 02/12/2025 9: 56 AM EDT O'Hair, Tahira S Feeling bad about yourself - or that you are a failure or have let yourself or your family down Not at all 02/12/2025 9:56 AM EDT Sheila'Tahira Clark Trouble concentrating on thi ngs, such as reading the newspaper or watching television Not at all 02/12/2025 9:56 AM EDT Sheila'Tahira Ayala S Moving or speaking so slowly that other people could have noticed? Or the opposite - being so fidgety or restless that you have been moving around a lot more than usual. Not at all 02/12/2025 9:56 AM JOSE Sosa'Tahira Ayala S Thoughts that you would be better off or hurting yourself in some way Not at all 02/12/2025 9:56 AM Tahira Chang Patient Health Questionnaire -9 Score 0 02/12/2025 9:56 AM JOSE Sosa'Tahira Ayala * How difficult have these problems made it for you to do your work, take care of things at home, or get along with other people? Answer Date of Assessment Author Not difficult at all 02/12/2025 9:56 AM EDT Sheila'Tahira Clark documented as of this encounter Miscellaneous Notes * Progress Notes - Bryce Connor - 02/12/2025 10:30 AM EDT Chief Complaint Patient presents with Follow-up MRI Results HPI: Ms. Jodie Ling is a 55 y.o. female who is currently followed in our clinic for Laparoscopic sigmoid colectomy performed by Dr. Zamudio on 03/12/2024. Ms. Ling presents to our clinic today for follow up of MR Defecography. Ms. Ling was last seen in our clinic on 01/09/2024 and at that time she noted difficulty with constipation. Ms. Ling now reports having bowel movements only once every two weeks. These BM usually contain blood. She has also had multiple episodes of incontinence with diarrhea once she does have a bowel movement. MR defecography was discussed and revealed pelvic floor dyssnergia. Primary Care Physician: Juarez Kothari MD Past Medical History[1] Surgical History[2] Prior to Admission medications Medication Sig Start Date End Date Taking? Authorizing Provider hydrocortisone 2.5 % cream 01/08/25 Yes Provider, Historical acetaminophen (Tylenol) 500 MG tablet Take 2 tablets (1,000 mg) by mouth every 6 (six) hours if needed for pain. Patient not taking: Reported on 01/08/2025 03/19/24 Soni Cool, aspirin 81 MG EC tablet Take 1 tablet (81 mg) by mouth daily. Provider, Historical desvenlafaxine (Pristiq) 50 MG 24 hr tablet Take 1 tablet by mouth daily. 12/28/24 Provider, Historical diazePAM (Valium) 5 MG tablet Take 0.5 tablets (2.5 mg) by mouth 2 (two) times a day. 01/18/23 Provider, Historical fluticasone (Flonase) 50 MCG/ACT nasal spray use 1 spray(s) in each nostril twice daily Patient not taking: Reported on 01/08/2025 06/25/24 Provider, Historical hydrocortisone (Anusol-HC) 2.5 % rectal cream Insert 1 Application into the rectum 2 times a day. 01/08/25 Jennifer Zamudoi MD lamoTRIgine (LaMICtal) 25 MG tablet TAKE 3 TABLETS BY MOUTH ONCE DAILY FOR 14 DAYS THEN INCREASE TO4 TABLETS DAILY IF YOU DEVELOP A RASH OR ITCHING, STOP MEDICATION AND CALL THE CLINIC 12/28/24 Provider, Historical levothyroxine (Synthroid, Levoxyl) 25 MCG tablet Take 1 tablet (25 mcg) by mouth daily. 01/30/20 Provider, Historical Lidocaine (RectiCare) 5 % cream cream Apply to perirectal/affected area 3-4 times daily, as needed.02/12/25 Jennifer Zamudio MD losartan (Cozaar) 25 MG tablet Take 1 tablet (25 mg) by mouth daily. 12/01/23 Provider, Historical lubiprostone (Amitiza) 24 MCG capsule 01/05/25 Provider, Historical MAGnesium-Oxide 400 (240 Mg) MG tablet Take 1 tablet by mouth once daily Patient not taking: Reported on 01/08/2025 07/11/24 Asia Bales APRN methylcellulose oral powder Take by mouth daily. Patient not taking: Reported on 01/08/2025 Provider, Historical naloxone (Narcan) 4 mg/0.1 mL nasal spray 1. Give 1 spray in nostril for no/slow breathing or cannot wake after opioid use 2. Call 911 3. Repeat in other nostril if symptoms continue Patient not takin. Give 1 spray in nostril for no/slow breathing or cannot wake after opioid use 2. Call 911 3. Repeat in other nostril if symptoms continue Reported on 01/08/2025 03/19/24 Soni Cool, Nurtec 75 MG orally disintegrating tablet DISSOLVE 1 TABLET BY MOUTH EVERY OTHER DAY FOR MIGRAINE HEADACHE 10/25/24 Provider, Historical ondansetron ODT (Zofran-ODT) 4 MG disintegrating tablet Take 1 tablet (4 mg) by mouth every 8 hoursas needed for nausea or vomiting. 07/18/24 Rodolfo Arreola MD oxyCODONE (Roxicodone) 5 MG immediate release tablet Take 1 tablet (5 mg) by mouth every 6 (six) hours if needed for severe pain. Patient not taking: Reported on 01/08/2025 03/19/24 Soni Cool DO pramoxine (Proctofoam) 1 % foam Insert 1 Application into the rectum every 2 (two) hours if needed for hemorrhoids. Patient not taking: Reported on 01/08/2025 02/07/24 Ronal Burch DO Probiotic Product (EQL PROBIOTIC COLON SUPPORT PO) Take by mouth. Provider, Historical prochlorperazine (Compazine) 5 MG tablet Take 1 tablet (5 mg) by mouth every 6 (six) hours if needed for nausea or vomiting. Patient not taking: Reported on 01/08/2025 03/19/24 Soni Cool DO sertraline (Zoloft) 100 MG tablet Take 0.5 tablets (50 mg) by mouth 2 (two) times a day. Patient not taking: Reported on 01/08/2025 09/30/22 Provider, Historical vancomycin (Vancocin) 125 MG capsule Take 1 capsule (125 mg) by mouth 4 (four) times a day. Patient not taking: Reported on 01/08/2025 Provider, Historical Allergies[3] Family History[4] Social History Socioeconomic History Marital status: Spouse name: Not on file Number of children: Not on file Years of education: Not on file Highest education level: Not on file Occupational History Not on file Tobacco Use Smoking status: Never Passive exposure: Current Smokeless tobacco: Never Tobacco comments: Daughter smokes around her Vaping Use Vaping status: Never Used Passive vaping exposure: Yes Substance and Sexual Activity Alcohol use: Never Drug use: Never Comment: Drug use: No illicit drug use Sexual activity: Never control/protection: Post-menopausal Other Topics Concern Not on file Social History Narrative Marital Status: Social Drivers of Health Financial Resource Strain: Not on file Food Insecurity: No Food Insecurity (03/13/2024) Hunger Vital Sign Worried About Running Out of Food in the Last Year: Never true Ran Out of Food in the Last Year: Never true Transportation Needs: No Transportation Needs (03/13/2024) PRAPARE - Transportation Lack of Transportation (Medical): No Lack of Transportation (Non-Medical): No Physical Activity: Not on file Stress: Not on file Social Connections: Not on file Intimate Partner Violence: Not on file Housing Stability: Low Risk (03/13/2024) Housing Stability Vital Sign Unable to Pay for Housing in the Last Year: No Number of Places Lived in the Last Year: 1 Unstable Housing in the Last Year: No Review of Systems Visit Vitals BP 103/64 (BP Location: Right arm, Patient Position: Sitting) Pulse 75 Temp 36.6 ??C (97.9 ??F) Ht 1.562 m (5' 1.5 ) Wt 59 kg (130 lb 1.6 oz) BMI 24.19 kg/m?? Physical Exam Constitutional: General: She is not in acute distress. Cardiovascular: Rate and Rhythm: Normal rate. Pulmonary: Effort: Pulmonary effort is normal. No respiratory distress. Abdominal: General: Abdomen is flat. There is no distension. Palpations: Abdomen is soft. Tenderness: There is no abdominal tenderness. Comments: Incisions healed well. Musculoskeletal: Right lower leg: No edema. Left lower leg: No edema. Skin: General: Skin is warm and dry. Neurological: Mental Status: She is alert and oriented to person, place, and time. === 02/08/25 === MR DEFECOGRAPHY Addendum 02/08/2025 3:46 PM Addendum: ADDENDUM: Note is made of a T1 hyperintense T2 hyperintense cyst in the right lower vagina consistent with a hemorrhagic or proteinaceous Bartholin's gland cyst. Drafted by Austin Escobedo MD on 02/08/2025 3:46 PM Final report signed by Austin Escobedo MD on 02/08/2025 3:46 PM - Narrative - CLINICAL INDICATION: Constipation. Evaluate for pelvic floor abnormality. TECHNIQUE: Multiplanar MRI of the pelvis employing the defecography protocol, utilizing rectally administered gel. Patient was evaluated in the supine position. Multiplanar images were obtained including dynamic sequences obtained using True FISP acquisitions during resting, tightening, straining and emptyingmaneuvers. COMPARISON: None. FINDINGS: At rest the pelvic viscera appear appropriately positioned above the pubococcygeal line. Note is made of symmetrical normal thickness of the levator ani musculature. The anal sphincter complex is normal in appearance. At rest the anorectal angle measures approximately 96 degrees which is decreased. Pelvic Floor Tightening (Kegel): There is appropriate upward and anterior movement of the anorectaljunction. Anorectal angle at maximum squeeze: 87 degrees Valsalva: Visible increasing abdominal girth without evidence of incontinence. Evacuation: Defecatory effort: Poor On attempted evacuation, there was appropriate opening of the anorectal angle. After 4 attempts thepatient was able to empty roughly 0% of [...] hiatus and normal anorectal junction at rest withno excessive widening and no excessive descent of the anorectal junction/perineum during defecation/maximal Valsalva. POSTERIOR COMPARTMENT: Rectocele Absent Rectal Intussusception: Absent OTHER FINDINGS: Uterus is small and retroflexed Urinary bladder shows no suspicious features No significant pathology - Impression - - Pelvic floor dyssynergia, a functional evacuation disorder characterized by poor coordination of pelvic floor muscles during defecation. The patient exhibits: - - Decreased anorectal angle at rest (96??, normal range: 108 127??), suggesting increased puborectalis tone or chronic straining. - - Appropriate anorectal angle changes during squeeze (87??) and defecation (102??), indicating preserved dynamic function of the puborectalis [...] Austin Escobedo MD on 02/08/2025 3:34 PM Assessment & Plan: In summary, Ms. Jodie Ling is a 55 y.o. female who continues to have difficulty with constipation. At this time our plan includes the following: Fleets enema q3-5 days to help regulate bowel function Recticare PRN See back as needed ABE Burk [1] Past Medical History: Diagnosis Date Anxiety Bronchitis 12/21/23 C. difficile diarrhea Chronic constipation Chronic diarrhea Depression Dysphagia GERD (gastroesophageal reflux disease) Headache Hemorrhoid Hernia, internal Hyperlipidemia Hypertension Hypothyroidism Irritable bowel syndrome Lower back pain Motion sickness Neck pain Other intervertebral disc displacement, lumbar region Bulging lumbar disc Personal history of other benign neoplasm History of Lipoma of lumbosacral region Pharyngitis 12/21/23 PONV (postoperative nausea and vomiting) Spasms of the hands or feet 12/21/23 Stroke (CMS/HCC) 07/2021 [2] Past Surgical History: Procedure Laterality Date ANAL SPHINCTEROTOMY 05/30/2023 partial lateral internal sphincterotomy (right lateral) ANKLE FRACTURE SURGERY N/A x2 SECTION, CLASSIC SECTION, LOW TRANSVERSE COLECTOMY COLON SURGERY COLONOSCOPY CT SCANOGRAM CYST EXCISION N/A Cyst excision from [facility] ESOPHAGOGASTRODUODENOSCOPY ESOPHAGUS SURGERY EXCISIONAL HEMORRHOIDECTOMY 05/30/2023 right anterior and right posterior internal/external hemorrhoidectomy. HERNIA REPAIR LEFT COLECTOMY 03/12/2024 laparoscopic sigmoid colectomy with 28 purple EEA anastomosis. TUBAL LIGATION N/A Tubal ligation from [facility] [3] Allergies Allergen Reactions Metoclopramide Hives and Vomiting Sulfa Drugs Hives Sulfacetamide Hives and Vomiting [4] Family History Problem Relation Name Age of Onset Diabetes Mother Sister Depression Mother Sister Mental illness Mother Sister Parkinsonism Father Breast cancer Sister Lisa roser Cancer Sister Lisa roser Cancer Other Daughter Drug abuse Other Daughter Drug abuse Daughter Jessie Hickman Anesthesia problems Neg Hx Malig Hyperthermia Neg Hx Cosigned by Jennifer Zamudio MD at 02/20/2025 11:32 AM EDT Associated attestation - Jennifer Zamudio MD - 02/20/2025 11:32 AM EDT I saw and evaluated the patient with the medical/CUSTOMER SERVICE ASSOCIATE/PA student. I discussed the case with the medical/CUSTOMER SERVICE ASSOCIATE/PA student and agree with the findings and plan as documented. I personally performed the Examand Medical Decision Making. documented in this encounter Plan of Treatment Not on file documented as of this encounter Visit Diagnoses Diagnosis Constipation due to outlet dysfunction- Primary Pelvic floor dysfunction documented in this encounter Additional Health Concerns Assessment Noted Time PHQ-9 Depression Total Score: 0 02/13/20 25 9:56 AM EDT A fall risk assessment has been complete d for the patient 02/12/2025 9:56 AM EDT A Body Mass Index follow-up plan has been documented for the patient 02/20/2025 11:33 AM EDT documented as of this encounter Care Teams Safety Deposit Boxes Custodian Relationship Specialty Start Date End Date Juarez Kothari MD [address] [place] [address] PCP - General 10/03/20 Sumanth Fernandez MD [address] [place] [address] Surgeon Neurosurgery 11/04/21 documented as of this encounter
[2025-03-29 16:40] LABS: Coronavirus 19, PCR Not Detected (NotDetected); Influenza A, PCR Not Detected (NotDetected); Influenza B, PCR Not Detected (NotDetected)
[2025-03-29 16:46] LABS: Microscopic, Urine URINE MICROSCOPIC (MICROSCOPIC)
[2025-03-29 17:01] LABS: Bilirubin,Urine Negative (Negative); Color,Urine YELLOW (Yellow); Glucose,Urine (UA) Negative (Negative); Ketones,Urine Negative (Negative); Leukocyte Esterase,Urine Negative (Negative); PH,Urine 5.5 (5.0-8.5); Protein,Urine Negative (Negative); Specific Gravity, Urine 1.025 (1.005-1.030); Urobilinogen,Urine 0.2 EU/dl (0.2)
--- OUTSIDE RECORDS SUMMARY | 2025-04-02 11:05 | XMS_ITS | Encounter Summary ---
Author Organization [facility] Address [address] [place] [address] Care Team Providers Care Transfer Professor Name Role Phone Juarez Kothari MD Primary Care Provider [phone] Sumanth Fernandez MD Unavailable [phone] Encounter Details Date Type Department Care Team (Late st Contact Info) Description 02/11/2025 Results Follow-Up Colorectal Surgery [address] [place] [address] Jennifer Zamudio MD [address] [facility] [address] [place] [address] Social History Tobacco Use Types Packs/Day Years [...] place to sleep or slept in a [place] [facility] (including now)? No 03/13/2024 PHQ-9 Answer Date Recorded Patient Health Questionnaire-9 Score 0 02/12/2025 Utilities Answer Date Recorded In the past 12 months has [facility] electric, gas, oil, or water company threatened [...] all 02/12/2025 9:56 AM EDT Sheila'Tahira Ayala Feeling down, depressed, or hopeless Not at all 02/12/2025 9:56 AM EDT Sheila'Tahira Ayala Patient Health Questionnaire -2 Score 0 02/12/2025 9:56 AM EDT Sheila'Tahira Ayala * Question Answer Date of Assessment Author Trouble falling or staying asleep, or sleeping too much Not at all 02/12/2025 9:56 AM EDT Sheila'Tahira Ayala Feeling tired or having yris le energy Not at all 02/12/2025 9:56 AM EDT O'HairTahira Poor appetite or overeating Not at all 02/12/2025 9: 56 AM EDT O'HairTahira Feeling bad about yourself - or that you are a failure or have let yourself or your family down Not at all 02/12/2025 9:56 AM EDT Sheila'Tahira Clark Trouble concentrating on thi ngs, such as reading the newspaper or watching television Not at all 02/12/2025 9:56 AM Tahira Chang Moving or speaking so slowly that other people could have noticed? Or the opposite - being so fidgety or restless that you have been moving around a lot more than usual. Not at all 02/12/2025 9:56 AM Tahira Chang Thoughts that you would be better off or hurting yourself in some way Not at all 02/12/2025 9:56 AM Tahira Chang Patient Health Questionnaire -9 Score 0 02/12/2025 9:56 AM Tahira Chang * How difficult have these problems made it for you to do your work, take care of things at home, or get along with other people? Answer Date of Assessment Author Not difficult at all 02/12/2025 9:56 AM EDT Sheila'Tahira Clark documented as of this encounter Miscellaneous Notes * Result Encounter Note - Jennifer Zamudio MD - 02/11/2025 8:28 AM EDT She has pelvic floor dysfunction but not other structural issues. She really needs pelvic floor again. documented in this encounter Plan of Treatment Not on file documented as of this encounter Visit Diagnoses Not on filedocumented in this encounter Additional Health Concerns Assessment Noted Time PHQ-9 Depression Total Score: 0 07/18/19 9:45 AM EST A fall risk assessment has been complete d for the patient 07/18/2024 9:45 AM EST A Body Mass Index follow-up plan has been documented for the patient 01/14/2025 9:30 AM EDT documented as of this encounter Care Teams Transfer Professor Relationship Specialty Start Date End Date Juarez Kothari MD [address] [place] [address] PCP - General 10/03/20 Sumanth Fernandez MD [address] [phone] Surgeon Neurosurgery 11/04/21 documented as of this encounter
--- OUTSIDE RECORDS SUMMARY | 2025-04-02 11:05 | XMS_ITS | Encounter Summary ---
Author Organization [facility] Address [address] [place] [address] Care Team Providers Care Credit Operations Specialist Name Role Phone Juarez Kothari MD Primary Care Provider [phone] Sumanth Fernandez MD Unavailable [phone] Encounter Details Date Type Department Care Team (Latest Contact Info) Description 02/08/2025 Travel Social History Tobacco Use Types Packs/Day Years Used Date Smoking Tobacco: Never Passive Smoke Exposure: Current Smokeless Tobacco: Never Comments:Daughter smokes leandro und her Alcohol Use Standard Drinks/Week Comments Never 0 (1 standard drink = 0.6 oz pur e alcohol) PHQ-2 Answer Date Recorded Patient Health Questionnaire-2 Score 0 07/18/2024 Hunger Vital Sign Answer Date Recorded Within [...] place to sleep or slept in a snf (including now)? No 03/13/2024 PHQ-9 Answer Date Recorded Patient Health Questionnaire-9 Score 0 07/18/2024 Utilities Answer Date Recorded In the past [...] on file documented as of this encounter Plan of [...] documented as of this encounter Care Teams Credit Operations Specialist Relationship Specialty Start Date End Date Juarez Kothari MD [address] [place] [address] PCP - General 10/03/20 Sumanth Fernandez MD [address] [place] [address] Surgeon Neurosurgery 11/04/21 documented as of this encounter
--- OUTSIDE RECORDS SUMMARY | 2025-04-02 11:06 | XMS_ITS | Encounter Summary ---
Author Organization [facility] Address [address] [place] [address] Care Team Providers Care Medical Staff Assistant Name Role Phone Juarez Kothari MD Primary Care Provider [phone] Sumanth Fernandez MD Unavailable [phone] Encounter Details Date Type Department Care Team (Late st Contact Info) Description 02/14/2025 Telephone [facility] [address] [place] [address] Jennifer Zamudio MD [address] [facility] [address] [place] [phone] Social History Tobacco Use Types Packs/Day Years [...] place to sleep or slept in a fdc (including now)? No 03/13/2024 PHQ-9 Answer Date Recorded Patient Health Questionnaire-9 Score 0 02/12/2025 Utilities Answer Date Recorded In the past 12 months has e electric, gas, oil, or water company [...] on file documented as of this encounter Miscellaneous Notes * Telephone Encounter - Shannan Pérez RN - 02/14/2025 11:52 AM EDT Prescription resent to pharmacy as requested. documented in this encounter Plan of Treatment Not on file documented as of this encounter Visit Diagnoses Not on filedocumented in this encounter Additional Health Concerns Assessment Noted Time PHQ-9 Depression Total Score: 0 02/13/20 9:56 AM EDT A fall risk assessment has been complete d for the patient 02/12/2025 9:56 AM EDT A Body Mass Index follow-up plan has been documented for the patient 02/20/2025 11:33 AM EDT documented as of this encounter Care Teams Medical Staff Assistant Relationship Specialty Start Date End Date Juarez Kothari MD [address] [place] [address] PCP - General 10/03/20 Sumanth Fernandez MD [address] [place] [phone] Surgeon Neurosurgery 11/04/21 documented as of this encounter
--- OUTSIDE RECORDS SUMMARY | 2025-04-02 11:06 | XMS_ITS | Encounter Summary ---
Author Organization [facility] Address [address] [place] [address] Care Team Providers Care Rehab Physician Name Role Phone Juarez Kothari MD Primary Care Provider [phone] Sumanth Fernandez MD Unavailable [phone] Encounter Details Date Type Department Care Team (Late st Contact Info) Description 03/08/2023 Lab Requisition [facility] [address] [place] [address] Jeronimo Maza MD [address] [place] [id number] Abnormal weight loss; Hemorrhage of anus and rectum Social History Tobacco Use Types Packs/Day Years Used Date Smoking Tobacco: Never Smokeless Tobacco: Never Alcohol Use Standard Drinks/Week Comments Not Currently 0 (1 standard drink = 0.6 oz pur e alcohol) PHQ-2 Answer Date Recorded Patient Health Questionnaire-2 Score 0 01/31/2023 Comments No Sex and Gender Information Value Date Recorded Sex Assigned at Female 03/12/2024 6:12 AM EDT Legal Sex Female 7:49 PM EDT Gender Identity Female 03/12/2024 6:12 AM EDT Sexual Orientation Not on file documented as of this encounter Plan of Treatment Not on file documented as of this encounter Procedures Procedure Name Priority Date/Time Associated Diagnosis Comments SURGICAL PATHOLOGY EXAM Routine 03/08/2023 Abnormal weight loss Hemorrhage of anus and rectum documented in this encounter Results * Surgical Pathology Exam (03/08/2023) Case Report Surgical Pathology Case: [id number] Authorizing Provider: Jeronimo Maza MD Collected: 03/08/2023 Ordering Location: [facility] Lab Received: 03/08/2023 1347 Pathologist: Vianney Jones MD Specimen: Transverse Colon, transverse colon polyp 03/09/2023 1:29 PM EDT [facility] Final Diagnosis LARGE INTESTINE, TRANSVERSE COLON, POLYP, BIOPSY: - TUBULAR ADENOMA. 03/09/2023 1:29 PM EDT [facility] at 1329 EDT Clinical Information Abnormal weight loss Hemorrhage of anus and rectum One 6 mm polyp in the transverse colon 03/09/2023 1:29 PM EDT [facility] Gross Description A. TRANSVERSE COLON POLYP The specimen is received in formalin labeled transverse colon polyp . Consists of two fragments of avila-brown mucosa, measuring 0.2 x 0.2 x 0.1 cm and 0.3 x 0.2 x 0.1 cm. The specimen is submitted entirely in cassette A1. Sunny Cherry 03/09/2023 1:29 PM EDT [facility] Note: A resident was involved in the service. I attest I examined the relevant preparations for the specimens and confirmed the diagnosis or interpretation. 03/09/2023 1:29 PM EDT [facility] Tissue Transverse colon structure / Unknown 03/08/2023 03/08/2023 1:47 PM EDT us Jeronimo Maza MD LAB PATHOLOGY ORDERABLES Fi nal Result [facility] [address] [place] [address] documented in this encounter Visit Diagnoses Diagnosis Abnormal weight loss Loss of weight Hemorrhage of anus and rectum Hemorrhage of rectum and anus documented in this encounter Additional Health Concerns Infection Onset Date Last Indicated Resolved Time Gastrointestinal Rule-Out 11/12/2023 11/12/2023 4:31 PM EDT C. difficile Rule-Out 11/12/2023 11/12/20232023 4:31 PM EDT C. difficile Rule-Out 11/14/2023 11/14/20232023 9:18 AM EDT Gastrointestinal Rule-Out 02/07/2024 02/07/2024 5:24 AM EDT Assessment Noted Time A fall risk assessment has been complete d for the patient 01/31/2023 2:25 PM EDT A Body Mass Index follow-up plan has been documented for the patient 02/04/2023 2:25 PM EDT documented as of this encounter Care Teams Rehab Physician Relationship Specialty Start Date End Date Juarez Kothari MD [address] [place] [address] PCP - General 10/03/20 Sumanth Fernandez MD [address] [place] [address] Surgeon Neurosurgery 11/04/21 documented as of this encounter
--- OUTSIDE RECORDS SUMMARY | 2025-04-02 11:06 | XMS_ITS | Encounter Summary ---
Author Organization [facility] Address [address] [place] [address] Care Team Providers Care Process Design Engineer Name Role Phone Juarez Kothari MD Primary Care Provider [phone] Sumanth Fernandez MD Unavailable [phone] Encounter Details Date Type Department Care Team ([facility] st Contact Info) Description 11/02/2018 Orders Only External Location [address] [place] [address] Provider, External Social History Tobacco Use Types Packs/Day Years Used Date Smoking Tobacco: Never Assessed Comments Unknown Sex and Gender Information Value Date Recorded Sex Assigned at Female 03/12/2024 6:12 AM EDT Legal Sex Female 7:49 PM EDT Gender Identity Female 03/12/2024 6:12 AM EDT Sexual Orientation Not on file documented as of this encounter Plan of Treatment Not on file documented as of this encounter Procedures Procedure Name Priority Date/Time Associated Diagnosis Comments XR MSK OUTSIDE IMAGES 11/02/2018 9:59 AM EDT documented in this encounter Results * XR MSK OUTSIDE IMAGES (11/02/2018 9:59 AM EDT) Anatomical Region Laterality Modality Radiographic Josefina ging 11/02/2018 9:59 AM EDT us External Provider IMG XR PROCEDURES Final Result documented in this encounter Visit Diagnoses Not on filedocumented in this encounter Additional Health Concerns Infection Onset Date Last Indicated Resolved Time C. difficile Comment:Done at [facility]- Negative for C-Diff results imported in media tab 01/19/2023 01/19/2023 02/09/2023 10:41 AM EDT Gastrointestinal Rule-Out 11/12/2023 11/12/2023 4:31 PM EDT C. difficile Rule-Out 11/12/2023 11/12/20232023 4:31 PM EDT C. difficile Rule-Out 11/14/2023 11/14/20232023 9:18 AM EDT Gastrointestinal Rule-Out 02/07/2024 02/07/2024 5:24 AM EDT documented as of this encounter Care Teams Process Design Engineer Relationship Specialty Start Date End Date Juarez Kothari MD [address] [place] [address] PCP - General 10/03/20 Sumanth Fernandez MD [address] [place] [address] Surgeon Neurosurgery 11/04/21 documented as of this encounter
--- OUTSIDE RECORDS SUMMARY | 2025-04-02 11:06 | XMS_ITS | Encounter Summary ---
Author Organization [facility] Address [address] [place] [address] Care Team Providers Care Coiler Operator Name Role Phone Juarez Kothari MD Primary Care Provider [phone] Sumanth Fernandez MD Unavailable [phone] Encounter Details Date Type Department Care Team (Late st Contact Info) Description 02/14/2025 Orders Only [facility] General Surgery [address] [place] [address] Jennifer Zamudio MD [address] [place] [address] Social History Tobacco Use Types Packs/Day Years [...] place to sleep or slept in a senior care (including now)? No 03/13/2024 PHQ-9 Answer Date [...] documented as of this encounter Care Teams Coiler Operator Relationship Specialty Start Date End Date Juarez Kothari MD [address] [place], [place] [address] PCP - General 10/03/20 Sumanth Fernandez MD [address] [place] [address] Surgeon Neurosurgery 11/04/21 documented as of this encounter
--- OUTSIDE RECORDS SUMMARY | 2025-04-02 11:06 | XMS_ITS | Encounter Summary ---
Author Organization [facility] Address [address] [place] [address] Care Team Providers Care Medical Biller/Coder Name Role Phone Juarez Kothari MD Primary Care Provider + [phone] Sumanth Fernandez MD Unavailable [phone] Encounter Details Date Type Department Care Team (Latest Contact Info) Description 02/12/2025 Travel Social History Tobacco Use Types Packs/Day [...] place to sleep or slept in a long-term (including now)? No 03/13/2024 PHQ-9 Answer Date Recorded Patient Health Questionnaire-9 Score 0 02/12/2025 Utilities Answer Date Recorded In the past 12 months has th [employer], gas, oil, or water company threatened [...] at all 02/12/2025 9:56 AM EDT [facility] Feeling down, depressed, or hopeless Not at all 02/12/2025 9:56 AM EDT [facility] Patient Health Questionnaire -2 Score 0 02/12/2025 9:56 AM EDT [facility] * Question Answer Date of Assessment Author Trouble falling or staying asleep, or sleeping too much Not at all 02/12/2025 9:56 AM EDT [facility] Feeling tired or having yris le energy Not at all 02/12/2025 9:56 AM EDT [facility] Poor appetite or overeating Not at all 02/12/2025 9: 56 AM EDT [facility] Feeling bad about yourself - or that you are a failure or have let yourself or your family down Not at all 02/12/2025 9:56 AM EDT [facility] Trouble concentrating on thi ngs, such as reading the newspaper or watching television Not at all 02/12/2025 9:56 AM EDT [facility] Moving or speaking so slowly that other people could have noticed? Or the opposite - being so fidgety or restless that you have been moving around a lot more than usual. Not at all 02/12/2025 9:56 AM SERGT Tahira Morris Thoughts that you would be better off or hurting yourself in some way Not at all 02/12/2025 9:56 AM Tahira Chang Patient Health Questionnaire -9 Score 0 02/12/2025 9:56 AM EDT Tahira Morris * How difficult have these problems made it for you to do your work, take care of things at home, or get along with other people? Answer Date of Assessment Author Not difficult at all 02/12/2025 9:56 AM EDT Tahira Vaca documented as of this encounter Plan of [...] as of this encounter Care Teams Medical Biller/Coder Relationship Specialty Start Date End Date Juarez Kothari MD [address] [place] [address] PCP - General 10/03/20 Sumanth Fernandez MD [address] [place] [address] Surgeon Neurosurgery 11/04/21 documented as of this encounter
--- OUTSIDE RECORDS SUMMARY | 2025-04-02 11:06 | XMS_ITS | Clinical Summary ---
Author Organization [facility] Address [address] [place] [address] Care Team Providers Care Stave Machine Tender Name Role Phone Juarez Kothari MD Primary Care Provider [phone] Sumanth Fernandez MD Unavailable [phone] Allergies Active Allergy Reactions Criticality Noted Date Comments Metoclopramide Hives,Vomiting Medium 01/30/2020 Sulfa Drugs Hives Medium 04/04/2024 Sulfacetamide Hives,Vomiting Medium 04/25/2020 Medications levothyroxine (Synthroid, Levoxyl) 25 MCG tablet Take 1 tablet (25 mcg) by mouth daily. 01/30/20 20 Active sertraline (Zoloft) 100 MG tablet Take 0.5 tablets (50 mg) by mouth 2 (two) times a day. 10/01/19 23 Active diazePAM (Valium) 5 MG tablet Take 0.5 tablets (2.5 mg) by mouth 2 (two) times a day. 01/19/20 23 Active aspirin 81 MG EC tablet Take 1 tablet (81 mg) by mouth daily. Active losartan (Cozaar) 25 MG tablet Take 1 tablet (25 mg) by mouth daily. 12/01/19 24 Active pramoxine (Proctofoam) 1 % foam Insert 1 Application into the rectum every 2 (two) hours if needed for hemorrhoids. 15 g 02/07/20 24 Active Additional Information Patient not taking.Reported on 01/08/2025 acetaminophen (Tylenol) 500 MG tablet Take 2 tablets (1,000 mg) by mouth every 6 (six) hours if needed for pain. 100 tablet 10/28/20 24 Active Additional Information Patient not taking.Reported on 01/08/2025 prochlorperazine (Compazine) 5 MG tablet Take 1 tablet (5 mg) by mouth every 6 (six) hours if needed for nausea or vomiting. 30 tablet 3 03/19/20 Active Additional Information Patient not taking.Reported on 01/08/2025 oxyCODONE (Roxicodone) 5 MG immediate release tablet Take 1 tablet (5 mg) by mouth every 6 (six) hours if needed for severe pain. 12 tablet 03/19/20 Active Additional Information Patient not taking.Reported on 01/08/2025 naloxone (Narcan) 4 mg/0.1 mL nasal spray 1. Give 1 spray in nostril for no/slow breathing or cannot wake after opioid use 2. Call 911 3. Repeat in other nostril if symptoms continue 1 each 03/19/20 Active Additional Information Patient not taking.Reported on 01/08/2025 vancomycin (Vancocin) 125 MG capsule Take 1 capsule (125 mg) by mouth 4 (four) times a day. Active MAGnesium-Oxide 400 (240 Mg) MG tablet Take 1 tablet by mouth once daily 90 tablet 07/11/19 Active Additional Information Patient not taking.Reported on 01/08/2025 methylcellulose oral powder Take by mouth daily. Active Probiotic Product (EQL PROBIOTIC COLON SUPPORT PO) Take by mouth. Active fluticasone (Flonase) 50 MCG/ACT nasal spray use 1 spray(s) in each nostril twice daily 06/25/19 25 Active ondansetron ODT (Zofran-ODT) 4 MG disintegrating tablet Take 1 tablet (4 mg) by mouth every 8 hours as needed for nausea or vomiting. 20 tablet 1 07/18/19 25 Active desvenlafaxine (Pristiq) 50 MG 24 hr tablet Take 1 tablet by mouth daily. 12/29/19 25 Active lamoTRIgine (LaMICtal) 25 MG tablet TAKE 3 TABLETS BY MOUTH ONCE DAILY FOR 14 DAYS THEN INCREASE TO 4 TABLETS DAILY IF YOU DEVELOP A RASH OR ITCHING, STOP MEDICATION AND CALL THE CLINIC 12/29/19 25 Active lubiprostone (Amitiza) 24 MCG capsule 01/06/20 25 Active Nurtec 75 MG orally disintegrating tablet DISSOLVE 1 TABLET BY MOUTH EVERY OTHER DAY FOR MIGRAINE HEADACHE 10/26/19 25 Active hydrocortisone (Anusol-HC) 2.5 % rectal cream Insert 1 Application into the rectum 2 times a day. 30 g 3 01/09/20 25 Active hydrocortisone 2.5 % cream 01/09/20 25 Active Lidocaine (RectiCare) 5 % cream cream Apply to perirectal/affe cted area 3-4 times daily, as needed. 45 g 2 02/15/20 25 Active Active Problems Problem Noted Date Diagnosed Date Chronic idiopathic constipation 07/21/2024 S/P laparoscopic-assisted sigmoidectomy 03/19/20 24 Anxiety 12/21/2023 Bradycardia 12/21/2023 Cervical spondylosis with myelopathy 12/21/2023 Chronic headaches 12/21/2023 Chronic pain disorder 12/21/2023 Cryptogenic stroke 12/21/2023 Dehydration 12/21/2023 Diastolic dysfunction 12/21/2023 Dizziness 12/21/2023 Dysarthria 12/21/2023 Dysphagia 12/21/2023 Dyspnea 12/21/2023 Elevated TSH 12/21/2023 Endometrial thickening on ultrasound 12/21/2023 Epigastric pain 12/21/2023 Fibroid, uterine 12/21/2023 Generalized anxiety disorder 12/21/2023 Hypotension 12/21/2023 Numbness 12/21/2023 Laryngitis 12/21/2023 Postmenopausal bleeding 12/21/2023 Renal colic on right side 12/21/2023 Vasovagal syncope 12/21/2023 Viral syndrome 12/21/2023 Vulvar lesion 12/21/2023 Vulvar pruritus 12/21/2023 Anal fissure 05/10/2023 Grade III hemorrhoids 05/10/2023 Blood per rectum 01/30/2020 GERD without esophagitis 01/30/2020 Hiatal hernia 10/22/2019 Resolved Problems Problem Noted Date Diagnosed Date Resolved Date Other constipation 03/12/2024 Lower GI bleed 02/28/2024 03/19/2024 Sigmoid volvulus 02/28/2024 03/19/2024 Abdominal pain 12/21/2023 02/10/2025 Chest pain 12/21/2023 02/10/2025 Abnormal ECG 12/21/2023 02/10/2025 Arm paresthesia, right 12/21/202302/10 Constipation 12/21/2023 03/19/2024 Exposure to severe acute res piratory syndrome coronavirus 2 (SARS-CoV-2) 12/21/2023 02/10/2025 Gastroenteritis 12/21/2023 02/10/2025 Insomnia 12/21/2023 02/10/2025 Bronchitis 12/21/2023 02/10/2025 Pharyngitis 12/21/2023 02/10/2025 Spasms of the hands or feet 12/21/2023 02/10/2025 Encounters Date Type Department Care Team Description 02/14/[address] [facility] General Surgery [address] [place] [address] Jennifer Zamudio MD 02/14/2025 Telephone [facility] [address] [place] [address] Jennifer Zamudio MD 02/12/2025 10:30 AM EDT Office Visit [facility] General Surgery [address] [place] [address] Jennifer Zamudio MD Constipation due to outlet dysfunction (Primary Dx); Pelvic floor dysfunction 02/12/2025 Travel 02/11/2025 Results Follow-Up Colorectal Surgery [address] [place] [address] Jennifer Zamudio MD 02/08/2025 1:28 PM EDT - 02/08/2025 11:59 PM EDT Hospital Encounter [facility] Radiology [address], [address] [place] [phone] Pelvic floor dysfunction; Slow transit constipation Discharge Disposition: Home or Self Care 02/08/2025 Travel 01/31/2025 Travel 01/31/2025 Telephone [facility]iology [address] [place] [phone] Alison Meneses RN 01/08/2025 8:15 AM EDT Office Visit [facility] General Surgery [address] [place] [address] Jennifer Zamudio MD Pelvic floor dysfunction (Primary Dx); Slow transit constipation 01/08/2025 Travel from Last 3 Months Immunizations Immunization Administration Dates Next Due Influenza, injectable, quadrivalent 02/14/2018,1 Rhapso COVID-19 Vaccine (Purple Cap) 12 + 09/03/2020,08/06/2020 Tdap 12/26/2023 Family History Medical History Relation Name Comments Drug abuse Daughter Jessie Hickman Parkinsonism Father Depression Mother Sister Diabetes Mother Sister Mental illness Mother Sister Cancer Other Daughter Drug abuse Other Daughter Breast cancer Sister Lisa evans Cancer Sister Lisa evans Anesthesia problems Neg Hx Malig Hyperthermia Neg Hx Relation Name Status Comments Daughter Jessie Hickman Father Mother Sister Other Daughter Sister Lisa evans Social History Tobacco Use Types Packs/Day Years Used Date Smoking Tobacco: Never Passive Smoke Exposure: Current Smokeless Tobacco: Never Tobacco Cessation:Counseling Given: Not Answered Comments:Daughter smokes around her Alcohol Use Standard Drinks/Week Comments Never [...] In the past 12 months has th [employer] electric, gas, oil, or water company threatened to shut off services in your home? No 03/13/2024 PHQ-2A Answer Date Recorded Patient Health Questionnaire-2 Score 0 04/12/2023 Comments No Sex and Gender Information Value Date Recorded Sex Assigned at Female 03/12/2024 6:12 AM EDT Legal Sex Female 7:49 PM EDT Gender Identity Female 03/12/2024 6:12 AM EDT Sexual Orientation Not on file Last Filed Vital Signs Vital Sign Reading Time Taken Comments Blood Pressure 103/64 02/12/2025 9:55 AM EDT Pulse 75 02/12/2025 9:55 AM EDT Temperature 36.6 C (97.9 F) 02/12/2025 9:55 AM EDT Respiratory Rate 16 01/08/2025 7:51 AM EDT Oxygen Saturation 98% 01/08/2025 7:51 AM EDT Inhaled Oxygen Concentration - - Weight 59 kg (130 lb 1.6 oz) 02/12/2025 9:55 AM EDT Height 156.2 cm (5' 1.5 ) 02/12/2025 9:55 AM EDT Body Mass Index 24.19 02/12/2025 9:55 AM EDT Plan of Treatment Health Maintenance Due Date Last Done Comments [facility]-Infant/Child/Adol SDOH Screenings 1970 [facility]- SDOH Screenings 1989 [facility]-Adult SDOH Screenings 1989 [facility]-Hepatitis B Vaccines (1 of 3 - 19+ 3-dose series) 1990 [facility]-Pap Smear 02/19/1999 02/20/1996, 07/1993, 09/21/1993, Additional history exists [facility]-Cervical Cancer Screening 02/19/2001 [facility]-HPV/Cotest 02/19/2001 02/20/1996, 07/1993, 09/21/1993, Additional history exists PAE-SAMYI-53 Vaccine (3 - Pfizer risk series) 10/01/2020 09/03/2020, 08/06/2020 [facility]-Breast Cancer Screening 2021 [facility]-Pneumococcal Vaccine: 50+ Years (1 of 1 - PCV) 2021 [facility]-Zoster Vaccines (1 of 2) 2021 [facility]-Influenza Vaccine (#1) 2025 02/14/2018, [facility]-Depression Screening 02/12/2026 02/12/2025, 01/22 [facility]-DTaP,Tdap,and Td Vaccines (2 - Td or Tdap) 12/25/2033 12/26/2023 Colonoscopy Discontinued 03/08/2023, 02/20, 02/20/2020, Additional history exists [facility]-Colorectal Cancer Screening Discontinued [facility]-HIV Screening Completed 02/07/2024, 10/20/2022 [facility]-Hepatitis C Screening Completed 02/07/2024, CT Colonography Discontinued FIT-DNA Discontinued FIT Discontinued FOBT Discontinued HPV Vaccines Aged Out No longer eligi ble based on patient's age to complete this topic Sigmoidoscopy Discontinued [facility]-HIB Vaccines Aged Out No longer e ligible based on patient's age to complete this topic [facility]-Hepatitis A Vaccines Aged Out No longer eligible based on patient's age to complete this topic [facility]-IPV Vaccines Aged Out No longer e ligible based on patient's age to complete this topic [facility]-Rotavirus Vaccines Aged Out No lo nger eligible based on patient's age to complete this topic Procedures Procedure Name Priority Date/Time Associated Diagnosis Comments MR DEFECOGRAPHY Routine 02/08/2025 2:32 PM EDT Pelvic floor dysfunction Slow transit constipation HEPATITIS C ANTIBODY - ED W/REFLEX TO HCV QUANT PCR STAT 02/07/2024 12:23 PM EDT ED HIV 1/2 ANTIBODY/ANTIGEN SCREEN WITH REFLEX TO HIV I/II DIFFERENTIATION STAT 02/07/2024 12:23 PM EDT COLONOSCOPY 03/08/2023 10:05 AM EDT CYTO DATA CONVERSION Routine 02/20/1996 12:00 AM EDT from Last 3 Months or Most Recently Relevant to Health Maintenance Results * MR Defecography (02/08/2025 2:32 PM [...] Austin Escobedo MD on 02/08/2025 3:34 PM Jennifer Zamudio MD IMG MRI PROCEDURES Edited Resul t - Final * ED HIV 1/2 Antibody/Antigen Screen w/Reflex to HIV 1/2 Differentiation (02/07/2024 12:23 PM EDT) Pathologist [facility] HIV 1 & 2 Antibody/Antigen Screen Non Reactive Non Reactive 02/07/2024 1:13 PM EDT [facility] Comment:Screening for HIV 1 & 2 antibodies, and P24 antigen is NONREACTIVE. No confirmatory testing is required. Blood Venous blood specimen / Unknown Venipuncture / Unknown 02/07/2024 12:23 PM EDT 02/07/2024 12:40 PM EDT [facility] BLOOD ORDERABLES Final Resu lt Performing Organization Address City/[facility] Co de Phone Number [facility] [address] [place] [address] * Hepatitis C Antibody - ED (02/07/2024 12:23 PM EDT) Hepatitis C Antibody Negative Negative 02/07/2024 1:09 PM EDT [facility] Blood Venous blood specimen / Unknown Venipuncture / Unknown 02/07/2024 12:23 PM EDT 02/07/2024 12:40 PM EDT [facility] BLOOD ORDERABLES Final Resu lt [facility] [address] [place] [address] * Colonoscopy (03/08/2023 10:05 AM EDT) Anatomical Region Laterality Modality Endoscopy 03/08/2023 9:25 AM EDT Impressions 03/08/2023 10:05 AM EDT Please see media tab for the result. Information added by interface. Narrative Procedure Note Jeronimo Maza MD - 03/08/2023 IMPRESSION: Please see media tab for the result. Information added by interface. us External Provider GI PROCEDURE ORDERABLES Final Result * Cytology (02/20/1996 12:00 AM EDT) 02/20/1996 02/20/1996 Narrative [facility] - 03/02/1996 12:00 AM EDT [facility] MR #: [id number] [facility] [address] [place], [place] [address] 1970 (Age: 26) FW Collect Date: 02/20/1996 00:00 Receipt Date: 02/20/1996 00:00 Page 1 DEPARTMENT OF PATHOLOGY AND LABORATORY MEDICINE CYTOPATHOLOGY REPORT Email: [email or web address] [email or web address] * Converted Case * This report may not match the original report format ATTENDING MD/Practitioner: Rosendo Hollins MD Service: CLINICAL APPLICATION CONSULTANT Location: Reported: 03/02/1996 00:00 Collected: 02/20/1996 00:00 INTERPRETATION CERVICAL SCRAPE/ENDOCERVICAL BRUSH NO DYSPLASTIC OR MALIGNANT CELLS SEEN. SATISFACTORY BUT LIMITED BY EXCESSIVE CYTOLYSIS OR AUTOLYSIS AND THICKNESS. Electronically Signed Out By Hossein Angelo THOMAS Roa (ASCP) No Signature Required THOMAS Norton (ASCP) Cervical cytology is a screening test primarily for squamous cancers and precursors and has associated false negative and positive results. New technologies such as liquid based sampling may decrease but will not eliminate all false negative results. Regular screening and follow-up of unexplained clinical signs and symptoms are recommended to minimize false negative results. Please see the ASCCP website (www.asccp.org) for followup recommendations. If HPV testing was requested, correlation with the results is suggested (please call Microbiology at [phone] for results). CLINICAL INFORMATION: Menstrual History: {Not Provided} Date of Last Menstrual Period: {Not Provided} SPECIMEN DESCRIPTION: A: CERVICAL/VAGINAL SMEAR, PAP ICD: F: {Not Entered} SNOMED CODES: 1; [id number] X87390.8 [id number] In cases where a pathologist has signed out the report, the service has been rendered in part by a resident. The signing pathologist has performed and is responsible for the reported pathologic evaluation. us Historical Provider LAB PATHOLOGY ORDERABLES Fin al Result [facility] from Last 3 Months or Most Recently Relevant to Health Maintenance Insurance [employer] Advance Directives * Full Code (Latest Code Status on File) Date Activated Date Inactivated Comments 03/12/2024 10:25 AM 03/19/2024 1:05 PM Question Answer Comments Patient has decision-making capacity? Yes Care Teams Stave Machine Tender Relationship Specialty Start Date End Date Juarez Kothari MD [address] [place] [address] PCP - General 10/03/20 Sumanth Fernandez MD [address] [place] [address] Surgeon Neurosurgery 11/04/21
--- OUTSIDE RECORDS SUMMARY | 2025-04-02 11:06 | XMS_ITS | Encounter Summary ---
Author Organization [facility] Address [address] [place] [address] Care Team Providers Care Service Counter Cashier Name Role Phone Juarez Kothari MD Primary Care Provider [phone] Sumanth Fernandez MD Unavailable [phone] Encounter Details Date Type Department Care Team (Late st Contact Info) Description 03/08/2023 Outside Procedure [address] [address] Provider, External Social History Tobacco Use Types [...] Procedure Name Priority Date/Time Associated Diagnosis Comments COLONOSCOPY 03/08/2023 10:05 AM EDT documented in this encounter Results * Colonoscopy (03/08/2023 10:05 AM EDT) Anatomical Region Laterality Modality Endoscopy 03/08/2023 9:25 AM EDT Impressions 03/08/2023 10:05 AM EDT Please see media tab for the result. Information added by interface. Narrative Procedure Note Jeronimo Maza MD - 03/08/2023 IMPRESSION: Please see media tab for the result. Information added by interface. us External Provider GI PROCEDURE ORDERABLES Final Result documented in this encounter Visit [...] documented as of this encounter Care Teams Service Counter Cashier Relationship Specialty Start Date End Date Juarez Kothari MD [address] [place] [address] PCP - General 10/03/20 Sumanth Fernandez MD [address] [place] [address] Surgeon Neurosurgery 11/04/21 documented as of this encounter
--- OUTSIDE RECORDS SUMMARY | 2025-04-02 11:07 | XMS_ITS | Encounter Summary ---
Author Organization [facility] Address [address] [place] [address] Care Team Providers Care Box Printing Machine Operator Name Role Phone Juarez Kothari MD Primary Care Provider [phone] Sumanth Fernandez MD Unavailable [phone] Encounter Details Date Type Department Care Team ([facility] st Contact Info) Description 08/08/2021 Orders Only External Location [address] [place] [address] Provider, External Social History Tobacco Use Types Packs/Day Years Used Date Smoking Tobacco: Never Alcohol Use Standard Drinks/Week Comments No 0 (1 standard drink = 0.6 oz pur e alcohol) Comments Unknown Sex and Gender Information Value Date Recorded Sex Assigned at Female 03/12/2024 6:12 AM EDT Legal Sex Female 7:49 PM EDT Gender Identity Female 03/12/2024 6:12 AM EDT Sexual Orientation Not on file documented as of this encounter Plan of Treatment Not on file documented as of this encounter Procedures Procedure Name Priority Date/Time Associated Diagnosis Comments CT NEURO OUTSIDE IMAGES 08/08/2021 10:32 AM EDT documented in this encounter Results * CT NEURO OUTSIDE IMAGES (08/08/2021 10:32 AM EDT) Anatomical Region Laterality Modality Computed Tomogra phy 08/08/2021 10:3 2 AM EDT us External Provider IMG CT PROCEDURES Final Result documented in this encounter Visit Diagnoses Not on filedocumented in this encounter Additional Health Concerns Infection Onset Date Last Indicated Resolved Time C. difficile Comment:Done at [facility]- Negative for C-Diff results imported in media tab 01/19/2023 01/19/2023 02/09/2023 10:41 AM EDT Gastrointestinal Rule-Out 11/12/2023 11/12/2023 4:31 PM EDT C. difficile Rule-Out 11/12/2023 11/12/20232023 4:31 PM EDT C. difficile Rule-Out 11/14/2023 11/14/20232023 9:18 AM EDT Gastrointestinal Rule-Out 02/07/2024 02/07/2024 5:24 AM EDT documented as of this encounter Care Teams Box Printing Machine Operator Relationship Specialty Start Date End Date Juarez Kothari MD [address] [place] [address] PCP - General 10/03/20 Sumanth Fernandez MD [address] [place] [address] Surgeon Neurosurgery 11/04/21 documented as of this encounter
--- OUTSIDE RECORDS SUMMARY | 2025-04-02 11:07 | XMS_ITS | Encounter Summary ---
Author Organization [facility] Address [address] [place] [address] Care Team Providers Care Supervisor Intelligence Analyst Name Role Phone Juarez Kothari MD Primary Care Provider [phone] Sumanth Fernandez MD Unavailable [phone] Encounter Details Date Type Department Care Team ([facility] st Contact Info) Description 08/08/2021 Orders Only External Location [address] [place] [address] Provider, External Social History Tobacco Use Types [...] Diagnosis Comments CT NEURO OUTSIDE IMAGES 08/08/2021 10:25 AM EDT documented in this encounter Results * CT NEURO OUTSIDE IMAGES (08/08/2021 10:25 AM EDT) Anatomical Region Laterality Modality Computed Tomogra phy 08/08/2021 10:2 5 AM EDT us External Provider IMG CT PROCEDURES Final Result documented in this encounter Visit Diagnoses Not on filedocumented in this encounter Additional Health Concerns Infection Onset Date Last Indicated Resolved Time C. difficile Comment:Done at [facility]- Negative for C-Diff results imported in media tab 01/19/2023 01/19/2023 02/09/2023 10:41 AM EDT Gastrointestinal Rule-Out 11/12/2023 11/12/2023 4:31 PM EDT C. difficile Rule-Out 11/12/2023 11/12/20232023 4:31 PM EDT C. difficile Rule-Out 11/14/2023 11/14/20232023 9:18 AM EDT Gastrointestinal Rule-Out 02/07/2024 02/07/2024 5:24 AM EDT documented as of this encounter Care Teams Supervisor Intelligence Analyst Relationship Specialty Start Date End Date Juarez Kothari MD [address] [place] [address] PCP - General 10/03/20 Sumanth Fernandez MD [address] [place] [address] Surgeon Neurosurgery 11/04/21 documented as of this encounter
--- OUTSIDE RECORDS SUMMARY | 2025-04-02 11:07 | XMS_ITS | Patient Health Record ---
Author Organization [facility] Address [address] [place] [address] Care Team Providers Care Coat Feller Name Role Phone Juarez Kothari Primary Care Provider Meghana Jacobson Unavailable [phone] Migration, Provider Unavailable Unavailable Allergies Allergen (clinical drug ingredient) Drug/Non Drug Allergy documented on EMR Reaction Allergy Type Onset Date Status SULFA (uncoded) hives and vomiting Allergy Active Results Component Value Reference Range Notes M-Urine Culture Reviewed date:05/31/2024 02:38:34 PM Interpretation: Performing Lab: Notes/Report: CUU No growth. Urinalysis Reviewed date:05/29/2024 11:34:26 AM Interpretation: Performing Lab: Notes/Report: Color/Clarity lt yellow Leuk neg Nitrite neg Urobili 0.2 Protein neg pH 6.0 Blood neg Sp. Gr. >=1.030 Ketone neg Bili neg Glucose neg Urinalysis Reviewed date:10/11/2024 11:16:39 AM Interpretation: Performing Lab: Notes/Report: Color/Clarity lt yellow Leuk neg Nitrite neg Urobili 0.2 Protein neg pH 7.0 Blood small Sp. Gr. 1.020 Ketone neg Bili neg Glucose neg Rapid Strep Reviewed date:12/03/2024 05:49:49 PM Interpretation:Negative Performing Lab: Notes/Report: Negative Rapid screen Neg Medications Medication SIG (Take, Route, Frequency, Duration) Notes Start Date End Date Status lamoTRIgine 25 MG 2 tablets Orally daily Active Levothyroxine Sodium 25 MCG Take 1 tablet by mouth once daily; Duration: 90 Active L-Methylfolate 7.5 MG 1 tablet Orally Once a day Active Desvenlafaxine ER 50 MG 1 tablet Orally Once a day Active Promethazine-DM 6.25-15 MG/5ML 5 mL as needed Orally every 6 hrs; Duration: 7 days 12/03/2024 Active Ondansetron 4 MG 1 tablet on the tongue and allow to dissolve Orally Once a day Active Lubiprostone 24 MCG 1 capsule with food and water Orally Twice a day Active Nurtec 75 MG 1 tablet on the tongue and allow to dissolve Orally Active Fiber Choice *Please review a nd pick correct strength-formulati on from Mail'Inside options. If intended option is not shown, discontinue and re-order from Quick Search* Active B12 5000 MCG as directed Sublingual Active Citrucel 500 MG 2 tablets with a full glass of water as needed Orally Six times a day Active diazePAM 5 MG 1/2 tab(s) orally twice a day Active Aspirin 81 MG 1 tab(s) orally once a day; Duration: 30 day(s) 08/14/2021 Active Fluticasone Propionate 50 MCG/ACT 1 spray(s) in each nostril 2 times a day; Duration: 30 days prn 10/31/2023 Active Losartan Potassium 25 MG 1 tab(s) orally once a day; Duration: 30 day(s) Active Immunizations Vaccine Route Administration Date Status Comme nts Adacel (Tdap) Unknown 08/10/2012 Administered Boostrix IM Intramuscular 12/26/2023 Administered Covid Pfizer Unknown 08/06/2020 Administered Covid Pfizer Unknown 09/03/2020 Administered Influenza-Fluzone 3+years (NON-MEDICARE) IM Intramuscular 03/11/2015 Administered Influenza-Fluzone 3+years (NON-MEDICARE) IM Intramuscular 02/14/2018 Administered Problems Problem Type SNOMED Code ICD Code Onset Dates Problem Status W/U Status Risk Notes Problem Chronic pain (72156058) Other chronic pain (G89.29) Active confirmed Problem Sequelae of cerebral infarction (007170069) Unspecified sequelae of cerebral infarction (I69.30) Active confirmed Problem Postmenopausal bleeding (66181761) Postmenopausal bleeding (N95.0) Active confirmed Problem Mixed anxiety and depressive disorder (691273382) Depression with anxiety (F41.8) Active confirmed Problem Paresthesia (37341060) Paresthesia (R20.2) Active confirmed Problem Vitamin D deficiency (68980507) Vitamin D deficiency (E55.9) Active confirmed Problem Essential hypertension (71214093) HTN (hypertension), benign (I10) Active confirmed Problem Nephrolithiasis (05676475) Nephrolithiasis (N20.0) Active confirmed Problem Gastroesophageal reflux disease with esophagitis (disorder) (658442091) GERD with esophagitis (K21.0) Active confirmed Problem Gastroesophageal reflux disease (128225638) Gastroesophageal reflux disease, esophagitis presence not specified (K21.9) Active confirmed Problem Acute suppurative otitis media without spontaneous rupture of ear drum (03964796) Acute suppurative otitis media of left ear without spontaneous rupture of tympanic membrane, recurrence not specified (H66.002) Active confirmed Problem Insomnia disorder related to another mental disorder (61203366) Psychophysiological insomnia (F51.04) Active confirmed Problem Hiatal hernia (12050912) Hiatal hernia (K44.9) Active confirmed Problem Respiratory tract congestion (701964996) Congestion of respiratory tract (J98.8) Active confirmed Problem History of nephrolithiasis (944491861) History of nephrolithiasis (Z87.442) Active confirmed Problem Generalized anxiety disorder (16423502) BERNADINE (generalized anxiety disorder) (F41.1) Active confirmed Problem Mechanical low back pain (301831198) Mechanical low back pain (M54.5) Active confirmed Problem Hyperlipidaemia (39373391) Hyperlipidemia, unspecified hyperlipidemia type (E78.5) Active confirmed Problem Chronic maxillary sinusitis (48575133) Chronic sinusitis of both maxillary sinuses (J32.0) Active confirmed Problem Hypothyroidism (00700476) Unspecified hypothyroidism (E03.9) Active confirmed Problem Irritable bowel syndrome (37608775) Irritable bowel syndrome with constipation and diarrhea (K58.2) Active confirmed Problem Serum vitamin B12 low (767245304) Low vitamin B12 level (E53.8) Active confirmed Problem Late effects of cerebrovascular disease (775784248) History of CVA with residual deficit (I69.30) Active confirmed Problem History of infectious disease (270326454) History of Clostridium difficile colitis (Z86.19) Active confirmed Problem Lipoma of skin and subcutaneous tissue (84332486819519) Lipoma of skin and subcutaneous tissue (D17.30) Active confirmed Problem Prolapsed cervical intervertebral disc (400880816) Cervical disc herniation (M50.20) Active confirmed Problem Vomiting (569751964) Recurrent vomiting (R11.10) Active confirmed Problem Uterine leiomyoma (39003982) Uterine leiomyoma, unspecified location (D25.9) Active confirmed Problem Degeneration of lumbar intervertebral disc (62937293) Degeneration of intervertebral disc at L5-S1 level (M51.36) Active confirmed Problem 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 Problem Clostridial enteric disease (653777901) 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) Active confirmed Problem Exposure to COVID-19 (038569872) Exposure to COVID-19 virus (Z20.828) Active confirmed Problem Sensory disorder of smell and/or taste (8693927870672) Altered taste (R43.2) Active confirmed Problem Hemiparesis of left side of face (4281629314) Hemiparesis of left side of face (G81.94) Active confirmed Problem Cerebral infarction (513861173) Cerebrovascular accident (CVA) involving right cerebral hemisphere (I63.9) Active confirmed Vital Signs Heart Rate 68 /min 12/03/2024 Temperature 97.5 degrees Fahrenheit 12/03/2024 Blood pressure diastolic 80 mm Hg 12/03/2024 Height 62 in 12/03/2024 Blood pressure systolic 126 mm Hg 12/03/2024 Weight 126.4 lbs 12/03/2024 BMI 23.12 kg/m2 12/03/2024 Encounters Encounter Location Date Provider Diagnosis [facility] [address] [facility] [address] [place] [address] 08/25/2024 Provider Migration [facility] [address] [facility] [address] [place] [address] 05/29/2024 Meghana Jacobson Dysuria R30.0 [facility] [address] [facility] [address] [place] [address] 10/11/2024 Meghana Jacobson Urinary frequency R35.0 and Microscopic hematuria R31.29 [facility] [address] [facility] [address] [place] [address] 12/03/2024 Meghana Jacobson Sore throat J02.9 and URI with cough and congestion J06.9 Assessments Encounter Date Diagnosis (ICD Code) Assessment Notes Treatment Notes Treatment Clinical Notes Section Notes 05/29/2024 Dysuria (ICD-10 - R30.0) Discussed suspected UTI based on symptoms but UA is negative. Treatment with antibiotics if culture positive. Encouraged good water intake. Discussed return precautions including fever, vomiting, intractable pain, etc. 10/11/2024 Urinary frequency (ICD-10 - R35.0) Reassurance that her urinalysis is consistent with her baseline, has had a small amount of hematuria for many years. Has had extensive abdominal imaging. We reviewed her labs done recently by neurology, no significant abnormalities. I did recommend that she start [id number] r sublingual B12 and keep her appointment for MRI. Return precautions reviewed 10/11/2024 Microscopic hematuria (ICD-10 - R31.29) 12/03/2024 Sore throat (ICD-10 - J02.9) We discussed how it was likely a viral infection. Strep test in office was negative. She was advised that if her symptoms do not improve within 48-72 hours to call back and we would discuss putting her on an antibiotic. 12/03/2024 URI with cough and congestion (ICD-10 - J06.9) We discussed how it was likely a viral infection and prescribed promethazine to help with the cough. We also discussed making sure she got enough rest and hydrated well with water. She was advised that if her symptoms do not improve within 48-72 hours to call back and we would discuss putting her on an antibiotic. Plan Of Treatment Pending Test Test Name Order Date MRI : Lumbosacral Spine 07/07/2010 X ray : Ankle, Left 11/09/2017 X ray : Foot, Left 11/09/2017 Urine Drug Screen IH 01/10/2012 Physical Therapy 03/11/2014 H-VITAMIN B12 09/29/2017 C-CBC 10/24/2019 C-CMP 10/24/2019 C-TSH 10/24/2019 C-FREE T4 01/31/2014 C-VITAMIN B12 10/24/2019 C-URINE CULTURE 05/04/2017 C-HGBA1C 11/09/2019 Urine Culture, Routine 04/28/2015 VENIPUNCT, ROUTINE* 11/14/2015 M-Complete Blood Count Auto Diff 021 M-Comprehensive Metabolic Panel 11/21/19 M-Comprehensive Metabolic Panel 07/17/19 M-Lipid Panel 07/17/2019 M-Lipid Panel 11/20/2020 M-Thyroid Stimulating Hormone 11/20/2020 M-Diarrhea Panel, PCR 11/10/2023 M-COVID PCR SINGLE RAPID 12/27/2019 Insurance Providers Payer Name Payer Address Payer Phone Subscriber Number Group Number Insured Name Patient Relationship to Insured Coverage Start Date Coverage End Date [facility] [address] [place] [address] [id number] Jodie Ling Self - patient is the insured Medications Administered Medication Instructions Date of Administration Dosage Notes Ceftriaxone 500 08/24/2013 1000 g Cyanocobalamin/B-12 Pt's Own Medication 02/06/2014 Cyanocobalamin/B-12 Pt's Own Medication 02/13/2014 1 mL Cyanocobalamin/B-12 Pt's Own Medication 02/20/2014 1 mL Cyanocobalamin/B-12 Pt's Own Medication 02/27/2014 1 mL Cyanocobalamin/B-12 Pt's Own Medication 03/11/2014 1 mL Cyanocobalamin/B-12 Pt's Own Medication 03/21/2014 1 mL Cyanocobalamin/B-12 Pt's Own Medication 04/11/2014 1 mL Cyanocobalamin/B-12 Pt's Own Medication 03/11/2021 1 mL Cyanocobalamin/B-12 Pt's Own Medication 03/18/2021 1 mL Cyanocobalamin/B-12 Pt's Own Medication 04/08/2021 1 mL Dexamethasone 4mg Injection 06/03/2022 4 mg Dexamethasone 4mg Injection 10/31/2023 4 mg Kenalog 40mg 12/01/2016 40 mg Kenalog 08/24/2013 1 Kenalog 12/20/2013 1 Kenalog 03/21/2014 1 mL Kenalog 03/11/2015 1 mL Medical (General) History Medical History History ICD Code lumbar lipoma w/ fatty filum chronic low back pain migraine headache depression anxiety weight loss b/o anxiety and depression GERD with esophagitis on EGD 10/2018 HLD Acute CVA 07/2021 c-diff hernia Surgical History Surgery Date(Month/Year) tubal ligation left breast cyst removal x2 ankle fx Hiatal hernia repair at , Dr Nunn 04/22 D & C and cyst removal 11/25/2021 Hemorrhoid Surgery May 2023 Hospitalization History Reason Date(Month/Year) chest pain 10/2018 flu/pneum above
--- OUTSIDE RECORDS SUMMARY | 2025-04-02 11:07 | XMS_ITS | Encounter Summary ---
Author Organization [facility] Address [address] [place] [address] Care Team Providers Care Rehabilitation Aide/Scheduler Name Role Phone Juarez Kothari MD Primary Care Provider [phone] Sumanth Fernandez MD Unavailable [phone] Encounter Details Date Type Department Care Team ([facility] st Contact Info) Description 08/08/2021 Orders Only External Location [address] [place] [address] Provider, External Social History Tobacco Use Types [...] Name Priority Date/Time Associated Diagnosis Comments CT THORACIC OUTSIDE IMAGES 08/08/2021 10:28 AM EDT documented in this encounter Results * CT THORACIC OUTSIDE IMAGES (08/08/2021 10:28 AM EDT) Anatomical Region Laterality Modality Computed Tomogra phy 08/08/2021 10:2 8 AM EDT us External Provider IMG CT PROCEDURES Final Result documented in this encounter Visit Diagnoses Not on filedocumented in this encounter Additional Health Concerns Infection Onset Date Last Indicated Resolved Time C. difficile Comment:Done at [facility]- Negative for C-Diff results imported in media tab 01/19/2023 01/19/2023 02/09/2023 10:41 AM EDT Gastrointestinal Rule-Out 11/12/2023 11/12/2023 4:31 PM EDT C. difficile Rule-Out 11/12/2023 11/12/20232023 4:31 PM EDT C. difficile Rule-Out 11/14/2023 11/14/20232023 9:18 AM EDT Gastrointestinal Rule-Out 02/07/2024 02/07/2024 5:24 AM EDT documented as of this encounter Care Teams Rehabilitation Aide/Scheduler Relationship Specialty Start Date End Date Juarez Kothari MD [address] [place] [address] PCP - General 10/03/20 Sumanth Fernandez MD [address] [place] [address] Surgeon Neurosurgery 11/04/21 documented as of this encounter
--- OUTSIDE RECORDS SUMMARY | 2025-04-02 11:07 | XMS_ITS | Encounter Summary ---
Author Organization [facility] Address [address] [place] [address] Care Team Providers Care Animal Impersonator Name Role Phone Juarez Kothari MD Primary Care Provider [phone] Sumanth Fernandez MD Unavailable [phone] Encounter Details Date Type Department Care Team ([facility] st Contact Info) Description 08/08/2021 Orders Only External Location [address] [place] [address] Provider, External Social History Tobacco Use Types [...] Indicated Resolved Time C. difficile Comment:Done at [facility]- Negative for C-Diff results imported in media tab 01/19/2023 01/19/2023 02/09/2023 10:41 AM EDT Gastrointestinal Rule-Out 11/12/2023 11/12/2023 4:31 PM EDT C. difficile Rule-Out 11/12/2023 11/12/20232023 4:31 PM EDT C. difficile Rule-Out 11/14/2023 11/14/20232023 9:18 AM EDT Gastrointestinal Rule-Out 02/07/2024 02/07/2024 5:24 AM EDT documented as of this encounter Care Teams Animal Impersonator Relationship Specialty Start Date End Date Juarez Kothari MD [address] [place] [address] PCP - General 10/03/20 Sumanth Fernandez MD [address] [place] [address] Surgeon Neurosurgery 11/04/21 documented as of this encounter
--- OUTSIDE RECORDS SUMMARY | 2025-04-02 11:07 | XMS_ITS | Encounter Summary ---
Author Organization [facility] Address [address] [place] [address] Care Team Providers Care Bowling Alley Attendant Name Role Phone Juarez Kothari MD Primary Care Provider [phone] Sumanth Fernandez MD Unavailable [phone] Encounter Details Date Type Department Care Team ([facility] st Contact Info) Description 10/24/2020 Orders Only External Location [address] [place] [address] Provider, External Social History Tobacco Use Types [...] Name Priority Date/Time Associated Diagnosis Comments XR OUTSIDE IMAGES 10/24/2020 8:14 AM EDT documented in this encounter Results * XR OUTSIDE IMAGES (10/24/2020 8:14 AM EDT) Anatomical Region Laterality Modality Radiographic Josefina ging 10/24/2020 8:14 AM EDT us External Provider IMG XR PROCEDURES Final Result documented in this encounter Visit Diagnoses Not on filedocumented in this encounter Additional Health Concerns Infection Onset Date Last Indicated Resolved Time C. difficile Comment:Done at [facility]- Negative for C-Diff results imported in media tab 01/19/2023 01/19/2023 02/09/2023 10:41 AM EDT Gastrointestinal Rule-Out 11/12/2023 11/12/2023 4:31 PM EDT C. difficile Rule-Out 11/12/2023 11/12/20232023 4:31 PM EDT C. difficile Rule-Out 11/14/2023 11/14/20232023 9:18 AM EDT Gastrointestinal Rule-Out 02/07/2024 02/07/2024 5:24 AM EDT documented as of this encounter Care Teams Bowling Alley Attendant Relationship Specialty Start Date End Date Juarez Kothari MD [address] [place] [address] PCP - General 10/03/20 Sumanth Fernandez MD [address] [place] [address] Surgeon Neurosurgery 11/04/21 documented as of this encounter
--- OUTSIDE RECORDS SUMMARY | 2025-04-02 11:07 | XMS_ITS | Encounter Summary ---
Author Organization [facility] Address [address] [place] [address] Care Team Providers Care Rubber Mold Maker Name Role Phone Juarez Kothari MD Primary Care Provider Sumanth Fernandez MD Unavailable [phone] Encounter Details Date Type Department Care Team (Late st Contact Info) Description 01/26/2024 Orders Only External Location [address] [place] [address] Ephraim Bolton, DO [address] [place] [address] Social History Tobacco Use Types Packs/Day Years Used Date Smoking Tobacco: Never Passive Smoke Exposure: Current Smokeless Tobacco: Never Comments:Daughter smokes leandro und her Alcohol Use Standard Drinks/Week Comments Never 0 (1 standard drink = 0.6 oz pur e alcohol) PHQ-2 Answer Date Recorded Patient Health Questionnaire-2 Score 0 12/21/2023 PHQ-2A Answer Date Recorded Patient Health Questionnaire-2 [...] Name Priority Date/Time Associated Diagnosis Comments CT OUTSIDE IMAGES 01/26/2024 6:01 PM EDT documented in this encounter Results * CT OUTSIDE IMAGES (01/26/2024 6:01 PM EDT) Anatomical Region Laterality Modality Computed Tomogra phy 01/26/2024 6:01 PM EDT Ephraim Mclean Hoang DO IMG CT PROCEDURES Final Result documented in this encounter Visit Diagnoses Not on filedocumented in this encounter Additional Health Concerns Infection Onset Date Last Indicated Resolved Time Gastrointestinal Rule-Out 02/07/2024 02/07/2024 5:24 AM EDT Assessment Noted Time A fall risk assessment has been complete d for the patient 12/21/2023 3:10 PM EDT A Body Mass Index follow-up plan has been documented for the patient 12/28/2023 11:56 AM EDT documented as of this encounter Care Teams Rubber Mold Maker Relationship Specialty Start Date End Date Juarez Kothari MD [address] [place] [address] PCP - General 10/03/20 Sumanth Fernandez MD [address] [place] [address] Surgeon Neurosurgery 11/04/21 documented as of this encounter
--- OUTSIDE RECORDS SUMMARY | 2025-04-02 11:08 | XMS_ITS | Encounter Summary ---
Author Organization [facility] Address [address] [place] [address] Care Team Providers Care Film Reader Name Role Phone Juarez Kothari MD Primary Care Provider [phone] Sumanth Fernandez MD Unavailable [phone] Encounter Details Date Type Department Care Team ([facility] st Contact Info) Description 08/15/2021 Orders Only External Location [address] [place] [address] Provider, External Social History Tobacco Use Types [...] Associated Diagnosis Comments CT NEURO OUTSIDE IMAGES 08/15/2021 12:56 AM EDT documented in this encounter Results * CT NEURO OUTSIDE IMAGES (08/15/2021 12:56 AM EDT) Anatomical Region Laterality Modality Computed Tomogra phy 08/15/2021 12:5 6 AM EDT us External Provider IMG CT PROCEDURES Final Result documented in this encounter Visit Diagnoses Not on filedocumented in this encounter Additional Health Concerns Infection Onset Date Last Indicated Resolved Time C. difficile Comment:Done at [facility]- Negative for C-Diff results imported in media tab 01/19/2023 01/19/2023 02/09/2023 10:41 AM EDT Gastrointestinal Rule-Out 11/12/2023 11/12/2023 4:31 PM EDT C. difficile Rule-Out 11/12/2023 11/12/20232023 4:31 PM EDT C. difficile Rule-Out 11/14/2023 11/14/20232023 9:18 AM EDT Gastrointestinal Rule-Out 02/07/2024 02/07/2024 5:24 AM EDT documented as of this encounter Care Teams Film Reader Relationship Specialty Start Date End Date Juarez Kothari MD [address] [place] [address] PCP - General 10/03/20 Sumanth Fernandez MD [address] [place] [address] Surgeon Neurosurgery 11/04/21 documented as of this encounter
--- OUTSIDE RECORDS SUMMARY | 2025-04-02 11:08 | XMS_ITS | Encounter Summary ---
Author Organization [facility] Address [address] [place] [address] Care Team Providers Care Emergency Medical Services Coordinator Name Role Phone Juarez Kothari MD Primary Care Provider [phone] Sumanth Fernandez MD Unavailable [phone] Encounter Details Date Type Department Care Team (Late st Contact Info) Description 08/14/2021 Orders Only External Location [address] [place] [address] Meghana Jacobson APRN [address] [address] Social History Tobacco Use Types Packs/Day Years [...] Name Priority Date/Time Associated Diagnosis Comments MR NEURO OUTSIDE IMAGES 08/14/2021 7:51 AM EDT documented in this encounter Results * MR NEURO OUTSIDE IMAGES (08/14/2021 7:51 AM EDT) Anatomical Region Laterality Modality Magnetic Resonan ce 08/14/2021 7:51 AM EDT Meghana L Indira POLICE BOOKING OFFICER IMG MRI PROCEDURES Final R esult documented in this encounter Visit Diagnoses Not on filedocumented in this encounter Additional Health Concerns Infection Onset Date Last Indicated Resolved Time C. difficile Comment:Done at [facility]- Negative for C-Diff results imported in media tab 01/19/2023 01/19/2023 02/09/2023 10:41 AM EDT Gastrointestinal Rule-Out 11/12/2023 11/12/2023 4:31 PM EDT C. difficile Rule-Out 11/12/2023 11/12/20232023 4:31 PM EDT C. difficile Rule-Out 11/14/2023 11/14/20232023 9:18 AM EDT Gastrointestinal Rule-Out 02/07/2024 02/07/2024 5:24 AM EDT documented as of this encounter Care Teams Emergency Medical Services Coordinator Relationship Specialty Start Date End Date Juarez Kothari MD [address] [place] [address] PCP - General 10/03/20 Sumanth Fernandez MD [address] [place] [address] Surgeon Neurosurgery 11/04/21 documented as of this encounter
--- OUTSIDE RECORDS SUMMARY | 2025-04-02 11:08 | XMS_ITS | Encounter Summary ---
Author Organization [facility] Address [address] [place] [address] Care Team Providers Care Broomcorn Scraper Name Role Phone Juarez Kothari MD Primary Care Provider [phone] Sumanth Fernandez MD Unavailable [phone] Reason for Referral * Consultation (Routine) - Closed Specialty Diagnoses / Procedures Referred By Addison lomeli Referred To Contact Gastroenterology Diagnoses Abnormal CT of the abdomen Meghana Jacobson, INTERVENTIONAL NURSE [address] [address] Phone: tel: fax: Referral ID Status Reason Start Date Expiration Date V isits Requested Visits Authorized [id number] Closed Specialty Services Required 10/05/2022 04/05/2024 1 1 Encounter Details Date Type Department Care Team (Late st Contact Info) Description 10/05/2022 Community [facility] [address] [place] [address] Meghana Jacobson, INTERVENTIONAL NURSE [address] of the abdomen (Primary Dx) Social History Tobacco Use Types Packs/Day Years [...] as of this encounter Plan of Treatment Scheduled Referrals Name Type Priority Associated Diagnoses Order Schedule Ambulatory referral to Gastroenterology Outpatient Referral Routine Abnormal CT of the abdomen Expected: 10/05/2022 (Approximate), Expires: 04/07/2024 documented as of this encounter Visit Diagnoses Diagnosis Abnormal CT of the abdomen- Primary Nonspecific (abnormal) findings on radiological and other examination of abdominal area, including retroperitoneum documented in this encounter Additional Health Concerns Infection Onset Date Last Indicated Resolved Time C. difficile Comment:Done at [facility]- Negative for C-Diff results imported in media tab 01/19/2023 01/19/2023 02/09/2023 10:41 AM EDT Gastrointestinal Rule-Out 11/12/2023 11/12/2023 4:31 PM EDT C. difficile Rule-Out 11/12/2023 11/12/20232023 4:31 PM EDT C. difficile Rule-Out 11/14/2023 11/14/20232023 9:18 AM EDT Gastrointestinal Rule-Out 02/07/2024 02/07/2024 5:24 AM EDT Assessment Noted Time A fall risk assessment has been complete d for the patient 11/04/2021 11:18 AM EDT documented as of this encounter Care Teams Broomcorn Scraper Relationship Specialty Start Date End Date Juarez Kothari MD [address] [place] [address] PCP - General 10/03/20 Sumanth Fernandez MD [address] [place] [address] Surgeon Neurosurgery 11/04/21 documented as of this encounter
--- OUTSIDE RECORDS SUMMARY | 2025-04-02 11:08 | XMS_ITS | Encounter Summary ---
Author Organization [facility] Address [address] [place] [address] Care Team Providers Care Academic Support Specialist Name Role Phone Juarez Kothari MD Primary Care Provider [phone] Sumanth Fernandez MD Unavailable [phone] Encounter Details Date Type Department Care Team (Late st Contact Info) Description 01/31/2025 Telephone PAV A Radiology [address] [place] [id number] Alison Meneses, RN [facility] RADIOLOGY Social History Tobacco Use Types Packs/Day Years [...] place to sleep or slept in a care home (including now)? No 03/13/2024 PHQ-9 Answer Date Recorded Patient Health Questionnaire-9 Score 0 02/12/2025 Utilities Answer Date Recorded In the past 12 months has e COM DEV, gas, oil, or water [employer] threatened to shut off services in your [...] documented as of this encounter Care Teams Academic Support Specialist Relationship Specialty Start Date End Date Juarez Kothari MD [address] [place] [address] PCP - General 10/03/20 Sumanth Fernandez MD [address] [place] [address] Surgeon Neurosurgery 11/04/21 documented as of this encounter
== END 2025-03-29 23:59 ==
LOC: LAB.DROPOF 04-02 11:01
PROVIDERS: PCP Internal Medicine Adolescent Medicine; Visit Provider Nurse Practitioner
DX: J02.9 Acute pharyngitis, unspecified (principal); N39.0 Urinary tract infection, site not specified
CPT/HCPCS: 81001; 87086; 87631

== ENCOUNTER 2025-05-21 11:29 | Outpatient (CLI) | payer BC, SELFPAY ==
--- OUTSIDE RECORDS SUMMARY | 2024-02-10 06:00 | XMS_ITS ---
Author Organization [facility] Address [address] [place], [place] [address] Care Team Providers Care Recruitment Manager Name Role Phone Juarez Kothari Primary Care Provider [phone] Meghana Jacobson Unavailable [phone] REASON FOR VISIT FMLA Encounters Encounter Location Date Provider Diagnosis [facility] [address] [place], [place] [address] 02/10/2024 Meghana Jacobson Plan Of Treatment No Information Progress Notes * Jodie LINGDOB:1970 (55 yo F)Acc No.[id number]:02/10/2024 Patient: David Jodie butler Provider: DANICA Lee :1970 A ge:54 Y S ex:Female Date:02/10/2024 Address:[address] [id number] Pcp:Juarez Kothari Subjective: * Chief Complaints: * F MLA * Electronic signature of Sophia Jacobson APRN on 05/21/2025 at 11:35 AM EST Sign off status: Pending * Provider: DANICA Lee Date: 0 02/10/2024 Generated for Printi ng/Faxing/eTransmitting on: 1 11:35 AM EST
--- OUTSIDE RECORDS SUMMARY | 2024-08-25 16:30 | XMS_ITS ---
Author Organization [facility] Address [address] [place] [address] Care Team Providers Care Thiokol Operator Name Role Phone Juarez Kothari Primary Care Provider [phone] Migration, Provider Unavailable Unavailable Allergies Allergen (clinical drug ingredient) Drug/Non Drug Allergy documented on EMR Reaction Allergy Type Onset Date Status Substance with sulfonamide structure and antibacterial mechanism of action (substance) SULFA (uncoded) hives and vomiting Allergy [facility] Encounter Medications Medication SIG (Take, Route, Frequency, Duration) Notes Start Date End Date Status Aspirin 81 MG Tablet Delayed Release 1 tab(s) orally once a day; Duration: 30 day(s) 08/14/2021 Active Fluticasone Propionate 50 MCG/ACT Suspension 1 spray(s) in each nostril 2 times a day; Duration: 30 days prn 10/31/2023 Active Pantoprazole Sodium 40 MG Tablet Delayed Release 1 tab(s) orally once a day Active Sertraline HCl 100 MG Tablet 1/2 tab(s) orally twice a day Active diazePAM 5 MG Tablet 1/2 tab(s) orally twice a day Active Fiber Choice *Please review a nd pick correct strength-formulatio n from [employer] options. If intended option is not shown, discontinue and re-order from Quick Search* Active MagOx 400 400 MG TABLET 1 TAB(S) ORALLY ONCE A DAY *Please review and pick correct strength-formulatio n from [employer] Soft[employer] options. If intended option is not shown, discontinue and re-order from Quick Search* Active Losartan Potassium 25 MG Tablet 1 tab(s) orally once a day; Duration: 30 day(s) Active Euthyrox 25 MCG (0.025 MG) TABLET TAKE 1 TABLET BY MOUTH ONCE DAILY; Duration: 90 *Please review and pick correct strength-formulatio n from Medispan options. If intended option is not shown, discontinue and re-order from Quick Search* Active Encounters Encounter Location Date Provider Diagnosis [facility] [address] [facility] [address] [place] [address] 08/25/2024 Provider Migration Plan Of Treatment No Information Progress Notes * Jodie LINGDOB:1970 (55 yo F)Acc No.[id number]:08/25/2024 Patient: David butler Jodie August Provider: Christopher pollock Migration :1970 A ge:54 Y S ex:Female Date:08/25/2024 Address:[address] [place] [address], [place], [id number] Pcp:Juarez Kothari Subjective: * Chief Complaints: * M ultum To Medispan Conversion Encounter * Medications: T akingFiber Choice , Notes to Pharmacist: *Please review and pick correct strength-formulation from [employer] Soft[employer]an options. If intended option is not shown, discontinue and re-order from Quick Search*MagOx 400 400 MG TABLET 1 TAB(S) ORALLY ONCE A DAY , Notes to Pharmacist: *Please review and pick correct strength-formulation from [employer] options. If intended option is not shown, discontinue and re-order from Quick Search*diazePAM 5 MG Tablet 1/2 tab(s) orally twice a day Pantoprazole Sodium 40 MG Tablet Delayed Release 1 tab(s) orally once a day Sertraline HCl 100 MG Tablet 1/2 tab(s) orally twice a day Aspirin 81 MG Tablet Delayed Release 1 tab(s) orally once a day Fluticasone Propionate 50 MCG/ACT Suspension 1 spray(s) in each nostril 2 times a day , Notes to Pharmacist: prnLosartan Potassium 25 MG Tablet 1 tab(s) orally once a day Euthyrox 25 MCG (0.025 MG) TABLET TAKE 1 TABLET BY MOUTH ONCE DAILY , Notes to Pharmacist: *Please review and pick correct strength-formulation from Medispan options. If intended option is not shown, discontinue and re-order from Quick Search*Taking Fiber Choice , Notes to Pharmacist: *Please review and pick correct strength-formulation from Medispan options. If intended option is not shown, discontinue and re-order from Quick Search*Taking MagOx 400 400 MG TABLET 1 TAB(S) ORALLY ONCE A DAY , Notes to Pharmacist: *Please review and pick correct strength-formulation from Medispan options. If intended option is not shown, discontinue and re-order from Quick Search*Taking diazePAM 5 MG Tablet 1/2 tab(s) orally twice a day Taking Pantoprazole Sodium 40 MG Tablet Delayed Release 1 tab(s) orally once a day Taking Sertraline HCl 100 MG Tablet 1/2 tab(s) orally twice a day Taking Aspirin 81 MG Tablet Delayed Release 1 tab(s) orally once a day Taking Fluticasone Propionate 50 MCG/ACT Suspension 1 spray(s) in each nostril 2 times a day , Notes to Pharmacist: prnTaking Losartan Potassium 25 MG Tablet 1 tab(s) orally once a day Taking Euthyrox 25 MCG (0.025 MG) TABLET TAKE 1 TABLET BY MOUTH ONCE DAILY , Notes to Pharmacist: *Please review and pick correct strength-formulation from [employer] Soft[employer]an options. If intended option is not shown, discontinue and re-order from Quick Search* * Allergies: S ULFA: hives and vomiting - Side Effects Billing Information: * Procedure Codes: * Electronic signature of Prov davi Migration on 05/21/2025 at 11:36 AM EST Sign off status: Pending * Provider: Christopher pollock Migration Date: 0 08/25/2024 Generated for [place]/Seda/Brie on: 1 11:36 AM EST
--- OUTSIDE RECORDS SUMMARY | 2025-05-21 11:36 | XMS_ITS | Patient Health Record ---
Author Organization [facility] Address [address] [place] [address] Care Team Providers Care Trimmer Sawyer Name Role Phone Juarez Kothari Primary Care Provider [phone] Meghana Jacobson Unavailable [phone] Migration, Provider Unavailable Unavailable Allergies Allergen (clinical drug ingredient) Drug/Non Drug Allergy documented on EMR Reaction Allergy Type Onset Date Status Substance with sulfonamide structure and antibacterial mechanism of action (substance) SULFA (uncoded) hives and vomiting Allergy Active Results Component Value Reference Range Notes Rapid Covid/Flu A-B Combo (N ot yet reviewed by provider) Interpretation: Performing Lab: Notes/Report: Rapid Covid neg Flu A neg Flu B neg Urinalysis Reviewed date:10/11/2024 11:16:39 AM Interpretation: Performing Lab: Notes/Report: Color/Clarity lt yellow Leuk neg Nitrite neg Urobili 0.2 Protein neg pH 7.0 Blood small Sp. Gr. 1.020 Ketone neg Bili neg Glucose neg M-Urine Culture Reviewed date:05/31/2024 02:38:34 PM Interpretation: Performing Lab: Notes/Report: CUU No growth. Urinalysis Reviewed date:05/29/2024 11:34:26 AM Interpretation: Performing Lab: Notes/Report: Color/Clarity lt yellow Leuk neg Nitrite neg Urobili 0.2 Protein neg pH 6.0 Blood neg Sp. Gr. >=1.030 Ketone neg Bili neg Glucose neg Rapid Strep Reviewed date:12/03/2024 05:49:49 PM Interpretation:Negative Performing Lab: Notes/Report: Negative Rapid screen Neg Medications Medication SIG (Take, Route, Frequency, Duration) Notes Start Date End Date Status Aspirin 81 MG Tablet Delayed Release 1 tab(s) orally once a day; Duration: 30 day(s) 08/14/2021 Active lamoTRIgine 25 MG Tablet 2 tablets Orally daily Active Levothyroxine Sodium 25 MCG Tablet Take 1 tablet by mouth once daily; Duration: 90 Active Losartan Potassium 25 MG Tablet 1 tab(s) orally once a day; Duration: 30 day(s) Active Desvenlafaxine ER 50 MG Tablet Extended Release 24 Hour 1 tablet Orally Once a day Active Ondansetron HCl 4 MG Tablet 1 tablet Ora lly every 8 hours as needed for nausea/vomiting; Duration: 4 days 05/21/2025 Active Propranolol HCl 10 MG Tablet 1 tablet on an empty stomach Orally every 12 hrs Active diazePAM 5 MG Tablet 1/2 tab(s) orally t wice a day Active Acyclovir 400 MG Tablet 1 tablet Orally 3 times a day; Duration: 5 days 05/21/2025 Active Hydrocortisone 2.5 % Cream 1 application Externally Once a day Active Immunizations Vaccine Route Administration Date Status Comme nts Adacel (Tdap) Unknown 08/10/2012 Administered Boostrix IM Intramuscular 12/26/2023 Administered Covid Pfizer Unknown 08/06/2020 Administered Covid Pfizer Unknown 09/03/2020 Administered Influenza-Fluzone 3+years (NON-MEDICARE) IM Intramuscular 03/11/2015 Administered Influenza-Fluzone 3+years (NON-MEDICARE) IM Intramuscular 02/14/2018 Administered Social History Social History Additional Details Category Social Info Options Details Social History Occupation: [employer] Travel outside [place]: no Alcohol: no Sexually active: yes Recreational drug use: no Exercise: no Home smoke detector use: yes Caffeine: yes 1 daily Living Will No Section Notes: Lives with spouse. Lives with spouse. Lives with spouse. Lives with spouse. Lives alone Lives alone Lives alone Lives alone Lives alone Lives alone Lives alone Lives alone Lives alone Lives with spouse. Lives alone Lives alone Lives alone Lives alone Lives alone Lives alone Lives alone Lives alone Lives alone Lives alone Lives alone Lives alone Problems Problem Type SNOMED Code ICD Code Onset Dates Problem Status W/U Status Risk Notes Problem Chronic pain (66917548) Other chronic pain (G89.29) Active confirmed Problem Sequelae of cerebral infarction (386401293) Unspecified sequelae of cerebral infarction (I69.30) Active confirmed Problem Postmenopausal bleeding (01179834) Postmenopausal bleeding (N95.0) Active confirmed Problem Mixed anxiety and depressive disorder (423763960) Depression with anxiety (F41.8) Active confirmed Problem Paresthesia (64183216) Paresthesia (R20.2) Active confirmed Problem Vitamin D deficiency (29601509) Vitamin D deficiency (E55.9) Active confirmed Problem Essential hypertension (84061717) HTN (hypertension), benign (I10) Active confirmed Problem Nephrolithiasis (70563224) Nephrolithiasis (N20.0) Active confirmed Problem Gastroesophageal reflux disease with esophagitis (disorder) (543454157) GERD with esophagitis (K21.0) Active confirmed Problem Gastroesophageal reflux disease (626846893) Gastroesophageal reflux disease, esophagitis presence not specified (K21.9) Active confirmed Problem Acute suppurative otitis media without spontaneous rupture of ear drum (12675547) Acute suppurative otitis media of left ear without spontaneous rupture of tympanic membrane, recurrence not specified (H66.002) Active confirmed Problem Insomnia disorder related to another mental disorder (57113583) Psychophysiological insomnia (F51.04) Active confirmed Problem Hiatal hernia (78814634) Hiatal hernia (K44.9) Active confirmed Problem Respiratory tract congestion (631470908) Congestion of respiratory tract (J98.8) Active confirmed Problem Fever blister (2137289) Fever blister (B00.1) Active confirmed Problem History of nephrolithiasis (687188036) History of nephrolithiasis (Z87.442) Active confirmed Problem Generalized anxiety disorder (39141658) BERNADINE (generalized anxiety disorder) (F41.1) Active confirmed Problem Mechanical low back pain (036008004) Mechanical low back pain (M54.5) Active confirmed Problem Hyperlipidaemia (61332088) Hyperlipidemia, unspecified hyperlipidemia type (E78.5) Active confirmed Problem Chronic maxillary sinusitis (58408370) Chronic sinusitis of both maxillary sinuses (J32.0) Active confirmed Problem Hypothyroidism (30751233) Unspecified hypothyroidism (E03.9) Active confirmed Problem Irritable bowel syndrome (64209277) Irritable bowel syndrome with constipation and diarrhea (K58.2) Active confirmed Problem Serum vitamin B12 low (225652272) Low vitamin B12 level (E53.8) Active confirmed Problem Late effects of cerebrovascular disease (680071839) History of CVA with residual deficit (I69.30) Active confirmed Problem History of infectious disease (416587778) History of Clostridium difficile colitis (Z86.19) Active confirmed Problem Lipoma of skin and subcutaneous tissue (53922732548358) Lipoma of skin and subcutaneous tissue (D17.30) Active confirmed Problem Prolapsed cervical intervertebral disc (484635194) Cervical disc herniation (M50.20) Active confirmed Problem Vomiting (594419740) Recurrent vomiting (R11.10) Active confirmed Problem Uterine leiomyoma (41033819) Uterine leiomyoma, unspecified location (D25.9) Active confirmed Problem Degeneration of lumbar intervertebral disc (73934344) Degeneration of intervertebral disc at L5-S1 level (M51.36) Active confirmed Problem 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 Problem Clostridial enteric disease (913522639) 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) Active confirmed Problem Exposure to COVID-19 (808827296) Exposure to COVID-19 virus (Z20.828) Active confirmed Problem Sensory disorder of smell and/or taste (7465764472688) Altered taste (R43.2) Active confirmed Problem Hemiparesis of left side of face (2217964803) Hemiparesis of left side of face (G81.94) Active confirmed Problem Cerebral infarction (351664994) Cerebrovascular accident (CVA) involving right cerebral hemisphere (I63.9) Active confirmed Vital Signs Heart Rate 70 /min 05/21/2025 Temperature 97.5 degrees Fahrenheit 05/21/2025 Blood pressure diastolic 72 mm Hg 05/21/2025 Height 62 in 05/21/2025 Blood pressure systolic 124 mm Hg 05/21/2025 Weight 134.4 lbs 05/21/2025 BMI 24.58 kg/m2 05/21/2025 Encounters Encounter Location Date Provider Diagnosis [facility] [address] [place] [address] 08/25/2024 Provider Migration [facility] [address] [facility] [address] [place] [address] 05/21/2025 Meghana Jacobson Body aches R52 ; Gastroenteritis K52.9 ; Fever blister B00.1 ; Hyperlipidemia, unspecified hyperlipidemia type E78.5 ; Vitamin D deficiency E55.9 ; Low vitamin B12 level E53.8 ; Unspecified hypothyroidism E03.9 ; HTN (hypertension), benign I10 and Bilateral hand swelling M79.89 [facility] [address] [facility] [address] [place] [address] 05/29/2024 Meghana Jacobson Dysuria R30.0 [facility] [address] [facility] [address] [place] [address] 10/11/2024 Meghana Jacobson Urinary frequency R3 5.0 and Microscopic hematuria R31.29 [facility] [address] [facility] [address] [place] [address] 12/03/2024 Meghana Jacobson Sore throat J02.9 an d URI with cough and congestion J06.9 Assessments [...] abnormalities. I did recommend that she start wfio-upy-hnobp er sublingual B12 and keep her appointment for [...] would discuss putting her on an antibiotic. 05/21/2025 Gastroenteritis (ICD-10 - K52.9) 05/21/2025 Body aches (ICD-10 - R52) 05/21/2025 Fever blister (ICD-10 - B00.1) 05/21/2025 Hyperlipidemia, unspecified hyperlipidemia type (ICD-10 - E78.5) 05/21/2025 Vitamin D deficiency (ICD-10 - E55.9) 05/21/2025 Low vitamin B12 level (ICD-10 - E53.8) 05/21/2025 Unspecified hypothyroidism (ICD-10 - E03.9) 05/21/2025 HTN (hypertension), benign (ICD-10 - I10) 05/21/2025 Bilateral hand swelling (ICD-10 - M79.89) Plan Of Treatment Pending Test Test Name [...] ROUTINE* 11/14/2015 M-Complete Blood Count Auto Diff 025 M-Complete Blood Count Auto Diff 021 M-Erythrocyte Sedimentation Rate 025 M-Comprehensive Metabolic Panel 05/21/20 25 M-Comprehensive Metabolic Panel 07/17/19 20 M-Comprehensive Metabolic Panel 11/21/19 21 M-Magnesium 05/21/2025 W-R-Rfsovaou Protein 05/21/2025 M-Lipid Panel 05/21/2025 M-Lipid Panel 07/17/2019 M-Lipid Panel 11/20/2020 M-Thyroid Stimulating Hormone 11/20/2020 M-Thyroid Stimulating Hormone 05/21/2025 M-Diarrhea Panel, PCR 11/10/2023 M-Vitamin B12 05/21/2025 M-Vitamin D 25 Hydroxy 05/21/2025 M-COVID PCR SINGLE RAPID 12/27/2019 Rapid Covid/Flu A-B Combo 05/21/2025 Insurance Providers Payer Name Payer Address Payer Phone Subscriber Number Group Number Insured Name Patient Relationship to Insured Coverage Start Date Coverage End Date [facility] [address] [place] [address] [id number] Jodie Ling Self - patient is the [...]
--- OUTSIDE RECORDS SUMMARY | 2025-05-21 11:36 | XMS_ITS | Encounter Summary ---
Author Organization [facility] Address [address] [place] [address] Care Team Providers Care Home Inspector Name Role Phone Juarez Kothari MD Primary Care Provider [phone] Sumanth Fernandez MD Unavailable [phone] Encounter Details Date Type Department Care Team ([facility] st Contact Info) Description 08/08/2021 Orders Only External Location [address] [place] [address] Provider, External Social History Tobacco Use Types [...] Indicated Resolved Time C. difficile Comment:Done at [facility]- Negative for C-Diff results imported in media tab 01/19/2023 01/19/2023 02/09/2023 10:41 AM EDT Gastrointestinal Rule-Out 11/12/2023 11/12/2023 4:31 PM EDT C. difficile Rule-Out 11/12/2023 11/12/20232023 4:31 PM EDT C. difficile Rule-Out 11/14/2023 11/14/20232023 9:18 AM EDT Gastrointestinal Rule-Out 02/07/2024 02/07/2024 5:24 AM EDT documented as of this encounter Care Teams Home Inspector Relationship Specialty Start Date End Date Juarez Kothari [facility] [address] PCP - General 10/03/20 Sumanth Fernandez MD [address] [facility] [address] [place] [address] Surgeon Neurosurgery 11/04/21 documented as of this encounter
--- OUTSIDE RECORDS SUMMARY | 2025-05-21 11:36 | XMS_ITS | Encounter Summary ---
Author Organization [facility] Address [address] [place] [address] Care Team Providers Care Home Restoration Service Cleaner Name Role Phone Juarez Kothari MD Primary Care Provider [phone] Sumanth Fernandez MD Unavailable [phone] Encounter Details Date Type Department Care Team (Late st Contact Info) Description 02/11/2025 Results Follow-Up Colorectal Surgery [address] [place] [address] Jennifer Zamudio MD [address] [facility] [address] [place] [address] Social History Tobacco Use Types Packs/Day Years [...] place to sleep or slept in a detention (including now)? No 03/13/2024 PHQ-9 Answer Date [...] as of this encounter Care Teams Home Restoration Service Cleaner Relationship Specialty Start Date End Date Juarez Kothari MD [facility] [id number] PCP - General 10/03/20 Sumanth Fernandez MD [address] [place] [address] Surgeon Neurosurgery 11/04/21 documented as of this encounter
--- OUTSIDE RECORDS SUMMARY | 2025-05-21 11:36 | XMS_ITS | Encounter Summary ---
Author Organization [facility] Address [address] [place] [address] Care Team Providers Care Hr Associate Name Role Phone Juarez Kothari MD Primary Care Provider [phone] Sumanth Fernandez MD Unavailable [phone] Encounter Details Date Type Department Care Team ([facility] st Contact Info) Description 08/08/2021 Orders Only External Location [address] [place] [address] Provider, External Social History Tobacco Use Types [...] Indicated Resolved Time C. difficile Comment:Done at [facility]- Negative for C-Diff results imported in media tab 01/19/2023 01/19/2023 02/09/2023 10:41 AM EDT Gastrointestinal Rule-Out 11/12/2023 11/12/2023 4:31 PM EDT C. difficile Rule-Out 11/12/2023 11/12/20232023 4:31 PM EDT C. difficile Rule-Out 11/14/2023 11/14/20232023 9:18 AM EDT Gastrointestinal Rule-Out 02/07/2024 02/07/2024 5:24 AM EDT documented as of this encounter Care Teams Hr Associate Relationship Specialty Start Date End Date Juarez Kothari MD [place] [address] [address] PCP - General 10/03/20 Sumanth Fernandez MD [address] [facility] [address] [place] [address] Surgeon Neurosurgery 11/04/21 documented as of this encounter
--- OUTSIDE RECORDS SUMMARY | 2025-05-21 11:36 | XMS_ITS | Clinical Summary ---
Author Organization [facility] Address [address] [place] [address] Care Team Providers Care Info Print Press Operator Name Role Phone Juarez Kothari MD Primary Care Provider [phone] Sumanth Fernandez MD Unavailable [phone] Allergies Active Allergy Reactions Criticality Noted [...] of the hands or feet 12/21/2023 02/10/2025 Immunizations Immunization Administration Dates Next Due Influenza, injectable, quadrivalent 02/14/2018,1 Harvest COVID-19 Vaccine (Purple Cap) 12 + 09/03/2020,08/06/2020 [...] place to sleep or slept in a intermediate (including now)? No 03/13/2024 PHQ-9 Answer Date [...] Health Maintenance Due Date Last Done Comments [facility]-/Child/Adol SDOH Screenings 1970 [facility]- SDOH Screenings 1989 [facility]-Adult SDOH Screenings 1989 [facility]-Hepatitis B Vaccines (1 of 3 - 19+ 3-dose series) 1990 [facility]-Pap Smear 02/19/1999 02/20/1996, 11/0 07/1993, 09/21/1993, Additional history exists [facility]-Cervical Cancer Screening 02/19/2001 [facility]-HPV/Cotest 02/19/2001 02/20/1996, 11/0 07/1993, 09/21/1993, Additional history exists [id number] Vaccine (3 - Pfizer risk series) 10/01/2020 [...] Discontinued FIT Discontinued FOBT Discontinued HPV Vaccines (No Doses Required) Completed Sigmoidoscopy Discontinued [facility]-HIB Vaccines Aged Out No [...] Procedure Name Priority Date/Time Associated Diagnosis Comments HEPATITIS C ANTIBODY - ED W/REFLEX TO HCV QUANT PCR STAT 02/07/2024 12:23 PM EDT ED HIV 1/2 ANTIBODY/ANTIGEN SCREEN WITH REFLEX TO HIV I/II DIFFERENTIATION STAT 02/07/2024 12:23 PM EDT COLONOSCOPY 03/08/2023 10:05 AM EDT [facility] DATA CONVERSION Routine 02/20/1996 12:00 AM EDT from Last 3 Months or Most Recently Relevant to Health Maintenance Results * ED HIV 1/2 Antibody/Antigen Screen w/Reflex to HIV 1/2 Differentiation (02/07/2024 12:23 PM EDT) HIV 1 & 2 Antibody/Antigen Screen Non Reactive Non Reactive 02/07/2024 1:13 PM EDT [facility] Comment:Screening for HIV 1 & 2 antibodies, and P24 antigen is NONREACTIVE. No confirmatory testing is required. Blood Venous blood specimen / Unknown Venipuncture / Unknown 02/07/2024 12:23 PM EDT 02/07/2024 12:40 PM EDT [employer] DO LAB BLOOD ORDERABLES Final Resu lt Performing Organization Address [facility] Co de Phone Number [facility] [address] [place] [address] * Hepatitis C Antibody - ED (02/07/2024 12:23 PM EDT) Hepatitis C Antibody Negative Negative 02/07/2024 1:09 PM EDT [facility] Blood Venous blood specimen / Unknown Venipuncture / Unknown 02/07/2024 12:23 PM EDT 02/07/2024 12:40 PM EDT [employer] DO LAB BLOOD ORDERABLES Final Resu lt Performing Organization Address [facility] Co de Phone Number [facility] [address] [place] [address] * Colonoscopy (03/08/2023 10:05 AM EDT) Anatomical [...] Narrative SUNQUEST - 03/02/1996 12:00 AM EDT [facility] MR #: [id number] [facility] [address] [place], [place] [address] 1970 (Age: 26) FW Collect Date: 02/20/1996 00:00 Receipt Date: 02/20/1996 00:00 Page 1 DEPARTMENT OF PATHOLOGY AND LABORATORY MEDICINE CYTOPATHOLOGY REPORT Email: [email or web address] * Converted Case * This report may not match the original report format ATTENDING MD/Practitioner: Rosendo Hollins MD Service: AIR HAMMER STRIPPER Location: Reported: 03/02/1996 00:00 Collected: 02/20/1996 00:00 [...] results is suggested (please call Microbiology at [phone] for results). CLINICAL INFORMATION: Menstrual History: {Not Provided} Date of Last Menstrual Period: {Not Provided} SPECIMEN DESCRIPTION: A: CERVICAL/VAGINAL SMEAR, PAP ICD: F: {Not Entered} SNOMED CODES: 1; [id number] N41369.8 [id number] In cases where a pathologist has signed out the report, the service has been rendered in part by a resident. The signing pathologist has performed and is responsible for the reported pathologic evaluation. us Historical Provider LAB PATHOLOGY ORDERABLES Fin al Result SUNQUEST from Last 3 Months or Most Recently Relevant to Health Maintenance Insurance ANTH Advance Directives * Full Code (Latest Code Status on File) Date Activated Date Inactivated Comments 03/12/2024 10:25 AM 03/19/2024 1:05 PM Question Answer Comments Patient has decision-making capacity? Yes Care Teams Info Print Press Operator Relationship Specialty Start Date End Date Juarez Kothari MD [facility] [address] [id number] PCP - General 10/03/20 Sumanth Fernandez MD [address] [facility] [address] [place] [address] Surgeon Neurosurgery 11/04/21
--- OUTSIDE RECORDS SUMMARY | 2025-05-21 11:36 | XMS_ITS | Encounter Summary ---
Author Organization [facility] Address [address] [place] [address] Care Team Providers Care Lining Ironer Name Role Phone Juarez Kothari MD Primary Care Provider [phone] Sumanth Fernandez MD Unavailable [phone] Encounter Details Date Type Department Care Team ([facility] st Contact Info) Description 08/08/2021 Orders Only External Location [address] [place] [address] Provider, External Social History Tobacco Use Types [...] Indicated Resolved Time C. difficile Comment:Done at [facility]- Negative for C-Diff results imported in media tab 01/19/2023 01/19/2023 02/09/2023 10:41 AM EDT Gastrointestinal Rule-Out 11/12/2023 11/12/2023 4:31 PM EDT C. difficile Rule-Out 11/12/2023 11/12/20232023 4:31 PM EDT C. difficile Rule-Out 11/14/2023 11/14/20232023 9:18 AM EDT Gastrointestinal Rule-Out 02/07/2024 02/07/2024 5:24 AM EDT documented as of this encounter Care Teams Lining Ironer Relationship Specialty Start Date End Date Juarez Kothari MD [facility] [address] [address] PCP - General 10/03/20 Sumanth Fernandez MD [address] [facility] [address] [place] [address] Surgeon Neurosurgery 11/04/21 documented as of this encounter
--- OUTSIDE RECORDS SUMMARY | 2025-05-21 11:36 | XMS_ITS | Encounter Summary ---
Author Organization Healthcare Address [address] [place] [address] Care Team Providers Care Burglar Alarm Operator Name Role Phone Juarez Kothari MD Primary Care Provider [phone] Sumanth Fernandez MD Unavailable [phone] Encounter Details Date Type Department Care Team ([facility] st Contact Info) Description 11/02/2018 Orders Only External Location [address] [place] [address] Provider, External Social History Tobacco Use Types [...] Indicated Resolved Time C. difficile Comment:Done at [facility]- Negative for C-Diff results imported in media tab 01/19/2023 01/19/2023 02/09/2023 10:41 AM EDT Gastrointestinal Rule-Out 11/12/2023 11/12/2023 4:31 PM EDT C. difficile Rule-Out 11/12/2023 11/12/20232023 4:31 PM EDT C. difficile Rule-Out 11/14/2023 11/14/20232023 9:18 AM EDT Gastrointestinal Rule-Out 02/07/2024 02/07/2024 5:24 AM EDT documented as of this encounter Care Teams Burglar Alarm Operator Relationship Specialty Start Date End Date Juarez Kothari MD [facility] 2A [address] PCP - General 10/03/20 Sumanth Fernandez MD [address] [facility] [address] [place] [address] Surgeon Neurosurgery 11/04/21 documented as of this encounter
--- OUTSIDE RECORDS SUMMARY | 2025-05-21 11:36 | XMS_ITS | Encounter Summary ---
Author Organization [facility] Address [address] [place] [address] Care Team Providers Care Powder Core Tester Name Role Phone Juarez Kothari MD Primary Care Provider [phone] Sumanth Fernandez MD Unavailable [phone] Encounter Details Date Type Department Care Team ([facility] st Contact Info) Description 08/08/2021 Orders Only External Location [address] [place] [address] Provider, External Social History Tobacco Use Types [...] Indicated Resolved Time C. difficile Comment:Done at [facility]- Negative for C-Diff results imported in media tab 01/19/2023 01/19/2023 02/09/2023 10:41 AM EDT Gastrointestinal Rule-Out 11/12/2023 11/12/2023 4:31 PM EDT C. difficile Rule-Out 11/12/2023 11/12/20232023 4:31 PM EDT C. difficile Rule-Out 11/14/2023 11/14/20232023 9:18 AM EDT Gastrointestinal Rule-Out 02/07/2024 02/07/2024 5:24 AM EDT documented as of this encounter Care Teams Powder Core Tester Relationship Specialty Start Date End Date Juarez Kothari MD [facility] 2A [address] PCP - General 10/03/20 Sum[facility]andez [facility] [address] [facility] [address] [place] [address] Surgeon Neurosurgery 11/04/21 documented as of this encounter
--- OUTSIDE RECORDS SUMMARY | 2025-05-21 11:36 | XMS_ITS | Encounter Summary ---
Author Organization [facility] Address [address] [place] [address] Care Team Providers Care Railroad Track Inspector Name Role Phone Juarez Kothari MD Primary Care Provider [phone] Sumanth Fernandez MD Unavailable [phone] Encounter Details Date Type Department Care Team (Late st Contact Info) Description 03/08/2023 Outside Procedure [address] [address] Provider, External Social History Tobacco [...] documented as of this encounter Care Teams Railroad Track Inspector Relationship Specialty Start Date End Date Juarez Kothari MD [facility] 2A [address] PCP - General 10/03/20 Sumanth Fernandez MD [address] [place] [address] Surgeon Neurosurgery 11/04/21 documented as of this encounter
--- OUTSIDE RECORDS SUMMARY | 2025-05-21 11:36 | XMS_ITS | Encounter Summary ---
Author Organization [facility] Address [address] [place] [address] Care Team Providers Care Acid Dumper Name Role Phone Juarez Kothari MD Primary Care Provider [phone] Sumanth Fernandez MD Unavailable Encounter Details Date Type Department Care Team ([facility] st Contact Info) Description 01/26/2024 Orders Only External Location [address] [place] [phone] Ephraim Bolton, DO [address] [place] [address] Social History Tobacco Use Types [...] Tomogra phy 01/26/2024 6:01 PM EDT Ephraim Bolton DO [facility] CT PROCEDURES Final Result documented in this [...] documented as of this encounter Care Teams Acid Dumper Relationship Specialty Start Date End Date Juarez Kothari MD [facility] 2A [address] PCP - General 10/03/20 Sumanth Fernandez MD [address] [facility] [address] [place] [address] Surgeon Neurosurgery 11/04/21 documented as of this encounter
--- OUTSIDE RECORDS SUMMARY | 2025-05-21 11:36 | XMS_ITS | Encounter Summary ---
Author Organization [facility] Address [address] [place] [address] Care Team Providers Care Insulation Installer Name Role Phone Juarez Kothari MD Primary Care Provider [phone] Sumanth Fernandez MD Unavailable [phone] Encounter Details Date Type Department Care Team ([facility] Contact Info) Description 10/24/2020 Orders Only External Location [address] [place] [address] Provider, External Social History Tobacco Use Types [...] Indicated Resolved Time C. difficile Comment:Done at [facility]- Negative for C-Diff results imported in media tab 01/19/2023 01/19/2023 02/09/2023 10:41 AM EDT Gastrointestinal Rule-Out 11/12/2023 11/12/2023 4:31 PM EDT C. difficile Rule-Out 11/12/2023 11/12/20232023 4:31 PM EDT C. difficile Rule-Out 11/14/2023 11/14/20232023 9:18 AM EDT Gastrointestinal Rule-Out 02/07/2024 02/07/2024 5:24 AM EDT documented as of this encounter Care Teams Insulation Installer Relationship Specialty Start Date End Date Juarez Kothari MD [facility] 2A [address] PCP - General 10/03/20 Sumanth Fernandez MD [address] [facility] [address] [place] [address] Surgeon Neurosurgery 11/04/21 documented as of this encounter
--- OUTSIDE RECORDS SUMMARY | 2025-05-21 11:36 | XMS_ITS | Encounter Summary ---
Author Organization [facility] Address [address] [place] [address] Care Team Providers Care Groover And Turner Name Role Phone Juarez Kothari MD Primary Care Provider [phone] Sumanth Fernandez MD Unavailable [phone] Encounter Details Date Type Department Care Team (Late st Contact Info) Description 03/08/2023 Lab Requisition [facility] [address] [place] [address] Jeronimo Maza MD [address] [place] [address] Abnormal weight loss; Hemorrhage of anus and [...] Exam (03/08/2023) Case Report Surgical Pathology Case: [id number] Authorizing Provider: Jeronimo Maza MD Collected: 03/08/2023 Ordering Location: [facility] Lab Received: 03/08/2023 1347 Pathologist: Vianney Jones MD Specimen: Transverse Colon, transverse colon polyp 03/09/2023 1:29 PM EDT [facility] Final Diagnosis LARGE INTESTINE, TRANSVERSE COLON, POLYP, BIOPSY: - TUBULAR ADENOMA. 03/09/2023 1:29 PM EDT [facility] at 1329 EDT Clinical Information Abnormal weight loss Hemorrhage of anus and rectum One 6 mm polyp in the transverse colon 03/09/2023 1:29 PM EDT [facility] Gross Description A. TRANSVERSE COLON POLYP The specimen is received in formalin labeled transverse colon polyp . Consists of two fragments of avila-brown mucosa, measuring 0.2 x 0.2 x 0.1 cm and 0.3 x 0.2 x 0.1 cm. The specimen is submitted entirely in cassette A1. Sunny Cherry 03/09/2023 1:29 PM EDT [facility] Note: A resident was involved in the service. I attest I examined the relevant preparations for the specimens and confirmed the diagnosis or interpretation. 03/09/2023 1:29 PM EDT [facility] Tissue Transverse colon structure / Unknown 03/08/2023 03/08/2023 1:47 PM EDT us Jeronimo Maza MD LAB PATHOLOGY ORDERABLES Fi nal Result [facility] [address] [place] [address] documented in this encounter Visit Diagnoses Diagnosis [...] documented as of this encounter Care Teams Groover And Turner Relationship Specialty Start Date End Date Juarez Kothari MD [facility] 2A [address] PCP - General 10/03/20 Sumanth Fernandez MD [address] [facility] [address] [place] [address] Surgeon Neurosurgery 11/04/21 documented as of this encounter
--- OUTSIDE RECORDS SUMMARY | 2025-05-21 11:37 | XMS_ITS | Encounter Summary ---
Author Organization [facility] Address [address] [place] [address] Care Team Providers Care Bioinformatics Team Member Name Role Phone Juarez Kothari MD Primary Care Provider [phone] Sumanth Fernandez MD Unavailable [phone] Encounter Details Date Type Department Care Team ([facility] st Contact Info) Description 08/15/2021 Orders Only External Location [address] [place] [address] Provider, External Social History Tobacco Use Types [...] Indicated Resolved Time C. difficile Comment:Done at [facility]- Negative for C-Diff results imported in media tab 01/19/2023 01/19/2023 02/09/2023 10:41 AM EDT Gastrointestinal Rule-Out 11/12/2023 11/12/2023 4:31 PM EDT C. difficile Rule-Out 11/12/2023 11/12/20232023 4:31 PM EDT C. difficile Rule-Out 11/14/2023 11/14/20232023 9:18 AM EDT Gastrointestinal Rule-Out 02/07/2024 02/07/2024 5:24 AM EDT documented as of this encounter Care Teams Bioinformatics Team Member Relationship Specialty Start Date End Date Juarez Kothari MD [facility] 2A [address] PCP - General 10/03/20 Sumanth Fernandez MD [address] [facility] [address] [place] [address] Surgeon Neurosurgery 11/04/21 documented as of this encounter
--- OUTSIDE RECORDS SUMMARY | 2025-05-21 11:37 | XMS_ITS | Encounter Summary ---
Author Organization [facility] Address [address] [place] [address] Care Team Providers Care Superintendent Recreation Name Role Phone Juarez Kothari MD Primary Care Provider [phone] Sumanth Fernandez MD Unavailable [phone] Reason for Referral * Consultation (Routine) - Closed Specialty Diagnoses / Procedures Referred By Addison [email or web address] Referred To Contact Gastroenterology Diagnoses Abnormal CT of the abdomen Meghana Jacobson APRN [id number] fax: Referral ID Status Reason Start Date Expiration Date V isits Requested Visits Authorized [id number] Closed Specialty Services Required 10/05/2022 04/05/2024 1 1 Encounter Details Date Type Department Care Team (Late st Contact Info) Description 10/05/2022 Community [facility] [address] [place] [address] Meghana Jacobson APRN [id number] of the abdomen (Primary Dx) [...] Indicated Resolved Time C. difficile Comment:Done at [facility]- Negative for C-Diff results imported in [...] documented as of this encounter Care Teams Superintendent Recreation Relationship Specialty Start Date End Date Juarez Kothari MD [facility] 2A [address] PCP - General 10/03/20 Sumanth Fernandez MD [address] [place] [address] Surgeon Neurosurgery 11/04/21 documented as of this encounter
--- OUTSIDE RECORDS SUMMARY | 2025-05-21 11:37 | XMS_ITS | Encounter Summary ---
Author Organization Healthcare Address [address] [place] [address] Care Team Providers Care Commuter Train Operator Name Role Phone Juarez Kothari MD Primary Care Provider [phone] Sumanth Fernandez MD Unavailable [phone] Encounter Details Date Type Department Care Team ([facility] st Contact Info) Description 08/14/2021 Orders Only External Location [address] [place] [address] Meghana Jacobson APRN [id number] Social History Tobacco Use Types Packs/Day [...] Resonan ce 08/14/2021 7:51 AM EDT Meghana Jacobson APRN IMG MRI PROCEDURES Final Res ult documented in this encounter Visit Diagnoses Not on filedocumented in this encounter Additional Health Concerns Infection Onset Date Last Indicated Resolved Time C. difficile Comment:Done at [facility]- Negative for C-Diff results imported in media tab 01/19/2023 01/19/2023 02/09/2023 10:41 AM EDT Gastrointestinal Rule-Out 11/12/2023 11/12/2023 4:31 PM EDT C. difficile Rule-Out 11/12/2023 11/12/20232023 4:31 PM EDT C. difficile Rule-Out 11/14/2023 11/14/20232023 9:18 AM EDT Gastrointestinal Rule-Out 02/07/2024 02/07/2024 5:24 AM EDT documented as of this encounter Care Teams Commuter Train Operator Relationship Specialty Start Date End Date Juarez Kothari MD [facility] 2A [address] PCP - General 10/03/20 Sumanth Fernandez MD [address] [facility] [address] [place] [address] Surgeon Neurosurgery 11/04/21 documented as of this encounter
[2025-05-21 12:01] LABS: Hematocrit 40.7 % (37.0-47.0); Hemoglobin 13.4 g/dL (12.2-16.2); Immature Granulocytes % 0 %; Mean Corpuscular HGB Conc 32.9 g/dL (31.8-35.4); Mean Corpuscular Hemoglobin 30.2 pg (27.0-31.2); Mean Corpuscular Volume 91.7 fl (81-99); Nucleated Red Blood Cells % 0 %; Platelet Count 244 K/mm3 (142-424); Red Blood Count 4.44 M/mm3 (4.20-5.40); Red Cell Distribution Width-SD 43.4 fL; White Blood Count 4.9 K/mm3 (4.8-10.8)
[2025-05-21 12:55] LABS: Alanine Aminotransferase 14 U/L (12-78); Albumin Level 4.3 g/dl (3.5-5.0); Albumin/Globulin Ratio 2.0 (1.1-1.8); Alkaline Phosphatase 89 U/L (38-126); Anion Gap 8.7 mEq/L (5-15); Aspartate Amino Transferase 25 U/L (14-36); Bilirubin,Total 0.5 mg/dl (0.2-1.3); Blood Urea Nitrogen 23 mg/dl (7-17); Calcium 9.1 mg/dl (8.4-10.2); Carbon Dioxide 28 mmol/L (22.0-30.0); Chloride 107 mmol/L (98-107); Cholesterol 213 mg/dl (140-200); Creatinine,Serum 1.10 mg/dl (0.52-1.04); Estimated Glomerular Filt Rate 52 ml/min (>60); GFR (African American) 63 ML/MIN (>60); Globulin 2.2 g/dL (1.3-3.2); Glucose 83 mg/dl (74-100); HDL Cholesterol 96 mg/dl (40-60); Magnesium 2.0 mg/dl (1.6-2.3); Potassium 4.7 mmoL/L (3.5-5.1); Sodium 139 mmol/L (136-145); Total Protein,Serum 6.5 g/dl (6.3-8.2); Triglycerides 61 mg/dl (30-150)
[2025-05-21 13:06] LABS: C-Reactive Protein 0.4 mg/L (0-4)
[2025-05-21 13:13] LABS: 25-OH Vitamin D, Total 43.9 ng/mL (30-100)
[2025-05-21 13:24] LABS: Thyroid Stimulating Hormone 1.59 uIU/mL (0.465-4.68)
[2025-05-21 13:43] LABS: Vitamin B12 533 pg/mL (239-931)
== END 2025-05-21 23:59 | disposition home or self-care (01) ==
LOC: LAB 11:30
PROVIDERS: PCP Internal Medicine Adolescent Medicine; Visit Provider Nurse Practitioner Family
DX: E55.9 Vitamin D deficiency, unspecified (principal); E78.5 Hyperlipidemia, unspecified; E03.9 Hypothyroidism, unspecified; E53.8 Deficiency of other specified B group vitamins; I10 Essential (primary) hypertension; M79.89 Other specified soft tissue disorders
CPT/HCPCS: 36415; 80053; 80061; 82306; 82607; 83735; 84443; 85025; 85651; 86140